=== PATIENT | male | born 1995 | race African-American/Black ===

== ENCOUNTER 2016-12-16 18:53 | Inpatient (IN) | payer MEDICAID ==
[~2016-12-16] VITALS: Ht 198.1 cm; Wt 71.0 kg
[~2016-12-16 18:53] MED LIST: ATEN25TA PO; HYDR-3533 PO; MACR100C2 PO; antibiotic
[2016-12-16 18:55] VITALS: BP 136/80; PULSE 100; RESP 20; TEMP 100.3; O2SAT 98
[2016-12-17] VITALS (7 sets, daily range): BP systolic 102–131; BP diastolic 62–86; PULSE 61–87; RESP 16–17; TEMP 98–99; O2SAT 98–100
[2016-12-17] MEDS ORDERED: SODIUM CHLOR 0.9% 1000 ML INJ 1,000 ML IV ONE (02:30)
[2016-12-17] MEDS ORDERED: IBUPROFEN 600 MG TAB PO ONE (02:30)
[2016-12-17] MEDS ORDERED: VANCOMYCIN INJ 1,000 MG in SODIUM CHLOR 0.9% 250 ML INJ 250 ML IV ONE (02:30)
[2016-12-17] MEDS ORDERED: PIPERACIL-TAZO 3.375 GM PREMIX 50 ML IV ONE (02:30)
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
[2016-12-17 03:10] LABS: BASOPHIL # 0.1 TH/MM3 (0-0.2); BASOPHIL % 0.4 % (0.0-2.0); EOSINOPHIL # 0.1 TH/MM3 (0-0.4); EOSINOPHIL % 0.6 % (0.0-4.0); HEMATOCRIT 38.4 % (39.0-51.0); HEMO FLAGS DIFF FINAL; LYMPH % 15.6 % (9.0-44.0); LYMPHOCYTE # 1.8 TH/MM3 (1.0-4.8); MEAN CELL VOLUME 76.6 FL (80.0-100.0); MEAN CORPUSCULAR HEMOGLOBIN 26.2 PG (27.0-34.0); MEAN CORPUSCULAR HGB CONC 34.2 % (32.0-36.0); MONO % 5.9 % (0.0-8.0); NEUT % 77.5 % (16.0-70.0); PLATELET COUNT 253 TH/MM3 (150-450); RED BLOOD COUNT 5.01 MIL/MM3 (4.50-5.90); RED CELL DISTRIBUTION WIDTH 15.2 % (11.6-17.2); WHITE BLOOD COUNT 11.6 TH/MM3 (4.0-11.0)
[2016-12-17 03:18] LABS: APTT (PATIENT) 32.8 SEC (24.3-30.1); PROTHROMBIN TIME - PATIENT 11.5 SEC (9.8-11.6)
[2016-12-17 03:24] LABS: ALT (GPT) 24 U/L (9-52); ANION GAP 6 MEQ/L (5-15); AST (GOT) 18 U/L (15-39); BICARBONATE 30.7 MEQ/L (21.0-32.0); BLOOD UREA NITROGEN 9 MG/DL (7-18); CHLORIDE 100 MEQ/L (98-107); GLOMERULAR FILTRATION RATE 230 ML/MIN (>89); MAGNESIUM 2.2 MG/DL (1.5-2.5); POTASSIUM 3.8 MEQ/L (3.5-5.1); SODIUM (NA) 137 MEQ/L (136-145)
[2016-12-17 03:27] LABS: ALKALINE PHOSPHATASE 87 U/L (45-117); TOTAL BILIRUBIN ADULT 1.1 MG/DL (0.2-1.0)
[2016-12-17 03:29] LABS: BACTERIA, URINE MANY /hpf; BLOOD, URINE TRACE (NEG); GLUCOSE,URINE NEG (NEG); KETONE, URINE NEG (NEG); MUCUS URINE FEW /lpf (OCC); NITRITE,URINE NEG (NEG); PH, URINE 6.5 (5.0-8.5); URINE COLOR YELLOW (YELLW/STRAW)
[2016-12-17 03:30] LABS: COMMENT (UR) CATH-CULTURE IND; CULTURE IF INDICATED CATH CULTURE IND
--- NOTE | 2016-12-17 03:52 | RADRPT ---
EXAM DATE/TIME: 12/17/2016 03:22 [facility] COMPARISON: No previous studies available for comparison. INDICATIONS : Left hip pain. MEDICAL HISTORY : Paraplegia. SURGICAL HISTORY : Fusion, thoracic. ENCOUNTER: Initial ACUITY: 1 day PAIN SCORE: 0/10 LOCATION: Left pelvis hip. FINDINGS: Antwan and screw fixation of the lower lumbar spine identified. A screw overlies the right sacroiliac roxanne int. Bilateral hip joint space widths are intact. Normal bone density. No acute fracture or dislocati on. CONCLUSION: No acute disease. Timoteo Goode MD on December 17, 2016 at 3:49 Board Certified Radiologist. This report was verified electronically.
--- NOTE | 2016-12-17 03:52 | RADRPT ---
EXAM DATE/TIME: 12/17/2016 03:18 [facility] COMPARISON: CHEST SINGLE AP, October 18, 2015, 8:04. INDICATIONS : Fever, cough. MEDICAL HISTORY : Hypertension. Paraplegia. SURGICAL HISTORY : Fusion, thoracic. ENCOUNTER: Initial ACUITY: 2 days PAIN SCORE: 0/10 LOCATION: Bilateral chest FINDINGS: A single view of the chest demonstrates the lungs to be symmetrically aerated without evidence of mas s, infiltrate or effusion. The cardiomediastinal contours are unremarkable. Osseous structures demo nstrate maricarmen and screw fixation over the mid to lower thoracic spine.. CONCLUSION: No acute disease. Timoteo Goode MD on December 17, 2016 at 3:50 Board Certified Radiologist. This report was verified electronically.
[2016-12-17] MEDS ORDERED: NALOXONE HCL 0.4 MG/ML AMP IV PRN (04:15)
[2016-12-17] MEDS ORDERED: SODIUM CHLORIDE 0.9% FLUSH 5 ML FLUSH FLUSH PRN (04:15)
[2016-12-17] MEDS ORDERED: Vancomycin Consult Pharmacy 1 EA OTHER SCH (04:30)
[2016-12-17] MEDS ORDERED: ONDANSETRON HCL 4 MG/2 ML VIAL IV ONE (04:30)
[2016-12-17] MEDS: SODIUM CHLOR 0.9% 1000 ML INJ 1,000 ML IV SCH ×2 (04:44→14:03)
[2016-12-17] MEDS: BACLOFEN 10 MG TAB PO ONE ×2 (06:45→08:16)
[2016-12-17] MEDS: SODIUM CHLORIDE 0.9% FLUSH 5 ML FLUSH FLUSH SCH ×2 (08:16→21:00)
[2016-12-17] MEDS: PIPERACIL-TAZO 4.5 GM PREMIX 100 ML IV SCH ×3 (08:17→22:08)
[2016-12-17] MEDS: ENOXAPARIN SODIUM 40 MG/0.4 ML SYRINGE SQ SCH ×2 (08:17→08:30)
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
[2016-12-17] MEDS ORDERED: ACETAMINOPHEN/HYDROcodone 325 MG/5 MG TAB PO PRN (08:45)
[2016-12-17] MEDS ORDERED: PILL SPLITTER OTHER PRN (08:45)
[2016-12-17] MEDS ORDERED: ACETAMINOPHEN/HYDROcodone 325 MG/7.5 MG TAB PO PRN (08:45)
[2016-12-17] MEDS: PANTOPRAZOLE SOD 40 MG DELAYED RELEASE TAB PO SCH (09:00)
[2016-12-17] MEDS: ATENOLOL 25 MG TAB PO SCH (09:00)
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
[2016-12-17] MEDS: VANCOMYCIN INJ 1,250 MG in SODIUM CHLOR 0.9% 250 ML INJ 250 ML IV SCH ×2 (13:56→21:57)
[2016-12-17] MEDS: SODIUM HYPOCHLORITE 0.25% 500 ML BTL TOPICAL SCH ×2 (15:24→22:07)
[2016-12-17] MEDS: KETOROLAC TROMETHAMINE 30 MG/ML (IVP) VIAL IV PUSH PRN (22:11)
[2016-12-18] VITALS: BP 127/73; PULSE 84; RESP 16; TEMP 99.5; O2SAT 99
[2016-12-18] MEDS: SODIUM CHLOR 0.9% 1000 ML INJ 1,000 ML IV SCH ×3 (01:19→20:28)
[2016-12-18] MEDS: PIPERACIL-TAZO 4.5 GM PREMIX 100 ML IV SCH ×4 (03:09→20:17)
[2016-12-18] MEDS: VANCOMYCIN INJ 1,250 MG in SODIUM CHLOR 0.9% 250 ML INJ 250 ML IV SCH ×2 (04:12→11:36)
[2016-12-18] MEDS: KETOROLAC TROMETHAMINE 30 MG/ML (IVP) VIAL IV PUSH PRN ×2 (04:44→23:55)
[2016-12-18] MEDS: MORPHINE SULFATE 4 MG/ML INJ IV PUSH PRN ×2 (06:34→20:14)
[2016-12-18 06:41] LABS: AUTOMATED NEUTROPHIL # 5.6 TH/MM3 (1.8-7.7); BASOPHIL % 0.4 % (0.0-2.0); EOSINOPHIL # 0.2 TH/MM3 (0-0.4); EOSINOPHIL % 2.3 % (0.0-4.0); HEMATOCRIT 33.6 % (39.0-51.0); HEMO FLAGS DIFF FINAL; LYMPH % 19.3 % (9.0-44.0); LYMPHOCYTE # 1.5 TH/MM3 (1.0-4.8); MEAN CELL VOLUME 76.7 FL (80.0-100.0); MEAN CORPUSCULAR HEMOGLOBIN 26.6 PG (27.0-34.0); MEAN CORPUSCULAR HGB CONC 34.7 % (32.0-36.0); MONO % 7.7 % (0.0-8.0); NEUT % 70.3 % (16.0-70.0); PLATELET COUNT 236 TH/MM3 (150-450); RED BLOOD COUNT 4.38 MIL/MM3 (4.50-5.90); RED CELL DISTRIBUTION WIDTH 15.6 % (11.6-17.2); WHITE BLOOD COUNT 7.9 TH/MM3 (4.0-11.0)
[2016-12-18 06:51] LABS: BICARBONATE 23.3 MEQ/L (21.0-32.0); POTASSIUM 3.8 MEQ/L (3.5-5.1)
[2016-12-18 08:00] VITALS: BP 117/48; PULSE 78; RESP 17; TEMP 97.4; O2SAT 99
[2016-12-18] MEDS: PANTOPRAZOLE SOD 40 MG DELAYED RELEASE TAB PO SCH (08:11)
[2016-12-18] MEDS: SODIUM HYPOCHLORITE 0.25% 500 ML BTL TOPICAL SCH ×2 (08:11→20:17)
[2016-12-18] MEDS: ENOXAPARIN SODIUM 40 MG/0.4 ML SYRINGE SQ SCH (08:11)
[2016-12-18] MEDS: ATENOLOL 25 MG TAB PO SCH (08:11)
[2016-12-18] MEDS: SODIUM CHLORIDE 0.9% FLUSH 5 ML FLUSH FLUSH SCH ×2 (08:13→20:28)
[2016-12-18] MEDS ORDERED: INFLUENZA VIRUS VACCINE (QUADRIVALENT) 0.5 ML SYR IM ONE (09:00)
--- NOTE | 2016-12-18 09:25 | PD.PLAS.PN ---
Subjective Remarks The patient is lying comfortably. Objective Vital Signs Date Time Temp Pulse Resp B/P Pulse Ox O2 Delivery O2 Flow Rate FiO2 12/18/16 08:00 97.4 78 17 117/48 99 12/18/16 06:39 18 12/18/16 06:23 18 12/18/16 00:00 99.5 84 16 127/73 99 12/17/16 20:00 99.0 85 16 123/86 100 12/17/16 20:00 99.0 85 16 123/86 100 12/17/16 18:30 77 17 112/63 98 Room Air 12/17/16 15:44 70 17 115/75 98 Room Air 12/17/16 12:00 69 17 107/63 99 Room Air I/O 12/17/16 12/17/16 12/17/16 12/18/16 12/18/16 12/18/16 07:00 15:00 23:00 07:00 15:00 23:00 Intake Total 2378 ml 1178 ml Output Total 600 ml Balance 1778 ml 1178 ml Intake Oral 480 ml IV Total 1898 ml 1178 ml Output Urine Total 600 ml # Bowel Movements 0 Laboratory Tests Test 12/18/16 05:55 White Blood Count 7.9 Red Blood Count 4.38 Hemoglobin 11.6 Hematocrit 33.6 Mean Corpuscular Volume 76.7 Mean Corpuscular Hemoglobin 26.6 Mean Corpuscular Hemoglobin 34.7 Concent Red Cell Distribution Width 15.6 Platelet Count 236 Mean Platelet Volume 8.1 Neutrophils (%) (Auto) 70.3 Lymphocytes (%) (Auto) 19.3 Monocytes (%) (Auto) 7.7 Eosinophils (%) (Auto) 2.3 Basophils (%) (Auto) 0.4 Neutrophils # (Auto) 5.6 Lymphocytes # (Auto) 1.5 Monocytes # (Auto) 0.6 Eosinophils # (Auto) 0.2 Basophils # (Auto) 0.0 CBC Comment DIFF FINAL Differential Comment Sodium Level 138 Potassium Level 3.8 Chloride Level 105 Carbon Dioxide Level 23.3 Anion Gap 10 Blood Urea Nitrogen 7 Creatinine 0.47 Estimat Glomerular Filtration 276 Rate Random Glucose 76 Calcium Level 8.4 Date/Time Procedure Status Source Growth 12/17/16 02:45 Influenza Types A,B Antigen (ASHWINI) - Final Complete Nasal Aspirate NEGATIVE FOR FLU A AND B ANTIGEN.... 12/17/16 02:40 Aerobic Blood Culture Received Blood Peripheral Pending 12/17/16 02:40 Anaerobic Blood Culture Received Blood Peripheral Pending 12/17/16 02:30 Urine Culture Received Urine Catheterized Urine Pending 12/17/16 02:30 Gram Stain - Final Resulted Wound Leg 12/17/16 02:30 Wound Culture Resulted Wound Leg Pending Result Diagram: 12/18/16 0555 12/18/16 0555 Exam Findings Wound of the left hip is dressed with dakin's solution wet to dry and mepilex. No significant change in appearance. No evidence of infection. Assessment and Plan Diagnosis: (1) Pressure ulcer of trochanteric region of left hip, unstageable Plan: We discussed the wound with the patient. The majority of the necrotic tissue is removed from the wound. We will continue with BID dakin's solution wet to dry dressings. Discussed with RN. The exam, history, and the medical decision-making described in the above note were completed with the assistance of the mid-level provider. I reviewed and agree with the findings presented. I attest that I had a [id number] encounter with the patient on the same day, and personally performed and documented my assessment and findings in the medical record. Lauren Mariscal M.D. Christine Hutchinson Dec 18, 2016 09:25
[2016-12-18] MEDS ORDERED: PHARMACY ORDERED LAB XX ONE (11:45)
[2016-12-18 12:00] VITALS: BP 135/83; PULSE 76; RESP 18; TEMP 96.5; O2SAT 100
[2016-12-18] MEDS: VANCOMYCIN 1,000 MG/NS 250 ML IV SCH ×4 (12:34→23:55)
--- NOTE | 2016-12-18 15:06 | HHI.PR ---
Subjective Remarks Follow up UTI, hip wound. The patient states that he is feeling a little better today. Denies chest pain, dyspnea, nausea, vomiting. No diarrhea or constipation. Objective Vitals Vital Signs Date Time Temp Pulse Resp B/P Pulse Ox O2 Delivery O2 Flow Rate FiO2 12/18/16 12:00 96.5 76 18 135/83 100 12/18/16 08:00 97.4 78 17 117/48 99 12/18/16 06:39 18 12/18/16 06:23 18 12/18/16 00:00 99.5 84 16 127/73 99 12/17/16 20:00 99.0 85 16 123/86 100 12/17/16 20:00 99.0 85 16 123/86 100 12/17/16 18:30 77 17 112/63 98 Room Air 12/17/16 15:44 70 17 115/75 98 Room Air I/O 12/17/16 12/17/16 12/17/16 12/18/16 12/18/16 12/18/16 07:00 15:00 23:00 07:00 15:00 23:00 Intake Total 2378 ml 1178 ml 1122 ml Output Total 600 ml Balance 1778 ml 1178 ml 1122 ml Intake Oral 480 ml 340 ml IV Total 1898 ml 1178 ml 782 ml Output Urine Total 600 ml # Voids 2 # Bowel Movements 0 1 Result Diagram: 12/18/16 0555 12/18/16 0555 Imaging Last Impressions Hip and Pelvis X-Ray 12/17/16222 Signed Impressions: Service Date/Time: Saturday, December 17, 2016 03:22 - CONCLUSION: No acute disease. Timoteo Goode MD Chest X-Ray 12/17/16222 Signed Impressions: Service Date/Time: Saturday, December 17, 2016 03:18 - CONCLUSION: No acute disease. Timoteo Goode MD Objective Remarks General: No acute distress. Heart: Regular rate and rhythm. No murmur. Lungs: Clear to auscultation bilaterally. No wheezes, rales, or rhonchi. Breathing is nonlabored. Abdomen: Soft, nontender, nondistended. Extremities: No lower extremity edema. Psych: Alert and oriented. Urinary Catheter: No Vascular Central Line Catheter: No A/P Problem List: (1) UTI (urinary tract infection) ICD Code: N39.0 Status: Acute (2) Infected decubitus ulcer ICD Code: L89.90 Status: Acute (3) Decubitus ulcer of left hip ICD Code: L89.229 Status: Chronic (4) Paraplegia following spinal cord injury ICD Code: G82.20 Status: Chronic Assessment and Plan 1. Infected decubitus ulcer, left hip: Appreciate wound care recommendations. Continue antibiotics. Wound culture growing Pseudomonas. Blood cultures are negative so far. Appreciate plastic surgery recommendations. 2. UTI: Urine culture is growing gram-negative rods. Continue antibiotics. 3. Paraplegia, neurogenic bladder: Continue self catheterizations. Physical therapy. 4. Hypertension: Continue atenolol. 5. GI prophylaxis: PPI. 6. DVT prophylaxis: Lovenox. Problem Qualifiers (1) Decubitus ulcer of left hip: Qualified Code: L89.229 - Decubitus ulcer of left hip, unspecified ulcer stage Vito Simpson MD Dec 18, 2016 15:06
[2016-12-18 16:00] VITALS: BP 131/73; PULSE 75; RESP 18; TEMP 97.4; O2SAT 100
[2016-12-18 20:09] VITALS: BP 120/72; PULSE 79; RESP 17; TEMP 98.3; O2SAT 97
[2016-12-19 00:10] VITALS: BP 119/71; PULSE 79; RESP 18; TEMP 98.2; O2SAT 96
[2016-12-19] MEDS: SODIUM CHLOR 0.9% 1000 ML INJ 1,000 ML IV SCH ×2 (02:57→15:34)
[2016-12-19] MEDS: PIPERACIL-TAZO 4.5 GM PREMIX 100 ML IV SCH ×4 (02:57→21:27)
[2016-12-19] MEDS: MORPHINE SULFATE 4 MG/ML INJ IV PUSH PRN (07:18)
[2016-12-19 08:00] VITALS: BP 125/72; PULSE 65; RESP 16; TEMP 97.1; O2SAT 100
[2016-12-19] MEDS: ENOXAPARIN SODIUM 40 MG/0.4 ML SYRINGE SQ SCH (09:00)
[2016-12-19] MEDS: SODIUM CHLORIDE 0.9% FLUSH 5 ML FLUSH FLUSH SCH ×2 (09:00→21:00)
[2016-12-19] MEDS: PANTOPRAZOLE SOD 40 MG DELAYED RELEASE TAB PO SCH (09:40)
[2016-12-19] MEDS: ATENOLOL 25 MG TAB PO SCH (09:40)
[2016-12-19] MEDS: SODIUM HYPOCHLORITE 0.25% 500 ML BTL TOPICAL SCH ×2 (09:40→21:28)
[2016-12-19] MEDS: VANCOMYCIN 1,000 MG/NS 250 ML IV SCH ×2 (11:46)
[2016-12-19 12:00] VITALS: BP 116/76; PULSE 64; RESP 17; TEMP 97.2; O2SAT 95
--- NOTE | 2016-12-19 14:26 | HHI.PR ---
Subjective Remarks Follow up UTI, hip wound. The patient feels that he is getting a little better. Denies chest pain or dyspnea. No nausea or vomiting. Objective Vitals Vital Signs Date Time Temp Pulse Resp B/P Pulse Ox O2 Delivery O2 Flow Rate FiO2 12/19/16 12:00 97.2 64 17 116/76 95 12/19/16 08:00 97.1 65 16 125/72 100 12/19/16 00:10 98.2 79 18 119/71 96 12/18/16 20:09 98.3 79 17 120/72 97 12/18/16 16:00 97.4 75 18 131/73 100 I/O 12/18/16 12/18/16 12/18/16 12/19/16 12/19/16 12/19/16 07:00 15:00 23:00 07:00 15:00 23:00 Intake Total 1178 ml 1122 ml 380 ml 480 ml 438 ml Balance 1178 ml 1122 ml 380 ml 480 ml 438 ml Intake Oral 340 ml 380 ml 480 ml IV Total 1178 ml 782 ml 438 ml # Voids 2 1 1 # Bowel Movements 1 Result Diagram: 12/18/16 0555 12/18/1655 Imaging Last Impressions Hip and Pelvis X-Ray 12/17/16222 Signed Impressions: Service Date/Time: Saturday, December 17, 2016 03:22 - CONCLUSION: No acute disease. Timoteo Goode MD Chest X-Ray 12/17/16222 Signed Impressions: Service Date/Time: Saturday, December 17, 2016 03:18 - CONCLUSION: No acute disease. Timoteo Goode MD Objective Remarks General: No acute distress. Heart: Regular rate and rhythm. No murmur. Lungs: Clear to auscultation bilaterally. No wheezes, rales, or rhonchi. Breathing is nonlabored. Abdomen: Soft, nontender, nondistended. Extremities: No lower extremity edema. Atrophy of both legs. Psych: Alert and oriented. Procedures None Urinary Catheter: No Vascular Central Line Catheter: No A/P Problem List: (1) UTI (urinary tract infection) ICD Code: N39.0 Status: Acute (2) Infected decubitus ulcer ICD Code: L89.90 Status: Acute (3) Decubitus ulcer of left hip ICD Code: L89.229 Status: Chronic (4) Paraplegia following spinal cord injury ICD Code: G82.20 Status: Chronic Assessment and Plan 1. Decubitus ulcer, left hip: Appreciate wound care recommendations. Continue antibiotics. Wound culture growing Pseudomonas, likely contaminant. Appreciate plastic surgery recommendations. Discussed with Dr. Mariscal. Cleared for discharge by plastic surgery. 2. UTI: Urine culture is growing Klebsiella and E. coli (ESBL positive). Consult ID. Continue antibiotics. Blood cultures are negative so far. 3. Paraplegia, neurogenic bladder: Continue self catheterizations. Physical therapy. 4. Hypertension: Continue atenolol. 5. GI prophylaxis: PPI. 6. DVT prophylaxis: Lovenox. Problem Qualifiers (1) Decubitus ulcer of left hip: Qualified Code: L89.229 - Decubitus ulcer of left hip, unspecified ulcer stage Vito Simpson MD Dec 19, 2016 14:26
[2016-12-19] MEDS: BACLOFEN 10 MG TAB PO SCH ×2 (15:34→21:31)
[2016-12-19 16:00] VITALS: BP 115/65; PULSE 79; RESP 17; TEMP 97.1; O2SAT 100
[2016-12-19 20:00] VITALS: BP 131/77; PULSE 67; RESP 20; TEMP 98.2; O2SAT 100
[2016-12-20] VITALS: BP 107/54; PULSE 78; RESP 20; TEMP 98.9; O2SAT 100
[2016-12-20] MEDS: VANCOMYCIN 1,000 MG/NS 250 ML IV SCH ×4 (01:18→12:24)
[2016-12-20] MEDS: MORPHINE SULFATE 4 MG/ML INJ IV PUSH PRN ×2 (01:19→21:25)
[2016-12-20] MEDS: SODIUM CHLOR 0.9% 1000 ML INJ 1,000 ML IV SCH ×3 (02:30→21:25)
[2016-12-20] MEDS: PIPERACIL-TAZO 4.5 GM PREMIX 100 ML IV SCH ×4 (04:16→21:25)
[2016-12-20] MEDS: BACLOFEN 10 MG TAB PO SCH ×3 (05:58→21:24)
[2016-12-20 08:00] VITALS: BP 124/61; PULSE 58; RESP 20; TEMP 97.4; O2SAT 99
[2016-12-20] MEDS: ATENOLOL 25 MG TAB PO SCH (08:06)
[2016-12-20] MEDS: PANTOPRAZOLE SOD 40 MG DELAYED RELEASE TAB PO SCH (08:06)
[2016-12-20] MEDS: ENOXAPARIN SODIUM 40 MG/0.4 ML SYRINGE SQ SCH (08:06)
[2016-12-20] MEDS: SODIUM CHLORIDE 0.9% FLUSH 5 ML FLUSH FLUSH SCH ×2 (08:06→21:25)
[2016-12-20] MEDS: SODIUM HYPOCHLORITE 0.25% 500 ML BTL TOPICAL SCH ×2 (08:08→21:26)
[2016-12-20] MEDS ORDERED: PHARMACY ORDERED LAB XX ONE (11:45)
[2016-12-20 12:00] VITALS: BP 138/98; PULSE 61; RESP 16; TEMP 96.7; O2SAT 100
[2016-12-20] MEDS: KETOROLAC TROMETHAMINE 30 MG/ML (IVP) VIAL IV PUSH PRN (12:18)
--- NOTE | 2016-12-20 14:24 | PD.ID.CON ---
History of Present Illness Service ID Consult Requested By UTI, ESBL + E.coli Primary Care Physician Jaelyn Young M.D. Diagnoses: History of Present Illness This is a 21 year old paraplegic male sp SCI 2 yrs ago his mom is taking care of him He aparently developped an ulcer on L hip with foul smelling drainage sp bedside debridement Also has a h/o neurogenic bladder and reports self caths 4-6 x/ days presented 4 days ago co drainining L hip ulcer and cloudy urine as well as fever, chills m,ailaise Fever on presentation 100.3 mild leukocytosis Started on abx, now afebrile feels better followed by plastics wound clx c growing Pseudomonas, urine with Kleb pneumo and E.coli E.coli is ESBL+ Review of Systems Gastrointestinal: COMPLAINS OF: Nausea Genitourinary: COMPLAINS OF: Urinary incontinence Neurologic: COMPLAINS OF: Abnormal gait, Localized weakness, Paresthesias, Poor Balance Except as stated in HPI: all other systems reviewed are Neg Past Family Social History Allergies: Coded Allergies: *MDRO Multi-Drug Resistant Organism (Verified Adverse Reaction, Unknown, ) ESBL E.Coli (urine-11/06/16) Past Medical History Paraplegia Neurogenic bladder GERD Anxiety/depression Hypertension Past Surgical History Back surgery 3 Active Ordered Medications Medications where reviewed in EMR Antibiotics Include: vancomycin zosyn Family History Denies Social History Denies alcohol, tobacco, or illicit drug use. Physical Exam Vital Signs Vital Signs Date Time Temp Pulse Resp B/P Pulse Ox O2 Delivery O2 Flow Rate FiO2 12/20/16 12:00 96.7 61 16 138/98 100 12/20/16 08:00 97.4 58 20 124/61 99 12/20/16 02:08 18 12/20/16 00:00 98.9 78 20 107/54 100 12/19/16 20:00 98.2 67 20 131/77 100 12/19/16 16:00 97.1 79 17 115/65 100 Physical Exam CONSTITUTIONAL/GENERAL: This is an adequately nourished patient, in no apparent distress. TUBES/LINES/DRAINS: SKIN: No jaundice, rashes, or lesions. Ecchymoses on upper extremities. No wounds seen anteriorly. Skin temperature appropriate. Not diaphoretic. HEAD: Atraumatic. Normocephalic. EYES: Pupils equal and round and reactive. Extraocular motions intact. No scleral icterus. No injection or drainage. Fundi not examined. ENT: Hearing grossly normal. Nose without bleeding or purulent drainage. Throat without visible erythema, exudates, masses, or lesions. Good dentition NECK: Trachea midline. Supple, nontender. CARDIOVASCULAR: Regular rate and rhythm without murmurs, gallops, or rubs. No JVD. Peripheral pulses symmetric. RESPIRATORY/CHEST: Symmetric, unlabored respirations. Clear to auscultation. Breath sounds equal bilaterally. No wheezes, rales, or rhonchi. GASTROINTESTINAL: Abdomen soft, non-tender, nondistended. No hepato-splenomegaly , or palpable masses. No guarding. Bowel sounds present. GENITOURINARY: Without palpable bladder distension. Incontinent of large maount of urine MUSCULOSKELETAL: Extremities without clubbing, cyanosis, or edema. Severe muscle wasting BLE Small stage III mostly clean ulcer over L trochantor major, 80 % granulated, 20 % fibrinous d/c no odor LYMPHATICS: No palpable cervical or supraclavicular adenopathy. NEUROLOGICAL: Awake and alert. Paraplegia . Loss of sesation below T 12 Follows commands with BLE. Cognitively sharp. Moves all extremities. PSYCHIATRIC: No obvious anxiety/depression. no apparent hallucinations or other psychotic thought process. Laboratory Laboratory Tests Test 12/20/16 12/20/16 04:03 12:23 Creatinine 0.51 Estimat Glomerular Filtration 251 Rate Vancomycin Level Trough 6.7 Date/Time Procedure Status Source Growth 12/17/16 02:45 Influenza Types A,B Antigen (ASHWINI) - Final Complete Nasal Aspirate NEGATIVE FOR FLU A AND B ANTIGEN.... 12/17/16 02:40 Aerobic Blood Culture - Preliminary Resulted Blood Peripheral NO GROWTH IN 3 DAYS 12/17/16 02:40 Anaerobic Blood Culture - Preliminary Resulted Blood Peripheral NO GROWTH IN 3 DAYS 12/17/16 02:30 Urine Culture - Final Complete Urine Catheterized Urine Klebsiella Pneumoniae Escherichia Coli Esbl Positive 12/17/16 02:30 Gram Stain - Final Complete Wound Leg 12/17/16 02:30 Wound Culture - Final Complete Pseudomonas Aeruginosa Result Diagram: 12/18/16 0555 12/20/163 Imaging Last Impressions Hip and Pelvis X-Ray 12/17/16222 Signed Impressions: Service Date/Time: Saturday, December 17, 2016 03:22 - CONCLUSION: No acute disease. Timoteo Goode MD Chest X-Ray 12/17/16 0223 Signed Impressions: Service Date/Time: Saturday, December 17, 2016 03:18 - CONCLUSION: No acute disease. Timoteo Goode MD Assessment and Plan Assessment and Plan sp spinal cord injury Paraplegia Infected L hip ulcer, imprving with debridement and abx Neurogenic bladder COmplicated UTI, Kleb pneumo and ESBL+ E.coli - dc vancomycin - cont zosyn - start Levaquin - anticipate transition to po levaquin to complete tx as o/p when ready for dc Waleska Sevilla MD Dec 20, 2016 14:23
--- NOTE | 2016-12-20 14:58 | HHI.PR ---
Subjective Remarks Follow-up UTI, hip wound. Patient reporting pain in his legs which is helped slightly by baclofen. Toradol not helping. No other complaints. Objective Vitals Vital Signs Date Time Temp Pulse Resp B/P Pulse Ox O2 Delivery O2 Flow Rate FiO2 12/20/16 12:00 96.7 61 16 138/98 100 12/20/16 08:00 97.4 58 20 124/61 99 12/20/16 02:08 18 12/20/16 00:00 98.9 78 20 107/54 100 12/19/16 20:00 98.2 67 20 131/77 100 12/19/16 16:00 97.1 79 17 115/65 100 I/O 12/19/16 12/19/16 12/19/16 12/20/16 12/20/16 12/20/16 07:00 15:00 23:00 07:00 15:00 23:00 Intake Total 480 ml 2118 ml 1600 ml 1181 ml 879 ml Output Total 1600 ml 300 ml Balance 480 ml 518 ml 1600 ml 1181 ml 579 ml Intake Oral 480 ml 1680 ml 720 ml 240 ml IV Total 438 ml 880 ml 941 ml 879 ml Output Urine Total 1600 ml 300 ml # Voids 1 4 2 1 # Bowel Movements 0 1 Result Diagram: 12/18/16 0555 12/20/16402 Imaging Last Impressions Hip and Pelvis X-Ray 12/17/16222 Signed Impressions: Service Date/Time: Saturday, December 17, 2016 03:22 - CONCLUSION: No acute disease. Timoteo Goode MD Chest X-Ray 12/17/16222 Signed Impressions: Service Date/Time: Saturday, December 17, 2016 03:18 - CONCLUSION: No acute disease. Timoteo Goode MD Objective Remarks General: No acute distress. Heart: Regular rate and rhythm. No murmur. Lungs: Clear to auscultation bilaterally. No wheezes, rales, or rhonchi. Breathing is nonlabored. Abdomen: Soft, nontender, nondistended. Extremities: No lower extremity edema. Atrophy of both legs. Psych: Alert and oriented. Procedures None Urinary Catheter: No Vascular Central Line Catheter: No A/P Problem List: (1) UTI (urinary tract infection) ICD Code: N39.0 Status: Acute (2) Infected decubitus ulcer ICD Code: L89.90 Status: Acute (3) Decubitus ulcer of left hip ICD Code: L89.229 Status: Chronic (4) Paraplegia following spinal cord injury ICD Code: G82.20 Status: Chronic Assessment and Plan 1. Decubitus ulcer, left hip: Appreciate wound care recommendations. Continue antibiotics. Wound culture growing Pseudomonas, likely contaminant. Appreciate plastic surgery recommendations. Cleared for discharge by plastic surgery. 2. UTI: Urine culture is growing Klebsiella and E. coli (ESBL positive). Infectious disease consult. Continue antibiotics. Blood cultures are negative so far. 3. Paraplegia, neurogenic bladder: Continue self catheterizations. Physical therapy. 4. Hypertension: Continue atenolol. 5. GI prophylaxis: PPI. 6. DVT prophylaxis: Lovenox. Problem Qualifiers (1) Decubitus ulcer of left hip: Qualified Code: L89.229 - Decubitus ulcer of left hip, unspecified ulcer stage Vito Simpson MD Dec 20, 2016 14:58
[2016-12-20] MEDS: LEVOFLOXACIN 750 MG PREMIX INJ 150 ML IV SCH (15:17)
[2016-12-20] MEDS ORDERED: ACETAMINOPHEN/HYDROcodone 325 MG/7.5 MG TAB PO PRN (15:30)
[2016-12-20] MEDS ORDERED: ACETAMINOPHEN/HYDROcodone 325 MG/5 MG TAB PO PRN (15:30)
[2016-12-20 17:00] VITALS: BP 119/57; PULSE 68; RESP 20; TEMP 96.4; O2SAT 100
[2016-12-20] MEDS ORDERED: ONDANSETRON HCL 4 MG/2 ML VIAL IV PUSH PRN (18:30)
[2016-12-20 20:00] VITALS: BP 127/83; PULSE 62; RESP 16; TEMP 97.7; O2SAT 100
[2016-12-21] VITALS: BP 129/83; PULSE 61; RESP 16; TEMP 98; O2SAT 100
[2016-12-21] MEDS ORDERED: VANCOMYCIN INJ 1,250 MG in SODIUM CHLOR 0.9% 250 ML INJ 250 ML IV SCH ×2
[2016-12-21] MEDS: PIPERACIL-TAZO 4.5 GM PREMIX 100 ML IV SCH ×4 (02:48→21:13)
[2016-12-21] MEDS: BACLOFEN 10 MG TAB PO SCH ×2 (06:00→12:13)
[2016-12-21 08:00] VITALS: BP 115/65; PULSE 81; RESP 17; TEMP 96; O2SAT 100
[2016-12-21] MEDS: ATENOLOL 25 MG TAB PO SCH (08:07)
[2016-12-21] MEDS: PANTOPRAZOLE SOD 40 MG DELAYED RELEASE TAB PO SCH (08:08)
[2016-12-21] MEDS: SODIUM CHLOR 0.9% 1000 ML INJ 1,000 ML IV SCH ×2 (08:09→21:13)
[2016-12-21] MEDS: SODIUM HYPOCHLORITE 0.25% 500 ML BTL TOPICAL SCH (08:14)
[2016-12-21] MEDS: SODIUM CHLORIDE 0.9% FLUSH 5 ML FLUSH FLUSH SCH ×2 (08:15→21:13)
[2016-12-21] MEDS: ENOXAPARIN SODIUM 40 MG/0.4 ML SYRINGE SQ SCH (08:15)
--- NOTE | 2016-12-21 11:46 | HHI.PR ---
Subjective Remarks Follow-up UTI. The patient reports headache. Otherwise no complaints at this time. Objective Vitals Vital Signs Date Time Temp Pulse Resp B/P Pulse Ox O2 Delivery O2 Flow Rate FiO2 12/21/16 08:00 96.0 81 17 115/65 100 12/21/16 00:00 98.0 61 16 129/83 100 12/20/16 20:00 97.7 62 16 127/83 100 12/20/16 17:00 96.4 68 20 119/57 100 12/20/16 12:00 96.7 61 16 138/98 100 I/O 12/20/16 12/20/16 12/20/16 12/21/16 12/21/16 12/21/16 07:00 15:00 23:00 07:00 15:00 23:00 Intake Total 1181 ml 1359 ml 1252 ml 1003 ml Output Total 300 ml 500 ml 300 ml Balance 1181 ml 1059 ml 752 ml 703 ml Intake Oral 240 ml 480 ml 480 ml 240 ml IV Total 941 ml 879 ml 772 ml 763 ml Output Urine Total 300 ml 500 ml 300 ml # Voids 2 1 5 # Bowel Movements 1 0 0 Result Diagram: 12/18/16 0555 12/20/16402 Imaging Last Impressions Hip and Pelvis X-Ray 12/17/16222 Signed Impressions: Service Date/Time: Saturday, December 17, 2016 03:22 - CONCLUSION: No acute disease. Timoteo Goode MD Chest X-Ray 12/17/16222 Signed Impressions: Service Date/Time: Saturday, December 17, 2016 03:18 - CONCLUSION: No acute disease. Timoteo Goode MD Objective Remarks General: No acute distress. Heart: Regular rate and rhythm. No murmur. Lungs: Clear to auscultation bilaterally. No wheezes, rales, or rhonchi. Breathing is nonlabored. Abdomen: Soft, nontender, nondistended. Extremities: No lower extremity edema. Atrophy of both legs. Psych: Alert and oriented. 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 Decubitus ulcer, left hip: Appreciate wound care recommendations. Continue antibiotics. Wound culture growing Pseudomonas, likely contaminant. Appreciate plastic surgery recommendations. Cleared for discharge by plastic surgery. 2. UTI: Urine culture is growing Klebsiella and E. coli (ESBL positive). Appreciate infectious disease recommendations. Continue Levaquin, Zosyn. Plan for discharge on oral Levaquin. 3. Paraplegia, neurogenic bladder: Continue self catheterizations. Physical therapy. 4. Hypertension: Continue atenolol. 5. GI prophylaxis: PPI. 6. DVT prophylaxis: Lovenox. Discharge Planning When cleared by infectious disease. Problem Qualifiers (1) Decubitus ulcer of left hip: Qualified Code: L89.229 - Decubitus ulcer of left hip, unspecified ulcer stage Vito Simpson MD Dec 21, 2016 11:46
[2016-12-21 12:00] VITALS: BP 137/86; PULSE 59; RESP 18; TEMP 95.6; O2SAT 100
[2016-12-21] MEDS: LEVOFLOXACIN 750 MG PREMIX INJ 150 ML IV SCH (14:05)
[2016-12-21 16:00] VITALS: BP 118/64; PULSE 83; RESP 17; TEMP 97.4; O2SAT 99
[2016-12-21 20:00] VITALS: BP 128/77; PULSE 66; RESP 20; TEMP 97.8; O2SAT 100
[2016-12-22 00:20] VITALS: BP 139/91; PULSE 64; RESP 20; TEMP 97; O2SAT 94
[2016-12-22] MEDS: BACLOFEN 10 MG TAB PO SCH ×5 (01:02→23:27)
[2016-12-22] MEDS: PIPERACIL-TAZO 4.5 GM PREMIX 100 ML IV SCH ×4 (03:39→23:27)
[2016-12-22] MEDS: SODIUM HYPOCHLORITE 0.25% 500 ML BTL TOPICAL SCH ×2 (06:04→09:31)
[2016-12-22 08:00] VITALS: BP 118/71; PULSE 77; RESP 17; TEMP 97.6; O2SAT 98
[2016-12-22] MEDS: ENOXAPARIN SODIUM 40 MG/0.4 ML SYRINGE SQ SCH (09:00)
[2016-12-22] MEDS: ATENOLOL 25 MG TAB PO SCH (09:00)
[2016-12-22] MEDS: SODIUM CHLORIDE 0.9% FLUSH 5 ML FLUSH FLUSH SCH ×2 (09:00→23:28)
[2016-12-22] MEDS: PANTOPRAZOLE SOD 40 MG DELAYED RELEASE TAB PO SCH (09:30)
[2016-12-22] MEDS: SODIUM CHLOR 0.9% 1000 ML INJ 1,000 ML IV SCH (09:31)
[2016-12-22] MEDS ORDERED: PHARMACY ORDERED LAB XX ONE (11:45)
[2016-12-22 12:00] VITALS: BP 119/72; PULSE 71; RESP 17; TEMP 96.7; O2SAT 99
[2016-12-22] MEDS: LEVOFLOXACIN 750 MG PREMIX INJ 150 ML IV SCH (15:08)
--- NOTE | 2016-12-22 15:18 | HHI.PR ---
Subjective Remarks Follow up UTI. No complaints at this time. Denies dyspnea, nausea, vomiting. Objective Vitals Vital Signs Date Time Temp Pulse Resp B/P Pulse Ox O2 Delivery O2 Flow Rate FiO2 12/22/16 12:00 96.7 71 17 119/72 99 12/22/16 08:00 97.6 77 17 118/71 98 12/22/16 00:20 97.0 64 20 139/91 94 12/21/16 20:00 97.8 66 20 128/77 100 12/21/16 16:00 97.4 83 17 118/64 99 I/O 12/21/16 12/21/16 12/21/16 12/22/16 12/22/16 12/22/16 07:00 15:00 23:00 07:00 15:00 23:00 Intake Total 1003 ml 1102 ml 240 ml 1422 ml 100 ml Output Total 300 ml 900 ml 1305 ml Balance 703 ml 202 ml -1065 ml 1422 ml 100 ml Intake Oral 240 ml 240 ml 240 ml IV Total 763 ml 862 ml 1422 ml 100 ml Output Urine Total 300 ml 900 ml 1305 ml # Voids 1 # Bowel Movements 0 1 0 Result Diagram: 12/18/16 0555 12/20/16402 Imaging Last Impressions Hip and Pelvis X-Ray 12/17/16222 Signed Impressions: Service Date/Time: Saturday, December 17, 2016 03:22 - CONCLUSION: No acute disease. Timoteo Goode MD Chest X-Ray 12/17/16222 Signed Impressions: Service Date/Time: Saturday, December 17, 2016 03:18 - CONCLUSION: No acute disease. Timoteo Goode MD Objective Remarks General: No acute distress. Heart: Regular rate and rhythm. No murmur. Lungs: Clear to auscultation bilaterally. No wheezes, rales, or rhonchi. Breathing is nonlabored. Abdomen: Soft, nontender, nondistended. Extremities: No lower extremity edema. Atrophy of both legs. Psych: Alert and oriented. 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 Decubitus ulcer, left hip: Appreciate wound care recommendations. Continue antibiotics. Wound culture growing Pseudomonas, likely contaminant. Appreciate plastic surgery recommendations. Cleared for discharge by plastic surgery. 2. UTI: Urine culture is growing Klebsiella and E. coli (ESBL positive). Appreciate infectious disease recommendations. Continue IV Levaquin, Zosyn. Plan for discharge on oral Levaquin. 3. Paraplegia, neurogenic bladder: Continue self catheterizations. Physical therapy. 4. Hypertension: Continue atenolol. 5. GI prophylaxis: PPI. 6. DVT prophylaxis: Lovenox. 7. Patient has good oral intake. Stop IV fluids. Discharge Planning When cleared by infectious disease. Problem Qualifiers (1) Decubitus ulcer of left hip: Qualified Code: L89.229 - Decubitus ulcer of left hip, unspecified ulcer stage Vito Simpson MD Dec 22, 2016 15:18
[2016-12-22 16:00] VITALS: BP 121/70; PULSE 67; RESP 17; TEMP 97.3; O2SAT 100
[2016-12-22 20:00] VITALS: BP 130/73; PULSE 65; RESP 19; TEMP 97.1; O2SAT 100
[2016-12-22] MEDS ORDERED: ACETAMINOPHEN 325 MG TAB PO PRN (23:45)
[2016-12-22] MEDS ORDERED: KETOROLAC TROMETHAMINE 30 MG/ML (IVP) VIAL IV PUSH PRN (23:45)
[2016-12-23] VITALS: BP 102/54; PULSE 84; RESP 20; TEMP 97.5; O2SAT 100
[2016-12-23] MEDS: PIPERACIL-TAZO 4.5 GM PREMIX 100 ML IV SCH ×2 (03:55→09:22)
[2016-12-23] MEDS: BACLOFEN 10 MG TAB PO SCH (06:00)
[2016-12-23 07:34] VITALS: BP 111/64; PULSE 60; RESP 21; TEMP 96.6; O2SAT 100
[2016-12-23] MEDS: SODIUM HYPOCHLORITE 0.25% 500 ML BTL TOPICAL SCH (09:00)
[2016-12-23] MEDS: ENOXAPARIN SODIUM 40 MG/0.4 ML SYRINGE SQ SCH (09:00)
[2016-12-23] MEDS: PANTOPRAZOLE SOD 40 MG DELAYED RELEASE TAB PO SCH (09:00)
[2016-12-23] MEDS: ATENOLOL 25 MG TAB PO SCH (09:00)
[2016-12-23] MEDS: SODIUM CHLORIDE 0.9% FLUSH 5 ML FLUSH FLUSH SCH (09:22)
[2016-12-23] MEDS ORDERED: LEVA750T PO (12:44)
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
[2016-12-23] MEDS ORDERED: HYDR-3516 PO (14:01)
== END 2016-12-23 14:41 | disposition home or self-care (01) | DRG 690 ==
LOC: NEPC 18:53 → NEDA 12-17 04:21 → NEDH 12-17 16:22 → N07A 12-17 20:34
PROVIDERS: ADMIT Hospitalist; ATTEND Hospitalist
DX: N39.0 Urinary tract infection, site not specified (principal); L89.229 Pressure ulcer of left hip, unspecified stage; G82.20 Paraplegia, unspecified; N31.9 Neuromuscular dysfunction of bladder, unspecified; B96.20 Unspecified Escherichia coli [E. coli] as the cause of diseases classified elsewhere; I10 Essential (primary) hypertension; K21.9 Gastro-esophageal reflux disease without esophagitis; V89.2XXA Person injured in unspecified motor-vehicle accident, traffic, initial encounter; Y92.410 Unspecified street and highway as the place of occurrence of the external cause
CPT/HCPCS: 71010; 73502; 80048; 80053; 80202; 81001; 82565; 83605; 83735; 85025; 85610; 85730; 86140; 86403; 87040; 87070; 87077; 87086; 87186; 87205; 87804; 90686; 96374; 96375; J1650; J1885; J1956; J2270; J2405; J2543; J3370; J7030; J7050; P9612; Q2038

== ENCOUNTER 2017-02-16 02:05 | Emergency (ER) | payer MEDICAID ==
[~2017-02-16] VITALS: Ht 198.1 cm; Wt 65.0 kg
[~2017-02-16 02:05] MED LIST changes: +HYDR-3516 PO; +LEVA750T PO; -MACR100C2 PO; -antibiotic
[2017-02-16 02:07] VITALS: BP 147/86; PULSE 75; RESP 16; TEMP 98.5; O2SAT 100
[2017-02-16] MEDS ORDERED: SODIUM CHLOR 0.9% 1000 ML INJ 1,000 ML IV ONE (02:45)
[2017-02-16] MEDS ORDERED: SODIUM HYPOCHLORITE 0.125% 500 ML BTL TOPICAL ONE (02:45)
[2017-02-16] MEDS ORDERED: MORPHINE SULFATE 4 MG/ML INJ IV PUSH ONE ×2 (02:45→04:00)
--- NOTE | 2017-02-16 03:32 | PD ---
HPI Chief Complaint: Skin Problem Time Seen by Provider: 02:26 Travel History International Travel<30 days: No Contact w/Intl Traveler<30days: No Traveled to known affect area: No History of Present Illness HPI This is a 21-year-old male who has a history of paraplegia who presents to the emergency department reporting that he's had increasing abdominal discomfort in the lower abdomen, constant, moderate severity, feeling like urinary tract infections he's had in the past. He denies any fevers or chills and denies any vomiting. He's had increasing muscle spasms. He also is concerned about a decubitus ulcer that he has on his left hip. He thinks it's gotten increasingly black along the edges and he thinks it's getting infected. His mother was packing up but ran out of materials and he is not currently following up with a wound care doctor. PFSH Past Medical History Arthritis: No Autoimmune Disease: No Blood Disorders: No Anxiety: Yes Depression: Yes Cancer: No Cardiovascular Problems: No Cerebrovascular Accident: No Developmental Delay: No Diminished Hearing: No Endocrine: No Gastrointestinal Disorders: Yes (CONSTIPATION AT TIMES) GERD: Yes Genitourinary: Yes (PT SELF CATHS) Headaches: Yes (spinal headache) Hiatal Hernia: No Hypertension: Yes Immune Disorder: No Implanted Vascular Access Dvce: Yes Kidney Stones: No Musculoskeletal: Yes (paraplegic) Neurologic: Yes (paraplegic ) Psychiatric: Yes Reproductive: No Respiratory: No Immunizations Current: Yes Migraines: No Renal Failure: No Sickle Cell Disease: No Ulcer: No Past Surgical History Abdominal Surgery: No AICD: No Arteriovenous Shunt: No Body Medical Devices: rods in back Cardiac Surgery: No Ear Surgery: No Endocrine Surgery: No Eye Surgery: No Genitourinary Surgery: No Gynecologic Surgery: No Insulin Pump: No Joint Replacement: No Neurologic Surgery: Yes (SPINAL SURGERY, PARAPLEGIC) Oral Surgery: No Pacemaker: No Thoracic Surgery: Yes (3 fusions, last 01/2015) Social History Alcohol Use: No Tobacco Use: No Substance Use: No Allergies-Medications (Allergen,Severity, Reaction): Coded Allergies: *MDRO Multi-Drug Resistant Organism (Verified Adverse Reaction, Unknown, ) ESBL E.Coli (urine-11/06/16) Reported Meds & Prescriptions Reported Meds & Active Scripts Active Ciprofloxacin (Ciprofloxacin HCl) 500 Mg Tab 500 Mg PO BID Flexeril (Cyclobenzaprine HCl) 5 Mg Tab 5 Mg PO TID Lortab (Hydrocodone-Acetaminophen) 5-325 Mg Tab 1-2 Tab PO Q6H PRN Reported Atenolol 25 Mg Tab 12.5 Mg PO DAILY Review of Systems Except as stated in HPI: all other systems reviewed are Neg Physical Exam Narrative GENERAL:Well appearing, no acute distress SKIN: 2 x 2 cm decubitus ulcer on the left hip 4 cm deep with a clean granulated base, no purulent drainage or surrounding erythema or fluctuance HEAD: Atraumatic. Normocephalic. EYES: Pupils equal and round. No injection or drainage. ENT: Moist mucous membranes NECK: Trachea midline. CARDIOVASCULAR: Regular rate and rhythm. No murmur appreciated. RESPIRATORY: Clear to auscultation. Breath sounds equal bilaterally. GASTROINTESTINAL: Abdomen soft, non-tender, nondistended. MUSCULOSKELETAL: No obvious deformities. NEUROLOGICAL: Awake and alert. No obvious cranial nerve deficits. Paraplegia. PSYCHIATRIC: Appropriate mood and affect; insight and judgment normal. Data Data Last Documented VS Vital Signs Date Time Temp Pulse Resp B/P Pulse Ox O2 Delivery O2 Flow Rate FiO2 02/16/17 02:49 16 02/16/17 02:07 98.5 75 147/86 100 Room Air Orders Complete Blood Count With Diff (02/16/17 02:38) Comprehensive Metabolic Panel (02/16/17 02:38) Cath For Specimen (02/16/17 02:38) Morphine Inj (Morphine Inj) (02/16/17 02:45) Sodium Chlor 0.9% 1000 Ml Inj (Ns 1000 M (02/16/17 02:45) Sodium Hypochlorite 0.125% Nadya (Dakin's (02/16/17 02:45) Urinalysis - C+S If Indicated (02/16/17 03:13) Urine Culture (02/16/17 03:15) Ceftriaxone Inj (Rocephin Inj) (02/16/17 04:00) Morphine Inj (Morphine Inj) (02/16/17 04:00) Orphenadrine Inj (Norflex Inj) (02/16/17 04:15) Labs Laboratory Tests Test 02/16/17 02/16/17 03:05 03:15 White Blood Count 8.8 TH/MM3 Red Blood Count 5.41 MIL/MM3 Hemoglobin 13.6 GM/DL Hematocrit 40.8 % Mean Corpuscular Volume 75.5 FL Mean Corpuscular Hemoglobin 25.2 PG Mean Corpuscular Hemoglobin 33.4 % Concent Red Cell Distribution Width 15.7 % Platelet Count 267 TH/MM3 Mean Platelet Volume 8.6 FL Neutrophils (%) (Auto) 67.2 % Lymphocytes (%) (Auto) 24.9 % Monocytes (%) (Auto) 5.3 % Eosinophils (%) (Auto) 2.2 % Basophils (%) (Auto) 0.4 % Neutrophils # (Auto) 5.9 TH/MM3 Lymphocytes # (Auto) 2.2 TH/MM3 Monocytes # (Auto) 0.5 TH/MM3 Eosinophils # (Auto) 0.2 TH/MM3 Basophils # (Auto) 0.0 TH/MM3 CBC Comment DIFF FINAL Differential Comment Sodium Level 138 MEQ/L Potassium Level 3.7 MEQ/L Chloride Level 100 MEQ/L Carbon Dioxide Level 27.9 MEQ/L Anion Gap 10 MEQ/L Blood Urea Nitrogen 12 MG/DL Creatinine 0.46 MG/DL Estimat Glomerular Filtration 283 ML/MIN Rate Random Glucose 75 MG/DL Calcium Level 8.9 MG/DL Total Bilirubin 0.6 MG/DL Aspartate Amino Transf 15 U/L (AST/SGOT) Alanine Aminotransferase 19 U/L (ALT/SGPT) Alkaline Phosphatase 89 U/L Total Protein 8.5 GM/DL Albumin 3.7 GM/DL Urine Color YELLOW Urine Turbidity CLOUDY Urine pH 7.5 Urine Specific Bowie 1.020 Urine Protein 30 mg/dL Urine Glucose (UA) NEG mg/dL Urine Ketones NEG mg/dL Urine Occult Blood SMALL Urine Nitrite NEG Urine Bilirubin NEG Urine Urobilinogen 4.0 MG/DL Urine Leukocyte Esterase LARGE Urine RBC 5 /hpf Urine WBC /hpf Urine WBC Clumps MOD Urine Bacteria OCC /hpf Microscopic Urinalysis Comment CATH-CULTURE IND MDM Medical Decision Making Medical Screen Exam Complete: Yes Emergency Medical Condition: Yes Medical Record Reviewed: Yes (patient has been seen multiple times in the past for urinary tract infections. He has a history of ESBL Escherichia coli) Interpretation(s) Afebrile, no tachycardia, hypertensive No leukocytosis Electrolytes are reassuring Urinalysis: Urinary tract infection Differential Diagnosis Urinary tract infection, pyelonephritis, decubitus ulcer, wound infection, cellulitis Narrative Course This is a 21-year-old male who has a history of paraplegia who presents to the emergency department with increasing muscle spasms and symptoms of urinary tract infection. He also has a decubitus ulcer on his left hip. The decubitus also does not appear super infected. It was packed and his family was provided with sodium hypochlorite solution which has been used in the past as well as dressing supplies. Labs are obtained which are reassuring with no leukocytosis. The patient is afebrile. Think is appropriate for outpatient treatment for his UTI. He will be discharged with ciprofloxacin. Diagnosis Primary Impression: Urinary tract infection Qualified Code: N30.00 - Acute cystitis without hematuria Additional Impression: Decubitus ulcer of left hip Qualified Code: L89.229 - Decubitus ulcer of left hip, unspecified ulcer stage Referrals: [facility] Patient Instructions: General Instructions Additional Instructions: If you develop fever, persistent vomiting, back pain, or inability to eat return to the emergency department as your urine infection may have progressed to a kidney infection. Complete your antibiotics as prescribed. Stay well hydrated with Gatorade or water. Followup with your primary care physician in 2-3 days if your symptoms have not resolved. Med/Other Pt SpecificInfo: Prescription(s) given Scripts Ciprofloxacin 500 Mg Tcm086 Mg PO BID #14 TAB Ref 0 Prov:Denisha Hugo MD 02/16/17 Cyclobenzaprine (Flexeril)5 Mg Tab5 Mg PO TID #14 TAB Ref 0 Prov:Denisha Hugo MD 02/16/17 Disposition: 01 DISCHARGE HOME Condition: Stable Denisha Hugo MD Feb 16, 2017 03:32
[2017-02-16 03:38] LABS: AUTOMATED NEUTROPHIL # 5.9 TH/MM3 (1.8-7.7); BASOPHIL % 0.4 % (0.0-2.0); EOSINOPHIL # 0.2 TH/MM3 (0-0.4); EOSINOPHIL % 2.2 % (0.0-4.0); HEMATOCRIT 40.8 % (39.0-51.0); HEMO FLAGS DIFF FINAL; LYMPH % 24.9 % (9.0-44.0); LYMPHOCYTE # 2.2 TH/MM3 (1.0-4.8); MEAN CELL VOLUME 75.5 FL (80.0-100.0); MEAN CORPUSCULAR HEMOGLOBIN 25.2 PG (27.0-34.0); MEAN CORPUSCULAR HGB CONC 33.4 % (32.0-36.0); MONO % 5.3 % (0.0-8.0); NEUT % 67.2 % (16.0-70.0); PLATELET COUNT 267 TH/MM3 (150-450); RED BLOOD COUNT 5.41 MIL/MM3 (4.50-5.90); RED CELL DISTRIBUTION WIDTH 15.7 % (11.6-17.2); WHITE BLOOD COUNT 8.8 TH/MM3 (4.0-11.0)
[2017-02-16 03:44] LABS: BACTERIA, URINE OCC /hpf; BLOOD, URINE SMALL (NEG); GLUCOSE,URINE NEG (NEG); KETONE, URINE NEG (NEG); NITRITE,URINE NEG (NEG); PH, URINE 7.5 (5.0-8.5); URINE COLOR YELLOW (YELLW/STRAW)
[2017-02-16 03:45] LABS: COMMENT (UR) CATH-CULTURE IND; CULTURE IF INDICATED CATH CULTURE IND
[2017-02-16 03:52] LABS: ALT (GPT) 19 U/L (9-52); ANION GAP 10 MEQ/L (5-15); AST (GOT) 15 U/L (15-39); BICARBONATE 27.9 MEQ/L (21.0-32.0); BLOOD UREA NITROGEN 12 MG/DL (7-18); CHLORIDE 100 MEQ/L (98-107); GLOMERULAR FILTRATION RATE 283 ML/MIN (>89); POTASSIUM 3.7 MEQ/L (3.5-5.1); SODIUM (NA) 138 MEQ/L (136-145)
[2017-02-16 03:54] LABS: ALKALINE PHOSPHATASE 89 U/L (45-117); TOTAL BILIRUBIN ADULT 0.6 MG/DL (0.2-1.0)
[2017-02-16] MEDS ORDERED: cefTRIAXone INJ 1,000 MG in SODIUM CHLORIDE 0.9% INJ 100 ML IV ONE (04:00)
[2017-02-16] MEDS ORDERED: CYCL5TAB PO (04:15)
[2017-02-16] MEDS ORDERED: ORPHENADRINE INJ 60 MG/2 ML AMP IM ONE (04:15)
[2017-02-16] MEDS ORDERED: CIPR500T2 PO (04:15)
[2017-02-16] MEDS ORDERED: CIPROFLOXACIN 400 MG PREMIX 200 ML IV ONE (04:45)
== END 2017-02-16 05:49 | disposition home or self-care (01) ==
LOC: NEPE 02:05
DX: N39.0 Urinary tract infection, site not specified (principal); L89.229 Pressure ulcer of left hip, unspecified stage; G82.20 Paraplegia, unspecified; K21.9 Gastro-esophageal reflux disease without esophagitis; I10 Essential (primary) hypertension
CPT/HCPCS: 80053; 81001; 85025; 86403; 87070; 87077; 87086; 87186; 96361; 96365; 96372; 96375; 96376; 99284; J0696; J0744; J2270; J2360; J7030; P9612

== ENCOUNTER 2017-02-26 02:14 | Inpatient (IN) | payer MEDICAID ==
[2017-02-26] VITALS (13 sets, daily range): BP systolic 101–139; BP diastolic 52–84; PULSE 71–109; RESP 16–20; TEMP 98.3–102.4; O2SAT 96–100
[~2017-02-26 02:14] MED LIST changes: +CIPR500T2 PO; +CYCL5TAB PO; -HYDR-3516 PO; -LEVA750T PO
[2017-02-26] MEDS ORDERED: ONDANSETRON HCL 4 MG/2 ML VIAL IV PUSH ONE (04:15)
[2017-02-26] MEDS ORDERED: VANCOMYCIN INJ 1,000 MG in SODIUM CHLOR 0.9% 250 ML INJ 250 ML IV ONE (04:15)
[2017-02-26] MEDS ORDERED: MORPHINE SULFATE 4 MG/ML INJ IV PUSH ONE ×2 (04:15→05:00)
[2017-02-26] MEDS ORDERED: SODIUM CHLOR 0.9% 1000 ML INJ 1,000 ML IV SCH (04:15)
--- NOTE | 2017-02-26 04:19 | PD ---
HPI Chief Complaint: Fever Time Seen by Provider: 04:04 Travel History International Travel<30 days: No Contact w/Intl Traveler<30days: No Traveled to known affect area: No History of Present Illness HPI 21-year-old male complains of fever, redness swelling and pain to left buttock area. Patient has history of left decubitus ulcer. Patient states that he started having fever with increasing redness swelling to the area since yesterday. Patient denies any earache sore throat coughing congestion. Patient denies any chest pain or shortness of breath. Patient denies abdominal pain. Patient has history of paraplegia following spinal cord injury. Patient has not seen any wound care center physician recently. Patient also has history of neurogenic bladder. Patient self catheter himself. PFSH Past Medical History Arthritis: No Autoimmune Disease: No Blood Disorders: No Anxiety: Yes Depression: Yes Cancer: No Cardiovascular Problems: No Cerebrovascular Accident: No Developmental Delay: No Diminished Hearing: No Endocrine: No Gastrointestinal Disorders: Yes (CONSTIPATION AT TIMES) GERD: Yes Genitourinary: Yes (PT SELF CATHS) Headaches: Yes (spinal headache) Hiatal Hernia: No Hypertension: Yes Immune Disorder: No Implanted Vascular Access Dvce: Yes Kidney Stones: No Musculoskeletal: Yes (paraplegic) Neurologic: Yes (paraplegic ) Psychiatric: Yes Reproductive: No Respiratory: No Immunizations Current: Yes Migraines: No Renal Failure: No Sickle Cell Disease: No Ulcer: No Past Surgical History Abdominal Surgery: No AICD: No Arteriovenous Shunt: No Body Medical Devices: rods in back Cardiac Surgery: No Ear Surgery: No Endocrine Surgery: No Eye Surgery: No Genitourinary Surgery: No Gynecologic Surgery: No Insulin Pump: No Joint Replacement: No Neurologic Surgery: Yes (SPINAL SURGERY, PARAPLEGIC) Oral Surgery: No Pacemaker: No Thoracic Surgery: Yes (3 fusions, last 01/2015) Social History Alcohol Use: No Tobacco Use: No Substance Use: No Allergies-Medications (Allergen,Severity, Reaction): Coded Allergies: *MDRO Multi-Drug Resistant Organism (Verified Adverse Reaction, Unknown, ) ESBL E.Coli (urine-11/06/16) MRSA (buttock)-02/16/17 Reported Meds & Prescriptions Reported Meds & Active Scripts Active Ciprofloxacin (Ciprofloxacin HCl) 500 Mg Tab 500 Mg PO BID Flexeril (Cyclobenzaprine HCl) 5 Mg Tab 5 Mg PO TID Lortab (Hydrocodone-Acetaminophen) 5-325 Mg Tab 1-2 Tab PO Q6H PRN Reported Atenolol 25 Mg Tab 12.5 Mg PO DAILY Review of Systems General / Constitutional: Positive: Fever Eyes: No: Visual changes HENT: No: Headaches Cardiovascular: No: Chest Pain or Discomfort Respiratory: No: Shortness of Breath Gastrointestinal: No: Abdominal Pain Genitourinary: No: Dysuria Musculoskeletal: No: Pain Skin: No Rash Neurologic: No: Weakness Psychiatric: No: Depression Endocrine: No: Polydipsia Hematologic/Lymphatic: No: Easy Bruising Physical Exam Narrative GENERAL: Well-nourished, well-developed patient. SKIN: Focused skin assessment warm/dry. HEAD: Normocephalic. EYES: No scleral icterus. No injection or drainage. NECK: Supple, trachea midline. No JVD or lymphadenopathy. CARDIOVASCULAR: Regular rate and rhythm without murmurs, gallops, or rubs. RESPIRATORY: Breath sounds equal bilaterally. No accessory muscle use. GASTROINTESTINAL: Abdomen soft, non-tender, nondistended. MUSCULOSKELETAL: No cyanosis, or edema. BACK: Nontender without obvious deformity. No CVA tenderness. Patient has a large decubitus ulcer left buttock area with associated redness swelling tenderness and increasing heat to the area. Dressing in place. No obvious discharge noted. Data Data Last Documented VS Vital Signs Date Time Temp Pulse Resp B/P Pulse Ox O2 Delivery O2 Flow Rate FiO2 02/26/17 05:14 18 02/26/17 03:38 102.4 109 100 Room Air 02/26/17 02:17 139/84 Orders Complete Blood Count With Diff (02/26/17 04:12) Comprehensive Metabolic Panel (02/26/17 04:12) Prothrombin Time / Inr (Pt) (02/26/17 04:12) Act Partial Throm Time (Ptt) (02/26/17 04:12) Blood Culture (02/26/17 04:12) Urinalysis - C+S If Indicated (02/26/17 04:12) Wound Culture And Gram Stain (02/26/17 04:12) Chest, Single Ap (02/26/17 04:12) Iv Access Insert/Monitor (02/26/17 04:12) Ecg Monitoring (02/26/17 04:12) Oximetry (02/26/17 04:12) Sodium Chlor 0.9% 1000 Ml Inj (Ns 1000 M (02/26/17 04:15) Morphine Inj (Morphine Inj) (02/26/17 04:15) Ondansetron Inj (Zofran Inj) (02/26/17 04:15) Vancomycin Inj (Vancomycin Inj) (02/26/17 04:15) Lactic Acid (02/26/17 04:15) Morphine Inj (Morphine Inj) (02/26/17 05:00) Labs Laboratory Tests Test 02/26/17 04:00 White Blood Count 17.0 TH/MM3 Red Blood Count 5.49 MIL/MM3 Hemoglobin 13.7 GM/DL Hematocrit 41.3 % Mean Corpuscular Volume 75.3 FL Mean Corpuscular Hemoglobin 24.9 PG Mean Corpuscular Hemoglobin 33.1 % Concent Red Cell Distribution Width 15.4 % Platelet Count 209 TH/MM3 Mean Platelet Volume 8.9 FL Neutrophils (%) (Auto) 90.3 % Lymphocytes (%) (Auto) 5.6 % Monocytes (%) (Auto) 3.8 % Eosinophils (%) (Auto) 0.2 % Basophils (%) (Auto) 0.1 % Neutrophils # (Auto) 15.4 TH/MM3 Lymphocytes # (Auto) 1.0 TH/MM3 Monocytes # (Auto) 0.7 TH/MM3 Eosinophils # (Auto) 0.0 TH/MM3 Basophils # (Auto) 0.0 TH/MM3 CBC Comment AUTO DIFF Sodium Level 136 MEQ/L Potassium Level 3.7 MEQ/L Chloride Level 99 MEQ/L Carbon Dioxide Level 27.1 MEQ/L Anion Gap 10 MEQ/L Blood Urea Nitrogen 12 MG/DL Creatinine 0.58 MG/DL Estimat Glomerular Filtration 216 ML/MIN Rate Random Glucose 84 MG/DL Lactic Acid Level 1.2 mmol/L Calcium Level 9.0 MG/DL Total Bilirubin 1.3 MG/DL Aspartate Amino Transf 16 U/L (AST/SGOT) Alanine Aminotransferase 19 U/L (ALT/SGPT) Alkaline Phosphatase 88 U/L Total Protein 8.8 GM/DL Albumin 3.6 GM/DL MDM Medical Decision Making Medical Screen Exam Complete: Yes Emergency Medical Condition: Yes Interpretation(s) Last Impressions Chest X-Ray 02/26/17 8827 Signed Impressions: Service Date/Time: Sunday, February 26, 2017 04:16 - CONCLUSION: Normal examination. Previous posterior fusion of the spine Bernardino Springer MD 5:40 AM. CBC with WBC 17.0. 90 neutrophil. CMP within normal limit. Differential Diagnosis Differential diagnosis including cellulitis, abscess. Narrative Course 21-year-old male with redness swelling tenderness around the left buttock decubitus ulcer. Vancomycin 1 g IV given. Zosyn 3.375 g IV given. Normal saline solution 100 cc an hour. Diagnosis Primary Impression: Cellulitis Qualified Code: L03.317 - Cellulitis of buttock Additional Impression: Decubitus ulcer of left hip Qualified Code: L89.223 - Decubitus ulcer of left hip, stage 3 Mickey Regan MD Feb 26, 2017 04:19
--- NOTE | 2017-02-26 04:45 | RADRPT ---
EXAM DATE/TIME: 02/26/2017 04:16 [facility] COMPARISON: CHEST SINGLE AP, December 17, 2016, 3:18. INDICATIONS : Fever. MEDICAL HISTORY : Hypertension. paraplegia SURGICAL HISTORY : thoracolumbar fusion ENCOUNTER: Initial ACUITY: 1 day PAIN SCORE: 0/10 LOCATION: Bilateral chest FINDINGS: A single view of the chest demonstrates the lungs to be symmetrically aerated without evidence of mas s, infiltrate or effusion. The cardiomediastinal contours are unremarkable. Osseous structures are intact. CONCLUSION: Normal examination. Previous posterior fusion of the spine Bernardino Springer MD on February 26, 2017 at 4:44 Board Certified Radiologist. This report was verified electronically.
[2017-02-26 04:55] LABS: AUTOMATED NEUTROPHIL # 15.4 TH/MM3 (1.8-7.7); BASOPHIL % 0.1 % (0.0-2.0); EOSINOPHIL % 0.2 % (0.0-4.0); HEMATOCRIT 41.3 % (39.0-51.0); LYMPH % 5.6 % (9.0-44.0); MEAN CELL VOLUME 75.3 FL (80.0-100.0); MEAN CORPUSCULAR HEMOGLOBIN 24.9 PG (27.0-34.0); MEAN CORPUSCULAR HGB CONC 33.1 % (32.0-36.0); MONO % 3.8 % (0.0-8.0); NEUT % 90.3 % (16.0-70.0); PLATELET COUNT 209 TH/MM3 (150-450); RED BLOOD COUNT 5.49 MIL/MM3 (4.50-5.90); RED CELL DISTRIBUTION WIDTH 15.4 % (11.6-17.2)
[2017-02-26 05:00] LABS: HEMO FLAGS AUTO DIFF
[2017-02-26 05:18] LABS: ANION GAP 10 MEQ/L (5-15); AST (GOT) 16 U/L (15-39); BICARBONATE 27.1 MEQ/L (21.0-32.0); BLOOD UREA NITROGEN 12 MG/DL (7-18); CHLORIDE 99 MEQ/L (98-107); GLOMERULAR FILTRATION RATE 216 ML/MIN (>89); POTASSIUM 3.7 MEQ/L (3.5-5.1); SODIUM (NA) 136 MEQ/L (136-145)
[2017-02-26 05:21] LABS: ALKALINE PHOSPHATASE 88 U/L (45-117); ALT (GPT) 19 U/L (9-52); TOTAL BILIRUBIN ADULT 1.3 MG/DL (0.2-1.0)
[2017-02-26] MEDS ORDERED: PIPERACIL-TAZO 3.375 GM PREMIX 50 ML IV ONE (06:00)
[2017-02-26 06:06] LABS: APTT (PATIENT) 34.5 SEC (24.3-30.1); INTERNATIONAL NORMALIZED RATIO 1.1 RATIO; PROTHROMBIN TIME - PATIENT 11.7 SEC (9.8-11.6)
[2017-02-26 06:38] LABS: SCAN/DIFF AUTO DIFF CONFIRMED
[2017-02-26] MEDS ORDERED: ACETAMINOPHEN 325 MG TAB PO ONE (06:45)
[2017-02-26] MEDS ORDERED: SODIUM CHLORIDE 0.9% FLUSH 10 ML FLUSH IV FLUSH PRN ×2 (08:00)
[2017-02-26] MEDS ORDERED: Vancomycin Consult Pharmacy 1 EA OTHER SCH (08:00)
[2017-02-26] MEDS ORDERED: NALOXONE HCL 0.4 MG/ML AMP IV PRN ×2 (08:00)
[2017-02-26] MEDS ORDERED: SODIUM CHLORIDE 0.9% FLUSH 10 ML FLUSH IV FLUSH SCH (09:00)
--- NOTE | 2017-02-26 09:18 | HHI.HP ---
HPI Service [facility] Primary Care Physician Jaelyn Young M.D. Admission Diagnosis cellulitis. Decubitus ulcer. Diagnoses: Chief Complaint: Fevers, cellulitis Travel History International Travel<30 Days: No Contact w/Intl Traveler <30 Da: No Traveled to Known Affected Are: No Sepsis Criteria SIRS Criteria (2 or more): Temp > 100.9 or < 96.8, Heart rate over 90, WBC > 95255, < 4000 or > 10% bands Sepsis Criteria (SIRS+source): Infect source susp/known Criteria Outcome: Meets SIRS criteria, Meets sepsis criteria History of Present Illness Patient is a 21-year-old male with primary medical history of paraplegia, neurogenic bladder, HTN, GERD, left hip buttock area decubitus ulcer who came into the hospital for complaints of not feeling very well, started to have fevers and sweats last night, redness, swelling, and increasing pain to the left hip area below the decubitus ulcer started yesterday. Patient' s at the bedside is the one doing his wound care and noted that below the decubitus ulcer is new area of redness, swelling, warmth. States that there is not any new drainage from his decubitus wound, no foul smell noted on the decubitus wound. Patient self catheterize, no foul odor in the urine. Patient has not seen any wound care physician as an outpatient. Complaints of bilateral leg pain, described as shooting pain, states it's not new and he gets relief from taking Flexeril at home. Denies SOB/ dyspnea. Denies chest pain, palpitations, headaches, dizziness. Denies n/v/d. Denies hematuria, dysuria, abdominal pain or cramping. Review of Systems Except as stated in HPI: all other systems reviewed are Neg Past Family Social History Past Medical History Paraplegia Neurogenic bladder GERD Anxiety/depression Hypertension Past Surgical History Back surgeries 3 Reported Medications Flexeril (Cyclobenzaprine HCl) 5 Mg Tab 5 Mg PO TID Lortab (Hydrocodone-Acetaminophen) 5-325 Mg Tab 1-2 Tab PO Q6H PRN Atenolol 25 Mg Tab 12.5 Mg PO DAILY Allergies: Coded Allergies: *MDRO Multi-Drug Resistant Organism (Verified Adverse Reaction, Unknown, ) ESBL E.Coli (urine-11/06/16) MRSA (buttock)-02/16/17 Active Ordered Medications Current Medications Medications (Trade) Dose Ordered Sig/Soham Route Start Time Stop Time Status Last Admin (NS 1000 ml Inj) 1,000 ml @ 100 mls/hr Q10H IV 02/26/17 04:15 02/26/17 04:15 (NS Flush) 2 ml UNSCH PRN IV FLUSH 02/26/17 08:00 UNV (NS Flush) 2 ml BID IV FLUSH 02/26/17 09:00 UNV (Narcan Inj) 0.4 mg UNSCH PRN IV 02/26/17 08:00 UNV (NS Flush) 2 ml UNSCH PRN IV FLUSH 02/26/17 08:00 UNV (NS Flush) 2 ml BID IV FLUSH 02/26/17 09:00 UNV (Lovenox Inj) 40 mg Q24H SQ 02/26/17 09:00 UNV Naloxone HCl 0.4 mg 0.4 mg UNSCH PRN IV 02/26/17 08:00 UNV Pharmacy Profile Note 0 ml @ 0 mls/hr UNSCH OTHER 02/26/17 08:00 UNV (Zosyn 4.5 Gm Premix) 100 ml @ 200 mls/hr Q6H IV 02/26/17 12:00 UNV Family History Grandmother has diabetes Social History Denies alcohol use Denies tobacco use Denies illicit drug use Physical Exam Vital Signs Vital Signs Date Time Temp Pulse Resp B/P Pulse Ox O2 Delivery O2 Flow Rate FiO2 02/26/17 06:38 99.9 02/26/17 05:14 18 02/26/17 03:38 102.4 109 18 100 Room Air 02/26/17 02:17 101.0 107 17 139/84 99 Room Air Physical Exam GENERAL: This is a thin-appearing, well-developed patient, mildly ill-appearing. SKIN: Left thigh area positive erythema, positive edema, positive warmth below stage IV decubitus. Stage IV decubitus left buttock area tunneling. HEAD: Atraumatic. Normocephalic. No temporal or scalp tenderness. EYES: Pupils equal round and reactive. No scleral icterus. No injection or drainage. ENT: Nose without bleeding. Throat without erythema. Uvula midline. Airway patent. NECK: Trachea midline. No JVD or lymphadenopathy. Supple. CARDIOVASCULAR: Tachycardia without murmurs, gallops, or rubs. RESPIRATORY: Clear to auscultation. Breath sounds equal bilaterally. No wheezes , rales, or rhonchi. GASTROINTESTINAL: Abdomen soft, non-tender, nondistended. Positive bowel sounds x4 MUSCULOSKELETAL: Extremities without clubbing, cyanosis, or edema. NEUROLOGICAL: Awake and alert. Moves bilateral upper extremity. Paraplegia. No movement or gross sensation of bilateral lower extremity. Normal speech. Laboratory Laboratory Tests Test 02/26/17 04:00 White Blood Count 17.0 Red Blood Count 5.49 Hemoglobin 13.7 Hematocrit 41.3 Mean Corpuscular Volume 75.3 Mean Corpuscular Hemoglobin 24.9 Mean Corpuscular Hemoglobin 33.1 Concent Red Cell Distribution Width 15.4 Platelet Count 209 Mean Platelet Volume 8.9 Neutrophils (%) (Auto) 90.3 Lymphocytes (%) (Auto) 5.6 Monocytes (%) (Auto) 3.8 Eosinophils (%) (Auto) 0.2 Basophils (%) (Auto) 0.1 Neutrophils # (Auto) 15.4 Lymphocytes # (Auto) 1.0 Monocytes # (Auto) 0.7 Eosinophils # (Auto) 0.0 Basophils # (Auto) 0.0 CBC Comment AUTO DIFF Differential Comment AUTO DIFF CONFIRMED Prothrombin Time 11.7 Prothromb Time International 1.1 Ratio Activated Partial 34.5 Thromboplast Time Sodium Level 136 Potassium Level 3.7 Chloride Level 99 Carbon Dioxide Level 27.1 Anion Gap 10 Blood Urea Nitrogen 12 Creatinine 0.58 Estimat Glomerular Filtration 216 Rate Random Glucose 84 Lactic Acid Level 1.2 Calcium Level 9.0 Total Bilirubin 1.3 Aspartate Amino Transf 16 (AST/SGOT) Alanine Aminotransferase 19 (ALT/SGPT) Alkaline Phosphatase 88 Total Protein 8.8 Albumin 3.6 Date/Time Procedure Status Source Growth 02/26/17 04:00 Gram Stain Received Wound Buttock Pending 02/26/17 04:00 Wound Culture Received Wound Buttock Pending 02/26/17 04:00 Aerobic Blood Culture Received Blood Peripheral Pending 02/26/17 04:00 Anaerobic Blood Culture Received Blood Peripheral Pending Result Diagram: 02/26/1739902/26/17399 Imaging Last Impressions Chest X-Ray 02/26/17411 Signed Impressions: Service Date/Time: Sunday, February 26, 2017 04:16 - CONCLUSION: Normal examination. 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 Status: Chronic (2) Paralysis of both lower limbs ICD Code: G82.20 Status: Acute (3) Pyelonephritis ICD Code: N12 Status: Acute (4) Status post lumbar spinal fusion ICD Code: Z98.1 Status: Acute (5) Cellulitis and abscess of lower extremity ICD Code: L02.419 Status: Acute (6) Sepsis ICD Code: A41.9 Status: Acute Assessment and Plan Patient is a 21-year-old male with primary medical history of paraplegia, neurogenic bladder, HTN, GERD, left hip buttock area decubitus ulcer who came into the hospital for complaints of not feeling very well, started to have fevers and sweats last night, redness, swelling, and increasing pain to the left hip area below the decubitus ulcer started yesterday. Patient' s at the bedside is the one doing his wound care and noted that below the decubitus ulcer is new area of redness, swelling, warmth. States that there is not any new drainage from his decubitus wound, no foul smell noted on the decubitus wound. Patient self catheterize, no foul odor in the urine. Patient has not seen any wound care physician as an outpatient. Sepsis, possible group A beta-hemolytic streptococcus Left thigh/hip cellulitis versus necrotizing fasciitis Left hip, buttock area with pressure decubitus ulcer stage IV tunneling - Chest x-ray showed normal examination. Previous posterior fusion at this - Left thigh area below decubitus ulcer positive for edema, edema, warmth, ? Severe pain and tenderness probably blunted secondary to patient has no sensation bilateral lower extremities. - Blood cultures, wound cultures follow-up results - Leukocytosis WBC 17.0, neutrophil percentage 90.3 - Lactic acid 1.2 - Continue vancomycin, Zosyn IV and Levofloxacin - Wound care consult - Infectious disease consult - Repeat labs tomorrow Paraplegia Neuropathic pain - Continue Flexeril 10 mg 3 times a day - Turn and position to relieve pressure Neurogenic bladder - Patient self catheterize - Increased risk for urinary tract infection. - Patient was recently hospitalized for sepsis secondary to urinary tract infection - Send UA, follow-up results and microbiology if appropriate HTN Tachycardia - Continue home medication atenolol 12.5 - Monitor BP trend and heart rate DVT prop SCDs Written by Nataliya Jean, on behalf of Dr. Cruz on 02/26/17 at 09:12. Code Status Full code Discussed Condition With Attestation by Doctor Yogesh Mullen Patient evaluated in Emergency room and discussed with Patient, His Mother Mrs. Flores and his Girlfriend Miss Rosy Mark all questions answered to the best of my abilities, discussed with JERARDO Miss Finley Clementinamalachi agree with management Physician Certification 2 Midnight Certification Type: Admission for Inpatient Services Order for Inpatient Services The services are ordered in accordance with Medicare regulations or non- Medicare payer requirements, as applicable. In the case of services not specified as inpatient-only, they are appropriately provided as inpatient services in accordance with the 2-midnight benchmark. Estimated LOS (days): 2 days is the estimated time the patient will need to remain in the hospital, assuming treatment plan goals are met and no additional complications. Post-Hospital Plan: Home Nataliya Presley Feb 26, 2017 09:18 Yogesh Delatorre MD Feb 26, 2017 11:23
[2017-02-26 09:28] LABS: BLOOD, URINE NEG (NEG); GLUCOSE,URINE NEG (NEG); HYALINE CAST, URINE 1 /lpf (RARE); KETONE, URINE TRACE mg/dL (NEG); MUCUS URINE FEW /lpf (OCC); NITRITE,URINE NEG (NEG); URINE COLOR YELLOW (YELLW/STRAW)
[2017-02-26 09:30] LABS: COMMENT (UR) CULTURE INDICATED; CULTURE IF INDICATED CULTURE INDICATED
[2017-02-26] MEDS ORDERED: PILL SPLITTER OTHER PRN (09:30)
[2017-02-26] MEDS: ENOXAPARIN SODIUM 40 MG/0.4 ML SYRINGE SQ SCH (09:38)
[2017-02-26] MEDS: CYCLOBENZAPRINE HCL 10 MG TAB PO SCH ×3 (09:38→19:22)
[2017-02-26] MEDS: ATENOLOL 25 MG TAB PO SCH (09:38)
[2017-02-26] MEDS: SODIUM CHLORIDE 0.9% FLUSH 10 ML FLUSH IV FLUSH SCH ×2 (09:38→20:19)
[2017-02-26] MEDS ORDERED: LEVOFLOXACIN 750 MG PREMIX INJ 150 ML IV SCH (11:00)
[2017-02-26] MEDS: PIPERACIL-TAZO 4.5 GM PREMIX 100 ML IV SCH ×2 (12:38→18:00)
[2017-02-26] MEDS: VANCOMYCIN 1,000 MG/NS 250 ML IV SCH ×4 (12:47→20:19)
[2017-02-26] MEDS ORDERED: ACETAMINOPHEN/HYDROcodone 325 MG/5 MG TAB PO PRN (17:45)
--- NOTE | 2017-02-26 18:01 | PD.ID.CON ---
History of Present Illness Service ID Consult Requested By Dr Cruz Reason for Consult Cellulitis L thigh Primary Care Physician Jaelyn Young M.D. Diagnoses: History of Present Illness Patient is a 21-year-old male with f paraplegia, neurogenic bladder, HTN, GERD , left hip buttock area decubitus ulcer who came into the hospital with fevers and sweats x 1 day and redness, swelling, and increasing pain to the left hip area below the decubitus ulcer started yesterday. Patient self catheterize 4x/day, no foul odor in the urine. H/o ESBL Klebin the urine 2 mos ago Patient has not seen any wound care physician as an outpatient. His girlfriend states pt has L hip ulcer for 9 mos. No professional medical help was sought prior to this hospitalisation but apparently he did go to ear 10 days go and was diagnosed with UTI and presicribe cipro He had E.coli in the urine clx and it was resiatant to cipro He grew MRSa and strep from hi decub clx UA with 11 WBC, trace LE Review of Systems Constitutional: COMPLAINS OF: Diaphoretic episodes, Fatigue, Fever, Chills Genitourinary: COMPLAINS OF: Urinary incontinence Neurologic: COMPLAINS OF: Localized weakness, Paresthesias Except as stated in HPI: all other systems reviewed are Neg Past Family Social History Allergies: Coded Allergies: *MDRO Multi-Drug Resistant Organism (Verified Adverse Reaction, Unknown, ) ESBL E.Coli (urine-11/06/16) MRSA (buttock)-02/16/17 Past Medical History Paraplegia Neurogenic bladder GERD Anxiety/depression Hypertension Past Surgical History Back surgeries 3 Active Ordered Medications Medications where reviewed in EMR Antibiotics Include: ulices patel Family History DM Social History No Tobacco. No ETOH. No Illicit Drugs. Physical Exam Vital Signs Vital Signs Date Time Temp Pulse Resp B/P Pulse Ox O2 Delivery O2 Flow Rate FiO2 02/26/17 16:00 98.3 84 16 102/63 96 02/26/17 13:00 71 18 101/56 98 Room Air 02/26/17 12:00 98.7 74 18 112/58 98 Room Air 02/26/17 11:00 78 18 102/52 98 Room Air 02/26/17 10:00 84 18 103/54 98 Room Air 02/26/17 09:00 94 18 107/52 98 Room Air 02/26/17 07:00 97 Room Air 02/26/17 06:38 99.9 02/26/17 05:14 18 02/26/17 03:38 102.4 109 18 100 Room Air 02/26/17 02:17 101.0 107 17 139/84 99 Room Air Physical Exam CONSTITUTIONAL/GENERAL: This is an adequately nourished patient, in no apparent distress. TUBES/LINES/DRAINS: SKIN: No jaundice, rashes, or lesions. Small uninfected sacral decub stage 2 L hip decubitus deep tunneling stage 3-4 posterior thigh iwth induraion, erythema and small opening draining small amount of odorless pus Skin temperature appropriate. Not diaphoretic. HEAD: Atraumatic. Normocephalic. EYES: Pupils equal and round and reactive. Extraocular motions intact. No scleral icterus. No injection or drainage. Fundi not examined. ENT: Hearing grossly normal. Nose without bleeding or purulent drainage. Throat without visible erythema, exudates, masses, or lesions. NECK: Trachea midline. Supple, nontender. No palpable thyroid enlargement or nodularity. CARDIOVASCULAR: Regular rate and rhythm without murmurs, gallops, or rubs. No JVD. Peripheral pulses symmetric. RESPIRATORY/CHEST: Symmetric, unlabored respirations. Clear to auscultation. Breath sounds equal bilaterally. No wheezes, rales, or rhonchi. GASTROINTESTINAL: Abdomen soft, non-tender, nondistended. No hepato-splenomegaly , or palpable masses. No guarding. Bowel sounds present. GENITOURINARY: Without palpable bladder distension. Aguilar catheter in place. MUSCULOSKELETAL: Extremities without clubbing, cyanosis, or edema. No joint tenderness or effusion noted. No calf tenderness. No mottling or clubbing. Loss of muscle bulk in BLE LYMPHATICS: No palpable cervical or supraclavicular adenopathy. NEUROLOGICAL: Awake and alert. Paraplegia Follows commands. Cognitively sharp. Normal speech Moves all extremities. PSYCHIATRIC: No obvious anxiety/depression. no apparent hallucinations or other psychotic thought process. Laboratory Laboratory Tests Test 02/26/17 02/26/17 04:00 09:00 White Blood Count 17.0 Red Blood Count 5.49 Hemoglobin 13.7 Hematocrit 41.3 Mean Corpuscular Volume 75.3 Mean Corpuscular Hemoglobin 24.9 Mean Corpuscular Hemoglobin 33.1 Concent Red Cell Distribution Width 15.4 Platelet Count 209 Mean Platelet Volume 8.9 Neutrophils (%) (Auto) 90.3 Lymphocytes (%) (Auto) 5.6 Monocytes (%) (Auto) 3.8 Eosinophils (%) (Auto) 0.2 Basophils (%) (Auto) 0.1 Neutrophils # (Auto) 15.4 Lymphocytes # (Auto) 1.0 Monocytes # (Auto) 0.7 Eosinophils # (Auto) 0.0 Basophils # (Auto) 0.0 CBC Comment AUTO DIFF Differential Comment AUTO DIFF CONFIRMED Prothrombin Time 11.7 Prothromb Time International 1.1 Ratio Activated Partial 34.5 Thromboplast Time Sodium Level 136 Potassium Level 3.7 Chloride Level 99 Carbon Dioxide Level 27.1 Anion Gap 10 Blood Urea Nitrogen 12 Creatinine 0.58 Estimat Glomerular Filtration 216 Rate Random Glucose 84 Lactic Acid Level 1.2 Calcium Level 9.0 Total Bilirubin 1.3 Aspartate Amino Transf 16 (AST/SGOT) Alanine Aminotransferase 19 (ALT/SGPT) Alkaline Phosphatase 88 Total Protein 8.8 Albumin 3.6 Urine Color YELLOW Urine Turbidity CLEAR Urine pH 6.0 Urine Specific [place] 1.015 Urine Protein NEG Urine Glucose (UA) NEG Urine Ketones TRACE Urine Occult Blood NEG Urine Nitrite NEG Urine Bilirubin NEG Urine Urobilinogen LESS THAN 2.0 Urine Leukocyte Esterase TRACE Urine RBC LESS THAN 1 Urine WBC 11 Urine Hyaline Casts 1 Urine Mucus FEW Microscopic Urinalysis Comment CULTURE INDICATED Date/Time Procedure Status Source Growth 02/26/17 09:00 Urine Culture Received Urine Clean Catch Pending 02/26/17 04:00 Gram Stain - Final Resulted Wound Buttock 02/26/17 04:00 Wound Culture Resulted Wound Buttock Pending 02/26/17 04:00 Aerobic Blood Culture Received Blood Peripheral Pending 02/26/17 04:00 Anaerobic Blood Culture Received Blood Peripheral Pending Result Diagram: 02/26/1739902/26/17399 Imaging Last Impressions Chest X-Ray 02/26/17411 Signed Impressions: Service Date/Time: Sunday, February 26, 2017 04:16 - CONCLUSION: Normal examination. Previous posterior fusion of the spine Bernardino Springer MD Assessment and Plan Assessment and Plan Paraplegia L hip decub, chronic, appears infected and abscess L thigh Previously MRSA UTI, h/o ESBL, most recentlu E.coli R to cipro, but not ESBL Fever Leukocytosis change abx to vanco, meropenem to cover possible ESBL and pseudomonas Waleska Sevilla MD Feb 26, 2017 18:01
[2017-02-26] MEDS: guaiFENesin E.R. 600 MG TAB PO SCH (20:19)
[2017-02-27] MEDS ORDERED: ACETAMINOPHEN 325 MG TAB PO PRN
[2017-02-27] MEDS: PIPERACIL-TAZO 4.5 GM PREMIX 100 ML IV SCH (00:29)
[2017-02-27] MEDS ORDERED: MISCELLANEOUS PHARMACY INFORMATION XX PRN (00:45)
[2017-02-27] MEDS ORDERED: ASP: Documented ESBL, MDR A baumannii or P. aeruginosa PRN (00:45)
[2017-02-27] MEDS: MEROPENEM INJ 1,000 MG in SODIUM CHLORIDE 0.9% INJ 100 ML IV SCH ×3 (01:36→19:25)
[2017-02-27] MEDS: VANCOMYCIN 1,000 MG/NS 250 ML IV SCH ×4 (03:32→18:09)
[2017-02-27] MEDS ORDERED: PHARMACY ORDERED LAB ONE (03:45)
[2017-02-27 03:56] VITALS: BP 123/56; PULSE 79; RESP 18; TEMP 97.4; O2SAT 95
[2017-02-27] MEDS: RESP: ALBUTEROL 2.5 MG/IPRATROPIUM 0.5 MG NEB (SCH) NEB ×4 (05:10→21:07)
[2017-02-27 05:14] LABS: BICARBONATE 26.5 MEQ/L (21.0-32.0); POTASSIUM 3.7 MEQ/L (3.5-5.1)
[2017-02-27 05:20] LABS: AUTOMATED NEUTROPHIL # 12.8 TH/MM3 (1.8-7.7); BASOPHIL % 0.1 % (0.0-2.0); EOSINOPHIL # 0.2 TH/MM3 (0-0.4); EOSINOPHIL % 1.3 % (0.0-4.0); HEMATOCRIT 34.9 % (39.0-51.0); HEMO FLAGS DIFF FINAL; LYMPH % 7.3 % (9.0-44.0); LYMPHOCYTE # 1.1 TH/MM3 (1.0-4.8); MEAN CELL VOLUME 75.6 FL (80.0-100.0); MEAN CORPUSCULAR HEMOGLOBIN 25.3 PG (27.0-34.0); MEAN CORPUSCULAR HGB CONC 33.4 % (32.0-36.0); MONO % 4.8 % (0.0-8.0); NEUT % 86.5 % (16.0-70.0); PLATELET COUNT 204 TH/MM3 (150-450); RED BLOOD COUNT 4.62 MIL/MM3 (4.50-5.90); RED CELL DISTRIBUTION WIDTH 15.2 % (11.6-17.2); WHITE BLOOD COUNT 14.8 TH/MM3 (4.0-11.0)
[2017-02-27 08:00] VITALS: BP 110/56; PULSE 95; RESP 18; TEMP 97.2; O2SAT 100
[2017-02-27] MEDS: SODIUM CHLORIDE 0.9% FLUSH 10 ML FLUSH IV FLUSH SCH ×2 (08:27→19:25)
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
[2017-02-27] MEDS: ENOXAPARIN SODIUM 40 MG/0.4 ML SYRINGE SQ SCH (08:28)
[2017-02-27] MEDS: CYCLOBENZAPRINE HCL 10 MG TAB PO SCH ×3 (08:28→19:25)
[2017-02-27] MEDS: ATENOLOL 25 MG TAB PO SCH (08:28)
[2017-02-27] MEDS: guaiFENesin E.R. 600 MG TAB PO SCH ×2 (08:28→19:24)
[2017-02-27] MEDS ORDERED: IOHEXOL 350 MG/ML 10 ML VIAL (for RAD DIAG) IV ONE (09:12)
--- NOTE | 2017-02-27 09:56 | RADRPT ---
EXAM DATE/TIME: 02/27/2017 09:12 [facility] COMPARISON: CT ABDOMEN & PELVIS W CONTRAST, November 07, 2015, 6:43. CT LUMBAR SPINE W/O CONTRAST, December 03 016, 14:33. INDICATIONS : Left hip/buttock wound. IV CONTRAST: 75 cc Omnipaque 350 (iohexol) IV RADIATION DOSE: 28.67 CTDIvol (mGy) MEDICAL HISTORY : Hypertension. Paraplegic SURGICAL HISTORY : Lumbar surgery ENCOUNTER: Initial ACUITY: 1 day PAIN SCALE: 0/10 LOCATION: Left pelvis TECHNIQUE: Volumetric scanning of the hip was performed. Using automated exposure control and adjustment of the mA and/or kV according to patient size, radiation dose was kept as low as reasonably achievable to o btain optimal diagnostic quality images. FINDINGS: Subcutaneous defect is present with opening of 2.1 cm in the patient's left posterior upper thig h not present previously with surrounding subcutaneous edema. No definite fracture is seen for techni que.No definite signs of osteomyelitis is seen. There are multiple enlarged lymph nodes in the left g roin which were not enlarged previously the largest one measures 2.4 cm in size. No definite abscess is identified. There is moderate amount of stool throughout the colon. There are postsurgical changes in the lower lumbosacral spine no changes since the prior lumbar spine CT from 12/03/2015. CONCLUSION: Subcutaneous defect with surrounding edema and no definite abscess or signs of osteomyelitis. Seda Mendez MD on February 27, 2017 at 9:49 Board Certified Radiologist. This report was verified electronically.
--- NOTE | 2017-02-27 10:13 | HHI.PR ---
Subjective Remarks This is a pleasant 21 y/o male with paraplegia, neurogenic Bladder, Hypertension , GERD, Left Hip and Buttock area with decubitus ulcer who came to the Hospital with complaints of not feeling very well, started to have fevers and sweats last night, redness, swelling, and increasing pain to the left hip area below the decubitus ulcer started one day before coming to ER, States that there is not any new drainage from his decubitus wound, no foul smell noted on the decubitus wound. Patient self catheterize, no foul odor in the urine. Patient has not seen any wound care physician as an outpatient. 02/27: Seen in his bedroom and discussed with Patient and with his Girlfriend Miss Rosy Mark, no nausea, vomit or diarrhea, discussed with nurse Miss Miranda, he is asking for Pain medicine started on [place], seen by General Surgery and by ID specialist Objective Vital Signs Date Time Temp Pulse Resp B/P Pulse Ox O2 Delivery O2 Flow Rate FiO2 02/27/17 08:00 97.2 95 18 110/56 100 02/27/17 03:56 97.4 79 18 123/56 95 02/26/17 23:54 101.5 91 20 106/52 98 02/26/17 20:29 100.6 78 16 118/60 97 02/26/17 19:56 103 02/26/17 16:00 98.3 84 16 102/63 96 02/26/17 13:00 71 18 101/56 98 Room Air 02/26/17 12:00 98.7 74 18 112/58 98 Room Air 02/26/17 11:00 78 18 102/52 98 Room Air I/O 02/26/17 02/26/17 02/26/17 02/27/17 02/27/17 02/27/17 07:00 15:00 23:00 07:00 15:00 23:00 Intake Total 730 ml 530 ml Output Total 500 ml 600 ml Balance 230 ml -70 ml Intake Oral 480 ml 280 ml IV Total 250 ml 250 ml Output Urine Total 500 ml 600 ml Result Diagram: 02/27/17 0330 02/27/17 0347 Imaging Last Impressions Lower Extremity CT 02/27/17 0600 Signed Impressions: Service Date/Time: February 09:12 - CONCLUSION: Subcutaneous defect with surrounding edema and no definite abscess or signs of osteomyelitis. Seda Mendez MD Chest X-Ray 02/26/17 0412 Signed Impressions: Service Date/Time: Sunday, February 26, 2017 04:16 - CONCLUSION: Normal examination. Previous posterior fusion of the spine Bernardino Springer MD Procedures No procedures performed. Other Results Laboratory Tests Test 02/26/17 02/26/17 02/27/17 02/27/17 04:00 09:00 03:30 03:47 Prothrombin Time 11.7 SEC Prothromb Time International 1.1 RATIO Ratio Activated Partial 34.5 SEC Thromboplast Time Lactic Acid Level 1.2 mmol/L Total Bilirubin 1.3 MG/DL Aspartate Amino Transf 16 U/L (AST/SGOT) Alanine Aminotransferase 19 U/L (ALT/SGPT) Alkaline Phosphatase 88 U/L Total Protein 8.8 GM/DL Albumin 3.6 GM/DL Urine Color YELLOW Urine Turbidity CLEAR Urine pH 6.0 Urine Specific [place] 1.015 Urine Protein NEG mg/dL Urine Glucose (UA) NEG mg/dL Urine Ketones TRACE mg/dL Urine Occult Blood NEG Urine Nitrite NEG Urine Bilirubin NEG Urine Urobilinogen LESS THAN 2.0 MG/DL Urine Leukocyte Esterase TRACE Urine RBC LESS THAN 1 /hpf Urine WBC 11 /hpf Urine Hyaline Casts 1 /lpf Urine Mucus FEW /lpf Microscopic Urinalysis Comment CULTURE INDICATED White Blood Count 14.8 TH/MM3 Red Blood Count 4.62 MIL/MM3 Hemoglobin 11.7 GM/DL Hematocrit 34.9 % Mean Corpuscular Volume 75.6 FL Mean Corpuscular Hemoglobin 25.3 PG Mean Corpuscular Hemoglobin 33.4 % Concent Red Cell Distribution Width 15.2 % Platelet Count 204 TH/MM3 Mean Platelet Volume 9.2 FL Neutrophils (%) (Auto) 86.5 % Lymphocytes (%) (Auto) 7.3 % Monocytes (%) (Auto) 4.8 % Eosinophils (%) (Auto) 1.3 % Basophils (%) (Auto) 0.1 % Neutrophils # (Auto) 12.8 TH/MM3 Lymphocytes # (Auto) 1.1 TH/MM3 Monocytes # (Auto) 0.7 TH/MM3 Eosinophils # (Auto) 0.2 TH/MM3 Basophils # (Auto) 0.0 TH/MM3 CBC Comment DIFF FINAL Differential Comment Sodium Level 138 MEQ/L Potassium Level 3.7 MEQ/L Chloride Level 104 MEQ/L Carbon Dioxide Level 26.5 MEQ/L Anion Gap 8 MEQ/L Blood Urea Nitrogen 9 MG/DL Creatinine 0.65 MG/DL Estimat Glomerular Filtration 190 ML/MIN Rate Random Glucose 84 MG/DL Calcium Level 8.6 MG/DL Vancomycin Level Trough 22.2 MCG/ML Objective Remarks GENERAL: This is a thin-appearing, well-developed patient, mildly ill-appearing. SKIN: Left thigh area positive erythema, positive edema, positive warmth below stage IV decubitus. Stage IV decubitus left buttock area tunneling. HEAD: Atraumatic. Normocephalic. No temporal or scalp tenderness. EYES: Pupils equal round and reactive. No scleral icterus. No injection or drainage. ENT: Nose without bleeding. Throat without erythema. Uvula midline. Airway patent. NECK: Trachea midline. No JVD or lymphadenopathy. Supple. CARDIOVASCULAR: Tachycardia without murmurs, gallops, or rubs. RESPIRATORY: Clear to auscultation. Breath sounds equal bilaterally. No wheezes , rales, or rhonchi. GASTROINTESTINAL: Abdomen soft, non-tender, nondistended. Positive bowel sounds x4 MUSCULOSKELETAL: Extremities without clubbing, cyanosis, or edema. NEUROLOGICAL: Awake and alert. Moves bilateral upper extremity. Paraplegia. No movement or gross sensation of bilateral lower extremity. Normal speech. Medications and IVs Current Medications Medications (Trade) Dose Ordered Sig/Soham Route Start Time Stop Time Status Last Admin (Narcan Inj) 0.4 mg UNSCH PRN IV 02/26/17 08:00 (NS Flush) 2 ml UNSCH PRN IV FLUSH 02/26/17 08:00 (NS Flush) 2 ml BID IV FLUSH 02/26/17 09:00 02/27/17 08:27 Enoxaparin Sodium 40 mg 40 mg Q24H SQ 02/26/17 10:00 02/27/17 08:28 (Vancomycin Consult Pharmacy) 0 ml @ 0 mls/hr UNSCH OTHER 02/26/17 08:00 (Tenormin) 12.5 mg DAILY PO 02/26/17 09:00 02/27/17 08:28 (Flexeril) 5 mg TID PO 02/26/17 09:00 02/27/17 08:28 (Pill Splitter) 1 ea UNSCH PRN OTHER 02/26/17 09:30 (Mucinex Er) 600 mg BID PO 02/26/17 21:00 02/27/17 08:28 ([place] 5-325 Mg) 1 tab Q6H PRN PO 02/26/17 17:45 Acetaminophen 650 mg 650 mg QID PRN PO 02/27/17 00:00 02/27/17 00:29 Meropenem 1000 mg/ Sodium Chloride 100 ml @ 200 mls/hr Q8H IV 02/27/17 01:00 02/27/17 08:27 (Vancomycin Inj/ NS 250 ml Inj) 250 ml @ 250 mls/hr Q12H IV 02/27/17 15:00 Miscellaneous Information SPECIFIC LAB TO BE DRAWN:VANCOMYCIN TROUGH DATE TO... 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 Previous posterior fusion at this - Left thigh area below decubitus ulcer positive for edema, edema, warmth, as per General Surgery asked for CT and will see him later for possible I and D at bedside due to that the patient is insensate. - Blood cultures, wound cultures follow-up results - Leukocytosis WBC 17.0 trending down to 14.8 - Continue discontinued Zosyn and Levofloxacin by ID specialist continued on Vancomycin and Added Meropenem. - Wound care consult - Appreciated specialized Assistance by General Surgery Dr. Markel Smith and Infectious Disease Specialist Doctor Waleska Sevilla. Paraplegia Neuropathic pain - Continue Flexeril 10 mg 3 times a day added [place] - Turn and position to relieve pressure Neurogenic bladder - Patient self catheterize - Increased risk for urinary tract infection. - Patient was recently hospitalized for sepsis secondary to urinary tract infection - Send UA, follow-up results and microbiology if appropriate HTN Tachycardia - Continue home medication atenolol 12.5 - Monitor BP trend and heart rate DVT prop SCDs Code Status Full code Discussed Condition With Patient, his Girlfriend Miss Rosy Mark and nurse Miss Martinez appreciated, all questions answered to the best of my abilities. Discharge Planning Expected in three days. Yogesh Delatorre MD Feb 27, 2017 10:13 Yogesh Delatorre MD Feb 27, 2017 10:13
[2017-02-27] MEDS ORDERED: POTASSIUM CHLORIDE 20 MEQ CONTROLLED RELEASE TAB PO ONE (11:30)
[2017-02-27 12:00] VITALS: BP 111/61; PULSE 93; RESP 17; TEMP 97.6; O2SAT 100
[2017-02-27] MEDS ORDERED: LORazepam 2 MG/ML VIAL IV PUSH ONE (12:45)
[2017-02-27 16:00] VITALS: BP 115/57; PULSE 97; RESP 18; TEMP 99.6; O2SAT 96
[2017-02-27] MEDS ORDERED: GADODIAMIDE PF 287 MG/ML 5 ML VIAL (for RAD MRI) IV ONE (17:04)
--- NOTE | 2017-02-27 17:26 | RADRPT ---
EXAM DATE/TIME: 02/27/2017 15:54 [facility] COMPARISON: CT HIP LEFT W CONTRAST, February 27, 2017, 9:12. INDICATIONS : Left hip wound from wheelchair on lateral side of hip. CONTRAST: 13 cc Omniscan (gadodiamide) IV MEDICAL HISTORY : Hypertension. neurogenic bladder SURGICAL HISTORY : T/L fusion ENCOUNTER: Subsequent ACUITY: 2 day PAIN SCORE: 3/10 LOCATION: Left thigh TECHNIQUE: Multiplanar multisequence MRI examination of the thigh was performed with and without contrast. FINDINGS: There is subcutaneous defect in the left posterior thigh with surrounding edema corresponding to the defects seen on the patient's prior CT examination. There are however 2 areas of pocket of absce ss one measures 2.4 cm in size and the second one measures 1.9 cm in size in the soft tissues without evidence for osteomyelitis. Smaller pockets of abscess are present adjacent to the larger one. CONCLUSION: There are pockets of abscess in the soft tissues of the left side posteriorly without signs of osteom yelitis. Seda Mendez MD on February 27, 2017 at 17:22 Board Certified Radiologist. This report was verified electronically.
[2017-02-27] MEDS: ACETAMINOPHEN/HYDROcodone 325 MG/5 MG TAB PO PRN (19:24)
[2017-02-27 20:00] VITALS: BP 116/63; PULSE 100; RESP 17; TEMP 98.4; O2SAT 100
[2017-02-27] MEDS ORDERED: KETOROLAC TROMETHAMINE 30 MG/ML (IVP) VIAL IV PUSH ONE (21:15)
--- NOTE | 2017-02-27 22:05 | HHI.PR ---
Subjective Subjective Notes Still painful Objective Vitals/I&O Vital Signs Date Time Temp Pulse Resp B/P Pulse Ox O2 Delivery O2 Flow Rate FiO2 02/27/17 20:24 18 02/27/17 20:00 98.4 100 116/63 100 02/26/17 13:00 Room Air Labs Laboratory Tests Test 02/27/17 02/27/17 03:30 03:47 White Blood Count 14.8 Red Blood Count 4.62 Hemoglobin 11.7 Hematocrit 34.9 Mean Corpuscular Volume 75.6 Mean Corpuscular Hemoglobin 25.3 Mean Corpuscular Hemoglobin 33.4 Concent Red Cell Distribution Width 15.2 Platelet Count 204 Mean Platelet Volume 9.2 Neutrophils (%) (Auto) 86.5 Lymphocytes (%) (Auto) 7.3 Monocytes (%) (Auto) 4.8 Eosinophils (%) (Auto) 1.3 Basophils (%) (Auto) 0.1 Neutrophils # (Auto) 12.8 Lymphocytes # (Auto) 1.1 Monocytes # (Auto) 0.7 Eosinophils # (Auto) 0.2 Basophils # (Auto) 0.0 CBC Comment DIFF FINAL Differential Comment Sodium Level 138 Potassium Level 3.7 Chloride Level 104 Carbon Dioxide Level 26.5 Anion Gap 8 Blood Urea Nitrogen 9 Creatinine 0.65 Estimat Glomerular Filtration 190 Rate Random Glucose 84 Calcium Level 8.6 Vancomycin Level Trough 22.2 Date/Time Procedure Status Source Growth 02/26/17 09:00 Urine Culture - Preliminary Resulted Urine Clean Catch NO GROWTH IN 24 HOURS. 02/26/17 04:00 Gram Stain - Final Resulted Wound Buttock 02/26/17 04:00 Wound Culture - Preliminary Resulted S. Aureus Mrsa 02/26/17 04:00 Aerobic Blood Culture - Preliminary Resulted Blood Peripheral S. Aureus Mrsa 02/26/17 04:00 Anaerobic Blood Culture - Preliminary Resulted Blood Peripheral NO GROWTH IN 1 DAY Narrative Exam Wound with minimal drainage A/P Assessment and Plan Left thigh wound with area induration CT shows no fluid collection or abscess Plan: No need for surgical intervention Will see as needed. Can be I&D'd at bedside if sxs worsen Markel Smith MD Feb 27, 2017 22:05
[2017-02-27] MEDS ORDERED: CYCLOBENZAPRINE HCL 10 MG TAB PO ONE (23:00)
[2017-02-28] VITALS: BP 110/54; PULSE 97; RESP 18; TEMP 98.9; O2SAT 98
[2017-02-28] MEDS: MEROPENEM INJ 1,000 MG in SODIUM CHLORIDE 0.9% INJ 100 ML IV SCH ×3 (02:44→20:23)
[2017-02-28] MEDS: RESP: ALBUTEROL 2.5 MG/IPRATROPIUM 0.5 MG NEB (SCH) NEB ×4 (02:51→21:36)
[2017-02-28] MEDS: VANCOMYCIN 1,000 MG/NS 250 ML IV SCH ×4 (05:10→18:37)
[2017-02-28 08:00] VITALS: BP 109/57; PULSE 79; RESP 14; TEMP 97.4; O2SAT 98
--- NOTE | 2017-02-28 08:37 | HHI.PR ---
Subjective Remarks This is a pleasant 21 y/o male with paraplegia, neurogenic Bladder, Hypertension , GERD, Left Hip and Buttock area with decubitus ulcer who came to the Hospital with complaints of not feeling very well, started to have fevers and sweats last night, redness, swelling, and increasing pain to the left hip area below the decubitus ulcer started one day before coming to ER, States that there is not any new drainage from his decubitus wound, no foul smell noted on the decubitus wound. Patient self catheterize, no foul odor in the urine. Patient has not seen any wound care physician as an outpatient. 02/27: Seen in his bedroom and discussed with Patient and with his Girlfriend Miss Rosy Mark. No need for surgical intervention at this time as per General Surgery Doctor Markel Smith appreciated assistance, ID specialist following appreciated assistance. 02/28: Seen in his bedroom in the presence of his Girlfriend and his Mother all questions answered, no new issues, no nausea, vomit or diarrhea continue antibiotics and following ID specialist recommendations. Objective Vital Signs Date Time Temp Pulse Resp B/P Pulse Ox O2 Delivery O2 Flow Rate FiO2 02/28/17 08:00 97.4 79 14 109/57 98 02/28/17 00:00 98.9 97 18 110/54 98 02/27/17 22:17 18 02/27/17 20:24 18 02/27/17 20:00 98.4 100 17 116/63 100 02/27/17 16:00 99.6 97 18 115/57 96 02/27/17 12:00 97.6 93 17 111/61 100 I/O 02/27/17 02/27/17 02/27/17 02/28/17 02/28/17 02/28/17 07:00 15:00 23:00 07:00 15:00 23:00 Intake Total 530 ml 900 ml 780 ml 350 ml Output Total 600 ml 600 ml 450 ml Balance -70 ml 900 ml 180 ml -100 ml Intake Oral 280 ml 900 ml 480 ml IV Total 250 ml 300 ml 350 ml Output Urine Total 600 ml 600 ml 450 ml # Voids 5 # Bowel Movements 0 Result Diagram: 02/27/17 0330 02/27/17 0347 Imaging Last Impressions Lower Extremity CT 02/27/17 0600 Signed Impressions: Service Date/Time: February 09:12 - CONCLUSION: Subcutaneous defect with surrounding edema and no definite abscess or signs of osteomyelitis. Seda Mendez MD Lower Extremity MRI 02/27/17 0000 Signed Impressions: Service Date/Time: February 15:54 - CONCLUSION: There are pockets of abscess in the soft tissues of the left side posteriorly without signs of osteomyelitis. Seda Mendez MD Chest X-Ray 02/26/17 0412 Signed Impressions: Service Date/Time: Sunday, February 26, 2017 04:16 - CONCLUSION: Normal examination. Previous posterior fusion of the spine Bernardino Springer MD Procedures No procedures performed. Other Results Laboratory Tests Test 02/26/17 02/26/17 02/27/17 02/27/17 04:00 09:00 03:30 03:47 Prothrombin Time 11.7 SEC Prothromb Time International 1.1 RATIO Ratio Activated Partial 34.5 SEC Thromboplast Time Lactic Acid Level 1.2 mmol/L Total Bilirubin 1.3 MG/DL Aspartate Amino Transf 16 U/L (AST/SGOT) Alanine Aminotransferase 19 U/L (ALT/SGPT) Alkaline Phosphatase 88 U/L Total Protein 8.8 GM/DL Albumin 3.6 GM/DL Urine Color YELLOW Urine Turbidity CLEAR Urine pH 6.0 Urine Specific [place] 1.015 Urine Protein NEG mg/dL Urine Glucose (UA) NEG mg/dL Urine Ketones TRACE mg/dL Urine Occult Blood NEG Urine Nitrite NEG Urine Bilirubin NEG Urine Urobilinogen LESS THAN 2.0 MG/DL Urine Leukocyte Esterase TRACE Urine RBC LESS THAN 1 /hpf Urine WBC 11 /hpf Urine Hyaline Casts 1 /lpf Urine Mucus FEW /lpf Microscopic Urinalysis Comment CULTURE INDICATED White Blood Count 14.8 TH/MM3 Red Blood Count 4.62 MIL/MM3 Hemoglobin 11.7 GM/DL Hematocrit 34.9 % Mean Corpuscular Volume 75.6 FL Mean Corpuscular Hemoglobin 25.3 PG Mean Corpuscular Hemoglobin 33.4 % Concent Red Cell Distribution Width 15.2 % Platelet Count 204 TH/MM3 Mean Platelet Volume 9.2 FL Neutrophils (%) (Auto) 86.5 % Lymphocytes (%) (Auto) 7.3 % Monocytes (%) (Auto) 4.8 % Eosinophils (%) (Auto) 1.3 % Basophils (%) (Auto) 0.1 % Neutrophils # (Auto) 12.8 TH/MM3 Lymphocytes # (Auto) 1.1 TH/MM3 Monocytes # (Auto) 0.7 TH/MM3 Eosinophils # (Auto) 0.2 TH/MM3 Basophils # (Auto) 0.0 TH/MM3 CBC Comment DIFF FINAL Differential Comment Sodium Level 138 MEQ/L Potassium Level 3.7 MEQ/L Chloride Level 104 MEQ/L Carbon Dioxide Level 26.5 MEQ/L Anion Gap 8 MEQ/L Blood Urea Nitrogen 9 MG/DL Creatinine 0.65 MG/DL Estimat Glomerular Filtration 190 ML/MIN Rate Random Glucose 84 MG/DL Calcium Level 8.6 MG/DL Vancomycin Level Trough 22.2 MCG/ML Objective Remarks GENERAL: This is a thin-appearing, well-developed patient, mildly ill-appearing. SKIN: Left thigh area positive erythema, positive edema, positive warmth below stage IV decubitus. Stage IV decubitus left buttock area tunneling. HEAD: Atraumatic. Normocephalic. No temporal or scalp tenderness. EYES: Pupils equal round and reactive. No scleral icterus. No injection or drainage. ENT: Nose without bleeding. Throat without erythema. Uvula midline. Airway patent. NECK: Trachea midline. No JVD or lymphadenopathy. Supple. CARDIOVASCULAR: Tachycardia without murmurs, gallops, or rubs. RESPIRATORY: Clear to auscultation. Breath sounds equal bilaterally. No wheezes , rales, or rhonchi. GASTROINTESTINAL: Abdomen soft, non-tender, nondistended. Positive bowel sounds x4 MUSCULOSKELETAL: Extremities without clubbing, cyanosis, or edema. NEUROLOGICAL: Awake and alert. Moves bilateral upper extremity. Paraplegia. No movement or gross sensation of bilateral lower extremity. Normal speech. Medications and IVs Current Medications Medications (Trade) Dose Ordered Sig/Soham Route Start Time Stop Time Status Last Admin (Narcan Inj) 0.4 mg UNSCH PRN IV 02/26/17 08:00 (NS Flush) 2 ml UNSCH PRN IV FLUSH 02/26/17 08:00 (NS Flush) 2 ml BID IV FLUSH 02/26/17 09:00 02/27/17 19:25 Enoxaparin Sodium 40 mg 40 mg Q24H SQ 02/26/17 10:00 02/27/17 08:28 (Vancomycin Consult Pharmacy) 0 ml @ 0 mls/hr UNSCH OTHER 02/26/17 08:00 (Tenormin) 12.5 mg DAILY PO 02/26/17 09:00 02/27/17 08:28 (Flexeril) 5 mg TID PO 02/26/17 09:00 02/27/17 19:25 (Pill Splitter) 1 ea UNSCH PRN OTHER 02/26/17 09:30 (Mucinex Er) 600 mg BID PO 02/26/17 21:00 02/27/17 19:24 (Tylenol) 650 mg QID PRN PO 02/27/17 00:00 02/27/17 00:29 Miscellaneous Information SPECIFIC LAB TO BE DRAWN:VANCOMYCIN TROUGH DATE TO... 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 - Left thigh area below decubitus ulcer positive for edema, edema, warmth, as per General Surgery no further management no need for I and D. continue Vancomycin and Meropenem, Positive for Bacteremia due to MRSA. Wound positive for MRSA. - Blood cultures, wound cultures follow-up results - Leukocytosis WBC 17.0 trending down to 14.8 - Wound care following. - Appreciated specialized Assistance by General Surgery Dr. Markel Smith and Infectious Disease Specialist Doctor Waleska Sevilla. Paraplegia Neuropathic pain - Continue Flexeril 10 mg 3 times a day added Dendron - Turn and position to relieve pressure Neurogenic bladder - Patient self catheterize - Increased risk for urinary tract infection. - Patient was recently hospitalized for sepsis secondary to urinary tract infection - Send UA, follow-up results and microbiology if appropriate HTN Tachycardia - Controlled. DVT prop SCDs Code Status Full code Discussed Condition With Patient, his Girlfriend Miss Rosy Mark his Mother and Nurse all questions answered to the best of my abilities. Discharge Planning not yet cleared for discharge. Yogesh Delatorre MD Feb 28, 2017 08:37 Yogesh Delatorre MD Feb 28, 2017 08:37
[2017-02-28] MEDS: PANTOPRAZOLE SOD 40 MG DELAYED RELEASE TAB PO SCH (09:00)
[2017-02-28] MEDS: ATENOLOL 25 MG TAB PO SCH (09:00)
[2017-02-28] MEDS: guaiFENesin E.R. 600 MG TAB PO SCH ×3 (09:00→20:30)
[2017-02-28] MEDS: ENOXAPARIN SODIUM 40 MG/0.4 ML SYRINGE SQ SCH (09:07)
[2017-02-28] MEDS: CYCLOBENZAPRINE HCL 10 MG TAB PO SCH ×3 (10:17→18:37)
[2017-02-28] MEDS: SODIUM CHLORIDE 0.9% FLUSH 10 ML FLUSH IV FLUSH SCH ×2 (10:18→20:24)
[2017-02-28 12:00] VITALS: BP 109/57; PULSE 105; RESP 16; TEMP 97.2; O2SAT 100
[2017-02-28] MEDS ORDERED: MAGNESIUM HYDROXIDE SUSP 30 ML CUP PO ONE (14:15)
[2017-02-28] MEDS: DOCUSATE SODIUM 100 MG CAP PO SCH ×2 (14:52→20:23)
[2017-02-28 16:00] VITALS: BP 124/76; PULSE 77; RESP 15; TEMP 96.9; O2SAT 95
[2017-02-28] MEDS ORDERED: LIDOCAINE HCL 1% 20 ML VIAL OTHER ONE (18:30)
[2017-02-28 20:00] VITALS: BP 120/62; PULSE 83; RESP 20; TEMP 96.4; O2SAT 100
[2017-03-01] VITALS: BP 121/64; PULSE 85; RESP 20; TEMP 97.3; O2SAT 100
[2017-03-01] MEDS: MEROPENEM INJ 1,000 MG in SODIUM CHLORIDE 0.9% INJ 100 ML IV SCH ×3 (01:55→21:51)
[2017-03-01] MEDS ORDERED: PHARMACY ORDERED LAB ONE (02:45)
[2017-03-01] MEDS: RESP: ALBUTEROL 2.5 MG/IPRATROPIUM 0.5 MG NEB (SCH) NEB ×4 (03:29→20:22)
[2017-03-01] MEDS: VANCOMYCIN 1,000 MG/NS 250 ML IV SCH ×2 (05:46)
[2017-03-01 08:00] VITALS: BP 128/59; PULSE 83; RESP 19; TEMP 97.3; O2SAT 100
[2017-03-01] MEDS: guaiFENesin E.R. 600 MG TAB PO SCH ×2 (08:42→21:52)
[2017-03-01] MEDS: CYCLOBENZAPRINE HCL 10 MG TAB PO SCH ×4 (08:42→17:39)
[2017-03-01] MEDS: PANTOPRAZOLE SOD 40 MG DELAYED RELEASE TAB PO SCH (08:42)
[2017-03-01] MEDS: ATENOLOL 25 MG TAB PO SCH (08:42)
[2017-03-01] MEDS: SODIUM CHLORIDE 0.9% FLUSH 10 ML FLUSH IV FLUSH SCH ×2 (08:43→21:00)
[2017-03-01] MEDS: DOCUSATE SODIUM 100 MG CAP PO SCH ×2 (08:43→21:51)
--- NOTE | 2017-03-01 10:20 | HHI.PR ---
Subjective Remarks This is a pleasant 21 y/o male with paraplegia, neurogenic Bladder, Hypertension , GERD, Left Hip and Buttock area with decubitus ulcer who came to the Hospital with complaints of not feeling very well, started to have fevers and sweats last night, redness, swelling, and increasing pain to the left hip area below the decubitus ulcer started one day before coming to ER, States that there is not any new drainage from his decubitus wound, no foul smell noted on the decubitus wound. Patient self catheterize, no foul odor in the urine. Patient has not seen any wound care physician as an outpatient. 02/27: Seen in his bedroom and discussed with Patient and with his Girlfriend Miss Rosy Mark. No need for surgical intervention at this time as per General Surgery Doctor Markel Smith appreciated assistance, ID specialist following appreciated assistance. 02/28: Seen in his bedroom in the presence of his Girlfriend and his Mother all questions answered, no new issues, no nausea, vomit or diarrhea continue antibiotics and following ID specialist recommendations. 03/01: Seen in his bedroom in the presence of his Girlfriend, also discussed with nurse Miss Canela no new issues, no nausea, vomit or diarrhea, receiving antibiotics at this time, on Contact precautions secondary to MRSA positive in wound and BSI. Objective Vital Signs Date Time Temp Pulse Resp B/P Pulse Ox O2 Delivery O2 Flow Rate FiO2 03/01/17 08:00 97.3 83 19 128/59 100 03/01/17 00:00 97.3 85 20 121/64 100 02/28/17 20:00 96.4 83 20 120/62 100 02/28/17 16:00 96.9 77 15 124/76 95 02/28/17 12:00 97.2 105 16 109/57 100 I/O 02/28/17 02/28/17 02/28/17 03/01/17 03/01/17 03/01/17 07:00 15:00 23:00 07:00 15:00 23:00 Intake Total 350 ml 480 ml 240 ml 240 ml 120 ml Output Total 450 ml 75 ml 500 ml Balance -100 ml 405 ml 240 ml -260 ml 120 ml Intake Oral 480 ml 240 ml 240 ml 120 ml IV Total 350 ml Output Urine Total 450 ml 75 ml 500 ml # Voids 1 2 # Bowel Movements 0 Result Diagram: 02/27/17 0330 02/27/17 0347 Imaging Last Impressions Lower Extremity CT 02/27/17 0600 Signed Impressions: Service Date/Time: February 09:12 - CONCLUSION: Subcutaneous defect with surrounding edema and no definite abscess or signs of osteomyelitis. Seda Mendez MD Lower Extremity MRI 02/27/17 0000 Signed Impressions: Service Date/Time: February 15:54 - CONCLUSION: There are pockets of abscess in the soft tissues of the left side posteriorly without signs of osteomyelitis. Seda Mendez MD Chest X-Ray 02/26/17 0412 Signed Impressions: Service Date/Time: Sunday, February 26, 2017 04:16 - CONCLUSION: Normal examination. Previous posterior fusion of the spine Bernardino Springer MD Procedures No procedures performed. Other Results Current Medications Medications (Trade) Dose Ordered Sig/Soham Route Start Time Stop Time Status Last Admin (Narcan Inj) 0.4 mg UNSCH PRN IV 02/26/17 08:00 (NS Flush) 2 ml UNSCH PRN IV FLUSH 02/26/17 08:00 (NS Flush) 2 ml BID IV FLUSH 02/26/17 09:00 03/01/17 08:43 Enoxaparin Sodium 40 mg 40 mg Q24H SQ 02/26/17 10:00 Hold 02/27/17 08:28 (Vancomycin Consult Pharmacy) 0 ml @ 0 mls/hr UNSCH OTHER 02/26/17 08:00 (Tenormin) 12.5 mg DAILY PO 02/26/17 09:00 03/01/17 08:42 (Flexeril) 5 mg TID PO 02/26/17 09:00 03/01/17 08:42 (Pill Splitter) 1 ea UNSCH PRN OTHER 02/26/17 09:30 (Mucinex Er) 600 mg BID PO 02/26/17 21:00 02/27/17 19:24 (Tylenol) 650 mg QID PRN PO 02/27/17 00:00 02/27/17 00:29 ([place] 5-325 Mg) 1 tab Q4H PRN PO 02/27/17 11:00 02/27/17 19:24 Pantoprazole Sodium 40 mg 40 mg DAILY PO 02/28/17 09:00 03/07/17 08:59 Meropenem 1000 mg/ Sodium Chloride 100 ml @ 200 mls/hr Q8H IV 02/28/17 10:00 03/01/17 09:27 (Vancomycin Inj/ NS 250 ml Inj) 250 ml @ 250 mls/hr Q12H IV 02/28/17 17:00 03/01/17 05:46 (Colace) 100 mg BID PO 02/28/17 14:15 02/28/17 14:52 Objective Remarks GENERAL: This is a thin-appearing, well-developed patient, mildly ill-appearing. SKIN: Left thigh area positive erythema, positive edema, positive warmth below stage IV decubitus. Stage IV decubitus left buttock area tunneling. HEAD: Atraumatic. Normocephalic. No temporal or scalp tenderness. EYES: Pupils equal round and reactive. No scleral icterus. No injection or drainage. ENT: Nose without bleeding. Throat without erythema. Uvula midline. Airway patent. NECK: Trachea midline. No JVD or lymphadenopathy. Supple. CARDIOVASCULAR: Tachycardia without murmurs, gallops, or rubs. RESPIRATORY: Clear to auscultation. Breath sounds equal bilaterally. No wheezes , rales, or rhonchi. GASTROINTESTINAL: Abdomen soft, non-tender, nondistended. Positive bowel sounds x4 MUSCULOSKELETAL: Extremities without clubbing, cyanosis, or edema. NEUROLOGICAL: Awake and alert. Moves bilateral upper extremity. Paraplegia. No movement or gross sensation of bilateral lower extremity. Normal speech. Medications and IVs Current Medications Medications (Trade) Dose Ordered Sig/Soham Route Start Time Stop Time Status Last Admin (Narcan Inj) 0.4 mg UNSCH PRN IV 02/26/17 08:00 (NS Flush) 2 ml UNSCH PRN IV FLUSH 02/26/17 08:00 (NS Flush) 2 ml BID IV FLUSH 02/26/17 09:00 03/01/17 08:43 Enoxaparin Sodium 40 mg 40 mg Q24H SQ 02/26/17 10:00 Hold 02/27/17 08:28 (Vancomycin Consult Pharmacy) 0 ml @ 0 mls/hr UNSCH OTHER 02/26/17 08:00 (Tenormin) 12.5 mg DAILY PO 02/26/17 09:00 03/01/17 08:42 (Flexeril) 5 mg TID PO 02/26/17 09:00 03/01/17 08:42 (Pill Splitter) 1 ea UNSCH PRN OTHER 02/26/17 09:30 (Mucinex Er) 600 mg BID PO 02/26/17 21:00 02/27/17 19:24 (Tylenol) 650 mg QID PRN PO 02/27/17 00:00 02/27/17 00:29 ([place] 5-325 Mg) 1 tab Q4H PRN PO 02/27/17 11:00 02/27/17 19:24 Pantoprazole Sodium 40 mg 40 mg DAILY PO 02/28/17 09:00 03/07/17 08:59 Meropenem 1000 mg/ Sodium Chloride 100 ml @ 200 mls/hr Q8H IV 02/28/17 10:00 03/01/17 09:27 (Vancomycin Inj/ NS 250 ml Inj) 250 ml @ 250 mls/hr Q12H IV 02/28/17 17:00 03/01/17 05:46 (Colace) 100 mg BID PO 02/28/17 14:15 02/28/17 14:52 A/P Assessment and Plan (1) 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 - Left thigh area below decubitus ulcer positive for edema, edema, warmth, as per General Surgery no further management no need for I and D. continue Vancomycin and Meropenem, Positive for Bacteremia due to MRSA. Wound positive for MRSA. - Blood cultures, wound cultures follow-up results - Leukocytosis WBC 17.0 trending down to 14.8 - Wound care following. - Appreciated specialized Assistance by General Surgery Dr. Markel Smith and Infectious Disease Specialist Doctor Waleska Sevilla. Paraplegia Neuropathic pain - Continue Flexeril 10 mg 3 times a day added [place] - Turn and position to relieve pressure Neurogenic bladder - Patient self catheterize - Increased risk for urinary tract infection. - Patient was recently hospitalized for sepsis secondary to urinary tract infection - Send UA, follow-up results and microbiology if appropriate HTN Tachycardia - Controlled. DVT prop SCDs Code Status Full code Discussed Condition With Patient, his Girlfriend Miss Rosy Mark and Nurse Miss Canela all questions answered to the best of my abilities. Discharge Planning not yet cleared for discharge. Yogesh Delatorre MD Mar 01, 2017 10:19
[2017-03-01 12:00] VITALS: BP 119/57; PULSE 67; RESP 19; TEMP 98.6; O2SAT 100
--- NOTE | 2017-03-01 14:14 | HHI.PR ---
Subjective Subjective Notes patient wants to go home Objective Vitals/I&O Vital Signs Date Time Temp Pulse Resp B/P Pulse Ox O2 Delivery O2 Flow Rate FiO2 03/01/17 12:00 98.6 67 19 119/57 100 02/26/17 13:00 Room Air Labs Laboratory Tests Test 03/01/17 05:00 Vancomycin Level Trough 6.8 Date/Time Procedure Status Source Growth 02/26/17 09:00 Urine Culture - Final Complete Urine Clean Catch NO GROWTH IN 48 HOURS. 02/26/17 04:00 Gram Stain - Final Complete Wound Buttock 02/26/17 04:00 Wound Culture - Final Complete S. Aureus Mrsa 02/26/17 04:00 Aerobic Blood Culture - Final Resulted Blood Peripheral S. Aureus Mrsa 02/26/17 04:00 Anaerobic Blood Culture - Preliminary Resulted Blood Peripheral NO GROWTH IN 3 DAYS Narrative Exam left thigh wounds well drained with no necrotic tissue of cellulitis, no fluctuance or abscess on exam A/P Assessment and Plan 21yo male with left thigh abscess well drained, recommend wound care, no surgical intervention needed. bandage changed by myself at bedside. f/u with wound care physician/RN/Center as he can. f/u with [facility] PRN. ok to DC from surgery standpoint, will sign off. patient requests medications for spasms, will defer to PCP Nahum Hu MD Mar 01, 2017 14:14
[2017-03-01 16:00] VITALS: BP 117/65; PULSE 70; RESP 19; TEMP 97.4; O2SAT 96
[2017-03-01] MEDS ORDERED: VANCOMYCIN INJ 1,500 MG in SODIUM CHLORID 0.9% 500 ML INJ 500 ML IV SCH (17:00)
[2017-03-01] MEDS: VANCOMYCIN INJ 1,250 MG in SODIUM CHLOR 0.9% 250 ML INJ 250 ML IV SCH (17:28)
[2017-03-01 20:00] VITALS: BP 111/68; PULSE 82; RESP 17; TEMP 97.4; O2SAT 100
[2017-03-01] MEDS: ACETAMINOPHEN/HYDROcodone 325 MG/5 MG TAB PO PRN (22:10)
[2017-03-02] VITALS: BP 102/57; PULSE 78; RESP 17; TEMP 96.6; O2SAT 100
[2017-03-02] MEDS: ACETAMINOPHEN/HYDROcodone 325 MG/5 MG TAB PO PRN (01:59)
[2017-03-02] MEDS: MEROPENEM INJ 1,000 MG in SODIUM CHLORIDE 0.9% INJ 100 ML IV SCH ×3 (01:59→16:35)
[2017-03-02] MEDS: RESP: ALBUTEROL 2.5 MG/IPRATROPIUM 0.5 MG NEB (SCH) NEB ×2 (03:51→10:00)
[2017-03-02] MEDS: VANCOMYCIN INJ 1,250 MG in SODIUM CHLOR 0.9% 250 ML INJ 250 ML IV SCH ×2 (05:08→16:35)
[2017-03-02] MEDS: PANTOPRAZOLE SOD 40 MG DELAYED RELEASE TAB PO SCH (07:59)
[2017-03-02] MEDS: CYCLOBENZAPRINE HCL 10 MG TAB PO SCH ×3 (07:59→17:50)
[2017-03-02] MEDS: ATENOLOL 25 MG TAB PO SCH (07:59)
[2017-03-02 08:00] VITALS: BP 100/54; PULSE 70; RESP 20; TEMP 97.7; O2SAT 96
[2017-03-02] MEDS: SODIUM CHLORIDE 0.9% FLUSH 10 ML FLUSH IV FLUSH SCH ×2 (08:00→21:00)
[2017-03-02] MEDS: DOCUSATE SODIUM 100 MG CAP PO SCH ×2 (08:02→21:00)
[2017-03-02] MEDS: guaiFENesin E.R. 600 MG TAB PO SCH ×2 (08:02→21:00)
--- NOTE | 2017-03-02 09:08 | HHI.PR ---
Subjective Remarks This is a pleasant 21 y/o male with paraplegia, neurogenic Bladder, Hypertension , GERD, Left Hip and Buttock area with decubitus ulcer who came to the Hospital with complaints of not feeling very well, started to have fevers and sweats last night, redness, swelling, and increasing pain to the left hip area below the decubitus ulcer started one day before coming to ER, States that there is not any new drainage from his decubitus wound, no foul smell noted on the decubitus wound. Patient self catheterize, no foul odor in the urine. Patient has not seen any wound care physician as an outpatient. 02/27: Seen in his bedroom and discussed with Patient and with his Girlfriend Miss Rosy Mark. No need for surgical intervention at this time as per General Surgery Doctor Markel Smith appreciated assistance, ID specialist following appreciated assistance. 02/28: Seen in his bedroom in the presence of his Girlfriend and his Mother all questions answered, continue antibiotics as per ID specialist 03/01: Seen in his bedroom in the presence of his Girlfriend, Contact precautions secondary to MRSA positive in wound and BSI. 03/02: Stable no nausea,vomit or diarrhea continue Vancomycin and Meropenem, follow renal function in am tomorrow, following specialist recommendations discussed with him and his Girlfriend in the room. Objective Vital Signs Date Time Temp Pulse Resp B/P Pulse Ox O2 Delivery O2 Flow Rate FiO2 03/02/17 08:00 97.7 70 20 100/54 96 03/02/17 00:00 96.6 78 17 102/57 100 03/01/17 20:00 97.4 82 17 111/68 100 03/01/17 16:00 97.4 70 19 117/65 96 03/01/17 12:00 98.6 67 19 119/57 100 I/O 03/01/17 03/01/17 03/01/17 03/02/17 03/02/17 03/02/17 07:00 15:00 23:00 07:00 15:00 23:00 Intake Total 240 ml 1300 ml 680 ml 240 ml 120 ml Output Total 500 ml 700 ml 600 ml 100 ml Balance -260 ml 600 ml 80 ml 140 ml 120 ml Intake Oral 240 ml 1200 ml 480 ml 240 ml 120 ml IV Total 100 ml 200 ml Output Urine Total 500 ml 700 ml 600 ml 100 ml # Voids 1 # Bowel Movements 0 1 Result Diagram: 02/27/17 0330 02/27/17 0347 Imaging Last Impressions Lower Extremity CT 02/27/17 0600 Signed Impressions: Service Date/Time: February 09:12 - CONCLUSION: Subcutaneous defect with surrounding edema and no definite abscess or signs of osteomyelitis. Seda Mendez MD Lower Extremity MRI 02/27/17 0000 Signed Impressions: Service Date/Time: February 15:54 - CONCLUSION: There are pockets of abscess in the soft tissues of the left side posteriorly without signs of osteomyelitis. Seda Mendez MD Chest X-Ray 02/26/17 0412 Signed Impressions: Service Date/Time: Sunday, February 26, 2017 04:16 - CONCLUSION: Normal examination. Previous posterior fusion of the spine Bernardino Springer MD Procedures No procedures performed. Other Results Laboratory Tests Test 02/26/17 02/26/17 02/27/17 02/27/17 04:00 09:00 03:30 03:47 Prothrombin Time 11.7 SEC Prothromb Time International 1.1 RATIO Ratio Activated Partial 34.5 SEC Thromboplast Time Lactic Acid Level 1.2 mmol/L Total Bilirubin 1.3 MG/DL Aspartate Amino Transf 16 U/L (AST/SGOT) Alanine Aminotransferase 19 U/L (ALT/SGPT) Alkaline Phosphatase 88 U/L Total Protein 8.8 GM/DL Albumin 3.6 GM/DL Urine Color YELLOW Urine Turbidity CLEAR Urine pH 6.0 Urine Specific [place] 1.015 Urine Protein NEG mg/dL Urine Glucose (UA) NEG mg/dL Urine Ketones TRACE mg/dL Urine Occult Blood NEG Urine Nitrite NEG Urine Bilirubin NEG Urine Urobilinogen LESS THAN 2.0 MG/DL Urine Leukocyte Esterase TRACE Urine RBC LESS THAN 1 /hpf Urine WBC 11 /hpf Urine Hyaline Casts 1 /lpf Urine Mucus FEW /lpf Microscopic Urinalysis Comment CULTURE INDICATED White Blood Count 14.8 TH/MM3 Red Blood Count 4.62 MIL/MM3 Hemoglobin 11.7 GM/DL Hematocrit 34.9 % Mean Corpuscular Volume 75.6 FL Mean Corpuscular Hemoglobin 25.3 PG Mean Corpuscular Hemoglobin 33.4 % Concent Red Cell Distribution Width 15.2 % Platelet Count 204 TH/MM3 Mean Platelet Volume 9.2 FL Neutrophils (%) (Auto) 86.5 % Lymphocytes (%) (Auto) 7.3 % Monocytes (%) (Auto) 4.8 % Eosinophils (%) (Auto) 1.3 % Basophils (%) (Auto) 0.1 % Neutrophils # (Auto) 12.8 TH/MM3 Lymphocytes # (Auto) 1.1 TH/MM3 Monocytes # (Auto) 0.7 TH/MM3 Eosinophils # (Auto) 0.2 TH/MM3 Basophils # (Auto) 0.0 TH/MM3 CBC Comment DIFF FINAL Differential Comment Sodium Level 138 MEQ/L Potassium Level 3.7 MEQ/L Chloride Level 104 MEQ/L Carbon Dioxide Level 26.5 MEQ/L Anion Gap 8 MEQ/L Blood Urea Nitrogen 9 MG/DL Creatinine 0.65 MG/DL Estimat Glomerular Filtration 190 ML/MIN Rate Random Glucose 84 MG/DL Calcium Level 8.6 MG/DL Test 03/01/17 05:00 Vancomycin Level Trough 6.8 MCG/ML Objective Remarks GENERAL: This is a thin-appearing, well-developed patient, mildly ill-appearing. SKIN: Left thigh area positive erythema, positive edema, positive warmth below stage IV decubitus. Stage IV decubitus left buttock area tunneling. HEAD: Atraumatic. Normocephalic. No temporal or scalp tenderness. EYES: Pupils equal round and reactive. No scleral icterus. No injection or drainage. ENT: Nose without bleeding. Throat without erythema. Uvula midline. Airway patent. NECK: Trachea midline. No JVD or lymphadenopathy. Supple. CARDIOVASCULAR: Tachycardia without murmurs, gallops, or rubs. RESPIRATORY: Clear to auscultation. Breath sounds equal bilaterally. No wheezes , rales, or rhonchi. GASTROINTESTINAL: Abdomen soft, non-tender, nondistended. Positive bowel sounds x4 MUSCULOSKELETAL: Extremities without clubbing, cyanosis, or edema. NEUROLOGICAL: Awake and alert. Moves bilateral upper extremity. Paraplegia. No movement or gross sensation of bilateral lower extremity. Normal speech. Medications and IVs Current Medications Medications (Trade) Dose Ordered Sig/Soham Route Start Time Stop Time Status Last Admin (Narcan Inj) 0.4 mg UNSCH PRN IV 02/26/17 08:00 (NS Flush) 2 ml UNSCH PRN IV FLUSH 02/26/17 08:00 (NS Flush) 2 ml BID IV FLUSH 02/26/17 09:00 03/02/17 08:00 Enoxaparin Sodium 40 mg 40 mg Q24H SQ 02/26/17 10:00 Hold 02/27/17 08:28 (Vancomycin Consult Pharmacy) 0 ml @ 0 mls/hr UNSCH OTHER 02/26/17 08:00 (Tenormin) 12.5 mg DAILY PO 02/26/17 09:00 03/02/17 07:59 (Flexeril) 5 mg TID PO 02/26/17 09:00 03/02/17 07:59 (Pill Splitter) 1 ea UNSCH PRN OTHER 02/26/17 09:30 (Mucinex Er) 600 mg BID PO 02/26/17 21:00 03/01/17 21:52 (Tylenol) 650 mg QID PRN PO 02/27/17 00:00 02/27/17 00:29 ([place] 5-325 Mg) 1 tab Q4H PRN PO 02/27/17 11:00 03/02/17 01:59 Pantoprazole Sodium 40 mg 40 mg DAILY PO 02/28/17 09:00 03/07/17 08:59 03/02/17 07:59 (Merrem Inj/NS Inj) 100 ml @ 200 mls/hr Q8H IV 02/28/17 10:00 03/02/17 01:59 (Colace) 100 mg BID PO 02/28/17 14:15 03/01/17 21:51 Miscellaneous Information SPECIFIC LAB TO BE JEREMY... 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 - Left thigh area below decubitus ulcer positive for edema, edema, warmth, as per General Surgery no further management continue Vancomycin and Meropenem, Positive for Bacteremia due to MRSA. Wound positive for MRSA. - Wound care following. - Appreciated specialized Assistance by General Surgery Dr. Markel Smith and Infectious Disease Specialist Doctor Waleska Sevilla. Paraplegia Neuropathic pain - Continue Flexeril 10 mg 3 times a day added [place] - Turn and position to relieve pressure Neurogenic bladder - Patient self catheterize HTN Tachycardia - Controlled. DVT prop SCDs Code Status Full code Discussed Condition With Patient, his Girlfriend Miss Rosy Mark and Nurse Miss Canela all questions answered to the best of my abilities. Discharge Planning not yet cleared for discharge. Yogesh Delatorre MD Mar 02, 2017 09:08 Patient, his Girlfriend Miss Rosy Mark and Nurse Miss Canela all questions answered to the best of my abilities. Discharge Planning not yet cleared for discharge. Yogesh Delatorre MD Mar 02, 2017 09:08
[2017-03-02 12:00] VITALS: BP 109/54; PULSE 89; RESP 19; TEMP 97.8; O2SAT 100
[2017-03-02 16:00] VITALS: BP 93/52; PULSE 67; RESP 20; TEMP 97.8; O2SAT 100
[2017-03-02 20:00] VITALS: BP 116/62; PULSE 70; RESP 20; TEMP 96.4; O2SAT 100
[2017-03-03] VITALS: BP 114/70; PULSE 68; RESP 20; TEMP 97; O2SAT 98
[2017-03-03] MEDS: MEROPENEM INJ 1,000 MG in SODIUM CHLORIDE 0.9% INJ 100 ML IV SCH ×3 (04:07→18:46)
[2017-03-03] MEDS: VANCOMYCIN INJ 1,250 MG in SODIUM CHLOR 0.9% 250 ML INJ 250 ML IV SCH ×2 (04:26→16:36)
[2017-03-03] MEDS ORDERED: PHARMACY ORDERED LAB ONE (04:45)
[2017-03-03 06:27] LABS: AUTOMATED NEUTROPHIL # 2.5 TH/MM3 (1.8-7.7); BASOPHIL % 0.6 % (0.0-2.0); EOSINOPHIL # 0.2 TH/MM3 (0-0.4); EOSINOPHIL % 4.1 % (0.0-4.0); HEMATOCRIT 37.1 % (39.0-51.0); HEMO FLAGS DIFF FINAL; LYMPH % 37.5 % (9.0-44.0); LYMPHOCYTE # 1.8 TH/MM3 (1.0-4.8); MEAN CELL VOLUME 75.3 FL (80.0-100.0); MEAN CORPUSCULAR HEMOGLOBIN 25.2 PG (27.0-34.0); MEAN CORPUSCULAR HGB CONC 33.4 % (32.0-36.0); MONO % 7.4 % (0.0-8.0); NEUT % 50.4 % (16.0-70.0); PLATELET COUNT 244 TH/MM3 (150-450); RED BLOOD COUNT 4.93 MIL/MM3 (4.50-5.90); WHITE BLOOD COUNT 4.9 TH/MM3 (4.0-11.0)
[2017-03-03 06:50] LABS: BICARBONATE 30.1 MEQ/L (21.0-32.0); POTASSIUM 4.3 MEQ/L (3.5-5.1)
[2017-03-03 08:00] VITALS: BP 101/61; PULSE 82; RESP 16; TEMP 97.3; O2SAT 100
[2017-03-03] MEDS: CYCLOBENZAPRINE HCL 10 MG TAB PO SCH ×3 (08:15→18:46)
[2017-03-03] MEDS: SODIUM CHLORIDE 0.9% FLUSH 10 ML FLUSH IV FLUSH SCH ×2 (08:15→20:34)
[2017-03-03] MEDS: DOCUSATE SODIUM 100 MG CAP PO SCH ×2 (08:15→20:34)
[2017-03-03] MEDS: guaiFENesin E.R. 600 MG TAB PO SCH ×2 (08:16→20:34)
[2017-03-03] MEDS: ATENOLOL 25 MG TAB PO SCH (08:16)
[2017-03-03] MEDS: PANTOPRAZOLE SOD 40 MG DELAYED RELEASE TAB PO SCH (08:16)
--- NOTE | 2017-03-03 09:47 | HHI.PR ---
Subjective Remarks resting comfortably with no distress. denies pain. no fever. no other complaints. Objective Vitals Vital Signs Date Time Temp Pulse Resp B/P Pulse Ox O2 Delivery O2 Flow Rate FiO2 03/03/17 08:00 97.3 82 16 101/61 100 03/03/17 00:00 97.0 68 20 114/70 98 03/02/17 20:00 96.4 70 20 116/62 100 03/02/17 16:00 97.8 67 20 93/52 100 03/02/17 12:00 97.8 89 19 109/54 100 I/O 03/02/17 03/02/17 03/02/17 03/03/17 03/03/17 03/03/17 07:00 15:00 23:00 07:00 15:00 23:00 Intake Total 240 ml 1280 ml 740 ml Output Total 100 ml 600 ml 600 ml Balance 140 ml 680 ml 140 ml Intake Oral 240 ml 1080 ml 640 ml IV Total 200 ml 100 ml Output Urine Total 100 ml 600 ml 600 ml # Voids 1 # Bowel Movements 0 0 Result Diagram: 03/03/17 0535 03/03/17 0535 Imaging Last Impressions Lower Extremity CT 02/27/17 0600 Signed Impressions: Service Date/Time: February 09:12 - CONCLUSION: Subcutaneous defect with surrounding edema and no definite abscess or signs of osteomyelitis. Seda Mendez MD Lower Extremity MRI 02/27/17 0000 Signed Impressions: Service Date/Time: February 15:54 - CONCLUSION: There are pockets of abscess in the soft tissues of the left side posteriorly without signs of osteomyelitis. Seda Mendez MD Chest X-Ray 02/26/17 0412 Signed Impressions: Service Date/Time: Sunday, February 26, 2017 04:16 - CONCLUSION: Normal examination. Previous posterior fusion of the spine Bernardino Springer MD Objective Remarks GENERAL: This is a well-nourished, well-developed patient, in no apparent distress. CARDIOVASCULAR: Regular rate and regular rhythm without murmurs, gallops, or rubs. RESPIRATORY: Clear to auscultation. Breath sounds equal bilaterally. No wheezes , rales, or rhonchi. GASTROINTESTINAL: Abdomen soft, non-tender, nondistended. Normal, active bowel sounds MUSCULOSKELETAL: Extremities without clubbing, cyanosis, or edema. NEURO: Alert & Oriented x4 to person, place, time, situation. skin; open wound noted on the left buttock Medications and IVs Current Medications Sodium Chloride (NS 1000 ml Inj) 1,000 ml @ 100 mls/hr Q10H IV Last administered on 02/26/17 04:15; Start 02/26/17 at 04:15; Stop 02/26/17 at 09:15 ; Status DC Morphine Sulfate (Morphine Inj) 2 mg ONCE ONCE IV PUSH Last administered on 04:15; Start 02/26/17 at 04:15; Stop 02/26/17 at 04:16; Status DC Ondansetron HCl 4 mg 4 mg ONCE ONCE IV PUSH Last administered on 02/26/17 04: 15; Start 02/26/17 at 04:15; Stop 02/26/17 at 04:16; Status DC Vancomycin HCl/ Sodium Chloride (Vancomycin Inj/ NS 250 ml Inj) 250 ml @ 250 mls/hr ONCE ONCE IV Last administered on 02/26/17 04:15; Start 02/26/17 at 04 :15; Stop 02/26/17 at 05:14; Status DC Morphine Sulfate 4 mg 4 mg ONCE ONCE IV PUSH Last administered on 02/26/17 05 :00; Start 02/26/17 at 05:00; Stop 02/26/17 at 05:01; Status DC Piperacillin Sod/ Tazobactam Sod (Zosyn 3.375 Gm Premix) 50 ml @ 100 mls/hr ONCE ONCE IV Last administered on 02/26/17 06:00; Start 02/26/17 at 06:00; Stop 02/26/17 at 06:29; Status DC Acetaminophen (Tylenol) 650 mg ONCE ONCE PO Last administered on 02/26/17 06: 45; Start 02/26/17 at 06:45; Stop 02/26/17 at 06:46; Status DC Sodium Chloride (NS Flush) 2 ml UNSCH PRN IV FLUSH FLUSH AFTER USING IV ACCESS ; Start 02/26/17 at 08:00; Stop 02/26/17 at 09:17; Status DC Sodium Chloride (NS Flush) 2 ml BID IV FLUSH ; Start 02/26/17 at 09:00; Stop at 09:17; Status DC Naloxone HCl (Narcan Inj) 0.4 mg UNSCH PRN IV SEE LABEL COMMENTS; Start at 08:00 Sodium Chloride (NS Flush) 2 ml UNSCH PRN IV FLUSH FLUSH AFTER USING IV ACCESS ; Start 02/26/17 at 08:00 Sodium Chloride (NS Flush) 2 ml BID IV FLUSH Last administered on 03/02/17 21: 00; Start 02/26/17 at 09:00 Enoxaparin Sodium (Lovenox Inj) 40 mg Q24H SQ Last administered on 02/27/17 08 :28; Start 02/26/17 at 10:00; Status Hold Naloxone HCl 0.4 mg 0.4 mg UNSCH PRN IV SEE LABEL COMMENTS; Start 02/26/17 at 08:00; Stop 02/26/17 at 09:17; Status DC Pharmacy Profile Note 0 ml @ 0 mls/hr UNSCH OTHER ; Start 02/26/17 at 08:00 Piperacillin Sod/ Tazobactam Sod (Zosyn 4.5 Gm Premix) 100 ml @ 200 mls/hr Q6H IV Last administered on 02/27/17 00:29; Start 02/26/17 at 12:00; Stop at 00:35; Status DC Atenolol (Tenormin) 12.5 mg DAILY PO Last administered on 03/03/17 08:16; Start 02/26/17 at 09:00 Cyclobenzaprine HCl (Flexeril) 5 mg TID PO Last administered on 03/03/17 08:15 ; Start 02/26/17 at 09:00 Miscellaneous 1 ea 1 ea UNSCH PRN OTHER SEE LABEL COMMENTS; Start 02/26/17 at 09:30 Levofloxacin/ Dextrose 150 ml @ 100 mls/hr Q24H IV Last administered on 11:10; Start 02/26/17 at 11:00; Stop 02/27/17 at 00:35; Status DC Vancomycin HCl/ Sodium Chloride (Vancomycin Inj/ NS 250 ml Inj) 250 ml @ 250 mls/hr Q8H IV Last administered on 02/27/17 03:32; Start 02/26/17 at 12:00; Stop 02/27/17 at 08:38; Status DC Miscellaneous Information SPECIFIC LAB TO BE DRAWN:VANCOMYCIN TROUGH DATE TO... ONCE ONCE .XX Last administered on 02/27/17 03:30; Start 02/27/17 at 03:45; Stop 02/27/17 at 03:46; Status DC Albuterol/ Ipratropium (Duoneb Neb) 1 ampule Q6HR NEB NEB Last administered on 02/28/17 08:37; Start 02/26/17 at 13:00; Stop 03/02/17 at 13:00; Status DC Guaifenesin (Mucinex Er) 600 mg BID PO Last administered on 03/01/17 21:52; Start 02/26/17 at 21:00 Acetaminophen/ Hydrocodone Bitart ([place] 5-325 Mg) 1 tab Q6H PRN PO PAIN SCALE 6 TO 10; Start 02/26/17 at 17:45; Stop 02/27/17 at 10:55; Status DC Acetaminophen (Tylenol) 650 mg QID PRN PO temp > 100.4 Last administered on 00:29; Start 02/27/17 at 00:00 Miscellaneous Medication (ASP Crit: Doc ESBL, MDR A baumannii or P aer) 1 UNSCH X1 PRN .XX PHARMACY DOCUMENTATION; Start 02/27/17 at 00:45; Stop 02/28/17 at 00 :44; Status DC Miscellaneous Medication 1 1 UNSCH X1 PRN XX PHARMACY DOCUMENTATION; Start at 00:45; Stop 02/28/17 at 00:44; Status DC Meropenem 1000 mg/ Sodium Chloride 100 ml @ 200 mls/hr Q8H IV Last administered on 02/28/17 02:44; Start 02/27/17 at 01:00; Stop 02/28/17 at 05:53 ; Status DC Vancomycin HCl/ Sodium Chloride (Vancomycin Inj/ NS 250 ml Inj) 250 ml @ 250 mls/hr Q12H IV Last administered on 02/28/17 05:10; Start 02/27/17 at 15:00; Stop 02/28/17 at 05:53; Status DC Miscellaneous Information SPECIFIC LAB TO BE DRAWN:VANCOMYCIN TROUGH DATE TO... ONCE ONCE .XX ; Start 03/01/17 at 02:45; Stop 03/01/17 at 02:46; Status Cancel Acetaminophen/ Hydrocodone Bitart ([place] 5-325 Mg) 1 tab Q4H PRN PO PAIN SCALE 4 TO 10 Last administered on 03/02/17 01:59; Start 02/27/17 at 11:00 Potassium Chloride (KCl) 20 meq ONCE ONCE PO Last administered on 02/27/17 12 :18; Start 02/27/17 at 11:30; Stop 02/27/17 at 11:31; Status DC Lorazepam (Ativan Inj) 1 mg ONCE ONCE IV PUSH Last administered on 02/27/17 15:28; Start 02/27/17 at 12:45; Stop 02/27/17 at 12:46; Status DC Gadodiamide (Omniscan Pf Inj) 13 ml STK-MED ONCE IV Last administered on 17:04; Start 02/27/17 at 17:04; Stop 02/27/17 at 17:05; Status DC Ketorolac Tromethamine (Toradol Inj) 30 mg ONCE ONCE IV PUSH Last administered on 02/27/17 21:17; Start 02/27/17 at 21:15; Stop 02/27/17 at 21:16 ; Status DC Pantoprazole Sodium (Protonix) 40 mg DAILY PO Last administered on 03/03/17 08 :16; Start 02/28/17 at 09:00; Stop 03/07/17 at 08:59 Cyclobenzaprine HCl 5 mg 5 mg ONCE ONCE PO Last administered on 02/27/17 23: 20; Start 02/27/17 at 23:00; Stop 02/27/17 at 23:01; Status DC Meropenem 1000 mg/ Sodium Chloride 100 ml @ 200 mls/hr Q8H IV Last administered on 03/03/17 04:07; Start 02/28/17 at 10:00 Vancomycin HCl/ Sodium Chloride (Vancomycin Inj/ NS 250 ml Inj) 250 ml @ 250 mls/hr Q12H IV Last administered on 03/01/17 05:46; Start 02/28/17 at 17:00; Stop 03/01/17 at 13:47; Status DC Magnesium Hydroxide (Milk Of Magnesia Liq) 30 ml ONCE ONCE PO Last administered on 02/28/17 14:41; Start 02/28/17 at 14:15; Stop 02/28/17 at 14:16 ; Status DC Docusate Sodium (Colace) 100 mg BID PO Last administered on 03/01/17 21:51; Start 02/28/17 at 14:15 Lidocaine HCl 20 ml 20 ml ONCE ONCE OTHER ; Start 02/28/17 at 18:30; Stop 02/28 at 18:31; Status DC Vancomycin HCl/ Sodium Chloride (Vancomycin Inj/ NS 500 ml Inj) 515 ml @ 250 mls/hr Q12H IV ; Start 03/01/17 at 17:00; Status Cancel Miscellaneous Information SPECIFIC LAB TO BE JEREMY... ONCE ONCE .XX ; Start 03/03 at 04:45; Stop 03/03/17 at 04:46; Status DC Vancomycin HCl/ Sodium Chloride (Vancomycin Inj/ NS 250 ml Inj) 262.5 ml @ 250 mls/hr Q12H IV Last administered on 03/03/17 04:26; Start 03/01/17 at 17:00 Iohexol (Omnipaque 350 Inj) 75 ml STK-MED ONCE IV Last administered on 09:12; Start 02/27/17 at 09:12; Stop 03/02/17 at 03:24; Status DC Miscellaneous Information SPECIFIC LAB TO BE JEREMY... ONCE ONCE .XX ; Start 03/04 at 04:45; Stop 03/04/17 at 04:46 A/P Assessment and Plan A/P Left thigh/hip cellulitis versus necrotizing fasciitis Left hip, buttock area with pressure decubitus ulcer stage IV tunneling - Chest x-ray showed normal examination. - Left thigh area below decubitus ulcer positive for edema, edema, warmth, as per General Surgery no further management continue Vancomycin and Meropenem, Positive for Bacteremia due to MRSA. Wound positive for MRSA. - Wound care following. - ID following. Paraplegia Neuropathic pain - Continue Flexeril 10 mg 3 times a day added [place] - Turn and position to relieve pressure Neurogenic bladder - Patient self catheterize HTN Tachycardia - Controlled. DVT prop SCDs Discharge Planning when cleared by ELIZA. Galindo Mckenzie MD Mar 03, 2017 09:47
[2017-03-03 12:00] VITALS: BP 103/58; PULSE 86; RESP 16; TEMP 98.4; O2SAT 97
[2017-03-03 16:00] VITALS: BP 112/64; PULSE 78; RESP 18; TEMP 97.4; O2SAT 100
--- NOTE | 2017-03-03 19:22 | HHI.IDPN ---
Subjective Subjective Remarks sp bedside I+D of R thigh abscess Admission BC noted + for MRSA feels better afebrile Antibiotics meropenem vancomycin Allergies: Coded Allergies: *MDRO Multi-Drug Resistant Organism (Verified Adverse Reaction, Unknown, ) ESBL E.Coli (urine-11/06/16) MRSA (buttock)-02/16/17, 02/26/17; (blood)-02/26/17 Objective . Vital Signs Date Time Temp Pulse Resp B/P Pulse Ox O2 Delivery O2 Flow Rate FiO2 03/03/17 16:00 97.4 78 18 112/64 100 03/03/17 12:00 98.4 86 16 103/58 97 03/03/17 08:00 97.3 82 16 101/61 100 03/03/17 00:00 97.0 68 20 114/70 98 03/02/17 20:00 96.4 70 20 116/62 100 03/02/17 03/02/17 03/03/17 15:00 23:00 07:00 Intake Total 1280 ml 740 ml Output Total 600 ml 600 ml Balance 680 ml 140 ml Intake Oral 1080 ml 640 ml IV Total 200 ml 100 ml Output Urine Total 600 ml 600 ml # Voids 1 # Bowel Movements 0 0 . Laboratory Tests Test 03/03/17 05:35 White Blood Count 4.9 TH/MM3 Red Blood Count 4.93 MIL/MM3 Hemoglobin 12.4 GM/DL Hematocrit 37.1 % Mean Corpuscular Volume 75.3 FL Mean Corpuscular Hemoglobin 25.2 PG Mean Corpuscular Hemoglobin 33.4 % Concent Red Cell Distribution Width 15.0 % Platelet Count 244 TH/MM3 Mean Platelet Volume 8.4 FL Neutrophils (%) (Auto) 50.4 % Lymphocytes (%) (Auto) 37.5 % Monocytes (%) (Auto) 7.4 % Eosinophils (%) (Auto) 4.1 % Basophils (%) (Auto) 0.6 % Neutrophils # (Auto) 2.5 TH/MM3 Lymphocytes # (Auto) 1.8 TH/MM3 Monocytes # (Auto) 0.4 TH/MM3 Eosinophils # (Auto) 0.2 TH/MM3 Basophils # (Auto) 0.0 TH/MM3 CBC Comment DIFF FINAL Differential Comment Laboratory Tests Test 03/03/17 05:35 Sodium Level 138 MEQ/L Potassium Level 4.3 MEQ/L Chloride Level 102 MEQ/L Carbon Dioxide Level 30.1 MEQ/L Anion Gap 6 MEQ/L Blood Urea Nitrogen 15 MG/DL Creatinine 0.35 MG/DL Estimat Glomerular Filtration 388 ML/MIN Rate Random Glucose 74 MG/DL Calcium Level 8.9 MG/DL Imaging Last Impressions Lower Extremity CT 02/27/17 0600 Signed Impressions: Service Date/Time: February 09:12 - CONCLUSION: Subcutaneous defect with surrounding edema and no definite abscess or signs of osteomyelitis. Seda Mendez MD Lower Extremity MRI 02/27/17 0000 Signed Impressions: Service Date/Time: February 15:54 - CONCLUSION: There are pockets of abscess in the soft tissues of the left side posteriorly without signs of osteomyelitis. Seda Mendez MD Chest X-Ray 02/26/17 0412 Signed Impressions: Service Date/Time: Sunday, February 26, 2017 04:16 - CONCLUSION: Normal examination. Previous posterior fusion of the spine Bernardino Springer MD Physical Exam CONSTITUTIONAL/GENERAL: This is an adequately nourished patient, in no apparent distress. TUBES/LINES/DRAINS: SKIN: No jaundice, rashes, or lesions. L hip decubitus clean, granulating posterior thigh induraion, erythema - resolved; minimal serosang d/c from te abscess opening Skin temperature appropriate. Not diaphoretic. EYES: Pupils equal and round and reactive. Extraocular motions intact. No scleral icterus. No injection or drainage. Fundi not examined. CARDIOVASCULAR: Regular rate and rhythm without murmurs, gallops, or rubs. No JVD. Peripheral pulses symmetric. RESPIRATORY/CHEST: Symmetric, unlabored respirations. Clear to auscultation. Breath sounds equal bilaterally. No wheezes, rales, or rhonchi. GASTROINTESTINAL: Abdomen soft, non-tender, nondistended. No hepato-splenomegaly , or palpable masses. No guarding. Bowel sounds present. GENITOURINARY: Without palpable bladder distension.. MUSCULOSKELETAL: Extremities without clubbing, cyanosis, or edema. Loss of muscle bulk in BLE NEUROLOGICAL: Awake and alert. Paraplegia Follows commands. Cognitively sharp. PSYCHIATRIC: calm and cooperative Assessment & Plan Remarks Paraplegia MRSA sepsis on admission - source is likely the infected decu/L thigh abscess L hip decub, chronic, appears infected and abscess L thigh - MRSA UTI, h/o ESBL, most recentlu E.coli R to cipro, but not ESBL - no e/o UTI on urinme clx Fever - resolved Leukocytosis - resolved - cont vancomycin - dc meropenem - repeat BC - 2 D echo - anticipate IV abx 2/2 MRSA bacteremia Waleska Sevilla MD Mar 03, 2017 19:22
[2017-03-03 20:00] VITALS: BP 116/55; PULSE 78; RESP 20; TEMP 96.4; O2SAT 100
[2017-03-04] VITALS: BP 122/64; PULSE 80; RESP 20; TEMP 97.2; O2SAT 99
[2017-03-04] MEDS ORDERED: PHARMACY ORDERED LAB ONE (04:45)
[2017-03-04] MEDS: VANCOMYCIN INJ 1,250 MG in SODIUM CHLOR 0.9% 250 ML INJ 250 ML IV SCH (05:00)
[2017-03-04] MEDS: DOCUSATE SODIUM 100 MG CAP PO SCH ×2 (07:48→20:47)
[2017-03-04] MEDS: SODIUM CHLORIDE 0.9% FLUSH 10 ML FLUSH IV FLUSH SCH ×2 (07:48→20:47)
[2017-03-04] MEDS: guaiFENesin E.R. 600 MG TAB PO SCH ×2 (07:48→20:47)
[2017-03-04] MEDS: PANTOPRAZOLE SOD 40 MG DELAYED RELEASE TAB PO SCH (07:49)
[2017-03-04] MEDS: CYCLOBENZAPRINE HCL 10 MG TAB PO SCH ×3 (07:49→17:21)
[2017-03-04] MEDS: ATENOLOL 25 MG TAB PO SCH (07:50)
[2017-03-04 08:00] VITALS: BP 110/58; PULSE 73; RESP 16; TEMP 96.3; O2SAT 100
[2017-03-04 12:00] VITALS: BP 116/68; PULSE 93; RESP 16; TEMP 97.5; O2SAT 100
--- NOTE | 2017-03-04 12:53 | HHI.PR ---
Subjective Remarks resting comfortably with no distress. afebrile. no new complaints. Objective Vitals Vital Signs Date Time Temp Pulse Resp B/P Pulse Ox O2 Delivery O2 Flow Rate FiO2 03/04/17 12:00 97.5 93 16 116/68 100 03/04/17 08:00 96.3 73 16 110/58 100 03/04/17 00:00 97.2 80 20 122/64 99 03/03/17 20:00 96.4 78 20 116/55 100 03/03/17 16:00 97.4 78 18 112/64 100 I/O 03/03/17 03/03/17 03/03/17 03/04/17 03/04/17 03/04/17 07:00 15:00 23:00 07:00 15:00 23:00 Intake Total 581 ml 740 ml 730 ml Output Total 900 ml 250 ml 400 ml Balance -319 ml 490 ml 330 ml Intake Oral 240 ml 640 ml 480 ml IV Total 341 ml 100 ml 250 ml Output Urine Total 900 ml 250 ml 400 ml # Voids 1 2 # Bowel Movements 2 0 0 Result Diagram: 03/03/17 0535 03/04/17 0455 Imaging Last Impressions Lower Extremity CT 02/27/17 0600 Signed Impressions: Service Date/Time: February 09:12 - CONCLUSION: Subcutaneous defect with surrounding edema and no definite abscess or signs of osteomyelitis. Seda Mendez MD Lower Extremity MRI 02/27/17 0000 Signed Impressions: Service Date/Time: February 15:54 - CONCLUSION: There are pockets of abscess in the soft tissues of the left side posteriorly without signs of osteomyelitis. Seda Mendez MD Chest X-Ray 02/26/17 0412 Signed Impressions: Service Date/Time: Sunday, February 26, 2017 04:16 - CONCLUSION: Normal examination. Previous posterior fusion of the spine Bernardino Springer MD Objective Remarks GENERAL: This is a well-nourished, well-developed patient, in no apparent distress. CARDIOVASCULAR: Regular rate and regular rhythm without murmurs, gallops, or rubs. RESPIRATORY: Clear to auscultation. Breath sounds equal bilaterally. No wheezes , rales, or rhonchi. GASTROINTESTINAL: Abdomen soft, non-tender, nondistended. Normal, active bowel sounds MUSCULOSKELETAL: Extremities without clubbing, cyanosis, or edema. NEURO: Alert & Oriented x4 to person, place, time, situation. skin; open wound noted on the left buttock Medications and IVs Current Medications Sodium Chloride (NS 1000 ml Inj) 1,000 ml @ 100 mls/hr Q10H IV Last administered on 02/26/17 04:15; Start 02/26/17 at 04:15; Stop 02/26/17 at 09:15 ; Status DC Morphine Sulfate (Morphine Inj) 2 mg ONCE ONCE IV PUSH Last administered on 04:15; Start 02/26/17 at 04:15; Stop 02/26/17 at 04:16; Status DC Ondansetron HCl 4 mg 4 mg ONCE ONCE IV PUSH Last administered on 02/26/17 04: 15; Start 02/26/17 at 04:15; Stop 02/26/17 at 04:16; Status DC Vancomycin HCl/ Sodium Chloride (Vancomycin Inj/ NS 250 ml Inj) 250 ml @ 250 mls/hr ONCE ONCE IV Last administered on 02/26/17 04:15; Start 02/26/17 at 04 :15; Stop 02/26/17 at 05:14; Status DC Morphine Sulfate 4 mg 4 mg ONCE ONCE IV PUSH Last administered on 02/26/17 05 :00; Start 02/26/17 at 05:00; Stop 02/26/17 at 05:01; Status DC Piperacillin Sod/ Tazobactam Sod (Zosyn 3.375 Gm Premix) 50 ml @ 100 mls/hr ONCE ONCE IV Last administered on 02/26/17 06:00; Start 02/26/17 at 06:00; Stop 02/26/17 at 06:29; Status DC Acetaminophen (Tylenol) 650 mg ONCE ONCE PO Last administered on 02/26/17 06: 45; Start 02/26/17 at 06:45; Stop 02/26/17 at 06:46; Status DC Sodium Chloride (NS Flush) 2 ml UNSCH PRN IV FLUSH FLUSH AFTER USING IV ACCESS ; Start 02/26/17 at 08:00; Stop 02/26/17 at 09:17; Status DC Sodium Chloride (NS Flush) 2 ml BID IV FLUSH ; Start 02/26/17 at 09:00; Stop at 09:17; Status DC Naloxone HCl (Narcan Inj) 0.4 mg UNSCH PRN IV SEE LABEL COMMENTS; Start at 08:00 Sodium Chloride (NS Flush) 2 ml UNSCH PRN IV FLUSH FLUSH AFTER USING IV ACCESS ; Start 02/26/17 at 08:00 Sodium Chloride (NS Flush) 2 ml BID IV FLUSH Last administered on 03/04/17 07: 48; Start 02/26/17 at 09:00 Enoxaparin Sodium (Lovenox Inj) 40 mg Q24H SQ Last administered on 02/27/17 08 :28; Start 02/26/17 at 10:00; Status Hold Naloxone HCl 0.4 mg 0.4 mg UNSCH PRN IV SEE LABEL COMMENTS; Start 02/26/17 at 08:00; Stop 02/26/17 at 09:17; Status DC Pharmacy Profile Note 0 ml @ 0 mls/hr UNSCH OTHER ; Start 02/26/17 at 08:00 Piperacillin Sod/ Tazobactam Sod (Zosyn 4.5 Gm Premix) 100 ml @ 200 mls/hr Q6H IV Last administered on 02/27/17 00:29; Start 02/26/17 at 12:00; Stop at 00:35; Status DC Atenolol (Tenormin) 12.5 mg DAILY PO Last administered on 03/04/17 07:50; Start 02/26/17 at 09:00 Cyclobenzaprine HCl (Flexeril) 5 mg TID PO Last administered on 03/04/17 07:49 ; Start 02/26/17 at 09:00 Miscellaneous 1 ea 1 ea UNSCH PRN OTHER SEE LABEL COMMENTS; Start 02/26/17 at 09:30 Levofloxacin/ Dextrose 150 ml @ 100 mls/hr Q24H IV Last administered on 11:10; Start 02/26/17 at 11:00; Stop 02/27/17 at 00:35; Status DC Vancomycin HCl/ Sodium Chloride (Vancomycin Inj/ NS 250 ml Inj) 250 ml @ 250 mls/hr Q8H IV Last administered on 02/27/17 03:32; Start 02/26/17 at 12:00; Stop 02/27/17 at 08:38; Status DC Miscellaneous Information SPECIFIC LAB TO BE DRAWN:VANCOMYCIN TROUGH DATE TO... ONCE ONCE .XX Last administered on 02/27/17 03:30; Start 02/27/17 at 03:45; Stop 02/27/17 at 03:46; Status DC Albuterol/ Ipratropium (Duoneb Neb) 1 ampule Q6HR NEB NEB Last administered on 02/28/17 08:37; Start 02/26/17 at 13:00; Stop 03/02/17 at 13:00; Status DC Guaifenesin (Mucinex Er) 600 mg BID PO Last administered on 03/03/17 20:34; Start 02/26/17 at 21:00 Acetaminophen/ Hydrocodone Bitart ([place] 5-325 Mg) 1 tab Q6H PRN PO PAIN SCALE 6 TO 10; Start 02/26/17 at 17:45; Stop 02/27/17 at 10:55; Status DC Acetaminophen (Tylenol) 650 mg QID PRN PO temp > 100.4 Last administered on 00:29; Start 02/27/17 at 00:00 Miscellaneous Medication (ASP Crit: Doc ESBL, MDR A baumannii or P aer) 1 UNSCH X1 PRN .XX PHARMACY DOCUMENTATION; Start 02/27/17 at 00:45; Stop 02/28/17 at 00 :44; Status DC Miscellaneous Medication 1 1 UNSCH X1 PRN XX PHARMACY DOCUMENTATION; Start at 00:45; Stop 02/28/17 at 00:44; Status DC Meropenem 1000 mg/ Sodium Chloride 100 ml @ 200 mls/hr Q8H IV Last administered on 02/28/17 02:44; Start 02/27/17 at 01:00; Stop 02/28/17 at 05:53 ; Status DC Vancomycin HCl/ Sodium Chloride (Vancomycin Inj/ NS 250 ml Inj) 250 ml @ 250 mls/hr Q12H IV Last administered on 02/28/17 05:10; Start 02/27/17 at 15:00; Stop 02/28/17 at 05:53; Status DC Miscellaneous Information SPECIFIC LAB TO BE DRAWN:VANCOMYCIN TROUGH DATE TO... ONCE ONCE .XX ; Start 03/01/17 at 02:45; Stop 03/01/17 at 02:46; Status Cancel Acetaminophen/ Hydrocodone Bitart ([place] 5-325 Mg) 1 tab Q4H PRN PO PAIN SCALE 4 TO 10 Last administered on 03/02/17 01:59; Start 02/27/17 at 11:00 Potassium Chloride (KCl) 20 meq ONCE ONCE PO Last administered on 02/27/17 12 :18; Start 02/27/17 at 11:30; Stop 02/27/17 at 11:31; Status DC Lorazepam (Ativan Inj) 1 mg ONCE ONCE IV PUSH Last administered on 02/27/17 15:28; Start 02/27/17 at 12:45; Stop 02/27/17 at 12:46; Status DC Gadodiamide (Omniscan Pf Inj) 13 ml STK-MED ONCE IV Last administered on 17:04; Start 02/27/17 at 17:04; Stop 02/27/17 at 17:05; Status DC Ketorolac Tromethamine (Toradol Inj) 30 mg ONCE ONCE IV PUSH Last administered on 02/27/17 21:17; Start 02/27/17 at 21:15; Stop 02/27/17 at 21:16 ; Status DC Pantoprazole Sodium (Protonix) 40 mg DAILY PO Last administered on 03/04/17 07 :49; Start 02/28/17 at 09:00; Stop 03/07/17 at 08:59 Cyclobenzaprine HCl 5 mg 5 mg ONCE ONCE PO Last administered on 02/27/17 23: 20; Start 02/27/17 at 23:00; Stop 02/27/17 at 23:01; Status DC Meropenem 1000 mg/ Sodium Chloride 100 ml @ 200 mls/hr Q8H IV Last administered on 03/03/17 18:46; Start 02/28/17 at 10:00; Stop 03/03/17 at 19:26 ; Status DC Vancomycin HCl/ Sodium Chloride (Vancomycin Inj/ NS 250 ml Inj) 250 ml @ 250 mls/hr Q12H IV Last administered on 03/01/17 05:46; Start 02/28/17 at 17:00; Stop 03/01/17 at 13:47; Status DC Magnesium Hydroxide (Milk Of Magnjanee Liq) 30 ml ONCE ONCE PO Last administered on 02/28/17 14:41; Start 02/28/17 at 14:15; Stop 02/28/17 at 14:16 ; Status DC Docusate Sodium (Colace) 100 mg BID PO Last administered on 03/03/17 20:34; Start 02/28/17 at 14:15 Lidocaine HCl 20 ml 20 ml ONCE ONCE OTHER ; Start 02/28/17 at 18:30; Stop 02/28 at 18:31; Status DC Vancomycin HCl/ Sodium Chloride (Vancomycin Inj/ NS 500 ml Inj) 515 ml @ 250 mls/hr Q12H IV ; Start 03/01/17 at 17:00; Status Cancel Miscellaneous Information SPECIFIC LAB TO BE JEREMY... ONCE ONCE .XX ; Start 03/03 at 04:45; Stop 03/03/17 at 04:46; Status DC Vancomycin HCl/ Sodium Chloride (Vancomycin Inj/ NS 250 ml Inj) 262.5 ml @ 250 mls/hr Q12H IV Last administered on 03/04/17 05:00; Start 03/01/17 at 17:00; Stop 03/04/17 at 09:23; Status DC Iohexol (Omnipaque 350 Inj) 75 ml STK-MED ONCE IV Last administered on 09:12; Start 02/27/17 at 09:12; Stop 03/02/17 at 03:24; Status DC Miscellaneous Information SPECIFIC LAB TO BE JEREMY... ONCE ONCE .XX Last administered on 03/04/17 04:45; Start 03/04/17 at 04:45; Stop 03/04/17 at 04:46 ; Status DC Vancomycin HCl/ Sodium Chloride (Vancomycin Inj/ NS 250 ml Inj) 250 ml @ 250 mls/hr Q8H IV ; Start 03/04/17 at 14:00 Miscellaneous Information SPECIFIC LAB TO BE DRAWN:VANCOMYCIN TROUGH DATE TO... UNSCH X1 ONCE .XX ; Start 03/05/17 at 13:45; Stop 03/05/17 at 13:46 A/P Assessment and Plan A/P Left thigh/hip cellulitis versus necrotizing fasciitis Left hip, buttock area with pressure decubitus ulcer stage IV tunneling - Chest x-ray showed normal examination. - Left thigh area below decubitus ulcer positive for edema, edema, warmth, as per General Surgery no further management continue Vancomycin- Meropenem was dc'ed. - Wound care following. - ID following. MRSA bacteremia - continue with Vancomycin - will follow the repeated blood cultures -echo pending Paraplegia Neuropathic pain - Continue Flexeril 10 mg 3 times a day added [place] - Turn and position to relieve pressure Neurogenic bladder - Patient self catheterize HTN Tachycardia - Controlled. DVT prop SCDs Discharge Planning when cleared by ID. d/w the case management today. Galindo Mckenzie MD Mar 04, 2017 12:53
[2017-03-04] MEDS: VANCOMYCIN 1,000 MG/NS 250 ML IV SCH ×4 (13:14→21:09)
[2017-03-04 16:00] VITALS: BP 104/56; PULSE 90; RESP 17; TEMP 97.2; O2SAT 98
--- NOTE | 2017-03-04 16:25 | ECHLIM ---
Study Study Date:03/04/2017 STUDY CONCLUSIONS SUMMARY LEFT VENTRICLE: The cavity size was normal. Wall thickness was normal. Systolic function was normal. The estimated ejection fraction was in the range of 55% to 60%. Wall motion was normal; there were no regional wall motion abnormalities. Impressions: No evidence of endocarditis. If LV function is below 40, please consider prescribing an ACEI or ARB or document rationale for non-use. PROCEDURE DATA STUDY STATUS: Elective. Procedure: Transthoracic echocardiography. Image quality was good. Scanning was performed from the parasternal, apical, and subcostal acoustic windows. Study completion: The patient tolerated the procedure well. Transthoracic echocardiography. M-mode, complete 2D, complete spectral Doppler, and color Doppler. Height: Height: 78in. Weight: Weight: 148.7lb. Body mass index: BMI: 17.2kg/m^2. Body surface area: BSA: 1.99m^2. Patient status: Inpatient. CARDIAC ANATOMY LEFT VENTRICLE: The cavity size was normal. Wall thickness was normal. Systolic function was normal. The estimated ejection fraction was in the range of 55% to 60%. Wall motion was normal; there were no regional wall motion abnormalities. AORTIC VALVE: Trileaflet; normal thickness leaflets. Doppler: Transvalvular velocity was within the normal range. There was no stenosis. No regurgitation. AORTA: Aortic root: The aortic root was normal in size. MITRAL VALVE: Structurally normal valve. Doppler: Transvalvular velocity was within the normal range. There was no evidence for stenosis. No regurgitation. LEFT ATRIUM: The atrium was normal in size. RIGHT VENTRICLE: The cavity size was normal. Wall thickness was normal. PULMONIC VALVE: Doppler: Transvalvular velocity was within the normal range. There was no evidence for stenosis. No regurgitation. TRICUSPID VALVE: Structurally normal valve. Doppler: Transvalvular velocity was within the normal range. No regurgitation. Peak gradient: 12mm Hg (D). PULMONARY ARTERY: The main pulmonary artery was normal-sized. Systolic pressure was within the normal range. RIGHT ATRIUM: The atrium was normal in size. PERICARDIUM: There was no pericardial effusion. SYSTEMIC VEINS: Inferior vena cava: The vessel was normal in size. Patient weight: 148.7lb _Ejection fraction:_ 65-75% _Fractional shortening:_ 32% up to 5Kg 5-11.5Kg 11.6-22.9Kg 23-45Kg 45-57Kg Aortic Root 7-13 <17 13-22 17-27 17-27 LA diam 6-13 <23 24-38 33-47 37-40 RVID 10-17 7-15 7-15 7-18 8-17 LVIDd 12-22 <32 24-38 33-47 37-40 LVPW 2-4 3-6 5-7 6-8 7-8 IVS 2-4 3-6 5-7 6-8 7-8 BASIC MEASUREMENTS ADULT NORMAL Left ventricle Volume, ED, MOD, 1-plane 57 ml Volume, ES, MOD, 1-plane 25 ml Ejection fraction, MOD, 1-plane 56 % Stroke volume, MOD, 1-plane 32 ml Volume index, ED, MOD, 1-plane 29 ml/m^2 Volume index, ES, MOD, 1-plane 13 ml/m^2 Stroke index, MOD, 1-plane 16.1 ml/m^2 DOPPLER MEASUREMENTS ADULT NORMAL Tricuspid valve Peak gradient, D 12 mm Hg Maximal inflow velocity 174 cm/s Systemic veins Estimated CVP 10 mm Hg LEGEND: Mean values are shown as u=mean value. Asterisk (*) sparrow values outside specified normal range. Prepared and signed by Brenda Sierra [id number]
[2017-03-04 20:00] VITALS: BP 106/59; PULSE 73; RESP 20; TEMP 97; O2SAT 100
[2017-03-05] VITALS: BP 106/52; PULSE 78; RESP 20; TEMP 96; O2SAT 99
[2017-03-05] MEDS: VANCOMYCIN 1,000 MG/NS 250 ML IV SCH ×6 (06:00→20:17)
[2017-03-05 08:00] VITALS: BP 115/55; PULSE 74; RESP 16; TEMP 97.9; O2SAT 96
[2017-03-05] MEDS: guaiFENesin E.R. 600 MG TAB PO SCH ×2 (09:00→20:16)
[2017-03-05] MEDS: CYCLOBENZAPRINE HCL 10 MG TAB PO SCH ×3 (09:00→17:13)
[2017-03-05] MEDS: PANTOPRAZOLE SOD 40 MG DELAYED RELEASE TAB PO SCH (09:51)
[2017-03-05] MEDS: SODIUM CHLORIDE 0.9% FLUSH 10 ML FLUSH IV FLUSH SCH ×2 (09:52→20:16)
[2017-03-05] MEDS: DOCUSATE SODIUM 100 MG CAP PO SCH ×2 (09:52→20:16)
[2017-03-05] MEDS: ATENOLOL 25 MG TAB PO SCH (09:52)
--- NOTE | 2017-03-05 10:34 | HHI.PR ---
Subjective Remarks resting comfortably with no distress. no fever. no new complaints. d/w the RN. Objective Vitals Vital Signs Date Time Temp Pulse Resp B/P Pulse Ox O2 Delivery O2 Flow Rate FiO2 03/05/17 08:00 97.9 74 16 115/55 96 03/05/17 00:00 96.0 78 20 106/52 99 03/04/17 20:00 97.0 73 20 106/59 100 03/04/17 16:00 97.2 90 17 104/56 98 03/04/17 12:00 97.5 93 16 116/68 100 I/O 03/04/17 03/04/17 03/04/17 03/05/17 03/05/17 03/05/17 07:00 15:00 23:00 07:00 15:00 23:00 Intake Total 730 ml 987 ml 720 ml 500 ml 245 ml Output Total 400 ml 500 ml 300 ml 200 ml Balance 330 ml 487 ml 420 ml 300 ml 245 ml Intake Oral 480 ml 960 ml 720 ml 0 ml IV Total 250 ml 27 ml 500 ml 245 ml Output Urine Total 400 ml 500 ml 300 ml 200 ml # Voids 2 # Bowel Movements 0 1 Result Diagram: 03/03/17 0535 03/04/17 0455 Imaging Last Impressions Lower Extremity CT 02/27/17 0600 Signed Impressions: Service Date/Time: February 09:12 - CONCLUSION: Subcutaneous defect with surrounding edema and no definite abscess or signs of osteomyelitis. Seda Mendez MD Lower Extremity MRI 02/27/17 0000 Signed Impressions: Service Date/Time: February 15:54 - CONCLUSION: There are pockets of abscess in the soft tissues of the left side posteriorly without signs of osteomyelitis. Seda Mendez MD Chest X-Ray 02/26/17 0412 Signed Impressions: Service Date/Time: Sunday, February 26, 2017 04:16 - CONCLUSION: Normal examination. Previous posterior fusion of the spine Bernardino Springer MD Objective Remarks GENERAL: This is a well-nourished, well-developed patient, in no apparent distress. CARDIOVASCULAR: Regular rate and regular rhythm without murmurs, gallops, or rubs. RESPIRATORY: Clear to auscultation. Breath sounds equal bilaterally. No wheezes , rales, or rhonchi. GASTROINTESTINAL: Abdomen soft, non-tender, nondistended. Normal, active bowel sounds MUSCULOSKELETAL: Extremities without clubbing, cyanosis, or edema. NEURO: Alert & Oriented x4 to person, place, time, situation. skin; open wound noted on the left buttock Medications and IVs Current Medications Sodium Chloride (NS 1000 ml Inj) 1,000 ml @ 100 mls/hr Q10H IV Last administered on 02/26/17 04:15; Start 02/26/17 at 04:15; Stop 02/26/17 at 09:15 ; Status DC Morphine Sulfate (Morphine Inj) 2 mg ONCE ONCE IV PUSH Last administered on 04:15; Start 02/26/17 at 04:15; Stop 02/26/17 at 04:16; Status DC Ondansetron HCl 4 mg 4 mg ONCE ONCE IV PUSH Last administered on 02/26/17 04: 15; Start 02/26/17 at 04:15; Stop 02/26/17 at 04:16; Status DC Vancomycin HCl/ Sodium Chloride (Vancomycin Inj/ NS 250 ml Inj) 250 ml @ 250 mls/hr ONCE ONCE IV Last administered on 02/26/17 04:15; Start 02/26/17 at 04 :15; Stop 02/26/17 at 05:14; Status DC Morphine Sulfate 4 mg 4 mg ONCE ONCE IV PUSH Last administered on 02/26/17 05 :00; Start 02/26/17 at 05:00; Stop 02/26/17 at 05:01; Status DC Piperacillin Sod/ Tazobactam Sod (Zosyn 3.375 Gm Premix) 50 ml @ 100 mls/hr ONCE ONCE IV Last administered on 02/26/17 06:00; Start 02/26/17 at 06:00; Stop 02/26/17 at 06:29; Status DC Acetaminophen (Tylenol) 650 mg ONCE ONCE PO Last administered on 02/26/17 06: 45; Start 02/26/17 at 06:45; Stop 02/26/17 at 06:46; Status DC Sodium Chloride (NS Flush) 2 ml UNSCH PRN IV FLUSH FLUSH AFTER USING IV ACCESS ; Start 02/26/17 at 08:00; Stop 02/26/17 at 09:17; Status DC Sodium Chloride (NS Flush) 2 ml BID IV FLUSH ; Start 02/26/17 at 09:00; Stop at 09:17; Status DC Naloxone HCl (Narcan Inj) 0.4 mg UNSCH PRN IV SEE LABEL COMMENTS; Start at 08:00 Sodium Chloride (NS Flush) 2 ml UNSCH PRN IV FLUSH FLUSH AFTER USING IV ACCESS ; Start 02/26/17 at 08:00 Sodium Chloride (NS Flush) 2 ml BID IV FLUSH Last administered on 03/05/17 09: 52; Start 02/26/17 at 09:00 Enoxaparin Sodium (Lovenox Inj) 40 mg Q24H SQ Last administered on 02/27/17 08 :28; Start 02/26/17 at 10:00; Status Hold Naloxone HCl 0.4 mg 0.4 mg UNSCH PRN IV SEE LABEL COMMENTS; Start 02/26/17 at 08:00; Stop 02/26/17 at 09:17; Status DC Pharmacy Profile Note 0 ml @ 0 mls/hr UNSCH OTHER ; Start 02/26/17 at 08:00 Piperacillin Sod/ Tazobactam Sod (Zosyn 4.5 Gm Premix) 100 ml @ 200 mls/hr Q6H IV Last administered on 02/27/17 00:29; Start 02/26/17 at 12:00; Stop at 00:35; Status DC Atenolol (Tenormin) 12.5 mg DAILY PO Last administered on 03/05/17 09:52; Start 02/26/17 at 09:00 Cyclobenzaprine HCl (Flexeril) 5 mg TID PO Last administered on 03/04/17 07:49 ; Start 02/26/17 at 09:00 Miscellaneous 1 ea 1 ea UNSCH PRN OTHER SEE LABEL COMMENTS; Start 02/26/17 at 09:30 Levofloxacin/ Dextrose 150 ml @ 100 mls/hr Q24H IV Last administered on 11:10; Start 02/26/17 at 11:00; Stop 02/27/17 at 00:35; Status DC Vancomycin HCl/ Sodium Chloride (Vancomycin Inj/ NS 250 ml Inj) 250 ml @ 250 mls/hr Q8H IV Last administered on 02/27/17 03:32; Start 02/26/17 at 12:00; Stop 02/27/17 at 08:38; Status DC Miscellaneous Information SPECIFIC LAB TO BE DRAWN:VANCOMYCIN TROUGH DATE TO... ONCE ONCE .XX Last administered on 02/27/17 03:30; Start 02/27/17 at 03:45; Stop 02/27/17 at 03:46; Status DC Albuterol/ Ipratropium (Duoneb Neb) 1 ampule Q6HR NEB NEB Last administered on 02/28/17 08:37; Start 02/26/17 at 13:00; Stop 03/02/17 at 13:00; Status DC Guaifenesin (Mucinex Er) 600 mg BID PO Last administered on 03/04/17 20:47; Start 02/26/17 at 21:00 Acetaminophen/ Hydrocodone Bitart (Center 5-325 Mg) 1 tab Q6H PRN PO PAIN SCALE 6 TO 10; Start 02/26/17 at 17:45; Stop 02/27/17 at 10:55; Status DC Acetaminophen (Tylenol) 650 mg QID PRN PO temp > 100.4 Last administered on 00:29; Start 02/27/17 at 00:00 Miscellaneous Medication (ASP Crit: Doc ESBL, MDR A baumannii or P aer) 1 UNSCH X1 PRN .XX PHARMACY DOCUMENTATION; Start 02/27/17 at 00:45; Stop 02/28/17 at 00 :44; Status DC Miscellaneous Medication 1 1 UNSCH X1 PRN XX PHARMACY DOCUMENTATION; Start at 00:45; Stop 02/28/17 at 00:44; Status DC Meropenem 1000 mg/ Sodium Chloride 100 ml @ 200 mls/hr Q8H IV Last administered on 02/28/17 02:44; Start 02/27/17 at 01:00; Stop 02/28/17 at 05:53 ; Status DC Vancomycin HCl/ Sodium Chloride (Vancomycin Inj/ NS 250 ml Inj) 250 ml @ 250 mls/hr Q12H IV Last administered on 02/28/17 05:10; Start 02/27/17 at 15:00; Stop 02/28/17 at 05:53; Status DC Miscellaneous Information SPECIFIC LAB TO BE DRAWN:VANCOMYCIN TROUGH DATE TO... ONCE ONCE .XX ; Start 03/01/17 at 02:45; Stop 03/01/17 at 02:46; Status Cancel Acetaminophen/ Hydrocodone Bitart (Center 5-325 Mg) 1 tab Q4H PRN PO PAIN SCALE 4 TO 10 Last administered on 03/02/17 01:59; Start 02/27/17 at 11:00 Potassium Chloride (KCl) 20 meq ONCE ONCE PO Last administered on 02/27/17 12 :18; Start 02/27/17 at 11:30; Stop 02/27/17 at 11:31; Status DC Lorazepam (Ativan Inj) 1 mg ONCE ONCE IV PUSH Last administered on 02/27/17 15:28; Start 02/27/17 at 12:45; Stop 02/27/17 at 12:46; Status DC Gadodiamide (Omniscan Pf Inj) 13 ml STK-MED ONCE IV Last administered on 17:04; Start 02/27/17 at 17:04; Stop 02/27/17 at 17:05; Status DC Ketorolac Tromethamine (Toradol Inj) 30 mg ONCE ONCE IV PUSH Last administered on 02/27/17 21:17; Start 02/27/17 at 21:15; Stop 02/27/17 at 21:16 ; Status DC Pantoprazole Sodium (Protonix) 40 mg DAILY PO Last administered on 03/05/17 09 :51; Start 02/28/17 at 09:00; Stop 03/07/17 at 08:59 Cyclobenzaprine HCl 5 mg 5 mg ONCE ONCE PO Last administered on 02/27/17 23: 20; Start 02/27/17 at 23:00; Stop 02/27/17 at 23:01; Status DC Meropenem 1000 mg/ Sodium Chloride 100 ml @ 200 mls/hr Q8H IV Last administered on 03/03/17 18:46; Start 02/28/17 at 10:00; Stop 03/03/17 at 19:26 ; Status DC Vancomycin HCl/ Sodium Chloride (Vancomycin Inj/ NS 250 ml Inj) 250 ml @ 250 mls/hr Q12H IV Last administered on 03/01/17 05:46; Start 02/28/17 at 17:00; Stop 03/01/17 at 13:47; Status DC Magnesium Hydroxide (Milk Of Magnesia Liq) 30 ml ONCE ONCE PO Last administered on 02/28/17 14:41; Start 02/28/17 at 14:15; Stop 02/28/17 at 14:16 ; Status DC Docusate Sodium (Colace) 100 mg BID PO Last administered on 03/05/17 09:52; Start 02/28/17 at 14:15 Lidocaine HCl 20 ml 20 ml ONCE ONCE OTHER ; Start 02/28/17 at 18:30; Stop 02/28 at 18:31; Status DC Vancomycin HCl/ Sodium Chloride (Vancomycin Inj/ NS 500 ml Inj) 515 ml @ 250 mls/hr Q12H IV ; Start 03/01/17 at 17:00; Status Cancel Miscellaneous Information SPECIFIC LAB TO BE JEREMY... ONCE ONCE .XX ; Start 03/03 at 04:45; Stop 03/03/17 at 04:46; Status DC Vancomycin HCl/ Sodium Chloride (Vancomycin Inj/ NS 250 ml Inj) 262.5 ml @ 250 mls/hr Q12H IV Last administered on 03/04/17 05:00; Start 03/01/17 at 17:00; Stop 03/04/17 at 09:23; Status DC Iohexol (Omnipaque 350 Inj) 75 ml STK-MED ONCE IV Last administered on 09:12; Start 02/27/17 at 09:12; Stop 03/02/17 at 03:24; Status DC Miscellaneous Information SPECIFIC LAB TO BE JEREMY... ONCE ONCE .XX Last administered on 03/04/17 04:45; Start 03/04/17 at 04:45; Stop 03/04/17 at 04:46 ; Status DC Vancomycin HCl/ Sodium Chloride (Vancomycin Inj/ NS 250 ml Inj) 250 ml @ 250 mls/hr Q8H IV Last administered on 03/05/17 06:00; Start 03/04/17 at 14:00 Miscellaneous Information SPECIFIC LAB TO BE DRAWN:VANCOMYCIN TROUGH DATE TO... UNSCH X1 ONCE .XX ; Start 03/05/17 at 13:45; Stop 03/05/17 at 13:46 A/P Assessment and Plan A/P Left thigh/hip cellulitis versus necrotizing fasciitis Left hip, buttock area with pressure decubitus ulcer stage IV tunneling - Chest x-ray showed normal examination. - Left thigh area below decubitus ulcer positive for edema, edema, warmth, as per General Surgery no further management continue Vancomycin- Meropenem was dc'ed. - Wound care following. - ID following. MRSA bacteremia - continue with Vancomycin - will follow the repeated blood cultures -echo with no vegetation Paraplegia Neuropathic pain - Continue Flexeril 10 mg 3 times a day added Center - Turn and position to relieve pressure Neurogenic bladder - Patient self catheterize HTN Tachycardia - Controlled. DVT prop SCDs Discharge Planning when cleared by ID. Galindo Mckenzie MD Mar 05, 2017 10:34
[2017-03-05 12:00] VITALS: BP 116/71; PULSE 74; RESP 17; TEMP 97.1; O2SAT 100
[2017-03-05] MEDS ORDERED: PHARMACY ORDERED LAB ONE (13:45)
[2017-03-05 16:00] VITALS: BP 108/61; PULSE 67; RESP 16; TEMP 98; O2SAT 99
--- NOTE | 2017-03-05 16:05 | HHI.IDPN ---
Subjective Subjective Remarks doing well afebrile tolerating abx OK repeat BC neg @ 1 day 2 D echo negative Antibiotics meropenem vancomycin Allergies: Coded Allergies: *MDRO Multi-Drug Resistant Organism (Verified Adverse Reaction, Unknown, ) ESBL E.Coli (urine-11/06/16) MRSA (buttock)-02/16/17, 02/26/17; (blood)-02/26/17 Objective . Vital Signs Date Time Temp Pulse Resp B/P Pulse Ox O2 Delivery O2 Flow Rate FiO2 03/05/17 12:00 97.1 74 17 116/71 100 03/05/17 08:00 97.9 74 16 115/55 96 03/05/17 00:00 96.0 78 20 106/52 99 03/04/17 20:00 97.0 73 20 106/59 100 03/04/17 03/04/17 03/05/17 15:00 23:00 07:00 Intake Total 987 ml 720 ml 500 ml Output Total 500 ml 300 ml 200 ml Balance 487 ml 420 ml 300 ml Intake Oral 960 ml 720 ml 0 ml IV Total 27 ml 500 ml Output Urine Total 500 ml 300 ml 200 ml # Bowel Movements 1 . Laboratory Tests Test 03/04/17 04:55 Creatinine 0.46 MG/DL Estimat Glomerular Filtration 283 ML/MIN Rate Microbiology Date/Time Procedure Status Source Growth 03/04/17 04:50 Aerobic Blood Culture - Preliminary Resulted Blood Peripheral NO GROWTH IN 1 DAY 03/04/17 04:50 Anaerobic Blood Culture - Preliminary Resulted Blood Peripheral NO GROWTH IN 1 DAY 03/04/17 04:55 Aerobic Blood Culture - Preliminary Resulted Blood Peripheral NO GROWTH IN 1 DAY 03/04/17 04:55 Anaerobic Blood Culture - Preliminary Resulted Blood Peripheral NO GROWTH IN 1 DAY Imaging Last Impressions Lower Extremity CT 02/27/17 0600 Signed Impressions: Service Date/Time: February 09:12 - CONCLUSION: Subcutaneous defect with surrounding edema and no definite abscess or signs of osteomyelitis. Seda Mendez MD Lower Extremity MRI 02/27/17 0000 Signed Impressions: Service Date/Time: February 15:54 - CONCLUSION: There are pockets of abscess in the soft tissues of the left side posteriorly without signs of osteomyelitis. Seda Mendez MD Chest X-Ray 02/26/17 0412 Signed Impressions: Service Date/Time: Sunday, February 26, 2017 04:16 - CONCLUSION: Normal examination. Previous posterior fusion of the spine Bernardino Springer MD Physical Exam CONSTITUTIONAL/GENERAL: This is an adequately nourished patient, in no apparent distress. TUBES/LINES/DRAINS: SKIN: No jaundice, rashes, or lesions. L hip decubitus packed with min serous dc posterior thigh induraion, erythema - resolved; minimal serosang d/c from te abscess opening Skin temperature appropriate. Not diaphoretic. EYES: Pupils equal and round and reactive. Extraocular motions intact. No scleral icterus. No injection or drainage. Fundi not examined. CARDIOVASCULAR: Regular rate and rhythm without murmurs, gallops, or rubs. No JVD. Peripheral pulses symmetric. RESPIRATORY/CHEST: Symmetric, unlabored respirations. Clear to auscultation. Breath sounds equal bilaterally. No wheezes, rales, or rhonchi. GASTROINTESTINAL: Abdomen soft, non-tender, nondistended. No hepato-splenomegaly , or palpable masses. No guarding. Bowel sounds present. GENITOURINARY: Without palpable bladder distension.. MUSCULOSKELETAL: Extremities without clubbing, cyanosis, or edema. Loss of muscle bulk in BLE NEUROLOGICAL: Awake and alert. Paraplegia Follows commands. Cognitively sharp. PSYCHIATRIC: calm and cooperative Assessment & Plan Remarks Paraplegia MRSA sepsis on admission - source is likely the infected decu/L thigh abscess - repeat BC so far negative - 2 D echo neg L hip decub, chronic, appears infected and abscess L thigh - MRSA UTI, h/o ESBL, most recentlu E.coli R to cipro, but not ESBL - no e/o UTI on urinme clx Fever - resolved Leukocytosis - resolved - cont vancomycin - OK to dc pt tomorrow providing repeat BC remians negative - if repeat BC + will need JORDYN - anticipate IV abx 2/2 MRSA bacteremia - OPAT form filled out - PICC Waleska Sevilla MD Mar 05, 2017 16:05
--- NOTE | 2017-03-05 16:06 | HHI.FF ---
Infusion Therapy Location of Infusion Therapy: Home [facility] Care IV Infusion Order Patient Information Patient Weight 68 kg Diagnosis: Diagnosis MRSA sepsis Coded Allergies: *MDRO Multi-Drug Resistant Organism (Verified Adverse Reaction, Unknown, ) ESBL E.Coli (urine-11/06/16) MRSA (buttock)-02/16/17, 02/26/17; (blood)-02/26/17 Administer Medication Vancomycin 1.5 grams IV q 12 hours Start Treatment: Mar 05, 2017 Stop Treatment: March 19, 2017 Additional Information Venous access: PICC Line Additional Instructions [x] Peripheral flush and dressing changes per protocol [x] Implanted port and central business line controller: * Implanted port: 10 ml Normal Saline followed by 5 ml Heparin 100 units/ml Heparin flush after each use and monthly to maintain. [] May leave port accessed during therapy. [] May leave peripheral site accessed for duration of therapy. [x] If patient has SOB or respiratory distress, check oxygen saturation. If less than 90% or clinical signs of respiratory distress, administer oxygen at 2 L/min. via nasal cannula and notify physician. [x] Anaphylaxis/Reaction orders: * Stop infusion. * Keep IV line open with saline flush. * Notify physician. * Monitor vital signs every 15 minutes until symptoms resolve. * Check Oxygen saturation; Oxygen at 2 L/min. via nasal cannula if less than 90% or clinical signs of respiratory distress. * Administer diphenhydramine (Benadryl) 25 mg IV STAT, (unless patient has received as pre-med). May repeat once, if necessary. * Solu-Cortef 250 mg IVP over 30-60 seconds, use 100 mg vials for each dissolution. * Epinephrine (1mg/1 ml) 0.3 mg subcutaneously or IVP now with any signs of respiratory distress. * Check with physician for new additional pre-med orders if patient is re- challenged or re-treated. [x] May remove PICC line when treatment complete, after confirming with Physician. [x] If the patient is admitted to the hospital, the ED, or transferred via [facility] , complete transfer form including medication reconciliation order sheet. Laboratory Tests Weekly Labs: CBC w/diff, Creatinine, Vancomycin Trough Waleska Sevilla MD Mar 05, 2017 16:06
[2017-03-05 20:00] VITALS: BP 111/60; PULSE 79; RESP 17; TEMP 96.7; O2SAT 100
[2017-03-05] MEDS: ACETAMINOPHEN/HYDROcodone 325 MG/5 MG TAB PO PRN (21:06)
[2017-03-06] VITALS: BP 115/63; PULSE 81; RESP 17; TEMP 97.5; O2SAT 100
[2017-03-06] MEDS: VANCOMYCIN 1,000 MG/NS 250 ML IV SCH ×6 (05:52→21:04)
[2017-03-06 08:00] VITALS: BP 98/55; PULSE 85; RESP 16; TEMP 97.2; O2SAT 98
[2017-03-06] MEDS: ATENOLOL 25 MG TAB PO SCH (09:00)
[2017-03-06] MEDS: guaiFENesin E.R. 600 MG TAB PO SCH ×2 (09:00→21:00)
[2017-03-06] MEDS: CYCLOBENZAPRINE HCL 10 MG TAB PO SCH ×3 (09:00→17:23)
[2017-03-06] MEDS: DOCUSATE SODIUM 100 MG CAP PO SCH ×2 (09:40→21:03)
[2017-03-06] MEDS: PANTOPRAZOLE SOD 40 MG DELAYED RELEASE TAB PO SCH (09:40)
[2017-03-06] MEDS: SODIUM CHLORIDE 0.9% FLUSH 10 ML FLUSH IV FLUSH SCH ×2 (09:40→21:04)
[2017-03-06] MEDS: ACETAMINOPHEN/HYDROcodone 325 MG/5 MG TAB PO PRN ×2 (09:44→16:11)
--- NOTE | 2017-03-06 10:54 | HHI.PR ---
Subjective Remarks resting comfortably with no acute distress. pain is controlled. no fever. no new complaints. Objective Vitals Vital Signs Date Time Temp Pulse Resp B/P Pulse Ox O2 Delivery O2 Flow Rate FiO2 03/06/17 08:00 97.2 85 16 98/55 98 03/06/17 00:00 97.5 81 17 115/63 100 03/05/17 20:00 96.7 79 17 111/60 100 03/05/17 16:00 98.0 67 16 108/61 99 03/05/17 12:00 97.1 74 17 116/71 100 I/O 03/05/17 03/05/17 03/05/17 03/06/17 03/06/17 03/06/17 07:00 15:00 23:00 07:00 15:00 23:00 Intake Total 500 ml 725 ml 740 ml 220 ml 250 ml Output Total 200 ml 300 ml Balance 300 ml 725 ml 440 ml 220 ml 250 ml Intake Oral 0 ml 480 ml 240 ml 220 ml IV Total 500 ml 245 ml 500 ml 250 ml Output Urine Total 200 ml 300 ml # Voids 1 2 2 # Bowel Movements 0 3 0 Result Diagram: 03/03/17 0535 03/06/17 0431 Imaging Last Impressions Lower Extremity CT 02/27/17 0600 Signed Impressions: Service Date/Time: February 09:12 - CONCLUSION: Subcutaneous defect with surrounding edema and no definite abscess or signs of osteomyelitis. Seda Mendez MD Lower Extremity MRI 02/27/17 0000 Signed Impressions: Service Date/Time: February 15:54 - CONCLUSION: There are pockets of abscess in the soft tissues of the left side posteriorly without signs of osteomyelitis. Seda Mendez MD Chest X-Ray 02/26/17 0412 Signed Impressions: Service Date/Time: Sunday, February 26, 2017 04:16 - CONCLUSION: Normal examination. Previous posterior fusion of the spine Bernardino Springer MD Objective Remarks GENERAL: This is a well-nourished, well-developed patient, in no apparent distress. CARDIOVASCULAR: Regular rate and regular rhythm without murmurs, gallops, or rubs. RESPIRATORY: Clear to auscultation. Breath sounds equal bilaterally. No wheezes , rales, or rhonchi. GASTROINTESTINAL: Abdomen soft, non-tender, nondistended. Normal, active bowel sounds MUSCULOSKELETAL: Extremities without clubbing, cyanosis, or edema. NEURO: Alert & Oriented x4 to person, place, time, situation. skin; open wound noted on the left buttock Procedures picc line insertion. Medications and IVs Current Medications Sodium Chloride (NS 1000 ml Inj) 1,000 ml @ 100 mls/hr Q10H IV Last administered on 02/26/17 04:15; Start 02/26/17 at 04:15; Stop 02/26/17 at 09:15 ; Status DC Morphine Sulfate (Morphine Inj) 2 mg ONCE ONCE IV PUSH Last administered on 04:15; Start 02/26/17 at 04:15; Stop 02/26/17 at 04:16; Status DC Ondansetron HCl 4 mg 4 mg ONCE ONCE IV PUSH Last administered on 02/26/17 04: 15; Start 02/26/17 at 04:15; Stop 02/26/17 at 04:16; Status DC Vancomycin HCl/ Sodium Chloride (Vancomycin Inj/ NS 250 ml Inj) 250 ml @ 250 mls/hr ONCE ONCE IV Last administered on 02/26/17 04:15; Start 02/26/17 at 04 :15; Stop 02/26/17 at 05:14; Status DC Morphine Sulfate 4 mg 4 mg ONCE ONCE IV PUSH Last administered on 02/26/17 05 :00; Start 02/26/17 at 05:00; Stop 02/26/17 at 05:01; Status DC Piperacillin Sod/ Tazobactam Sod (Zosyn 3.375 Gm Premix) 50 ml @ 100 mls/hr ONCE ONCE IV Last administered on 02/26/17 06:00; Start 02/26/17 at 06:00; Stop 02/26/17 at 06:29; Status DC Acetaminophen (Tylenol) 650 mg ONCE ONCE PO Last administered on 02/26/17 06: 45; Start 02/26/17 at 06:45; Stop 02/26/17 at 06:46; Status DC Sodium Chloride (NS Flush) 2 ml UNSCH PRN IV FLUSH FLUSH AFTER USING IV ACCESS ; Start 02/26/17 at 08:00; Stop 02/26/17 at 09:17; Status DC Sodium Chloride (NS Flush) 2 ml BID IV FLUSH ; Start 02/26/17 at 09:00; Stop at 09:17; Status DC Naloxone HCl (Narcan Inj) 0.4 mg UNSCH PRN IV SEE LABEL COMMENTS; Start at 08:00 Sodium Chloride (NS Flush) 2 ml UNSCH PRN IV FLUSH FLUSH AFTER USING IV ACCESS ; Start 02/26/17 at 08:00 Sodium Chloride (NS Flush) 2 ml BID IV FLUSH Last administered on 03/06/17 09: 40; Start 02/26/17 at 09:00 Enoxaparin Sodium (Lovenox Inj) 40 mg Q24H SQ Last administered on 02/27/17 08 :28; Start 02/26/17 at 10:00; Status Hold Naloxone HCl 0.4 mg 0.4 mg UNSCH PRN IV SEE LABEL COMMENTS; Start 02/26/17 at 08:00; Stop 02/26/17 at 09:17; Status DC Pharmacy Profile Note 0 ml @ 0 mls/hr UNSCH OTHER ; Start 02/26/17 at 08:00 Piperacillin Sod/ Tazobactam Sod (Zosyn 4.5 Gm Premix) 100 ml @ 200 mls/hr Q6H IV Last administered on 02/27/17 00:29; Start 02/26/17 at 12:00; Stop at 00:35; Status DC Atenolol (Tenormin) 12.5 mg DAILY PO Last administered on 03/05/17 09:52; Start 02/26/17 at 09:00 Cyclobenzaprine HCl (Flexeril) 5 mg TID PO Last administered on 03/05/17 17:13 ; Start 02/26/17 at 09:00 Miscellaneous 1 ea 1 ea UNSCH PRN OTHER SEE LABEL COMMENTS; Start 02/26/17 at 09:30 Levofloxacin/ Dextrose 150 ml @ 100 mls/hr Q24H IV Last administered on 11:10; Start 02/26/17 at 11:00; Stop 02/27/17 at 00:35; Status DC Vancomycin HCl/ Sodium Chloride (Vancomycin Inj/ NS 250 ml Inj) 250 ml @ 250 mls/hr Q8H IV Last administered on 02/27/17 03:32; Start 02/26/17 at 12:00; Stop 02/27/17 at 08:38; Status DC Miscellaneous Information SPECIFIC LAB TO BE DRAWN:VANCOMYCIN TROUGH DATE TO... ONCE ONCE .XX Last administered on 02/27/17 03:30; Start 02/27/17 at 03:45; Stop 02/27/17 at 03:46; Status DC Albuterol/ Ipratropium (Duoneb Neb) 1 ampule Q6HR NEB NEB Last administered on 02/28/17 08:37; Start 02/26/17 at 13:00; Stop 03/02/17 at 13:00; Status DC Guaifenesin (Mucinex Er) 600 mg BID PO Last administered on 03/04/17 20:47; Start 02/26/17 at 21:00 Acetaminophen/ Hydrocodone Bitart (Kennett 5-325 Mg) 1 tab Q6H PRN PO PAIN SCALE 6 TO 10; Start 02/26/17 at 17:45; Stop 02/27/17 at 10:55; Status DC Acetaminophen (Tylenol) 650 mg QID PRN PO temp > 100.4 Last administered on 00:29; Start 02/27/17 at 00:00 Miscellaneous Medication (ASP Crit: Doc ESBL, MDR A baumannii or P aer) 1 UNSCH X1 PRN .XX PHARMACY DOCUMENTATION; Start 02/27/17 at 00:45; Stop 02/28/17 at 00 :44; Status DC Miscellaneous Medication 1 1 UNSCH X1 PRN XX PHARMACY DOCUMENTATION; Start at 00:45; Stop 02/28/17 at 00:44; Status DC Meropenem 1000 mg/ Sodium Chloride 100 ml @ 200 mls/hr Q8H IV Last administered on 02/28/17 02:44; Start 02/27/17 at 01:00; Stop 02/28/17 at 05:53 ; Status DC Vancomycin HCl/ Sodium Chloride (Vancomycin Inj/ NS 250 ml Inj) 250 ml @ 250 mls/hr Q12H IV Last administered on 02/28/17 05:10; Start 02/27/17 at 15:00; Stop 02/28/17 at 05:53; Status DC Miscellaneous Information SPECIFIC LAB TO BE DRAWN:VANCOMYCIN TROUGH DATE TO... ONCE ONCE .XX ; Start 03/01/17 at 02:45; Stop 03/01/17 at 02:46; Status Cancel Acetaminophen/ Hydrocodone Bitart (Kennett 5-325 Mg) 1 tab Q4H PRN PO PAIN SCALE 4 TO 10 Last administered on 03/06/17 09:44; Start 02/27/17 at 11:00 Potassium Chloride (KCl) 20 meq ONCE ONCE PO Last administered on 02/27/17 12 :18; Start 02/27/17 at 11:30; Stop 02/27/17 at 11:31; Status DC Lorazepam (Ativan Inj) 1 mg ONCE ONCE IV PUSH Last administered on 02/27/17 15:28; Start 02/27/17 at 12:45; Stop 02/27/17 at 12:46; Status DC Gadodiamide (Omniscan Pf Inj) 13 ml STK-MED ONCE IV Last administered on 17:04; Start 02/27/17 at 17:04; Stop 02/27/17 at 17:05; Status DC Ketorolac Tromethamine (Toradol Inj) 30 mg ONCE ONCE IV PUSH Last administered on 02/27/17 21:17; Start 02/27/17 at 21:15; Stop 02/27/17 at 21:16 ; Status DC Pantoprazole Sodium (Protonix) 40 mg DAILY PO Last administered on 03/06/17 09 :40; Start 02/28/17 at 09:00; Stop 03/07/17 at 08:59 Cyclobenzaprine HCl 5 mg 5 mg ONCE ONCE PO Last administered on 02/27/17 23: 20; Start 02/27/17 at 23:00; Stop 02/27/17 at 23:01; Status DC Meropenem 1000 mg/ Sodium Chloride 100 ml @ 200 mls/hr Q8H IV Last administered on 03/03/17 18:46; Start 02/28/17 at 10:00; Stop 03/03/17 at 19:26 ; Status DC Vancomycin HCl/ Sodium Chloride (Vancomycin Inj/ NS 250 ml Inj) 250 ml @ 250 mls/hr Q12H IV Last administered on 03/01/17 05:46; Start 02/28/17 at 17:00; Stop 03/01/17 at 13:47; Status DC Magnesium Hydroxide (Milk Of Magnesia Liq) 30 ml ONCE ONCE PO Last administered on 02/28/17 14:41; Start 02/28/17 at 14:15; Stop 02/28/17 at 14:16 ; Status DC Docusate Sodium (Colace) 100 mg BID PO Last administered on 03/06/17 09:40; Start 02/28/17 at 14:15 Lidocaine HCl 20 ml 20 ml ONCE ONCE OTHER ; Start 02/28/17 at 18:30; Stop 02/28 at 18:31; Status DC Vancomycin HCl/ Sodium Chloride (Vancomycin Inj/ NS 500 ml Inj) 515 ml @ 250 mls/hr Q12H IV ; Start 03/01/17 at 17:00; Status Cancel Miscellaneous Information SPECIFIC LAB TO BE JEREMY... ONCE ONCE .XX ; Start 03/03 at 04:45; Stop 03/03/17 at 04:46; Status DC Vancomycin HCl/ Sodium Chloride (Vancomycin Inj/ NS 250 ml Inj) 262.5 ml @ 250 mls/hr Q12H IV Last administered on 03/04/17 05:00; Start 03/01/17 at 17:00; Stop 03/04/17 at 09:23; Status DC Iohexol (Omnipaque 350 Inj) 75 ml STK-MED ONCE IV Last administered on 09:12; Start 02/27/17 at 09:12; Stop 03/02/17 at 03:24; Status DC Miscellaneous Information SPECIFIC LAB TO BE JEREMY... ONCE ONCE .XX Last administered on 03/04/17 04:45; Start 03/04/17 at 04:45; Stop 03/04/17 at 04:46 ; Status DC Vancomycin HCl/ Sodium Chloride (Vancomycin Inj/ NS 250 ml Inj) 250 ml @ 250 mls/hr Q8H IV Last administered on 03/06/17 05:52; Start 03/04/17 at 14:00 Miscellaneous Information SPECIFIC LAB TO BE DRAWN:VANCOMYCIN TROUGH DATE TO... UNSCH X1 ONCE .XX Last administered on 03/05/17 13:45; Start 03/05/17 at 13: 45; Stop 4/26/17 at 13:49; Status DC Miscellaneous Information SPECIFIC LAB TO BE DRAWN:VANCOMYCIN TROUGH DATE TO... ONCE ONCE .XX ; Start 03/07/17 at 13:45; Stop 03/07/17 at 13:46 A/P Assessment and Plan A/P Left thigh/hip cellulitis versus necrotizing fasciitis Left hip, buttock area with pressure decubitus ulcer stage IV tunneling - Chest x-ray showed normal examination. - Left thigh area below decubitus ulcer positive for edema, edema, warmth, as per General Surgery no further management continue Vancomycin as outpatient per ID recommendations. - Wound care following. - ID following. MRSA bacteremia - continue with Vancomycin - repeated blood cultures negative so far. -echo with no vegetation Paraplegia Neuropathic pain - Continue Flexeril 10 mg 3 times a day added Kennett - Turn and position to relieve pressure Neurogenic bladder - Patient self catheterize HTN Tachycardia - Controlled. DVT prop SCDs Discharge Planning dc home after PICC line and when HHC and outpatient IV Abx has been arranged. see med list. f/u with pcp and wound care. d/w the patient and case management. time spent 36 min. Galindo Mckenzie MD Mar 06, 2017 10:54
[2017-03-06] MEDS ORDERED: CYCL5TAB PO (10:57)
[2017-03-06] MEDS ORDERED: HYDR-3533 PO (10:57)
--- NOTE | 2017-03-06 11:00 | HHI.FF ---
Face to Face Verification Diagnosis: (1) Cellulitis and abscess of lower extremity Physical Therapy Order: Evaluate and Treat Home Health Nursing Order: Medical education Signs/symptoms of disease process Medication education-adverse effect Wound care and dressing changes IV medication administration Instructions: wound care: cleanse gluteal cleft wound with NS or wound cleanser and apply foam adhesive every 3 days and PRN for saturation or dislodgement. I have seen patient Randy Cheema on 03/06/17. My clinical findings support the need for the requested home health care services because: Ltd mobility - disease progression I certify that my clinical findings support that this patient is homebound because: Unsteady gait/balance Galindo Mckenzie MD Mar 06, 2017 11:00
--- NOTE | 2017-03-06 11:05 | HHI.DCPOC ---
Discharge Care Plan Diagnosis: (1) Cellulitis and abscess of lower extremity Your Health Problems Are: Inflammation Goals to Promote Your Health * To prevent worsening of your condition and complications * To maintain your health at the optimal level Directions to Meet Your Goals Take your medications as prescribed Follow your dietary instruction Follow activity as directed Keep your appointments as scheduled Take your immunizations and boosters as scheduled If your symptoms worsen call your PCP, if no PCP go to Urgent Care Center or Emergency Room Smoking is Dangerous to Your Health. Avoid second hand smoke Call the 24-hour hour crisis hotline for domestic abuse at Galindo Mckenzie MD Mar 06, 2017 11:05
--- NOTE | 2017-03-06 11:06 | HHI.DS ---
Discharge Summary Admission Date Feb 26, 2017 at 06:56 Discharge Date: Mar 06, 2017 Admitting Diagnosis cellulitis. Decubitus ulcer. 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 Brief History - From Admission Patient is a 21-year-old male with primary medical history of paraplegia, neurogenic bladder, HTN, GERD, left hip buttock area decubitus ulcer who came into the hospital for complaints of not feeling very well, started to have fevers and sweats last night, redness, swelling, and increasing pain to the left hip area below the decubitus ulcer started yesterday. Patient' s at the bedside is the one doing his wound care and noted that below the decubitus ulcer is new area of redness, swelling, warmth. States that there is not any new drainage from his decubitus wound, no foul smell noted on the decubitus wound. Patient self catheterize, no foul odor in the urine. Patient has not seen any wound care physician as an outpatient. Complaints of bilateral leg pain, described as shooting pain, states it's not new and he gets relief from taking Flexeril at home. Denies SOB/ dyspnea. Denies chest pain, palpitations, headaches, dizziness. Denies n/v/d. Denies hematuria, dysuria, abdominal pain or cramping. CBC/BMP: 03/03/17 0535 03/06/17 0431 Significant Findings Laboratory Tests Test 03/04/17 03/04/17 03/05/17 03/06/17 04:45 04:55 13:45 04:31 Vancomycin Level Trough 12.0 MCG/ML 13.4 MCG/ML (5.0-10.0) (5.0-10.0) Creatinine 0.46 MG/DL 0.46 MG/DL (0.60-1.30) (0.60-1.30) Imaging Last Impressions Lower Extremity CT 02/27/17 0600 Signed Impressions: Service Date/Time: February 09:12 - CONCLUSION: Subcutaneous defect with surrounding edema and no definite abscess or signs of osteomyelitis. Seda Mendez MD Lower Extremity MRI 02/27/17 0000 Signed Impressions: Service Date/Time: February 15:54 - CONCLUSION: There are pockets of abscess in the soft tissues of the left side posteriorly without signs of osteomyelitis. Seda Mendez MD Chest X-Ray 02/26/17 0412 Signed Impressions: Service Date/Time: Sunday, February 26, 2017 04:16 - CONCLUSION: Normal examination. Previous posterior fusion of the spine Bernardino Springer MD PE at Discharge GENERAL: This is a well-nourished, well-developed patient, in no apparent distress. CARDIOVASCULAR: Regular rate and regular rhythm without murmurs, gallops, or rubs. RESPIRATORY: Clear to auscultation. Breath sounds equal bilaterally. No wheezes , rales, or rhonchi. GASTROINTESTINAL: Abdomen soft, non-tender, nondistended. Normal, active bowel sounds MUSCULOSKELETAL: Extremities without clubbing, cyanosis, or edema. NEURO: Alert & Oriented x4 to person, place, time, situation. skin; open wound noted on the left buttock Hospital Course Left thigh/hip cellulitis versus necrotizing fasciitis Left hip, buttock area with pressure decubitus ulcer stage IV tunneling - Chest x-ray showed normal examination. - Left thigh area below decubitus ulcer positive for edema, edema, warmth, as per General Surgery no further management continue Vancomycin as outpatient per ID recommendations. - Wound care following. - ID following. MRSA bacteremia - continue with Vancomycin - repeated blood cultures negative so far. -echo with no vegetation Paraplegia Neuropathic pain - Continue Flexeril 10 mg 3 times a day added Wallace - Turn and position to relieve pressure Neurogenic bladder - Patient self catheterize HTN Tachycardia - Controlled. Pt Condition on Discharge: Good Discharge Disposition: Disch w/ Home Health Serv Discharge Time: > 30 minutes Discharge Instructions DIET: Follow Instructions for: Heart Healthy Diet Activities you can perform: Regular-No Restrictions Follow up Referrals: PCP Follow-up Wound Care Clinic Changed Medications: Hydrocodone-Acetaminophen (Lortab) 5-325 Mg Tab 1 TAB PO Q6H PRN pain #20 Ref 0 TAB (Changed from: 1-2 TAB) Continued Medications: Atenolol (Atenolol) 25 Mg Tab 12.5 MG PO DAILY Blood Pressure Management #30 Ref 0 TAB Cyclobenzaprine (Flexeril) 5 Mg Tab 5 MG PO TID Muscle Spasm #20 Ref 0 TAB (This prescription has been renewed) Galindo Mckenzie MD Mar 06, 2017 11:06
--- NOTE | 2017-03-06 11:40 | HHI.FF ---
Face to Face Verification Diagnosis: (1) Cellulitis and abscess of lower extremity Home Health Nursing Order: Medical education Signs/symptoms of disease process Medication education-adverse effect Wound care and dressing changes IV medication administration I have seen patient Randy Cheema on 03/06/17. My clinical findings support the need for the requested home health care services because: Ltd mobility - disease progression I certify that my clinical findings support that this patient is homebound because: [id number] bed/chair Galindo Mckenzie MD Mar 06, 2017 11:40
[2017-03-06 12:00] VITALS: BP 118/55; PULSE 81; RESP 16; TEMP 97.1; O2SAT 98
[2017-03-06] MEDS ORDERED: SODIUM CHLORIDE 0.9% FLUSH 10 ML FLUSH IV FLUSH PRN (14:30)
[2017-03-06] MEDS ORDERED: LORazepam 0.5 MG TAB PO ONE (14:45)
[2017-03-06 16:00] VITALS: BP 115/55; PULSE 69; RESP 16; TEMP 97.2; O2SAT 100
--- NOTE | 2017-03-06 16:01 | RADRPT ---
EXAM DATE/TIME: 03/06/2017 15:06 [facility] COMPARISON: CHEST SINGLE AP, February 26, 2017, 4:16. INDICATIONS : PICC line placement. MEDICAL HISTORY : Hypertension. neurogenic bladder SURGICAL HISTORY : Thoracic and lumbar fusion. ENCOUNTER: Initial ACUITY: 1 day PAIN SCORE: 0/10 LOCATION: Bilateral chest FINDINGS: A single view of the chest demonstrates the lungs to be symmetrically aerated without evidence of mas s, infiltrate or effusion. The cardiomediastinal contours are unremarkable. Osseous structures are intact. A right-sided PICC line is now noted with the tip projected over the superior vena cava. Ther e is no pneumothorax. There are postsurgical changes in the lower thoracic and upper lumbar spine. CONCLUSION: 1. Interval placement of right-sided PICC line. 2. No acute cardiopulmonary disease. Markel Blank MD on March 06, 2017 at 15:59 Board Certified Radiologist. This report was verified electronically.
[2017-03-07] VITALS: BP 114/60; PULSE 72; RESP 17; TEMP 97; O2SAT 100
[2017-03-07] MEDS: VANCOMYCIN 1,000 MG/NS 250 ML IV SCH ×2 (05:26)
[2017-03-07 08:00] VITALS: BP 111/58; PULSE 64; RESP 18; TEMP 97.2; O2SAT 98
[2017-03-07] MEDS: guaiFENesin E.R. 600 MG TAB PO SCH ×2 (09:00→21:00)
[2017-03-07] MEDS: SODIUM CHLORIDE 0.9% FLUSH 10 ML FLUSH IV FLUSH SCH ×3 (09:00→21:45)
[2017-03-07] MEDS: DOCUSATE SODIUM 100 MG CAP PO SCH ×2 (09:00→21:00)
--- NOTE | 2017-03-07 09:37 | HHI.PR ---
Subjective Remarks resting comfortably with no distress. pain is controlled. no new complaints. d/w the RN. Objective Vitals Vital Signs Date Time Temp Pulse Resp B/P Pulse Ox O2 Delivery O2 Flow Rate FiO2 03/07/17 08:00 97.2 64 18 111/58 98 03/07/17 00:00 97.0 72 17 114/60 100 03/06/17 16:00 97.2 69 16 115/55 100 03/06/17 12:00 97.1 81 16 118/55 98 I/O 03/06/17 03/06/17 03/06/17 03/07/17 03/07/17 03/07/17 07:00 15:00 23:00 07:00 15:00 23:00 Intake Total 220 ml 590 ml 740 ml 240 ml Balance 220 ml 590 ml 740 ml 240 ml Intake Oral 220 ml 340 ml 240 ml 240 ml IV Total 250 ml 500 ml # Voids 2 3 2 1 # Bowel Movements 0 0 Result Diagram: 03/03/17 0535 03/06/17 0431 Imaging Last Impressions Chest X-Ray 03/06/17 0000 Signed Impressions: Service Date/Time: February 15:06 - CONCLUSION: 1. Interval placement of right-sided PICC line. 2. No acute cardiopulmonary disease. Markel Blank MD Lower Extremity CT 02/27/17 0600 Signed Impressions: Service Date/Time: February 09:12 - CONCLUSION: Subcutaneous defect with surrounding edema and no definite abscess or signs of osteomyelitis. Seda Mendez MD Lower Extremity MRI 02/27/17 0000 Signed Impressions: Service Date/Time: February 15:54 - CONCLUSION: There are pockets of abscess in the soft tissues of the left side posteriorly without signs of osteomyelitis. Seda Mendez MD Objective Remarks GENERAL: This is a well-nourished, well-developed patient, in no apparent distress. CARDIOVASCULAR: Regular rate and regular rhythm without murmurs, gallops, or rubs. RESPIRATORY: Clear to auscultation. Breath sounds equal bilaterally. No wheezes , rales, or rhonchi. GASTROINTESTINAL: Abdomen soft, non-tender, nondistended. Normal, active bowel sounds MUSCULOSKELETAL: Extremities without clubbing, cyanosis, or edema. NEURO: Alert & Oriented x4 to person, place, time, situation. skin; open wound noted on the left buttock Procedures picc line insertion. Medications and IVs Current Medications Sodium Chloride (NS 1000 ml Inj) 1,000 ml @ 100 mls/hr Q10H IV Last administered on 02/26/17 04:15; Start 02/26/17 at 04:15; Stop 02/26/17 at 09:15 ; Status DC Morphine Sulfate (Morphine Inj) 2 mg ONCE ONCE IV PUSH Last administered on 04:15; Start 02/26/17 at 04:15; Stop 02/26/17 at 04:16; Status DC Ondansetron HCl 4 mg 4 mg ONCE ONCE IV PUSH Last administered on 02/26/17 04: 15; Start 02/26/17 at 04:15; Stop 02/26/17 at 04:16; Status DC Vancomycin HCl/ Sodium Chloride (Vancomycin Inj/ NS 250 ml Inj) 250 ml @ 250 mls/hr ONCE ONCE IV Last administered on 02/26/17 04:15; Start 02/26/17 at 04 :15; Stop 02/26/17 at 05:14; Status DC Morphine Sulfate 4 mg 4 mg ONCE ONCE IV PUSH Last administered on 02/26/17 05 :00; Start 02/26/17 at 05:00; Stop 02/26/17 at 05:01; Status DC Piperacillin Sod/ Tazobactam Sod (Zosyn 3.375 Gm Premix) 50 ml @ 100 mls/hr ONCE ONCE IV Last administered on 02/26/17 06:00; Start 02/26/17 at 06:00; Stop 02/26/17 at 06:29; Status DC Acetaminophen (Tylenol) 650 mg ONCE ONCE PO Last administered on 02/26/17 06: 45; Start 02/26/17 at 06:45; Stop 02/26/17 at 06:46; Status DC Sodium Chloride (NS Flush) 2 ml UNSCH PRN IV FLUSH FLUSH AFTER USING IV ACCESS ; Start 02/26/17 at 08:00; Stop 02/26/17 at 09:17; Status DC Sodium Chloride (NS Flush) 2 ml BID IV FLUSH ; Start 02/26/17 at 09:00; Stop at 09:17; Status DC Naloxone HCl (Narcan Inj) 0.4 mg UNSCH PRN IV SEE LABEL COMMENTS; Start at 08:00 Sodium Chloride (NS Flush) 2 ml UNSCH PRN IV FLUSH FLUSH AFTER USING IV ACCESS ; Start 02/26/17 at 08:00 Sodium Chloride (NS Flush) 2 ml BID IV FLUSH Last administered on 03/06/17 21: 04; Start 02/26/17 at 09:00 Enoxaparin Sodium (Lovenox Inj) 40 mg Q24H SQ Last administered on 02/27/17 08 :28; Start 02/26/17 at 10:00; Status Hold Naloxone HCl 0.4 mg 0.4 mg UNSCH PRN IV SEE LABEL COMMENTS; Start 02/26/17 at 08:00; Stop 02/26/17 at 09:17; Status DC Pharmacy Profile Note 0 ml @ 0 mls/hr UNSCH OTHER ; Start 02/26/17 at 08:00 Piperacillin Sod/ Tazobactam Sod (Zosyn 4.5 Gm Premix) 100 ml @ 200 mls/hr Q6H IV Last administered on 02/27/17 00:29; Start 02/26/17 at 12:00; Stop at 00:35; Status DC Atenolol (Tenormin) 12.5 mg DAILY PO Last administered on 03/05/17 09:52; Start 02/26/17 at 09:00 Cyclobenzaprine HCl (Flexeril) 5 mg TID PO Last administered on 03/06/17 17:23 ; Start 02/26/17 at 09:00 Miscellaneous 1 ea 1 ea UNSCH PRN OTHER SEE LABEL COMMENTS; Start 02/26/17 at 09:30 Levofloxacin/ Dextrose 150 ml @ 100 mls/hr Q24H IV Last administered on 11:10; Start 02/26/17 at 11:00; Stop 02/27/17 at 00:35; Status DC Vancomycin HCl/ Sodium Chloride (Vancomycin Inj/ NS 250 ml Inj) 250 ml @ 250 mls/hr Q8H IV Last administered on 02/27/17 03:32; Start 02/26/17 at 12:00; Stop 02/27/17 at 08:38; Status DC Miscellaneous Information SPECIFIC LAB TO BE DRAWN:VANCOMYCIN TROUGH DATE TO... ONCE ONCE .XX Last administered on 02/27/17 03:30; Start 02/27/17 at 03:45; Stop 02/27/17 at 03:46; Status DC Albuterol/ Ipratropium (Duoneb Neb) 1 ampule Q6HR NEB NEB Last administered on 02/28/17 08:37; Start 02/26/17 at 13:00; Stop 03/02/17 at 13:00; Status DC Guaifenesin (Mucinex Er) 600 mg BID PO Last administered on 03/04/17 20:47; Start 02/26/17 at 21:00 Acetaminophen/ Hydrocodone Bitart ([place] 5-325 Mg) 1 tab Q6H PRN PO PAIN SCALE 6 TO 10; Start 02/26/17 at 17:45; Stop 02/27/17 at 10:55; Status DC Acetaminophen (Tylenol) 650 mg QID PRN PO temp > 100.4 Last administered on 00:29; Start 02/27/17 at 00:00 Miscellaneous Medication (ASP Crit: Doc ESBL, MDR A baumannii or P aer) 1 UNSCH X1 PRN .XX PHARMACY DOCUMENTATION; Start 02/27/17 at 00:45; Stop 02/28/17 at 00 :44; Status DC Miscellaneous Medication 1 1 UNSCH X1 PRN XX PHARMACY DOCUMENTATION; Start at 00:45; Stop 02/28/17 at 00:44; Status DC Meropenem 1000 mg/ Sodium Chloride 100 ml @ 200 mls/hr Q8H IV Last administered on 02/28/17 02:44; Start 02/27/17 at 01:00; Stop 02/28/17 at 05:53 ; Status DC Vancomycin HCl/ Sodium Chloride (Vancomycin Inj/ NS 250 ml Inj) 250 ml @ 250 mls/hr Q12H IV Last administered on 02/28/17 05:10; Start 02/27/17 at 15:00; Stop 02/28/17 at 05:53; Status DC Miscellaneous Information SPECIFIC LAB TO BE DRAWN:VANCOMYCIN TROUGH DATE TO... ONCE ONCE .XX ; Start 03/01/17 at 02:45; Stop 03/01/17 at 02:46; Status Cancel Acetaminophen/ Hydrocodone Bitart ([place] 5-325 Mg) 1 tab Q4H PRN PO PAIN SCALE 4 TO 10 Last administered on 03/06/17 16:11; Start 02/27/17 at 11:00 Potassium Chloride (KCl) 20 meq ONCE ONCE PO Last administered on 02/27/17 12 :18; Start 02/27/17 at 11:30; Stop 02/27/17 at 11:31; Status DC Lorazepam (Ativan Inj) 1 mg ONCE ONCE IV PUSH Last administered on 02/27/17 15:28; Start 02/27/17 at 12:45; Stop 02/27/17 at 12:46; Status DC Gadodiamide (Omniscan Pf Inj) 13 ml STK-MED ONCE IV Last administered on 17:04; Start 02/27/17 at 17:04; Stop 02/27/17 at 17:05; Status DC Ketorolac Tromethamine (Toradol Inj) 30 mg ONCE ONCE IV PUSH Last administered on 02/27/17 21:17; Start 02/27/17 at 21:15; Stop 02/27/17 at 21:16 ; Status DC Pantoprazole Sodium (Protonix) 40 mg DAILY PO Last administered on 03/06/17 09 :40; Start 02/28/17 at 09:00; Stop 03/07/17 at 08:59; Status DC Cyclobenzaprine HCl 5 mg 5 mg ONCE ONCE PO Last administered on 02/27/17 23: 20; Start 02/27/17 at 23:00; Stop 02/27/17 at 23:01; Status DC Meropenem 1000 mg/ Sodium Chloride 100 ml @ 200 mls/hr Q8H IV Last administered on 03/03/17 18:46; Start 02/28/17 at 10:00; Stop 03/03/17 at 19:26 ; Status DC Vancomycin HCl/ Sodium Chloride (Vancomycin Inj/ NS 250 ml Inj) 250 ml @ 250 mls/hr Q12H IV Last administered on 03/01/17 05:46; Start 02/28/17 at 17:00; Stop 03/01/17 at 13:47; Status DC Magnesium Hydroxide (Milk Of Magnesia Liq) 30 ml ONCE ONCE PO Last administered on 02/28/17 14:41; Start 02/28/17 at 14:15; Stop 02/28/17 at 14:16 ; Status DC Docusate Sodium (Colace) 100 mg BID PO Last administered on 03/06/17 21:03; Start 02/28/17 at 14:15 Lidocaine HCl 20 ml 20 ml ONCE ONCE OTHER ; Start 02/28/17 at 18:30; Stop 02/28 at 18:31; Status DC Vancomycin HCl/ Sodium Chloride (Vancomycin Inj/ NS 500 ml Inj) 515 ml @ 250 mls/hr Q12H IV ; Start 03/01/17 at 17:00; Status Cancel Miscellaneous Information SPECIFIC LAB TO BE JEREMY... ONCE ONCE .XX ; Start 03/03 at 04:45; Stop 03/03/17 at 04:46; Status DC Vancomycin HCl/ Sodium Chloride (Vancomycin Inj/ NS 250 ml Inj) 262.5 ml @ 250 mls/hr Q12H IV Last administered on 03/04/17 05:00; Start 03/01/17 at 17:00; Stop 03/04/17 at 09:23; Status DC Iohexol (Omnipaque 350 Inj) 75 ml STK-MED ONCE IV Last administered on 09:12; Start 02/27/17 at 09:12; Stop 03/02/17 at 03:24; Status DC Miscellaneous Information SPECIFIC LAB TO BE JEREMY... ONCE ONCE .XX Last administered on 03/04/17 04:45; Start 03/04/17 at 04:45; Stop 03/04/17 at 04:46 ; Status DC Vancomycin HCl/ Sodium Chloride (Vancomycin Inj/ NS 250 ml Inj) 250 ml @ 250 mls/hr Q8H IV Last administered on 03/07/17 05:26; Start 03/04/17 at 14:00 Miscellaneous Information SPECIFIC LAB TO BE DRAWN:VANCOMYCIN TROUGH DATE TO... UNSCH X1 ONCE .XX Last administered on 03/05/17 13:45; Start 03/05/17 at 13: 45; Stop 03/05/17 at 13:49; Status DC Miscellaneous Information SPECIFIC LAB TO BE DRAWN:VANCOMYCIN TROUGH DATE TO... ONCE ONCE .XX ; Start 03/07/17 at 13:45; Stop 03/07/17 at 13:46 Sodium Chloride (NS Flush) See Protocol DAILY IV FLUSH ; Start 03/07/17 at 09:00 Sodium Chloride (NS Flush) See Protocol UNSCH PRN IV FLUSH SEE PROTOCOL TABLE; Start 03/06/17 at 14:30 Heparin Sodium (Porcine) (Heparin Central Flush) See Protocol DAILY IV FLUSH ; Start 03/07/17 at 09:00 Heparin Sodium (Porcine) (Heparin Central Flush) See Protocol UNSCH PRN IV FLUSH SEE PROTOCOL TABLE; Start 03/06/17 at 14:30 Sodium Chloride (NS Flush) UNSCH PRN IV FLUSH SEE PROTOCOL TABLE; Start at 14:30 Lorazepam (Ativan) 0.5 mg ONCE ONCE PO Last administered on 03/06/17t 14:50; Start 03/06/17 at 14:45; Stop 03/06/17 at 14:46; Status DC A/P Assessment and Plan A/P Left thigh/hip cellulitis versus necrotizing fasciitis Left hip, buttock area with pressure decubitus ulcer stage IV tunneling - Chest x-ray showed normal examination. - Left thigh area below decubitus ulcer positive for edema, edema, warmth, as per General Surgery no further management continue Vancomycin as outpatient per ID recommendations. - Wound care following. - ID following. MRSA bacteremia - continue with Vancomycin - repeated blood cultures negative so far. -echo with no vegetation Paraplegia Neuropathic pain - Continue Flexeril 10 mg 3 times a day added [place] - Turn and position to relieve pressure Neurogenic bladder - Patient self catheterize HTN Tachycardia - Controlled. DVT prop SCDs Discharge Planning dc home when HHC and outpatient IV Abx has been arranged. see med list. f/u with pcp and wound care. d/w the patient and RN. previously d/w the case management. time spent 36 min. Glaindo Mckenzie MD Mar 07, 2017 09:37
[2017-03-07] MEDS: CYCLOBENZAPRINE HCL 10 MG TAB PO SCH ×3 (10:47→18:21)
[2017-03-07] MEDS: ATENOLOL 25 MG TAB PO SCH (10:48)
[2017-03-07 12:00] VITALS: BP 106/51; PULSE 74; RESP 20; TEMP 97.3; O2SAT 99
[2017-03-07] MEDS: ACETAMINOPHEN/HYDROcodone 325 MG/5 MG TAB PO PRN ×2 (13:09→18:21)
[2017-03-07] MEDS: VANCOMYCIN INJ 1,500 MG in SODIUM CHLORID 0.9% 500 ML INJ 500 ML IV SCH (14:43)
[2017-03-07 16:00] VITALS: BP 108/57; PULSE 71; RESP 18; TEMP 96.9; O2SAT 100
[2017-03-07 20:00] VITALS: BP 102/56; PULSE 73; RESP 18; TEMP 97; O2SAT 97
[2017-03-08] VITALS: BP 124/62; PULSE 72; RESP 18; TEMP 98.7; O2SAT 98
[2017-03-08] MEDS: VANCOMYCIN INJ 1,500 MG in SODIUM CHLORID 0.9% 500 ML INJ 500 ML IV SCH ×2 (01:45→18:30)
[2017-03-08] MEDS: ACETAMINOPHEN/HYDROcodone 325 MG/5 MG TAB PO PRN ×2 (01:47→10:39)
[2017-03-08 08:00] VITALS: BP 104/45; PULSE 70; RESP 20; TEMP 96.7; O2SAT 100
[2017-03-08] MEDS: ATENOLOL 25 MG TAB PO SCH (09:00)
[2017-03-08] MEDS: guaiFENesin E.R. 600 MG TAB PO SCH ×2 (09:00→20:25)
[2017-03-08] MEDS: DOCUSATE SODIUM 100 MG CAP PO SCH ×2 (09:00→20:25)
[2017-03-08] MEDS: SODIUM CHLORIDE 0.9% FLUSH 10 ML FLUSH IV FLUSH SCH ×3 (09:00→20:25)
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
[2017-03-08] MEDS: CYCLOBENZAPRINE HCL 10 MG TAB PO SCH ×3 (10:39→18:30)
[2017-03-08 12:00] VITALS: BP 111/56; PULSE 81; RESP 20; TEMP 97.7; O2SAT 100
[2017-03-08] MEDS ORDERED: PHARMACY ORDERED LAB ONE (13:45)
[2017-03-08] MEDS ORDERED: MAGNESIUM HYDROXIDE SUSP 30 ML CUP PO PRN (14:00)
[2017-03-08 16:00] VITALS: BP 103/62; PULSE 77; RESP 20; TEMP 96.7; O2SAT 100
[2017-03-08] MEDS ORDERED: LACTULOSE SYRUP 20 GM/30 ML CUP PO PRN (16:15)
[2017-03-08] MEDS ORDERED: SOD PHOSPHATE/SOD BIPHOSPHATE (ADULT) ENEMA 133ML PR PRN (16:15)
[2017-03-08 20:00] VITALS: BP 95/52; PULSE 71; RESP 19; TEMP 98.2; O2SAT 92
[2017-03-09] VITALS: BP 100/62; PULSE 86; RESP 20; TEMP 98.6; O2SAT 99
[2017-03-09] MEDS: VANCOMYCIN INJ 1,500 MG in SODIUM CHLORID 0.9% 500 ML INJ 500 ML IV SCH ×2 (05:41→17:52)
[2017-03-09] MEDS ORDERED: PHARMACY ORDERED LAB ONE (05:45)
[2017-03-09 08:00] VITALS: BP 102/55; PULSE 82; RESP 20; TEMP 97.6; O2SAT 98
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
[2017-03-09] MEDS: guaiFENesin E.R. 600 MG TAB PO SCH ×2 (09:00→21:00)
[2017-03-09] MEDS: SODIUM CHLORIDE 0.9% FLUSH 10 ML FLUSH IV FLUSH SCH ×3 (09:00→21:00)
[2017-03-09 12:00] VITALS: BP 105/55; PULSE 103; RESP 20; TEMP 98.8; O2SAT 100
[2017-03-09] MEDS: DOCUSATE SODIUM 100 MG CAP PO SCH ×2 (12:09→21:00)
[2017-03-09] MEDS: ATENOLOL 25 MG TAB PO SCH (12:10)
[2017-03-09] MEDS: CYCLOBENZAPRINE HCL 10 MG TAB PO SCH ×3 (12:10→17:52)
[2017-03-09 16:00] VITALS: BP 112/61; PULSE 71; RESP 20; TEMP 97.5; O2SAT 100
[2017-03-09 20:45] VITALS: BP 104/81; PULSE 82; RESP 18; TEMP 97.2; O2SAT 97
[2017-03-10] VITALS: BP 107/59; PULSE 75; RESP 19; TEMP 97.6; O2SAT 99
[2017-03-10] MEDS: VANCOMYCIN INJ 1,500 MG in SODIUM CHLORID 0.9% 500 ML INJ 500 ML IV SCH ×2 (05:49→18:00)
[2017-03-10 08:00] VITALS: BP 117/70; PULSE 75; RESP 16; TEMP 96.8; O2SAT 100
--- NOTE | 2017-03-10 08:43 | HHI.PR ---
Subjective Remarks resting comfortably with no distress. no fever. awaiting [facility] and outpatient IV Abx arrangement. Objective Vitals Vital Signs Date Time Temp Pulse Resp B/P Pulse Ox O2 Delivery O2 Flow Rate FiO2 03/10/17 00:00 97.6 75 19 107/59 99 03/09/17 21:32 18 03/09/17 20:45 97.2 82 18 104/81 97 03/09/17 16:00 97.5 71 20 112/61 100 03/09/17 12:00 98.8 103 20 105/55 100 I/O 03/09/17 03/09/17 03/09/17 03/10/17 03/10/17 03/10/17 07:00 15:00 23:00 07:00 15:00 23:00 Intake Total 360 ml 480 ml 740 ml 360 ml 0 ml Balance 360 ml 480 ml 740 ml 360 ml 0 ml Intake Oral 360 ml 480 ml 240 ml 360 ml IV Total 500 ml 0 ml # Voids 2 2 2 # Bowel Movements 3 0 0 Result Diagram: 03/10/17 0427 Imaging Last Impressions Chest X-Ray 03/06/17 0000 Signed Impressions: Service Date/Time: February 15:06 - CONCLUSION: 1. Interval placement of right-sided PICC line. 2. No acute cardiopulmonary disease. Markel Blank MD Lower Extremity CT 02/27/17 0600 Signed Impressions: Service Date/Time: February 09:12 - CONCLUSION: Subcutaneous defect with surrounding edema and no definite abscess or signs of osteomyelitis. Seda Mendez MD Lower Extremity MRI 02/27/17 0000 Signed Impressions: Service Date/Time: February 15:54 - CONCLUSION: There are pockets of abscess in the soft tissues of the left side posteriorly without signs of osteomyelitis. Seda Mendez MD Objective Remarks GENERAL: This is a well-nourished, well-developed patient, in no apparent distress. CARDIOVASCULAR: Regular rate and regular rhythm without murmurs, gallops, or rubs. RESPIRATORY: Clear to auscultation. Breath sounds equal bilaterally. No wheezes , rales, or rhonchi. GASTROINTESTINAL: Abdomen soft, non-tender, nondistended. Normal, active bowel sounds MUSCULOSKELETAL: Extremities without clubbing, cyanosis, or edema. NEURO: Alert & Oriented x4 to person, place, time, situation. Procedures picc line insertion. Medications and IVs Current Medications Sodium Chloride (NS 1000 ml Inj) 1,000 ml @ 100 mls/hr Q10H IV Last administered on 02/26/17 04:15; Start 02/26/17 at 04:15; Stop 02/26/17 at 09:15 ; Status DC Morphine Sulfate (Morphine Inj) 2 mg ONCE ONCE IV PUSH Last administered on 04:15; Start 02/26/17 at 04:15; Stop 02/26/17 at 04:16; Status DC Ondansetron HCl 4 mg 4 mg ONCE ONCE IV PUSH Last administered on 02/26/17 04: 15; Start 02/26/17 at 04:15; Stop 02/26/17 at 04:16; Status DC Vancomycin HCl/ Sodium Chloride (Vancomycin Inj/ NS 250 ml Inj) 250 ml @ 250 mls/hr ONCE ONCE IV Last administered on 02/26/17 04:15; Start 02/26/17 at 04 :15; Stop 02/26/17 at 05:14; Status DC Morphine Sulfate 4 mg 4 mg ONCE ONCE IV PUSH Last administered on 02/26/17 05 :00; Start 02/26/17 at 05:00; Stop 02/26/17 at 05:01; Status DC Piperacillin Sod/ Tazobactam Sod (Zosyn 3.375 Gm Premix) 50 ml @ 100 mls/hr ONCE ONCE IV Last administered on 02/26/17 06:00; Start 02/26/17 at 06:00; Stop 02/26/17 at 06:29; Status DC Acetaminophen (Tylenol) 650 mg ONCE ONCE PO Last administered on 02/26/17 06: 45; Start 02/26/17 at 06:45; Stop 02/26/17 at 06:46; Status DC Sodium Chloride (NS Flush) 2 ml UNSCH PRN IV FLUSH FLUSH AFTER USING IV ACCESS ; Start 02/26/17 at 08:00; Stop 02/26/17 at 09:17; Status DC Sodium Chloride (NS Flush) 2 ml BID IV FLUSH ; Start 02/26/17 at 09:00; Stop at 09:17; Status DC Naloxone HCl (Narcan Inj) 0.4 mg UNSCH PRN IV SEE LABEL COMMENTS; Start at 08:00 Sodium Chloride (NS Flush) 2 ml UNSCH PRN IV FLUSH FLUSH AFTER USING IV ACCESS Last administered on 03/08/17 01:48; Start 02/26/17 at 08:00 Sodium Chloride (NS Flush) 2 ml BID IV FLUSH Last administered on 03/09/17 09: 00; Start 02/26/17 at 09:00 Enoxaparin Sodium (Lovenox Inj) 40 mg Q24H SQ Last administered on 02/27/17 08 :28; Start 02/26/17 at 10:00; Status Hold Naloxone HCl 0.4 mg 0.4 mg UNSCH PRN IV SEE LABEL COMMENTS; Start 02/26/17 at 08:00; Stop 02/26/17 at 09:17; Status DC Pharmacy Profile Note 0 ml @ 0 mls/hr UNSCH OTHER ; Start 02/26/17 at 08:00 Piperacillin Sod/ Tazobactam Sod (Zosyn 4.5 Gm Premix) 100 ml @ 200 mls/hr Q6H IV Last administered on 02/27/17 00:29; Start 02/26/17 at 12:00; Stop at 00:35; Status DC Atenolol (Tenormin) 12.5 mg DAILY PO Last administered on 03/09/17 12:10; Start 02/26/17 at 09:00 Cyclobenzaprine HCl (Flexeril) 5 mg TID PO Last administered on 03/09/17 17:52 ; Start 02/26/17 at 09:00 Miscellaneous 1 ea 1 ea UNSCH PRN OTHER SEE LABEL COMMENTS; Start 02/26/17 at 09:30 Levofloxacin/ Dextrose 150 ml @ 100 mls/hr Q24H IV Last administered on 11:10; Start 02/26/17 at 11:00; Stop 02/27/17 at 00:35; Status DC Vancomycin HCl/ Sodium Chloride (Vancomycin Inj/ NS 250 ml Inj) 250 ml @ 250 mls/hr Q8H IV Last administered on 02/27/17 03:32; Start 02/26/17 at 12:00; Stop 02/27/17 at 08:38; Status DC Miscellaneous Information SPECIFIC LAB TO BE DRAWN:VANCOMYCIN TROUGH DATE TO... ONCE ONCE .XX Last administered on 02/27/17 03:30; Start 02/27/17 at 03:45; Stop 02/27/17 at 03:46; Status DC Albuterol/ Ipratropium (Duoneb Neb) 1 ampule Q6HR NEB NEB Last administered on 02/28/17 08:37; Start 02/26/17 at 13:00; Stop 03/02/17 at 13:00; Status DC Guaifenesin (Mucinex Er) 600 mg BID PO Last administered on 03/04/17 20:47; Start 02/26/17 at 21:00 Acetaminophen/ Hydrocodone Bitart ([place] 5-325 Mg) 1 tab Q6H PRN PO PAIN SCALE 6 TO 10; Start 02/26/17 at 17:45; Stop 02/27/17 at 10:55; Status DC Acetaminophen (Tylenol) 650 mg QID PRN PO temp > 100.4 Last administered on 00:29; Start 02/27/17 at 00:00 Miscellaneous Medication (ASP Crit: Doc ESBL, MDR A baumannii or P aer) 1 UNSCH X1 PRN .XX PHARMACY DOCUMENTATION; Start 02/27/17 at 00:45; Stop 02/28/17 at 00 :44; Status DC Miscellaneous Medication 1 1 UNSCH X1 PRN XX PHARMACY DOCUMENTATION; Start at 00:45; Stop 02/28/17 at 00:44; Status DC Meropenem 1000 mg/ Sodium Chloride 100 ml @ 200 mls/hr Q8H IV Last administered on 02/28/17 02:44; Start 02/27/17 at 01:00; Stop 02/28/17 at 05:53 ; Status DC Vancomycin HCl/ Sodium Chloride (Vancomycin Inj/ NS 250 ml Inj) 250 ml @ 250 mls/hr Q12H IV Last administered on 02/28/17 05:10; Start 02/27/17 at 15:00; Stop 02/28/17 at 05:53; Status DC Miscellaneous Information SPECIFIC LAB TO BE DRAWN:VANCOMYCIN TROUGH DATE TO... ONCE ONCE .XX ; Start 03/01/17 at 02:45; Stop 03/01/17 at 02:46; Status Cancel Acetaminophen/ Hydrocodone Bitart ([place] 5-325 Mg) 1 tab Q4H PRN PO PAIN SCALE 4 TO 10 Last administered on 03/08/17 10:39; Start 02/27/17 at 11:00 Potassium Chloride (KCl) 20 meq ONCE ONCE PO Last administered on 02/27/17 12 :18; Start 02/27/17 at 11:30; Stop 02/27/17 at 11:31; Status DC Lorazepam (Ativan Inj) 1 mg ONCE ONCE IV PUSH Last administered on 02/27/17 15:28; Start 02/27/17 at 12:45; Stop 02/27/17 at 12:46; Status DC Gadodiamide (Omniscan Pf Inj) 13 ml STK-MED ONCE IV Last administered on 17:04; Start 02/27/17 at 17:04; Stop 02/27/17 at 17:05; Status DC Ketorolac Tromethamine (Toradol Inj) 30 mg ONCE ONCE IV PUSH Last administered on 02/27/17 21:17; Start 02/27/17 at 21:15; Stop 02/27/17 at 21:16 ; Status DC Pantoprazole Sodium (Protonix) 40 mg DAILY PO Last administered on 03/06/17 09 :40; Start 02/28/17 at 09:00; Stop 03/07/17 at 08:59; Status DC Cyclobenzaprine HCl 5 mg 5 mg ONCE ONCE PO Last administered on 02/27/17 23: 20; Start 02/27/17 at 23:00; Stop 02/27/17 at 23:01; Status DC Meropenem 1000 mg/ Sodium Chloride 100 ml @ 200 mls/hr Q8H IV Last administered on 03/03/17 18:46; Start 02/28/17 at 10:00; Stop 03/03/17 at 19:26 ; Status DC Vancomycin HCl/ Sodium Chloride (Vancomycin Inj/ NS 250 ml Inj) 250 ml @ 250 mls/hr Q12H IV Last administered on 03/01/17 05:46; Start 02/28/17 at 17:00; Stop 03/01/17 at 13:47; Status DC Magnesium Hydroxide (Milk Of Magnesia Liq) 30 ml ONCE ONCE PO Last administered on 02/28/17 14:41; Start 02/28/17 at 14:15; Stop 02/28/17 at 14:16 ; Status DC Docusate Sodium (Colace) 100 mg BID PO Last administered on 03/09/17 12:09; Start 02/28/17 at 14:15 Lidocaine HCl 20 ml 20 ml ONCE ONCE OTHER ; Start 02/28/17 at 18:30; Stop 02/28 at 18:31; Status DC Vancomycin HCl/ Sodium Chloride (Vancomycin Inj/ NS 500 ml Inj) 515 ml @ 250 mls/hr Q12H IV ; Start 03/01/17 at 17:00; Status Cancel Miscellaneous Information SPECIFIC LAB TO BE JEREMY... ONCE ONCE .XX ; Start 03/03 at 04:45; Stop 03/03/17 at 04:46; Status DC Vancomycin HCl/ Sodium Chloride (Vancomycin Inj/ NS 250 ml Inj) 262.5 ml @ 250 mls/hr Q12H IV Last administered on 03/04/17 05:00; Start 03/01/17 at 17:00; Stop 03/04/17 at 09:23; Status DC Iohexol (Omnipaque 350 Inj) 75 ml STK-MED ONCE IV Last administered on 09:12; Start 02/27/17 at 09:12; Stop 03/02/17 at 03:24; Status DC Miscellaneous Information SPECIFIC LAB TO BE JEREMY... ONCE ONCE .XX Last administered on 03/04/17 04:45; Start 03/04/17 at 04:45; Stop 03/04/17 at 04:46 ; Status DC Vancomycin HCl/ Sodium Chloride (Vancomycin Inj/ NS 250 ml Inj) 250 ml @ 250 mls/hr Q8H IV Last administered on 03/07/17 05:26; Start 03/04/17 at 14:00; Stop 03/07/17 at 11:16; Status DC Miscellaneous Information SPECIFIC LAB TO BE DRAWN:VANCOMYCIN TROUGH DATE TO... UNSCH X1 ONCE .XX Last administered on 03/05/17 13:45; Start 03/05/17 at 13: 45; Stop 03/05/17 at 13:49; Status DC Miscellaneous Information SPECIFIC LAB TO BE DRAWN:VANCOMYCIN TROUGH DATE TO... ONCE ONCE .XX ; Start 03/08/17 at 13:45; Stop 03/08/17 at 13:46; Status DC Sodium Chloride (NS Flush) See Protocol DAILY IV FLUSH ; Start 03/07/17 at 09:00 Sodium Chloride (NS Flush) See Protocol UNSCH PRN IV FLUSH SEE PROTOCOL TABLE; Start 03/06/17 at 14:30 Heparin Sodium (Porcine) (Heparin Central Flush) See Protocol DAILY IV FLUSH Last administered on 03/09/17 12:13; Start 03/07/17 at 09:00 Heparin Sodium (Porcine) (Heparin Central Flush) See Protocol UNSCH PRN IV FLUSH SEE PROTOCOL TABLE; Start 03/06/17 at 14:30 Sodium Chloride (NS Flush) UNSCH PRN IV FLUSH SEE PROTOCOL TABLE; Start at 14:30 Lorazepam 0.5 mg 0.5 mg ONCE ONCE PO Last administered on 03/06/17 14:50; Start 03/06/17 at 14:45; Stop 03/06/17 at 14:46; Status DC Vancomycin HCl/ Sodium Chloride (Vancomycin Inj/ NS 500 ml Inj) 515 ml @ 250 mls/hr Q12H IV Last administered on 03/08/17 01:45; Start 03/07/17 at 14:00; Stop 03/08/17 at 16:58; Status DC Magnesium Hydroxide (Milk Of Magnesia Liq) 30 ml DAILY PRN PO CONSTIPATION Last administered on 03/08/17 14:15; Start 03/08/17 at 14:00 Lactulose (Lactulose Liq) 30 ml TID PRN PO CONSTIPATION Last administered on 16:23; Start 03/08/17 at 16:15 Sodium Biphosphate/ Sodium Phosphate 133 ml 133 ml ONCE PRN [place] CONSTIPATION Last administered on 03/08/17 20:27; Start 03/08/17 at 16:15; Stop 03/08/17 at 23:59; Status DC Vancomycin HCl/ Sodium Chloride (Vancomycin Inj/ NS 500 ml Inj) 515 ml @ 250 mls/hr Q12H IV Last administered on 03/10/17 05:49; Start 03/08/17 at 18:00 Miscellaneous Information SPECIFIC LAB TO BE DRAWN:VANCOMY... ONCE ONCE .XX Last administered on 03/09/17t 05:35; Start 03/09/17 at 05:45; Stop 03/09/17 at 05:46; Status DC A/P Assessment and Plan A/P Left thigh/hip cellulitis versus necrotizing fasciitis Left hip, buttock area with pressure decubitus ulcer stage IV tunneling - Chest x-ray showed normal examination. - Left thigh area below decubitus ulcer positive for edema, edema, warmth, as per General Surgery no further management continue Vancomycin as outpatient per ID recommendations. - Wound care following. MRSA bacteremia - continue with Vancomycin - repeated blood cultures negative . -echo with no vegetation Paraplegia Neuropathic pain - Continue Flexeril 10 mg 3 times a day added [place] - Turn and position to relieve pressure Neurogenic bladder - Patient self catheterize HTN Tachycardia - Controlled. DVT prop SCDs Discharge Planning dc home when HHC and outpatient IV Abx has been arranged. see med list. f/u with pcp and wound care. d/w the patient . previously d/w the case management. time spent 36 min. Galindo Mckenzie MD March 10, 2017 08:42
[2017-03-10] MEDS: SODIUM CHLORIDE 0.9% FLUSH 10 ML FLUSH IV FLUSH SCH ×3 (09:00→21:58)
[2017-03-10] MEDS: guaiFENesin E.R. 600 MG TAB PO SCH ×2 (09:00→21:00)
[2017-03-10] MEDS: DOCUSATE SODIUM 100 MG CAP PO SCH ×2 (09:42→21:58)
[2017-03-10] MEDS: ATENOLOL 25 MG TAB PO SCH (09:42)
[2017-03-10] MEDS: CYCLOBENZAPRINE HCL 10 MG TAB PO SCH ×3 (09:42→18:00)
[2017-03-10 12:00] VITALS: BP 114/67; PULSE 85; RESP 16; TEMP 98.2; O2SAT 100
[2017-03-10 16:00] VITALS: BP 119/60; PULSE 74; RESP 16; TEMP 97.7; O2SAT 100
[2017-03-10 20:00] VITALS: BP 112/57; PULSE 72; RESP 20; TEMP 97.4; O2SAT 99
[2017-03-10] MEDS: ACETAMINOPHEN/HYDROcodone 325 MG/5 MG TAB PO PRN (22:01)
[2017-03-11] VITALS: BP 118/66; PULSE 72; RESP 20; TEMP 96.2; O2SAT 100
[2017-03-11] MEDS: VANCOMYCIN INJ 1,500 MG in SODIUM CHLORID 0.9% 500 ML INJ 500 ML IV SCH ×2 (03:51→16:00)
[2017-03-11 08:00] VITALS: BP 113/55; PULSE 78; RESP 17; TEMP 96.8; O2SAT 100
--- NOTE | 2017-03-11 08:31 | HHI.PR ---
Subjective Remarks resting comfortably with no distress. no fever. no new complaints. awaiting [facility] to be set up. Objective Vitals Vital Signs Date Time Temp Pulse Resp B/P Pulse Ox O2 Delivery O2 Flow Rate FiO2 03/11/17 00:00 96.2 72 20 118/66 100 03/10/17 23:01 18 03/10/17 20:00 97.4 72 20 112/57 99 03/10/17 16:00 97.7 74 16 119/60 100 03/10/17 12:00 98.2 85 16 114/67 100 I/O 03/10/17 03/10/17 03/10/17 03/11/17 03/11/17 03/11/17 07:00 15:00 23:00 07:00 15:00 23:00 Intake Total 360 ml 0 ml 220 ml 360 ml Balance 360 ml 0 ml 220 ml 360 ml Intake Oral 360 ml 120 ml 360 ml IV Total 0 ml 100 ml # Voids 2 1 2 # Bowel Movements 0 0 0 Result Diagram: 03/10/17 0427 Imaging Last Impressions Chest X-Ray 03/06/17 0000 Signed Impressions: Service Date/Time: February 15:06 - CONCLUSION: 1. Interval placement of right-sided PICC line. 2. No acute cardiopulmonary disease. Markel Blank MD Lower Extremity CT 02/27/17 0600 Signed Impressions: Service Date/Time: February 09:12 - CONCLUSION: Subcutaneous defect with surrounding edema and no definite abscess or signs of osteomyelitis. Seda Mendez MD Lower Extremity MRI 02/27/17 0000 Signed Impressions: Service Date/Time: February 15:54 - CONCLUSION: There are pockets of abscess in the soft tissues of the left side posteriorly without signs of osteomyelitis. Seda Mendez MD Objective Remarks GENERAL: This is a well-nourished, well-developed patient, in no apparent distress. CARDIOVASCULAR: Regular rate and regular rhythm without murmurs, gallops, or rubs. RESPIRATORY: Clear to auscultation. Breath sounds equal bilaterally. No wheezes , rales, or rhonchi. GASTROINTESTINAL: Abdomen soft, non-tender, nondistended. Normal, active bowel sounds MUSCULOSKELETAL: Extremities without clubbing, cyanosis, or edema. NEURO: Alert & Oriented x4 to person, place, time, situation. Procedures picc line insertion. Medications and IVs Current Medications Sodium Chloride (NS 1000 ml Inj) 1,000 ml @ 100 mls/hr Q10H IV Last administered on 02/26/17 04:15; Start 02/26/17 at 04:15; Stop 02/26/17 at 09:15 ; Status DC Morphine Sulfate (Morphine Inj) 2 mg ONCE ONCE IV PUSH Last administered on 04:15; Start 02/26/17 at 04:15; Stop 02/26/17 at 04:16; Status DC Ondansetron HCl 4 mg 4 mg ONCE ONCE IV PUSH Last administered on 02/26/17 04: 15; Start 02/26/17 at 04:15; Stop 02/26/17 at 04:16; Status DC Vancomycin HCl/ Sodium Chloride (Vancomycin Inj/ NS 250 ml Inj) 250 ml @ 250 mls/hr ONCE ONCE IV Last administered on 02/26/17 04:15; Start 02/26/17 at 04 :15; Stop 02/26/17 at 05:14; Status DC Morphine Sulfate 4 mg 4 mg ONCE ONCE IV PUSH Last administered on 02/26/17 05 :00; Start 02/26/17 at 05:00; Stop 02/26/17 at 05:01; Status DC Piperacillin Sod/ Tazobactam Sod (Zosyn 3.375 Gm Premix) 50 ml @ 100 mls/hr ONCE ONCE IV Last administered on 02/26/17 06:00; Start 02/26/17 at 06:00; Stop 02/26/17 at 06:29; Status DC Acetaminophen (Tylenol) 650 mg ONCE ONCE PO Last administered on 02/26/17 06: 45; Start 02/26/17 at 06:45; Stop 02/26/17 at 06:46; Status DC Sodium Chloride (NS Flush) 2 ml UNSCH PRN IV FLUSH FLUSH AFTER USING IV ACCESS ; Start 02/26/17 at 08:00; Stop 02/26/17 at 09:17; Status DC Sodium Chloride (NS Flush) 2 ml BID IV FLUSH ; Start 02/26/17 at 09:00; Stop at 09:17; Status DC Naloxone HCl (Narcan Inj) 0.4 mg UNSCH PRN IV SEE LABEL COMMENTS; Start at 08:00 Sodium Chloride (NS Flush) 2 ml UNSCH PRN IV FLUSH FLUSH AFTER USING IV ACCESS Last administered on 03/08/17 01:48; Start 02/26/17 at 08:00 Sodium Chloride (NS Flush) 2 ml BID IV FLUSH Last administered on 03/10/17 21: 58; Start 02/26/17 at 09:00 Enoxaparin Sodium (Lovenox Inj) 40 mg Q24H SQ Last administered on 02/27/17 08 :28; Start 02/26/17 at 10:00; Status Hold Naloxone HCl 0.4 mg 0.4 mg UNSCH PRN IV SEE LABEL COMMENTS; Start 02/26/17 at 08:00; Stop 02/26/17 at 09:17; Status DC Pharmacy Profile Note 0 ml @ 0 mls/hr UNSCH OTHER ; Start 02/26/17 at 08:00 Piperacillin Sod/ Tazobactam Sod (Zosyn 4.5 Gm Premix) 100 ml @ 200 mls/hr Q6H IV Last administered on 02/27/17 00:29; Start 02/26/17 at 12:00; Stop at 00:35; Status DC Atenolol (Tenormin) 12.5 mg DAILY PO Last administered on 03/10/17 09:42; Start 02/26/17 at 09:00 Cyclobenzaprine HCl (Flexeril) 5 mg TID PO Last administered on 03/10/17 13:00 ; Start 02/26/17 at 09:00 Miscellaneous 1 ea 1 ea UNSCH PRN OTHER SEE LABEL COMMENTS; Start 02/26/17 at 09:30 Levofloxacin/ Dextrose 150 ml @ 100 mls/hr Q24H IV Last administered on 11:10; Start 02/26/17 at 11:00; Stop 02/27/17 at 00:35; Status DC Vancomycin HCl/ Sodium Chloride (Vancomycin Inj/ NS 250 ml Inj) 250 ml @ 250 mls/hr Q8H IV Last administered on 02/27/17 03:32; Start 02/26/17 at 12:00; Stop 02/27/17 at 08:38; Status DC Miscellaneous Information SPECIFIC LAB TO BE DRAWN:VANCOMYCIN TROUGH DATE TO... ONCE ONCE .XX Last administered on 02/27/17 03:30; Start 02/27/17 at 03:45; Stop 02/27/17 at 03:46; Status DC Albuterol/ Ipratropium (Duoneb Neb) 1 ampule Q6HR NEB NEB Last administered on 02/28/17 08:37; Start 02/26/17 at 13:00; Stop 03/02/17 at 13:00; Status DC Guaifenesin (Mucinex Er) 600 mg BID PO Last administered on 03/04/17 20:47; Start 02/26/17 at 21:00 Acetaminophen/ Hydrocodone Bitart ([place] 5-325 Mg) 1 tab Q6H PRN PO PAIN SCALE 6 TO 10; Start 02/26/17 at 17:45; Stop 02/27/17 at 10:55; Status DC Acetaminophen (Tylenol) 650 mg QID PRN PO temp > 100.4 Last administered on 00:29; Start 02/27/17 at 00:00 Miscellaneous Medication (ASP Crit: Doc ESBL, MDR A baumannii or P aer) 1 UNSCH X1 PRN .XX PHARMACY DOCUMENTATION; Start 02/27/17 at 00:45; Stop 02/28/17 at 00 :44; Status DC Miscellaneous Medication 1 1 UNSCH X1 PRN XX PHARMACY DOCUMENTATION; Start at 00:45; Stop 02/28/17 at 00:44; Status DC Meropenem 1000 mg/ Sodium Chloride 100 ml @ 200 mls/hr Q8H IV Last administered on 02/28/17 02:44; Start 02/27/17 at 01:00; Stop 02/28/17 at 05:53 ; Status DC Vancomycin HCl/ Sodium Chloride (Vancomycin Inj/ NS 250 ml Inj) 250 ml @ 250 mls/hr Q12H IV Last administered on 02/28/17 05:10; Start 02/27/17 at 15:00; Stop 02/28/17 at 05:53; Status DC Miscellaneous Information SPECIFIC LAB TO BE DRAWN:VANCOMYCIN TROUGH DATE TO... ONCE ONCE .XX ; Start 03/01/17 at 02:45; Stop 03/01/17 at 02:46; Status Cancel Acetaminophen/ Hydrocodone Bitart ([place] 5-325 Mg) 1 tab Q4H PRN PO PAIN SCALE 4 TO 10 Last administered on 03/10/17 22:01; Start 02/27/17 at 11:00 Potassium Chloride (KCl) 20 meq ONCE ONCE PO Last administered on 02/27/17 12 :18; Start 02/27/17 at 11:30; Stop 02/27/17 at 11:31; Status DC Lorazepam (Ativan Inj) 1 mg ONCE ONCE IV PUSH Last administered on 02/27/17 15:28; Start 02/27/17 at 12:45; Stop 02/27/17 at 12:46; Status DC Gadodiamide (Omniscan Pf Inj) 13 ml STK-MED ONCE IV Last administered on 17:04; Start 02/27/17 at 17:04; Stop 02/27/17 at 17:05; Status DC Ketorolac Tromethamine (Toradol Inj) 30 mg ONCE ONCE IV PUSH Last administered on 02/27/17 21:17; Start 02/27/17 at 21:15; Stop 02/27/17 at 21:16 ; Status DC Pantoprazole Sodium (Protonix) 40 mg DAILY PO Last administered on 03/06/17 09 :40; Start 02/28/17 at 09:00; Stop 03/07/17 at 08:59; Status DC Cyclobenzaprine HCl 5 mg 5 mg ONCE ONCE PO Last administered on 02/27/17 23: 20; Start 02/27/17 at 23:00; Stop 02/27/17 at 23:01; Status DC Meropenem 1000 mg/ Sodium Chloride 100 ml @ 200 mls/hr Q8H IV Last administered on 03/03/17 18:46; Start 02/28/17 at 10:00; Stop 03/03/17 at 19:26 ; Status DC Vancomycin HCl/ Sodium Chloride (Vancomycin Inj/ NS 250 ml Inj) 250 ml @ 250 mls/hr Q12H IV Last administered on 03/01/17 05:46; Start 02/28/17 at 17:00; Stop 03/01/17 at 13:47; Status DC Magnesium Hydroxide (Milk Of Magnesia Liq) 30 ml ONCE ONCE PO Last administered on 02/28/17 14:41; Start 02/28/17 at 14:15; Stop 02/28/17 at 14:16 ; Status DC Docusate Sodium (Colace) 100 mg BID PO Last administered on 03/10/17 21:58; Start 02/28/17 at 14:15 Lidocaine HCl 20 ml 20 ml ONCE ONCE OTHER ; Start 02/28/17 at 18:30; Stop 02/28 at 18:31; Status DC Vancomycin HCl/ Sodium Chloride (Vancomycin Inj/ NS 500 ml Inj) 515 ml @ 250 mls/hr Q12H IV ; Start 03/01/17 at 17:00; Status Cancel Miscellaneous Information SPECIFIC LAB TO BE JEREMY... ONCE ONCE .XX ; Start 03/03 at 04:45; Stop 03/03/17 at 04:46; Status DC Vancomycin HCl/ Sodium Chloride (Vancomycin Inj/ NS 250 ml Inj) 262.5 ml @ 250 mls/hr Q12H IV Last administered on 03/04/17 05:00; Start 03/01/17 at 17:00; Stop 03/04/17 at 09:23; Status DC Iohexol (Omnipaque 350 Inj) 75 ml STK-MED ONCE IV Last administered on 09:12; Start 02/27/17 at 09:12; Stop 03/02/17 at 03:24; Status DC Miscellaneous Information SPECIFIC LAB TO BE JEREMY... ONCE ONCE .XX Last administered on 03/04/17 04:45; Start 03/04/17 at 04:45; Stop 03/04/17 at 04:46 ; Status DC Vancomycin HCl/ Sodium Chloride (Vancomycin Inj/ NS 250 ml Inj) 250 ml @ 250 mls/hr Q8H IV Last administered on 03/07/17 05:26; Start 03/04/17 at 14:00; Stop 03/07/17 at 11:16; Status DC Miscellaneous Information SPECIFIC LAB TO BE DRAWN:VANCOMYCIN TROUGH DATE TO... UNSCH X1 ONCE .XX Last administered on 03/05/17 13:45; Start 03/05/17 at 13: 45; Stop 03/05/17 at 13:49; Status DC Miscellaneous Information SPECIFIC LAB TO BE DRAWN:VANCOMYCIN TROUGH DATE TO... ONCE ONCE .XX ; Start 03/08/17 at 13:45; Stop 03/08/17 at 13:46; Status DC Sodium Chloride (NS Flush) See Protocol DAILY IV FLUSH Last administered on 03/10 09:00; Start 03/07/17 at 09:00 Sodium Chloride (NS Flush) See Protocol UNSCH PRN IV FLUSH SEE PROTOCOL TABLE; Start 03/06/17 at 14:30 Heparin Sodium (Porcine) (Heparin Central Flush) See Protocol DAILY IV FLUSH Last administered on 03/10/17 09:41; Start 03/07/17 at 09:00 Heparin Sodium (Porcine) (Heparin Central Flush) See Protocol UNSCH PRN IV FLUSH SEE PROTOCOL TABLE; Start 03/06/17 at 14:30 Sodium Chloride (NS Flush) UNSCH PRN IV FLUSH SEE PROTOCOL TABLE; Start at 14:30 Lorazepam 0.5 mg 0.5 mg ONCE ONCE PO Last administered on 03/06/17 14:50; Start 03/06/17 at 14:45; Stop 03/06/17 at 14:46; Status DC Vancomycin HCl/ Sodium Chloride (Vancomycin Inj/ NS 500 ml Inj) 515 ml @ 250 mls/hr Q12H IV Last administered on 03/08/17 01:45; Start 03/07/17 at 14:00; Stop 03/08/17 at 16:58; Status DC Magnesium Hydroxide (Milk Of Magnesia Liq) 30 ml DAILY PRN PO CONSTIPATION Last administered on 03/08/17 14:15; Start 03/08/17 at 14:00 Lactulose (Lactulose Liq) 30 ml TID PRN PO CONSTIPATION Last administered on 16:23; Start 03/08/17 at 16:15 Sodium Biphosphate/ Sodium Phosphate 133 ml 133 ml ONCE PRN [place] CONSTIPATION Last administered on 03/08/17 20:27; Start 03/08/17 at 16:15; Stop 03/08/17 at 23:59; Status DC Vancomycin HCl/ Sodium Chloride (Vancomycin Inj/ NS 500 ml Inj) 515 ml @ 250 mls/hr Q12H IV Last administered on 03/11/17 03:51; Start 4/29/17 at 18:00 Miscellaneous Information SPECIFIC LAB TO BE DRAWN:VANCOMY... ONCE ONCE .XX Last administered on 03/09/17t 05:35; Start 03/09/17 at 05:45; Stop 03/09/17 at 05:46; Status DC A/P Assessment and Plan A/P Left thigh/hip cellulitis versus necrotizing fasciitis Left hip, buttock area with pressure decubitus ulcer stage IV tunneling - Chest x-ray showed normal examination. - Left thigh area below decubitus ulcer positive for edema, edema, warmth, as per General Surgery no further management continue Vancomycin as outpatient per ID recommendations. - Wound care following. MRSA bacteremia - continue with Vancomycin - repeated blood cultures negative . -echo with no vegetation Paraplegia Neuropathic pain - Continue Flexeril 10 mg 3 times a day added [place] - Turn and position to relieve pressure Neurogenic bladder - Patient self catheterize HTN Tachycardia - Controlled. DVT prop SCDs Discharge Planning dc home when HHC and outpatient IV Abx has been arranged. see med list. f/u with pcp and wound care. d/w the patient . d/w the case management today. time spent 36 min. Galindo Mckenzie MD March 11, 2017 08:31
[2017-03-11] MEDS: guaiFENesin E.R. 600 MG TAB PO SCH (09:00)
[2017-03-11] MEDS: SODIUM CHLORIDE 0.9% FLUSH 10 ML FLUSH IV FLUSH SCH ×2 (09:00→09:25)
[2017-03-11] MEDS: DOCUSATE SODIUM 100 MG CAP PO SCH (09:25)
[2017-03-11] MEDS: ATENOLOL 25 MG TAB PO SCH (09:25)
[2017-03-11] MEDS: CYCLOBENZAPRINE HCL 10 MG TAB PO SCH ×3 (09:25→17:00)
[2017-03-11 12:00] VITALS: BP 103/53; PULSE 80; RESP 16; TEMP 97.5; O2SAT 99
[2017-03-11 12:08] LABS: AUTOMATED NEUTROPHIL # 4.3 TH/MM3 (1.8-7.7); BASOPHIL % 0.6 % (0.0-2.0); EOSINOPHIL # 0.3 TH/MM3 (0-0.4); EOSINOPHIL % 4.3 % (0.0-4.0); HEMATOCRIT 36.1 % (39.0-51.0); HEMO FLAGS DIFF FINAL; LYMPH % 24.7 % (9.0-44.0); LYMPHOCYTE # 1.6 TH/MM3 (1.0-4.8); MEAN CELL VOLUME 75.6 FL (80.0-100.0); MEAN CORPUSCULAR HGB CONC 33.1 % (32.0-36.0); MONO % 6.2 % (0.0-8.0); NEUT % 64.2 % (16.0-70.0); PLATELET COUNT 202 TH/MM3 (150-450); RED BLOOD COUNT 4.78 MIL/MM3 (4.50-5.90); RED CELL DISTRIBUTION WIDTH 16.1 % (11.6-17.2); WHITE BLOOD COUNT 6.7 TH/MM3 (4.0-11.0)
[2017-03-11 12:51] LABS: ALT (GPT) 44 U/L (9-52); ANION GAP 6 MEQ/L (5-15); AST (GOT) 31 U/L (15-39); BICARBONATE 27.8 MEQ/L (21.0-32.0); BLOOD UREA NITROGEN 12 MG/DL (7-18); CHLORIDE 105 MEQ/L (98-107); GLOMERULAR FILTRATION RATE 306 ML/MIN (>89); SODIUM (NA) 139 MEQ/L (136-145)
[2017-03-11 12:53] LABS: ALKALINE PHOSPHATASE 82 U/L (45-117); TOTAL BILIRUBIN ADULT 0.5 MG/DL (0.2-1.0)
[2017-03-11 16:00] VITALS: BP 99/59; PULSE 70; RESP 16; TEMP 96.8; O2SAT 98
== END 2017-03-11 20:10 | disposition home health service (06) | DRG 871 ==
LOC: NEPC 02:14 → NEDA 06:56 → N07B 14:00
PROVIDERS: ADMIT Internal Medicine; ATTEND Internal Medicine
PROC: 02HV33Z Insertion of Infusion Device into Superior Vena Cava, Percutaneous Approach (ICD-10-PCS; principal; 2017-03-06)
DX: A41.02 Sepsis due to Methicillin resistant Staphylococcus aureus (principal); L89.324 Pressure ulcer of left buttock, stage 4; G82.20 Paraplegia, unspecified; N31.9 Neuromuscular dysfunction of bladder, unspecified; L02.416 Cutaneous abscess of left lower limb; L03.317 Cellulitis of buttock; L03.116 Cellulitis of left lower limb; I10 Essential (primary) hypertension; K21.9 Gastro-esophageal reflux disease without esophagitis; R00.0 Tachycardia, unspecified; K59.00 Constipation, unspecified; B95.62 Methicillin resistant Staphylococcus aureus infection as the cause of diseases classified elsewhere
CPT/HCPCS: 36569; 71010; 73701; 73720; 76937; 80048; 80053; 80202; 81001; 82565; 83605; 85025; 85610; 85730; 86403; 87040; 87070; 87086; 87147; 87186; 87205; 93308; 94150; 94640; 94664; 96374; 96375; 96376; A9579; J1642; J1650; J1885; J1956; J2060; J2185; J2270; J2405; J2543; J3370; J7030; J7040; J7050; Q9967

== ENCOUNTER 2017-03-19 18:55 | Emergency (ER) | payer MEDICAID ==
[~2017-03-19] VITALS: Ht 198.1 cm; Wt 74.0 kg
[~2017-03-19 18:55] MED LIST changes: -CIPR500T2 PO
[2017-03-19 18:57] VITALS: BP 136/79; PULSE 86; RESP 16; TEMP 98.8; O2SAT 99
--- NOTE | 2017-03-19 19:51 | PD ---
HPI Chief Complaint: Editorial Specialist Problem Time Seen by Provider: 19:40 Travel History International Travel<30 days: No Contact w/Intl Traveler<30days: No Traveled to known affect area: No History of Present Illness HPI 21-year-old male with history of paraplegia presents requesting PICC line removal. The patient was admitted on February 26 for cellulitis, infected ulcer. Wound cultures grow MRSA, blood cultures grow MRSA. He was seeing infectious disease consultation Dr. Sevilla recommended IV vancomycin 1.5 mg every 12 hours. Date March 19. He received his final dose today around noon. He was uncertain where to go to have his PICC line removed. He presents now requesting PICC line removal. He reports that the wound appears significantly improved. His mother has been helping with wound care. She has been doing wet- to-dry dressings on daily basis. Denies any purulent drainage or foul smells. Denies any fevers or chills. His only complaint is of muscle spasticity in the lower extremities is chronic, somewhat worse today. He typically takes Flexeril for the discomfort, Ativan for breakthrough pain. He has no other complaints. PFSH Past Medical History Arthritis: No Autoimmune Disease: No Blood Disorders: No Anxiety: Yes Depression: Yes Cancer: No Cardiovascular Problems: Yes (HTN) Cerebrovascular Accident: No Developmental Delay: No Diminished Hearing: No Endocrine: No Gastrointestinal Disorders: Yes (CONSTIPATION AT TIMES) GERD: Yes Genitourinary: Yes (PT SELF CATHS) Headaches: Yes (spinal headache) Hiatal Hernia: No Hypertension: Yes Immune Disorder: No Implanted Vascular Access Dvce: Yes Kidney Stones: No Musculoskeletal: Yes (paraplegic) Neurologic: Yes (paraplegic ) Psychiatric: Yes Reproductive: No Respiratory: No Immunizations Current: Yes Migraines: No Renal Failure: No Sickle Cell Disease: No Ulcer: No Past Surgical History Abdominal Surgery: No AICD: No Arteriovenous Shunt: No Body Medical Devices: rods in back Cardiac Surgery: No Ear Surgery: No Endocrine Surgery: No Eye Surgery: No Genitourinary Surgery: No Gynecologic Surgery: No Insulin Pump: No Joint Replacement: No Neurologic Surgery: Yes (SPINAL SURGERY, PARAPLEGIC) Oral Surgery: No Pacemaker: No Thoracic Surgery: Yes (3 fusions, last 01/2015) Social History Alcohol Use: No Tobacco Use: No Substance Use: No Allergies-Medications (Allergen,Severity, Reaction): Coded Allergies: *MDRO Multi-Drug Resistant Organism (Verified Adverse Reaction, Unknown, ) ESBL E.Coli (urine-11/06/16) MRSA (buttock)-02/16/17, 02/26/17; (blood)-02/26/17 Reported Meds & Prescriptions Reported Meds & Active Scripts Active Flexeril (Cyclobenzaprine HCl) 5 Mg Tab 5 Mg PO TID Lortab (Hydrocodone-Acetaminophen) 5-325 Mg Tab 1 Tab PO Q6H PRN Reported Atenolol 25 Mg Tab 12.5 Mg PO DAILY Review of Systems Except as stated in HPI: all other systems reviewed are Neg Physical Exam Narrative GENERAL: Well-developed well-nourished male in no acute distress SKIN: Warm and dry. Examination of the left lateral hip reveals a quarter- sized well granulated pressure ulcer. There is no surrounding erythema or induration. Wet-to-dry dressing in place with Tegaderm on top. There is no foul smell or drainage. HEAD: Atraumatic. Normocephalic. EYES: Pupils equal and round. No scleral icterus. No injection or drainage. ENT: No nasal bleeding or discharge. Mucous membranes pink and moist. NECK: Trachea midline. No JVD. CARDIOVASCULAR: Regular rate and rhythm. No murmur appreciated. RESPIRATORY: No accessory muscle use. Clear to auscultation. Breath sounds equal bilaterally. GASTROINTESTINAL: Abdomen soft, non-tender, nondistended. Hepatic and splenic margins not palpable. MUSCULOSKELETAL: No obvious deformities. NEUROLOGICAL: Awake and alert. No obvious cranial nerve deficits. Motor grossly within normal limits. Normal speech. Data Data Last Documented VS Vital Signs Date Time Temp Pulse Resp B/P Pulse Ox O2 Delivery O2 Flow Rate FiO2 03/19/17 18:57 98.8 86 16 136/79 99 Orders Lorazepam Inj (Ativan Inj) (03/19/17 20:00) MDM Medical Decision Making Medical Screen Exam Complete: Yes Emergency Medical Condition: Yes Medical Record Reviewed: Yes Differential Diagnosis Well healing pressure ulcer versus infected pressure ulcer versus bacteremia versus PICC line removal Narrative Course The patient's pressure ulcer appears to be healing well, it is approximately quarter sized and has granulating tissue along the margins. There is no erythema or drainage. The patient is completed with his IV vancomycin administration therefore the PICC line will be removed. He will be given some dressing supplies. He'll be given a small dose of Ativan here for us muscle spasticity. He is stable for discharge. Diagnosis Primary Impression: Decubitus ulcer of left hip Qualified Code: L89.229 - Decubitus ulcer of left hip, unspecified ulcer stage Additional Impression: PIC line (peripherally inserted central catheter) removal Additional Instructions: Follow-up with primary care physician. Return for any emergent medical conditions. Med/Other Pt SpecificInfo: No Change to Meds Disposition: 01 DISCHARGE HOME Condition: Stable Stanislav Mariscal March 19, 2017 19:51
[2017-03-19] MEDS ORDERED: LORazepam 2 MG/ML VIAL IM ONE (20:00)
== END 2017-03-19 20:40 | disposition home or self-care (01) ==
LOC: NEPD 18:55
DX: Z46.89 Encounter for fitting and adjustment of other specified devices (principal); L89.229 Pressure ulcer of left hip, unspecified stage; I10 Essential (primary) hypertension; K21.9 Gastro-esophageal reflux disease without esophagitis; G82.20 Paraplegia, unspecified; Z86.14 Personal history of Methicillin resistant Staphylococcus aureus infection
CPT/HCPCS: 96372; 99283; J2060

== ENCOUNTER 2017-07-02 20:37 | Emergency (ER) | payer MEDICAID ==
[~2017-07-02] VITALS: Ht 198.1 cm; Wt 67.0 kg
[2017-07-02 20:40] VITALS: BP 138/68; PULSE 93; RESP 18; TEMP 98.6; O2SAT 100
[2017-07-02] MEDS ORDERED: MACR100C2 PO (23:24)
[2017-07-03] MEDS ORDERED: LORazepam 2 MG/ML VIAL IV PUSH ONE (00:15)
[2017-07-03 00:27] LABS: AUTOMATED NEUTROPHIL # 4.6 TH/MM3 (1.8-7.7); BASOPHIL % 0.6 % (0.0-2.0); EOSINOPHIL # 0.1 TH/MM3 (0-0.4); HEMATOCRIT 41.6 % (39.0-51.0); HEMO FLAGS DIFF FINAL; LYMPHOCYTE # 2.9 TH/MM3 (1.0-4.8); MEAN CELL VOLUME 78.2 FL (80.0-100.0); MEAN CORPUSCULAR HEMOGLOBIN 25.5 PG (27.0-34.0); MEAN CORPUSCULAR HGB CONC 32.6 % (32.0-36.0); NEUT % 56.4 % (16.0-70.0); PLATELET COUNT 213 TH/MM3 (150-450); RED BLOOD COUNT 5.32 MIL/MM3 (4.50-5.90); RED CELL DISTRIBUTION WIDTH 16.3 % (11.6-17.2); WHITE BLOOD COUNT 8.2 TH/MM3 (4.0-11.0)
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
[2017-07-03 00:37] LABS: BACTERIA, URINE RARE /hpf; BLOOD, URINE NEG (NEG); GLUCOSE,URINE NEG (NEG); KETONE, URINE NEG (NEG); MUCUS URINE FEW /lpf (OCC); NITRITE,URINE NEG (NEG); PH, URINE 7.5 (5.0-8.5); RENAL EPITHELIAL CELLS 3 /hpf; SQUAMOUS EPITHELIAL CELL URINE <1 /hpf (0-5); URINE COLOR YELLOW (YELLW/STRAW)
[2017-07-03 00:39] LABS: COMMENT (UR) CULTURE INDICATED; CULTURE IF INDICATED CULTURE INDICATED
[2017-07-03 01:03] LABS: BICARBONATE 26.2 MEQ/L (21.0-32.0); POTASSIUM 4.8 MEQ/L (3.5-5.1)
[2017-07-03 01:07] VITALS: BP 142/51; PULSE 65; RESP 14; O2SAT 99
[2017-07-03] MEDS ORDERED: cefTRIAXone INJ 1,000 MG in SODIUM CHLORIDE 0.9% INJ 100 ML IV ONE (01:15)
[2017-07-03] MEDS ORDERED: AUGM500T7 PO (01:15)
[2017-07-03] MEDS ORDERED: CYCL1TAB29 PO (01:15)
[2017-07-03] MEDS ORDERED: HYDROmorphone HCL PF 1 MG/ML VIAL IM ONE (03:00)
== END 2017-07-03 03:09 | disposition home or self-care (01) ==
LOC: NEPD 20:37
DX: N39.0 Urinary tract infection, site not specified (principal); B96.89 Other specified bacterial agents as the cause of diseases classified elsewhere
CPT/HCPCS: 80048; 81001; 85025; 87077; 87086; 87186; 96365; 96372; 96375; 99284; J0696; J1170; J2060; P9612

== ENCOUNTER 2017-07-08 23:24 | Emergency (ER) | payer MEDICAID ==
[~2017-07-08] VITALS: Ht 198.1 cm; Wt 72.5 kg
[~2017-07-08 23:24] MED LIST changes: +AUGM500T7 PO; +CYCL1TAB29 PO; -HYDR-3533 PO; +MACR100C2 PO
[2017-07-08 23:35] VITALS: BP 137/75; PULSE 86; RESP 16; TEMP 99.3; O2SAT 99
[2017-07-09 01:08] LABS: BLOOD, URINE NEG (NEG); COMMENT (UR) CULTURE INDICATED; CULTURE IF INDICATED CULTURE INDICATED; GLUCOSE,URINE NEG (NEG); KETONE, URINE NEG (NEG); NITRITE,URINE NEG (NEG); SQUAMOUS EPITHELIAL CELL URINE <1 /hpf (0-5); URINE COLOR LIGHT-YELLOW (YELLW/STRAW)
[2017-07-09] MEDS ORDERED: CIPROFLOXACIN 500 MG TAB PO ONE (01:45)
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
[2017-07-09] MEDS ORDERED: ACETAMINOPHEN/HYDROcodone 325 MG/5 MG TAB PO ONE (02:00)
[2017-07-09] MEDS ORDERED: PHENAZOPYRIDINE HCL 200 MG TAB PO ONE (02:00)
[2017-07-09] MEDS ORDERED: CIPR-9 PO (02:39)
[2017-07-09 02:40] VITALS: BP 126/77; TEMP 98.9
== END 2017-07-09 02:54 | disposition home or self-care (01) ==
LOC: NEPE 23:24
DX: N39.0 Urinary tract infection, site not specified (principal); N32.89 Other specified disorders of bladder; G82.20 Paraplegia, unspecified; I10 Essential (primary) hypertension; K21.9 Gastro-esophageal reflux disease without esophagitis; F41.9 Anxiety disorder, unspecified; F32.9 Major depressive disorder, single episode, unspecified; Z79.899 Other long term (current) drug therapy
CPT/HCPCS: 81001; 87086; 99283

== ENCOUNTER 2017-07-31 22:46 | Emergency (ER) | payer MEDICAID ==
[~2017-07-31] VITALS: Ht 198.1 cm; Wt 75.0 kg
[~2017-07-31 22:46] MED LIST changes: +CIPR-9 PO; -CYCL5TAB PO; -MACR100C2 PO
[2017-07-31 22:51] VITALS: BP 139/91; PULSE 100; RESP 18; TEMP 99.7; O2SAT 100
[2017-07-31] MEDS ORDERED: ACETAMINOPHEN 650 MG/20.3 ML UDC PO ONE (23:15)
[2017-07-31] MEDS ORDERED: LORazepam 2 MG/ML VIAL IV PUSH ONE (23:15)
[2017-07-31] MEDS ORDERED: BENZOCAINE-MENTHOL (SUGAR FREE) 15 MG-3.6 MG LOZENGE BUCCAL ONE (23:15)
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
[2017-07-31] MEDS ORDERED: LORazepam 2 MG/ML VIAL IM ONE (23:45)
[2017-08-01] MEDS ORDERED: DIAZEPAM 5 MG TAB PO ONE (00:15)
[2017-08-01] MEDS ORDERED: ACET500L PO (00:27)
== END 2017-08-01 00:41 | disposition home or self-care (01) ==
LOC: NEPC 22:46
DX: J06.9 Acute upper respiratory infection, unspecified (principal); I10 Essential (primary) hypertension; K21.9 Gastro-esophageal reflux disease without esophagitis; G82.20 Paraplegia, unspecified
CPT/HCPCS: 96372; 99284; J2060

== ENCOUNTER 2017-08-25 21:28 | Emergency (ER) | payer MEDICAID ==
[~2017-08-25 21:28] MED LIST changes: +ACET500L PO
[2017-08-25 21:30] VITALS: BP 131/79; PULSE 89; RESP 16; TEMP 98.4; O2SAT 100
[2017-08-26] LABS: BLOOD, URINE MOD (NEG); COMMENT (UR) CULTURE INDICATED; CULTURE IF INDICATED CULTURE INDICATED; GLUCOSE,URINE NEG (NEG); KETONE, URINE NEG (NEG); MUCUS URINE FEW /lpf (OCC); NITRITE,URINE POS (NEG); PH, URINE 6.5 (5.0-8.5); URINE COLOR YELLOW (YELLW/STRAW)
[2017-08-26 00:01] LABS: BACTERIA, URINE MANY /hpf
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
[2017-08-26 00:30] VITALS: O2SAT 98
[2017-08-26] MEDS ORDERED: KETOROLAC TROMETHAMINE 30 MG/ML (IVP) VIAL IV PUSH ONE (00:30)
[2017-08-26 00:53] LABS: AUTOMATED NEUTROPHIL # 10.2 TH/MM3 (1.8-7.7); BASOPHIL % 0.4 % (0.0-2.0); EOSINOPHIL # 0.1 TH/MM3 (0-0.4); HEMATOCRIT 41.9 % (39.0-51.0); HEMO FLAGS DIFF FINAL; LYMPH % 14.9 % (9.0-44.0); LYMPHOCYTE # 1.9 TH/MM3 (1.0-4.8); MEAN CELL VOLUME 78.5 FL (80.0-100.0); MEAN CORPUSCULAR HEMOGLOBIN 25.9 PG (27.0-34.0); MONO % 4.7 % (0.0-8.0); PLATELET COUNT 246 TH/MM3 (150-450); RED BLOOD COUNT 5.34 MIL/MM3 (4.50-5.90); RED CELL DISTRIBUTION WIDTH 16.3 % (11.6-17.2); WHITE BLOOD COUNT 12.9 TH/MM3 (4.0-11.0)
[2017-08-26 01:14] LABS: ALKALINE PHOSPHATASE 76 U/L (45-117); TOTAL BILIRUBIN ADULT 0.8 MG/DL (0.2-1.0)
[2017-08-26] MEDS ORDERED: cefTRIAXone INJ 1,000 MG in SODIUM CHLORIDE 0.9% INJ 100 ML IV ONE (01:30)
[2017-08-26 01:31] LABS: ALT (GPT) 15 U/L (9-52); ANION GAP 6 MEQ/L (5-15); AST (GOT) 15 U/L (15-39); BICARBONATE 28.7 MEQ/L (21.0-32.0); BLOOD UREA NITROGEN 10 MG/DL (7-18); CHLORIDE 102 MEQ/L (98-107); GLOMERULAR FILTRATION RATE 263 ML/MIN (>89); POTASSIUM 4.2 MEQ/L (3.5-5.1); SODIUM (NA) 137 MEQ/L (136-145)
[2017-08-26] MEDS ORDERED: CIPR-9 PO (02:09)
[2017-08-26] MEDS ORDERED: NYST100084 TOPICAL ×2 (02:12→02:19)
[2017-08-26 02:51] LABS: CHLAMYDIA PCR NOT DETECTED (NOT DETECT); NEISSERIA PCR NOT DETECTED (NOT DETECT)
== END 2017-08-26 02:46 | disposition home or self-care (01) ==
LOC: NEPC 21:28
DX: B37.49 Other urogenital candidiasis (principal); N39.0 Urinary tract infection, site not specified; T83.511A Infection and inflammatory reaction due to indwelling urethral catheter, initial encounter; B96.20 Unspecified Escherichia coli [E. coli] as the cause of diseases classified elsewhere; I10 Essential (primary) hypertension; G82.20 Paraplegia, unspecified; Z87.448 Personal history of other diseases of urinary system; Z87.39 Personal history of other diseases of the musculoskeletal system and connective tissue; Z86.59 Personal history of other mental and behavioral disorders; Z87.19 Personal history of other diseases of the digestive system; Z86.69 Personal history of other diseases of the nervous system and sense organs
CPT/HCPCS: 80053; 81001; 83690; 85025; 87077; 87086; 87186; 87255; 87491; 87591; 96365; 96375; 99284; J0696; J1885

== ENCOUNTER 2017-09-28 16:37 | Emergency (ER) | payer MEDICAID ==
[~2017-09-28 16:37] MED LIST changes: -ACET500L PO; -AUGM500T7 PO; +CYCL10TA PO; -CYCL1TAB29 PO; +NYST100084 TOPICAL
[2017-09-28 16:45] VITALS: BP 130/77; PULSE 137; RESP 18; TEMP 98.9; O2SAT 98
[2017-09-28] MEDS ORDERED: KETOROLAC TROMETHAMINE 60 MG/2 ML (IM) VIAL IM ONE (17:00)
[2017-09-28] MEDS ORDERED: SILVER SULFADIAZINE 1% CR 50 GM JAR TOPICAL ONE (17:00)
[2017-09-28] MEDS ORDERED: MOBI15TA PO (17:11)
[2017-09-28] MEDS ORDERED: SILV1CRE20 TOPICAL (17:11)
[2017-09-28] MEDS ORDERED: TYLETAB34 PO (17:11)
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
[2017-09-28] MEDS ORDERED: TETANUS/DIPHTHERIA TOXOID ADULT 0.5 ML VIAL IM ONE (17:15)
== END 2017-09-28 19:30 | disposition home or self-care (01) ==
LOC: NEPC 16:37
DX: T24.212A Burn of second degree of left thigh, initial encounter (principal); T24.211A Burn of second degree of right thigh, initial encounter; G82.20 Paraplegia, unspecified; I10 Essential (primary) hypertension; K21.9 Gastro-esophageal reflux disease without esophagitis; F41.9 Anxiety disorder, unspecified; F32.9 Major depressive disorder, single episode, unspecified; X11.8XXA Contact with other hot tap-water, initial encounter; Z23 Encounter for immunization
CPT/HCPCS: 16020; 90471; 90714; 96372; 99284; J1885

== ENCOUNTER 2018-02-27 14:03 | Emergency (ER) | payer MEDICAID ==
[~2018-02-27] VITALS: Ht 182.9 cm; Wt 65.0 kg
[~2018-02-27 14:03] MED LIST changes: +MOBI15TA PO; +SILV1CRE20 TOPICAL; +TYLETAB34 PO
[2018-02-27 14:12] VITALS: BP 136/96; PULSE 95; RESP 18; TEMP 98.2; O2SAT 98
[2018-02-27 15:14] LABS: BACTERIA, URINE MOD /hpf; BILIRUBIN, URINE NEG (NEG); BLOOD, URINE SMALL (NEG); GLUCOSE,URINE NEG (NEG); KETONE, URINE NEG (NEG); MUCUS URINE MOD /lpf (OCC); NITRITE,URINE NEG (NEG); URINE COLOR YELLOW (YELLW/STRAW); URINE LEUKOCYTE ESTERASE LARGE (NEG); WHITE BLOOD CELL CLUMPS MANY
--- NOTE | 2018-02-27 15:24 | PD ---
HPI . Urinary tract infection Chief Complaint: Complaint Time Seen by Provider: 14:40 Travel History International Travel<30 days: No Contact w/Intl Traveler<30days: No Traveled to known affect area: No History of Present Illness HPI This is a patient with a previous spinal cord transection with resultant paraplegia who has to do self catheterizations who presents to us today complaining with cloudy urine. He does not have any other symptoms other than cloudy urine. PFSH Past Medical History Arthritis: No Autoimmune Disease: No Blood Disorders: No Anxiety: Yes Depression: Yes Cancer: No Cardiovascular Problems: Yes (HTN) Cerebrovascular Accident: No Developmental Delay: No Diminished Hearing: No Endocrine: No Gastrointestinal Disorders: Yes (CONSTIPATION AT TIMES) GERD: Yes Genitourinary: Yes (PT SELF CATHS) Headaches: Yes (spinal headache) Hiatal Hernia: No Hypertension: Yes Immune Disorder: No Implanted Vascular Access Dvce: Yes Kidney Stones: No Musculoskeletal: Yes (paraplegic) Neurologic: Yes (paraplegic ) Psychiatric: Yes Reproductive: No Respiratory: No Immunizations Current: No Migraines: No Renal Failure: No Sickle Cell Disease: No Ulcer: No Past Surgical History Abdominal Surgery: No AICD: No Arteriovenous Shunt: No Body Medical Devices: rods in back Cardiac Surgery: No Ear Surgery: No Endocrine Surgery: No Eye Surgery: No Genitourinary Surgery: No Gynecologic Surgery: No Insulin Pump: No Joint Replacement: No Neurologic Surgery: Yes (SPINAL SURGERY, PARAPLEGIC) Oral Surgery: No Pacemaker: No Thoracic Surgery: Yes (3 fusions, last 01/2015) Other Surgery: Yes (SPINAL Sx x3) Social History Alcohol Use: No Tobacco Use: No Substance Use: No Allergies-Medications (Allergen,Severity, Reaction): Coded Allergies: *MDRO Multi-Drug Resistant Organism (Verified Adverse Reaction, Unknown, 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-11/06/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 (buttock)-02/16/17, 02/26/17; (blood)-02/26/17 Reported Meds & Prescriptions Reported Meds & Active Scripts Active Silvadene Topical (Silver Sulfadiazine) 1 % Cream 1 Applic TOPICAL DAILY Mobic (Meloxicam) 15 Mg Tab 15 Mg PO DAILY Tylenol-Codeine #3 (Acetaminophen-Codeine) 300-30 mg Tab 1-2 Tab PO Q6H PRN Nystatin Topical 100,000 unit/gm Oint 1 Applic TOPICAL TID 10 Days Cipro (Ciprofloxacin HCl) 500 Mg Tab 500 Mg PO BID Flexeril (Cyclobenzaprine HCl) 10 Mg Tab 10 Mg PO TID Reported Atenolol 25 Mg Tab 12.5 Mg PO DAILY Review of Systems Except as stated in HPI: all other systems reviewed are Neg Physical Exam Narrative GENERAL: Awake and alert and in no acute distress. SKIN: Warm and dry. HEAD: Normocephalic/atraumatic. EYES: Pupils are equal. Extraocular movements are intact. NECK: Normal range of motion. RESPIRATORY: Nonlabored respirations. MUSCULOSKELETAL: Atraumatic. NEUROLOGICAL: Nonfocal. PSYCHIATRIC: Appropriate mood and affect. Data Data Last Documented VS Vital Signs Date Time Temp Pulse Resp B/P (MAP) Pulse Ox O2 Delivery O2 Flow Rate FiO2 02/27/18 14:12 98.2 95 18 136/96 (109) 98 Orders Orders Urinalysis - C+S If Indicated (02/27/18 14:40) Cath For Specimen (02/27/18 14:40) Urine Culture (02/27/18 14:50) Labs Laboratory Tests Test 02/27/18 14:50 Urine Color YELLOW Urine Turbidity CLOUDY Urine pH 6.0 Urine Specific [place] 1.020 Urine Protein 30 mg/dL Urine Glucose (UA) NEG mg/dL Urine Ketones NEG mg/dL Urine Occult Blood SMALL Urine Nitrite NEG Urine Bilirubin NEG Urine Urobilinogen 4.0 MG/DL Urine Leukocyte Esterase LARGE Urine RBC 30 /hpf Urine WBC /hpf Urine WBC Clumps MANY Urine Bacteria MOD /hpf Urine Mucus MOD /lpf Microscopic Urinalysis Comment CULTURE INDICATED [facility] Medical Decision Making Medical Screen Exam Complete: Yes Emergency Medical Condition: Yes Medical Record Reviewed: Yes (previous urine cx have grown various different organisms.) Differential Diagnosis Final differential diagnosis of urinary symptoms includes but is not limited to UTI, kidney stone, pyelonephritis, bacterial vaginosis, yeast infection, urinary retention Narrative Course This patient presents with probable urinary tract infection. He has a history of same. He self catheterizes due to a neurogenic bladder secondary to previous transected cord with resultant paraplegia. His urine is cloudy and foul-smelling. He does not have any symptoms concerning for sepsis such as fever. Vital Signs Date Time Temp Pulse Resp B/P (MAP) Pulse Ox O2 Delivery O2 Flow Rate FiO2 02/27/18 14:12 98.2 95 18 136/96 (109) 98 UA shows large leukocyte esterase, 30 red blood cells, innumerable white blood cells, white blood cell clumps, moderate bacteria. Culture is pending. I will treat him with Keflex pending the culture. Diagnosis Primary Impression: Recurrent UTI (urinary tract infection) Med/Other Pt SpecificInfo: Prescription(s) given Scripts Cephalexin (Keflex) 500 Mg Cap 500 MG PO Q8H for Infection, #30 CAP 0 Refills Prov: Gabi Mora MD 02/27/18 Disposition: 01 DISCHARGE HOME Condition: Stable Gabi Mora MD Feb 27, 2018 15:24
[2018-02-27] MEDS ORDERED: CEPH-460 PO (15:30)
[2018-02-27] MEDS ORDERED: CEPHALEXIN MONOHYDRATE 500 MG CAP PO ONE (15:45)
[2018-02-27] MEDS ORDERED: SILVGEL TOPICAL (15:53)
[2018-02-27] MEDS ORDERED: [UNRECOGNIZED DRUG - CODE] TOPICAL (15:59)
== END 2018-02-27 16:15 | disposition home or self-care (01) ==
LOC: NEPD 14:03
DX: N39.0 Urinary tract infection, site not specified (principal); B96.89 Other specified bacterial agents as the cause of diseases classified elsewhere; G82.20 Paraplegia, unspecified; I10 Essential (primary) hypertension; Z87.440 Personal history of urinary (tract) infections
CPT/HCPCS: 81001; 87077; 87086; 87186; 99283; P9612

== ENCOUNTER 2018-06-23 22:11 | Observation (INO) ==
[2018-06-23] MEDS ORDERED: Acetaminophen 325 MG Tablet PO ONE (22:42)
[2018-06-23] MEDS ORDERED: Sod Chloride 0.9% Inj 1,000 ML IV.SIG ONE (22:53)
--- NOTE | 2018-06-23 22:53 | ED ---
HPI General Chief complaint: Fever Stated complaint: Evac/Fever Time Seen by Provider: 06/23/18 22:41 History of Present Illness HPI narrative: 22-year-old male is brought to the emergency department by EMS for evaluation of fever and UTI. The patient is paraplegic and self catheterizes. He has a history of frequent urinary tract infections. States that he started developing a UTI 2 days ago and was seen at a urgent care yesterday and prescribed Cipro. States that he has been taking the Cipro and his symptoms have worsened, he has taken 3 doses of it so far. He states he had a fever of 103F today. He complains of subjective fever, muscle spasms, fatigue. States that he has chronic muscle spasms and that when he gets an infection this exacerbates his spasms. He also states that over the past 2 days he has developed a wound on his bottom that he would like evaluated. No other complaints or concerns. Related Data Previous Rx's Medication Instructions Recorded Methanamine Mandelate 500 mg PO HS 30 Days 06/26/18 Allergies Allergy/AdvReac Type Severity Reaction Status Date / Time *MDRO Multi-Drug Resistant AdvReac Unknown Uncoded 05/05/18 00:02 Organism Review of Systems ROS: all other systems reviewed are negative PMFSH Family History Family History Grandparent Diabetes Social History Social History Substance History: Past History Second Hand Smoke Exposure: No Smoking Status: Never smoker Tobacco Type: Cigarettes How Often Do You Have a Drink Containing Alcohol: Never Recent Travel in [facility] within the Last 8 Weeks: No Recent Out of Country Travel within the Last 8 Weeks: No Exam Narrative Exam Narrative: GENERAL: Well-nourished and well-developed male patient in no acute distress who is nontoxic appearing. SKIN: Warm and dry. 2 cm in diameter stage 2 pressure ulcer to left buttock close to proximal thigh. 2 cm stage 1 pressure ulcer to left upper buttock. HEAD: Normocephalic and atraumatic. EYES: No injection, drainage, or hyphema noted. PERRLA. EOMI. ENT: No nasal drainage noted. Oropharynx is clear. NECK: Supple and the trachea is midline. CARDIOVASCULAR: Regular rate and rhythm. RESPIRATORY: Breath sounds are equal bilaterally with no accessory muscle use, wheezing, rhonchi, or crackles. GASTROINTESTINAL: Abdomen is soft, non-tender, and nondistended. MUSCULOSKELETAL: No obvious deformities, swelling, cyanosis, or ecchymosis is present throughout the upper and lower extremities. Patient is paraplegic and has no strength in lower extremities. NEUROLOGICAL: Awake, alert, and oriented. Normal speech and gait. Cranial nerves are grossly intact. Course Consultations Consultation #1: The patient's case including history, pertinent physical examination findings, and laboratory studies were discussed with Dr. Painter. It was agreed that the patient would be admitted to the hospitalist service. Time: 00:41 Initial Documented Vital Signs Temperature 103.1 F H 06/23/18 22:32 Pulse Rate 90 06/23/18 22:32 Respiratory Rate 18 06/23/18 22:32 Blood Pressure 120/89 06/23/18 22:32 Pulse Oximetry 99 06/23/18 22:32 Last Documented Vital Signs Temperature 97.9 F 06/26/18 08:00 Pulse Rate 83 06/26/18 12:00 Respiratory Rate 20 06/26/18 08:00 Blood Pressure 142/86 H 06/26/18 08:00 Pulse Oximetry 100 06/26/18 08:00 Medical Decision Making MALI Attestation MALI supervised visit: Yes Attestation: I, Dr. Menendez, have reviewed the advance practice practitioner's documentation and am in agreement, met with the patient face to face, made the diagnosis, and the medical decision making was done by me. The patient was initially evaluated by Daysi, the MALI. Please see their complete history and physical. *My assessment and Findings: The patient presents with a history of symptoms suspicious for urinary tract infection in a patient with a history of recurrent urinary tract infections related to self cathing. The patient reports that he went to an outpatient clinic yesterday and was diagnosed with urinary tract infection. He was started on ciprofloxacin and has taken 3 doses without any improvement. He arrives with a temperature of 103.1. A sepsis workup was started. During the course of the patient's emergency department visit, the patient's history, examination, and differential diagnosis were reviewed with the patient. The patient was placed on a wheel presser with oximetry and frequent blood pressure monitoring. The patient had IV access obtained and blood work sent for analysis. The patient was initially provided normal saline IV fluids, Tylenol for fever. The patient's laboratory studies were reviewed and remarkable for The patient's diagnostic studies were remarkable for an initial white count of 11.7 with a neutrophil percent of 79.7, initial creatinine of 0.76, urinalysis shows signs of infection. The patient was started on broad-spectrum antibiotic coverage. The patient's results were discussed with the patient, including the plan of care. I explained that further testing and/ or monitoring is indicated based on the patient's history, examination, and/ or laboratory findings. Therefore, I recommended admission for additional evaluation. The patient expressed understanding and was agreeable with this plan. The patient was admitted to the hospital in guarded condition and sent to a bed under the care of the [facility] service. [facility] Narrative Medical decision making narrative: 22-year-old male is brought to the emergency department for evaluation of UTI and fever. Temperature is 103.1F. Otherwise vital signs are within normal limits. Patient is a paraplegic and self catheterizes. He has a history of recurrent urinary tract infections. IV access is obtained, labs have been drawn and sent. Patient is placed on cardiac telemetry and pulse oximetry monitoring. Patient is administered Tylenol for fever and 1 L of IV fluids. Patient signed out to my attending physician Dr. Menendez who will assume care of the patient and disposition. Medical Screen Exam Complete: Yes Emergency Medical Condition: Yes Differential Diagnosis Differential Diagnosis: UTI versus sepsis versus urosepsis versus bacteremia versus dehydration Lab Data Result diagrams: 06/26/18 07:50 06/26/18 07:50 Lab Results 06/23/18 06/23/18 06/23/18 Range/Units 23:15 23:20 23:20 WBC 11.7 H (4.0-11.0) th/mm3 RBC 5.40 (4.50-5.90) mil/mm3 Hgb 14.3 (13.0-17.0) gm/dL Hct 43.6 (39.0-51.0) % MCV 80.8 (80.0-100.0) fL MCH 26.6 L (27.0-34.0) pg MCHC 32.9 (32.0-36.0) % RDW 15.3 (11.6-17.2) % Plt Count 192 (150-450) th/mm3 MPV 8.8 (7.0-11.0) fL Neut % (Auto) 79.9 H (16.0-70.0) % Lymph % (Auto) 11.0 (9.0-44.0) % [place] % (Auto) 8.8 H (0.0-8.0) % Eos % (Auto) 0.0 (0.0-4.0) % Baso % (Auto) 0.3 (0.0-2.0) % Neut # (Auto) 9.4 H (1.8-7.7) th/mm3 Lymph # (Auto) 1.3 (1.0-4.8) th/mm3 [place] # (Auto) 1.0 H (0.0-0.9) th/mm3 Eos # (Auto) 0.0 (0.0-0.4) th/mm3 Baso # (Auto) 0.0 (0.0-0.2) th/mm3 WBC Differential . Differential Comment Auto diff final Sodium 136 (136-145) meq/L Potassium 3.9 (3.5-5.1) meq/L Chloride 101 (98-107) meq/L Carbon Dioxide 28.8 (21.0-32.0) meq/L Anion Gap 6 (5-15) meq/L BUN 8 (7-18) mg/dL Creatinine 0.76 (0.60-1.30) mg/dL Estimated GFR Greater than 89 (>89) mL/min Random Glucose 86 (74-106) mg/dL Lactic Acid (0.4-2.0) mmol/L Calcium 8.8 (8.5-10.1) mg/dL Phosphorus (2.5-4.9) mg/dL Magnesium (1.5-2.5) mg/dL Total Bilirubin 1.3 H (0.2-1.0) mg/dL AST 16 (15-37) U/L ALT 19 (12-78) U/L Alkaline Phosphatase 71 (45-117) U/L Total Protein 9.2 H (6.4-8.2) g/dL Albumin 3.8 (3.4-5.0) g/dL Urine Color Yellow (Yellw/Straw) Urine Clarity Hazy H (Clear) Urine pH 6.0 (5.0-8.5) Ur Specific [place] 1.013 (1.002-1.035) Urine Protein Negative (Neg-Trace) mg/dL Urine Glucose (UA) Negative (Negative) mg/dL Urine Ketones Negative (Negative) mg/dL Urine Occult Blood Moderate H (Negative) Urine Nitrate Negative (Negative) Urine Bilirubin Negative (Negative) Urine Urobilinogen 2.0 H (Less than 2) mg/dL Ur Leukocyte Esterase Moderate H (Negative) Urine RBC 2 (0-3) /hpf Urine WBC 54 H (0-5) /hpf Ur Squamous Epith Cells <1 (0-5) /hpf Urine Mucus Few H (Occasional) /lpf Micro UA Comment Cath-culture ind Urine Culture Comments Cath-cult indicated 06/23/18 06/24/18 06/25/18 Range/Units 23:20 07:05 09:01 WBC 8.7 (4.0-11.0) th/mm3 RBC 4.83 (4.50-5.90) mil/mm3 Hgb 13.0 (13.0-17.0) gm/dL Hct 38.8 L (39.0-51.0) % MCV 80.4 (80.0-100.0) fL MCH 27.0 (27.0-34.0) pg MCHC 33.6 (32.0-36.0) % RDW 15.4 (11.6-17.2) % Plt Count 183 (150-450) th/mm3 MPV 8.6 (7.0-11.0) fL Neut % (Auto) 69.5 (16.0-70.0) % Lymph % (Auto) 20.7 (9.0-44.0) % [place] % (Auto) 8.9 H (0.0-8.0) % Eos % (Auto) 0.7 (0.0-4.0) % Baso % (Auto) 0.2 (0.0-2.0) % Neut # (Auto) 6.1 (1.8-7.7) th/mm3 Lymph # (Auto) 1.8 (1.0-4.8) th/mm3 [place] # (Auto) 0.8 (0.0-0.9) th/mm3 Eos # (Auto) 0.1 (0.0-0.4) th/mm3 Baso # (Auto) 0.0 (0.0-0.2) th/mm3 WBC Differential . Differential Comment Auto diff final Sodium 138 (136-145) meq/L Potassium 3.8 (3.5-5.1) meq/L Chloride 104 (98-107) meq/L Carbon Dioxide 26.2 (21.0-32.0) meq/L Anion Gap 8 (5-15) meq/L BUN 9 (7-18) mg/dL Creatinine 0.59 L (0.60-1.30) mg/dL Estimated GFR Greater than 89 (>89) mL/min Random Glucose 80 (74-106) mg/dL Lactic Acid 0.8 (0.4-2.0) mmol/L Calcium 8.6 (8.5-10.1) mg/dL Phosphorus (2.5-4.9) mg/dL Magnesium (1.5-2.5) mg/dL Total Bilirubin 1.1 H (0.2-1.0) mg/dL AST 18 (15-37) U/L ALT 16 (12-78) U/L Alkaline Phosphatase 84 (45-117) U/L Total Protein 8.2 D (6.4-8.2) g/dL Albumin 3.2 L D (3.4-5.0) g/dL Urine Color (Yellw/Straw) Urine Clarity (Clear) Urine pH (5.0-8.5) Ur Specific [place] (1.002-1.035) Urine Protein (Neg-Trace) mg/dL Urine Glucose (UA) (Negative) mg/dL Urine Ketones (Negative) mg/dL Urine Occult Blood (Negative) Urine Nitrate (Negative) Urine Bilirubin (Negative) Urine Urobilinogen (Less than 2) mg/dL Ur Leukocyte Esterase (Negative) Urine RBC (0-3) /hpf Urine WBC (0-5) /hpf Ur Squamous Epith Cells (0-5) /hpf Urine Mucus (Occasional) /lpf Micro UA Comment Urine Culture Comments 06/25/18 06/26/18 06/26/18 Range/Units 09:01 07:50 07:50 WBC 6.4 (4.0-11.0) th/mm3 RBC 4.55 (4.50-5.90) mil/mm3 Hgb 12.2 L (13.0-17.0) gm/dL Hct 36.7 L (39.0-51.0) % MCV 80.6 (80.0-100.0) fL MCH 26.8 L (27.0-34.0) pg MCHC 33.3 (32.0-36.0) % RDW 15.3 (11.6-17.2) % Plt Count 182 (150-450) th/mm3 MPV 8.6 (7.0-11.0) fL Neut % (Auto) 59.9 (16.0-70.0) % Lymph % (Auto) 30.9 (9.0-44.0) % [place] % (Auto) 7.0 (0.0-8.0) % Eos % (Auto) 1.9 (0.0-4.0) % Baso % (Auto) 0.3 (0.0-2.0) % Neut # (Auto) 3.8 (1.8-7.7) th/mm3 Lymph # (Auto) 2.0 (1.0-4.8) th/mm3 [place] # (Auto) 0.4 (0.0-0.9) th/mm3 Eos # (Auto) 0.1 (0.0-0.4) th/mm3 Baso # (Auto) 0.0 (0.0-0.2) th/mm3 WBC Differential . Differential Comment Auto diff final Sodium 138 138 (136-145) meq/L Potassium 3.9 3.7 (3.5-5.1) meq/L Chloride 104 102 (98-107) meq/L Carbon Dioxide 26.8 25.8 (21.0-32.0) meq/L Anion Gap 7 10 (5-15) meq/L BUN 9 8 (7-18) mg/dL Creatinine 0.49 L 0.35 L (0.60-1.30) mg/dL Estimated GFR Greater than 89 Greater than 89 (>89) mL/min Random Glucose 74 74 (74-106) mg/dL Lactic Acid (0.4-2.0) mmol/L Calcium 8.7 8.6 (8.5-10.1) mg/dL Phosphorus 3.9 (2.5-4.9) mg/dL Magnesium 2.1 (1.5-2.5) mg/dL Total Bilirubin 0.7 0.6 (0.2-1.0) mg/dL AST 19 13 L (15-37) U/L ALT 19 16 (12-78) U/L Alkaline Phosphatase 62 57 (45-117) U/L Total Protein 8.1 7.7 (6.4-8.2) g/dL Albumin 3.2 L 2.9 L (3.4-5.0) g/dL Urine Color (Yellw/Straw) Urine Clarity (Clear) Urine pH (5.0-8.5) Ur Specific [place] (1.002-1.035) Urine Protein (Neg-Trace) mg/dL Urine Glucose (UA) (Negative) mg/dL Urine Ketones (Negative) mg/dL Urine Occult Blood (Negative) Urine Nitrate (Negative) Urine Bilirubin (Negative) Urine Urobilinogen (Less than 2) mg/dL Ur Leukocyte Esterase (Negative) Urine RBC (0-3) /hpf Urine WBC (0-5) /hpf Ur Squamous Epith Cells (0-5) /hpf Urine Mucus (Occasional) /lpf Micro UA Comment Urine Culture Comments Discharge Plan Discharge Disposition Patient Disposition: 01 Discharge Home Discharge Condition Condition: Fair Discharge Order Discharge Orders: Discharge Order (Routine); Ordered 06/26/18 Ordered By: Vinicius Bernardo Physicians Team ED Provider: Felisha Menendez ED Midlevel Provider: Daysi Painter Primary Care Provider: NON STAFF,PROVIDER Attending Provider: Vinicius Bernardo Status ED Status: Left Department Discharge Information Discharge Date/Time: 06/24/18 02:03
[2018-06-23 23:58] LABS: Baso % (Auto) 0.3 % (0.0-2.0); Hematocrit 43.6 % (39.0-51.0); Hemoglobin 14.3 gm/dL (13.0-17.0); Lymph # (Auto) 1.3 th/mm3 (1.0-4.8); Mean Corpuscular HGB Conc 32.9 % (32.0-36.0); Mean Corpuscular Hemoglobin 26.6 pg (27.0-34.0); Mean Corpuscular Volume 80.8 fL (80.0-100.0); Mean Platelet Volume 8.8 fL (7.0-11.0); Mono % (Auto) 8.8 % (0.0-8.0); Neut # (Auto) 9.4 th/mm3 (1.8-7.7); Neut % (Auto) 79.9 % (16.0-70.0); Platelet Count 192 th/mm3 (150-450); Red Cell Distribution Width 15.3 % (11.6-17.2); White Blood Count 11.7 th/mm3 (4.0-11.0)
[2018-06-24 00:09] LABS: Bilirubin,Urine Negative (Negative); Clarity,Urine Hazy (Clear); Color,Urine Yellow (Yellw/Straw); Glucose,Urine (UA) Negative (Negative); Leukocyte Esterase,Urine Moderate (Negative); Mucus,Urine Few /lpf (Occasional); Nitrite,Urine Negative (Negative); Specific Gravity,Urine 1.013 (1.002-1.035); Squamous Epithelial Cell,Urine <1 /hpf (0-5)
[2018-06-24 00:16] LABS: Alanine Aminotransferase 19 U/L (12-78); Albumin 3.8 g/dL (3.4-5.0); Anion Gap 6 meq/L (5-15); Aspartate Aminotransferase 16 U/L (15-37); Blood Urea Nitrogen 8 mg/dL (7-18); Calcium 8.8 mg/dL (8.5-10.1); Carbon Dioxide 28.8 meq/L (21.0-32.0); Chloride 101 meq/L (98-107); Glomerular Filtration Rate Greater Than 89 mL/min (>89); Glucose,Random 86 mg/dL (74-106); Potassium 3.9 meq/L (3.5-5.1); Sodium 136 meq/L (136-145)
[2018-06-24 00:18] LABS: Alkaline Phosphatase 71 U/L (45-117); Total Protein 9.2 g/dL (6.4-8.2)
[2018-06-24] MEDS ORDERED: Acetaminophen 325 MG Tablet PO PRN (00:50)
--- NOTE | 2018-06-24 01:28 | P.HPIM ---
History of Present Illness Primary Care Physician: PROVIDER NON STAFF Chief Complaint: fever History of Present Illness: 22 y/o male with a history of paraplegia who self caths, HTN (not on medication ) and frequent uti's presented to the ED with complaints of a fever and chills at home. He states 2 days ago he went to the urgent care and was given Cipro for a UTI. He states he was taking the antibiotics but just began to feel worse and develop higher fevers. He is unable to feel any burning sensation. Denies any chest pain or sob. Review of Systems All other systems reviewed negative except as stated in HPI PMFSH - History History Provided By: Patient - Medical History Medical History: Medical History (Last Updated 06/24/18 @ 00:56 by JERARDO Krishnamurthy) Constipation Depression HTN (hypertension) Headache Neurogenic bladder Paraplegia UTI (urinary tract infection) - Surgical History Surgical History: Surgical History (Last Updated 06/24/18 @ 00:55 by JERARDO Krishnamurthy) H/O Spinal surgery - Family History Family History: Family History (Last Updated 06/24/18 @ 00:55 by JERARDO Krishnamurthy) Grandparent Diabetes - Tobacco History Second Hand Smoke Exposure: No Smoking Status: Never smoker - Alcohol History How Often Do You Have a Drink Containing Alcohol: Never - Substance Use History Substance History: No History of Abuse - Travel History Recent Travel in the [place] Within the Last 8 Weeks: No Recent Travel Out of the Country Within the Last 8 Weeks: No - Immunization History Tetanus Immunization: <5 Years Hx Influenza Vaccine This Season: No Medications and Allergies Active Medications: Active Medications Acetaminophen (Tylenol) 650 mg PO Q4H PRN PRN Reason: Temp > 100.4 Heparin Sodium (Porcine) (Heparin Inj) 5,000 units SQ Q12H LONG Sodium Chloride (Ns Inj) 1,000 mls @ 100 mls/hr IV.CONT .Q10H LONG Ceftriaxone Sodium 1,000 mg/ (Sodium Chloride) 100 mls @ 200 mls/hr IV.SIG Q24H LONG Lactobacillus Acidophilus (Lactinex Pkt) 1 gm PO TID LONG Ondansetron HCl (Zofran Inj) 4 mg IV.PUSH Q6H PRN PRN Reason: NAUSEA OR VOMITING Allergies Allergy/AdvReac Type Severity Reaction Status Date / Time *MDRO Multi-Drug Resistant AdvReac Unknown Uncoded 05/05/18 00:02 Organism Home Medications Medication Instructions Recorded Confirmed Type No Known Home Medications 06/24/18 06/24/18 History Exam Vital signs: Vital Signs 06/23/18 22:32 06/24/18 00:11 06/24/18 00:26 Temperature 103.1 F H 101.0 F H Pulse Rate 90 82 Respiratory Rate 18 Blood Pressure 120/89 Pulse Oximetry 99 99 Narrative: GENERAL: This is a well-nourished, well-developed patient, in no apparent distress. CARDIOVASCULAR: Regular rate and rhythm without murmurs, gallops, or rubs. RESPIRATORY: Clear to auscultation. Breath sounds equal bilaterally. No wheezes , rales, or rhonchi. GASTROINTESTINAL: Abdomen soft, non-tender, nondistended. Normal active bowel sounds MUSCULOSKELETAL: Extremities without clubbing, cyanosis, or edema. NEURO: Alert & Oriented x4 to person, place, time, situation. Moves upper extremities, paraplegia Results - Labs CBC & Chem 7: 06/23/18 23:20 06/23/18 23:20 Labs: Short CBC 06/23/18 Range/Units 23:20 WBC 11.7 H (4.0-11.0) th/mm3 Hgb 14.3 (13.0-17.0) gm/dL Hct 43.6 (39.0-51.0) % Plt Count 192 (150-450) th/mm3 BMP 06/23/18 23:20 Sodium 136 Potassium 3.9 Chloride 101 Carbon Dioxide 28.8 BUN 8 Creatinine 0.76 Calcium 8.8 Liver Function 06/23/18 Range/Units 23:20 Total Bilirubin 1.3 H (0.2-1.0) mg/dL AST 16 (15-37) U/L ALT 19 (12-78) U/L Alkaline Phosphatase 71 (45-117) U/L Albumin 3.8 (3.4-5.0) g/dL Urine 06/23/18 Range/Units 23:15 Urine Color Yellow (Yellw/Straw) Urine Clarity Hazy H (Clear) Urine pH 6.0 (5.0-8.5) Ur Specific [place] 1.013 (1.002-1.035) Urine Protein Negative (Neg-Trace) mg/dL Urine Glucose (UA) Negative (Negative) mg/dL Caprini VTE Risk Assessment Caprini VTE Risk Assessment: Moderate/High Risk (score >= 2) Caprini Risk Assessment Model: Point Value = 1 Point Value = 2 Point Value = 3 Point Value = 5 Age 41-60 Minor surgery BMI > 25 kg/m2 Swollen legs Varicose veins or History of unexplained or recurrent spontaneous Oral contraceptives or hormone replacement Sepsis (< 1 month) Serious lung disease, including pneumonia (< 1 month) Abnormal pulmonary function Acute myocardial infarction Congestive heart failure (< 1 month) History of inflammatory bowel disease Medical patient at bed rest Age 61-74 Arthroscopic surgery Major open surgery (> 45 min) Laparoscopic surgery (> 45 min) Malignancy Confined to bed (> 72 hours) Immobilizing plaster cast Central venous access Age >= 75 History of VTE Family history of VTE Factor V Leiden Prothrombin [id number] Lupus anticoagulant Anticardiolipin antibodies Elevated serum homocysteine Heparin-induced thrombocytopenia Other congenital or acquired thrombophilia Stroke (< 1 month) Elective arthroplasty Hip, pelvis, or leg fracture Acute spinal cord injury (< 1 month) Prophylaxis Regimen: Total Risk Factor Score Risk Level Prophylaxis Regimen 0-1 Low Early ambulation 2 Moderate Order ONE of the following: *Sequential Compression Device (SCD) *Heparin 5000 units SQ BID 3-4 Higher Order ONE of the following medications: *Heparin 5000 units SQ TID *Enoxaparin/Lovenox 40 mg SQ daily (WT < 150 kg, CrCl > 30 mL/min) *Enoxaparin/Lovenox 30 mg SQ daily (WT < 150 kg, CrCl > 10-29 mL/min) *Enoxaparin/Lovenox 30 mg SQ BID (WT < 150 kg, CrCl > 30 mL/min) AND/OR *Sequential Compression Device (SCD) 5 or more Highest Order ONE of the following medications: *Heparin 5000 units SQ TID (Preferred with Epidurals) *Enoxaparin/Lovenox 40 mg SQ daily (WT < 150 kg, CrCl > 30 mL/min) *Enoxaparin/Lovenox 30 mg SQ daily (WT < 150 kg, CrCl > 10-29 mL/min) *Enoxaparin/Lovenox 30 mg SQ BID (WT < 150 kg, CrCl > 30 mL/min) AND *Sequential Compression Device (SCD) Assessment and Plan - Plan 22 y/o male with a history of paraplegia, and frequent uti's presented to the ed with complaints of fever. UTI, suspected due to self cath, failed out patient therapy UA shows moderate leukocyte esterase -Follow culture results -Blood cultures pending -Rocephin IV Stage 1 pressure ulcer -Tegaderm to ulcer -Turn Q2hr DVT prophylaxis: Heparin Discussed Condition With: Patient, RN and Patients Mom
[2018-06-24] MEDS: Sod Chloride 0.9% Inj 1,000 ML IV.CONT SCH ×3 (01:58→20:46)
[2018-06-24 08:27] LABS: Albumin 3.2 g/dL (3.4-5.0); Anion Gap 8 meq/L (5-15); Aspartate Aminotransferase 18 U/L (15-37); Blood Urea Nitrogen 9 mg/dL (7-18); Calcium 8.6 mg/dL (8.5-10.1); Carbon Dioxide 26.2 meq/L (21.0-32.0); Chloride 104 meq/L (98-107); Glomerular Filtration Rate Greater Than 89 mL/min (>89); Glucose,Random 80 mg/dL (74-106); Potassium 3.8 meq/L (3.5-5.1); Sodium 138 meq/L (136-145)
[2018-06-24 08:28] LABS: Alanine Aminotransferase 16 U/L (12-78)
[2018-06-24 08:30] LABS: Alkaline Phosphatase 84 U/L (45-117); Total Protein 8.2 g/dL (6.4-8.2)
[2018-06-24] MEDS ORDERED: Bisacodyl 10 MG Supp RECTAL PRN (09:16)
[2018-06-24] MEDS: Heparin - SQ 10,000 UNITS/ML Vial SQ SCH ×2 (09:44→20:40)
--- NOTE | 2018-06-24 10:48 | P.PNIM ---
Subjective Interval history: 22 y/o male with a history of paraplegia who self caths, HTN (not on medication ) and frequent uti's presented to the ED with complaints of a fever and chills at home. He states 2 days ago he went to the urgent care and was given Cipro for a UTI. He states he was taking the antibiotics but just began to feel worse and develop higher fevers. He is unable to feel any burning sensation. Denies any chest pain or sob. 06-24 await cultures continue [facility] PT AND OT MOVES HANDS WELL Physical Exam Vital signs: Vital Signs 06/23/18 22:32 06/24/18 00:11 06/24/18 00:26 Temperature 103.1 F H 101.0 F H Pulse Rate 90 82 Respiratory Rate 18 Blood Pressure 120/89 Pulse Oximetry 99 99 06/24/18 01:58 06/24/18 04:00 06/24/18 08:00 Temperature 98.8 F 97.4 F L 98.7 F Pulse Rate 75 84 73 Respiratory Rate 16 16 18 Blood Pressure 113/60 118/73 131/86 Pulse Oximetry 99 100 99 Intake & Output 06/23/18 06/24/18 06/24/18 18:59 06:59 18:59 Intake Total 1100 / 1100 Balance 1100 / 1100 Weight 61.6 kg Intake: IV 1100 / 1100 NS Inj 1,000 ML @ Wide Open IV. 1000 / 1000 SIG BOLUS ONE Rx#:[id number] Rocephin Inj 1,000 MG In NS Inj 100 / 100 100 ML @ 200 mls/hr IV.SIG ONCE ONE Rx#:[id number] Other: Weight On Admission 60.328 kg Narrative: GENERAL: AWAKE AND ALERT AND ORIENTED X3 TALKATIVE AND COOPERATIVE SKIN: Warm and dry. HEAD: Atraumatic. Normocephalic. EYES: Pupils equal and round. No scleral icterus. No injection or drainage. ENT: No nasal bleeding or discharge. Mucous membranes pink and moist. NECK: Trachea midline. No JVD. CARDIOVASCULAR: Regular rate and rhythm. RESPIRATORY: No accessory muscle use. Clear to auscultation. Breath sounds equal bilaterally. GASTROINTESTINAL: Abdomen soft, non-tender, nondistended. Hepatic and splenic margins not palpable. MUSCULOSKELETAL: Extremities without clubbing, cyanosis, or edema. No obvious deformities. NEUROLOGICAL: Awake and alert. No obvious cranial nerve deficits. Motor grossly within normal limits. Five out of 5 muscle strength in the arms. PARAPLEGIA WITH LE SEVERE WEAKNESS Normal speech. PSYCHIATRIC: Appropriate mood and affect; insight and judgment normal. Results - Labs CBC & Chem 7: 06/23/18 23:20 06/24/18 07:05 Laboratory Results - last 24 hr 06/23/18 06/23/18 06/23/18 23:15 23:20 23:20 WBC 11.7 H RBC 5.40 Hgb 14.3 Hct 43.6 MCV 80.8 MCH 26.6 L MCHC 32.9 RDW 15.3 Plt Count 192 MPV 8.8 Neut % (Auto) 79.9 H Lymph % (Auto) 11.0 [place] % (Auto) 8.8 H Eos % (Auto) 0.0 Baso % (Auto) 0.3 Neut # (Auto) 9.4 H Lymph # (Auto) 1.3 [place] # (Auto) 1.0 H Eos # (Auto) 0.0 Baso # (Auto) 0.0 WBC Differential . Differential Comment Auto diff final Sodium 136 Potassium 3.9 Chloride 101 Carbon Dioxide 28.8 Anion Gap 6 BUN 8 Creatinine 0.76 Estimated GFR Greater than 89 Random Glucose 86 Lactic Acid Calcium 8.8 Total Bilirubin 1.3 H AST 16 ALT 19 Alkaline Phosphatase 71 Total Protein 9.2 H Albumin 3.8 Urine Color Yellow Urine Clarity Hazy H Urine pH 6.0 Ur Specific [place] 1.013 Urine Protein Negative Urine Glucose (UA) Negative Urine Ketones Negative Urine Occult Blood Moderate H Urine Nitrate Negative Urine Bilirubin Negative Urine Urobilinogen 2.0 H Ur Leukocyte Esterase Moderate H Urine RBC 2 Urine WBC 54 H Ur Squamous Epith Cells <1 Urine Mucus Few H Micro UA Comment Cath-culture ind Urine Culture Comments Cath-cult indicated 06/23/18 06/24/18 23:20 07:05 WBC RBC Hgb Hct MCV MCH MCHC RDW Plt Count MPV Neut % (Auto) Lymph % (Auto) [place] % (Auto) Eos % (Auto) Baso % (Auto) Neut # (Auto) Lymph # (Auto) [place] # (Auto) Eos # (Auto) Baso # (Auto) WBC Differential Differential Comment Sodium 138 Potassium 3.8 Chloride 104 Carbon Dioxide 26.2 Anion Gap 8 BUN 9 Creatinine 0.59 L Estimated GFR Greater than 89 Random Glucose 80 Lactic Acid 0.8 Calcium 8.6 Total Bilirubin 1.1 H AST 18 ALT 16 Alkaline Phosphatase 84 Total Protein 8.2 D Albumin 3.2 L D Urine Color Urine Clarity Urine pH Ur Specific [place] Urine Protein Urine Glucose (UA) Urine Ketones Urine Occult Blood Urine Nitrate Urine Bilirubin Urine Urobilinogen Ur Leukocyte Esterase Urine RBC Urine WBC Ur Squamous Epith Cells Urine Mucus Micro UA Comment Urine Culture Comments Assessment and Plan - Plan 22 y/o male with a history of paraplegia, and frequent uti's presented to the ed with complaints of fever. UTI, suspected due to self cath, failed out patient therapy UA shows moderate leukocyte esterase -Follow culture results -Blood cultures pending -Rocephin IV Stage 1 pressure ulcer -Tegaderm to ulcer -Turn Q2hr DVT prophylaxis: Heparin PT AND OT Code Status: FULL CODE Discussed Condition With: TRAVIS RN AND PT AND CM Discharge Planning: HOME ONCE BETTER
[2018-06-24] MEDS: Senna/Docusate Sodium 8.6/50 MG Tablet PO SCH (20:41)
[2018-06-24] MEDS ORDERED: Temazepam 15 MG Capsule PO PRN (21:00)
[2018-06-25] MEDS: Sod Chloride 0.9% Inj 1,000 ML IV.CONT SCH ×2 (06:00→18:04)
[2018-06-25 09:41] LABS: Baso % (Auto) 0.2 % (0.0-2.0); Eos # (Auto) 0.1 th/mm3 (0.0-0.4); Eos % (Auto) 0.7 % (0.0-4.0); Hematocrit 38.8 % (39.0-51.0); Lymph # (Auto) 1.8 th/mm3 (1.0-4.8); Lymph % (Auto) 20.7 % (9.0-44.0); Mean Corpuscular HGB Conc 33.6 % (32.0-36.0); Mean Corpuscular Volume 80.4 fL (80.0-100.0); Mean Platelet Volume 8.6 fL (7.0-11.0); Mono # (Auto) 0.8 th/mm3 (0.0-0.9); Mono % (Auto) 8.9 % (0.0-8.0); Neut # (Auto) 6.1 th/mm3 (1.8-7.7); Neut % (Auto) 69.5 % (16.0-70.0); Platelet Count 183 th/mm3 (150-450); Red Blood Count 4.83 mil/mm3 (4.50-5.90); Red Cell Distribution Width 15.4 % (11.6-17.2); White Blood Count 8.7 th/mm3 (4.0-11.0)
[2018-06-25 09:51] LABS: Albumin 3.2 g/dL (3.4-5.0); Anion Gap 7 meq/L (5-15); Aspartate Aminotransferase 19 U/L (15-37); Blood Urea Nitrogen 9 mg/dL (7-18); Calcium 8.7 mg/dL (8.5-10.1); Carbon Dioxide 26.8 meq/L (21.0-32.0); Chloride 104 meq/L (98-107); Glomerular Filtration Rate Greater Than 89 mL/min (>89); Glucose,Random 74 mg/dL (74-106); Potassium 3.9 meq/L (3.5-5.1); Sodium 138 meq/L (136-145)
[2018-06-25 09:52] LABS: Alanine Aminotransferase 19 U/L (12-78)
[2018-06-25 09:54] LABS: Alkaline Phosphatase 62 U/L (45-117); Total Protein 8.1 g/dL (6.4-8.2)
[2018-06-25] MEDS: Heparin - SQ 10,000 UNITS/ML Vial SQ SCH ×2 (10:29→21:08)
[2018-06-25] MEDS: Senna/Docusate Sodium 8.6/50 MG Tablet PO SCH ×2 (10:29→21:08)
--- NOTE | 2018-06-25 12:47 | P.PNIM ---
Subjective Interval history: 22 y/o male with a history of paraplegia who self caths, HTN (not on medication ) and frequent uti's presented to the ED with complaints of a fever and chills at home. He states 2 days ago he went to the urgent care and was given Cipro for a UTI. He states he was taking the antibiotics but just began to feel worse and develop higher fevers. He is unable to feel any burning sensation. Denies any chest pain or sob. 8-15 await cultures continue [facility] PT AND OT MOVES HANDS WELL 8-16 SELF CATHS AT HOME DW RN AND PT CONTINUE SELF CATH FOR NEUROGENIC BLADDER AWAIT CULTURES BEFORE DISCHARGE OR WILL NEED EMPIRIC TREATMENT DUE TO CHRONIC SELF CATH DUE TO NEUROGENIC BLADDER Physical Exam Vital signs: Vital Signs 06/24/18 19:15 06/25/18 00:00 06/25/18 06:31 Temperature 98.7 F 98.6 F 98.6 F Pulse Rate 84 80 82 Respiratory Rate 18 20 18 Blood Pressure 122/76 110/71 112/53 L Pulse Oximetry 99 100 98 06/25/18 08:00 06/25/18 12:00 Temperature 98.4 F 98.3 F Pulse Rate 70 75 Respiratory Rate 16 16 Blood Pressure 127/60 107/61 Pulse Oximetry 100 96 Intake & Output 06/24/18 06/25/18 06/25/18 18:59 06:59 18:59 Intake Total 1600 / 1600 1100 / 1100 Output Total 550 / 550 Balance 1600 / 1600 550 / 550 Intake: IV 1000 / 1000 1100 / 1100 NS Inj 1,000 ML @ 100 mls/hr IV 1000 / 1000 1000 / 1000 .CONT .Q10H LONG Rx#:[id number] Rocephin Inj 1,000 MG In NS Inj 100 / 100 100 ML @ 200 mls/hr IV.SIG Q24H LONG Rx#:[id number] Oral 600 / 600 Output: Urine 550 / 550 Narrative: GENERAL: AWAKE AND ALERT AND ORIENTED X3 TALKATIVE AND COOPERATIVE SKIN: Warm and dry. HEAD: Atraumatic. Normocephalic. EYES: Pupils equal and round. No scleral icterus. No injection or drainage. ENT: No nasal bleeding or discharge. Mucous membranes pink and moist. NECK: Trachea midline. No JVD. CARDIOVASCULAR: Regular rate and rhythm. RESPIRATORY: No accessory muscle use. Clear to auscultation. Breath sounds equal bilaterally. GASTROINTESTINAL: Abdomen soft, non-tender, nondistended. Hepatic and splenic margins not palpable. MUSCULOSKELETAL: Extremities without clubbing, cyanosis, or edema. No obvious deformities. NEUROLOGICAL: Awake and alert. No obvious cranial nerve deficits. Motor grossly within normal limits. Five out of 5 muscle strength in the arms. PARAPLEGIA WITH LE SEVERE WEAKNESS Normal speech. PSYCHIATRIC: Appropriate mood and affect; insight and judgment normal. Results - Labs CBC & Chem 7: 06/25/18 09:01 06/25/18 09:01 Laboratory Results - last 24 hr 06/25/18 06/25/18 09:01 09:01 WBC 8.7 RBC 4.83 Hgb 13.0 Hct 38.8 L MCV 80.4 MCH 27.0 MCHC 33.6 RDW 15.4 Plt Count 183 MPV 8.6 Neut % (Auto) 69.5 Lymph % (Auto) 20.7 [place] % (Auto) 8.9 H Eos % (Auto) 0.7 Baso % (Auto) 0.2 Neut # (Auto) 6.1 Lymph # (Auto) 1.8 [place] # (Auto) 0.8 Eos # (Auto) 0.1 Baso # (Auto) 0.0 WBC Differential . Differential Comment Auto diff final Sodium 138 Potassium 3.9 Chloride 104 Carbon Dioxide 26.8 Anion Gap 7 BUN 9 Creatinine 0.49 L Estimated GFR Greater than 89 Random Glucose 74 Calcium 8.7 Total Bilirubin 0.7 AST 19 ALT 19 Alkaline Phosphatase 62 Total Protein 8.1 Albumin 3.2 L Microbiology 06/23/18 23:20 Blood - Peripheral Aerobic Blood Culture - Preliminary No growth in 2 days 06/23/18 23:20 Blood - Peripheral Anaerobic Blood Culture - Preliminary No growth in 2 days 06/23/18 23:15 Blood - Peripheral Aerobic Blood Culture - Preliminary No growth in 2 days 06/23/18 23:15 Blood - Peripheral Anaerobic Blood Culture - Preliminary No growth in 2 days 06/23/18 23:15 Catheterized Urine Urine Culture - Final No growth in 48 hours Assessment and Plan - Plan 22 y/o male with a history of paraplegia, and frequent uti's presented to the ed with complaints of fever. UTI, suspected due to self cath, failed out patient therapy UA shows moderate leukocyte esterase -Follow culture results -Blood cultures pending -Rocephin IV Stage 1 pressure ulcer -Tegaderm to ulcer -Turn Q2hr CHRONIC PARAPLEGIA HAS CHRONIC NEUROGENIC BLADDER DVT prophylaxis: Heparin PT AND OT Code Status: FULL CODE Discussed Condition With: RN AND PT AND MOTHER AND CM Discharge Planning: HOME ONCE BETTER
[2018-06-26] MEDS: Sod Chloride 0.9% Inj 1,000 ML IV.CONT SCH ×2 (03:06→14:50)
[2018-06-26 06:01] VITALS: O2SAT 100
[2018-06-26 09:03] LABS: Baso % (Auto) 0.3 % (0.0-2.0); Eos # (Auto) 0.1 th/mm3 (0.0-0.4); Eos % (Auto) 1.9 % (0.0-4.0); Hematocrit 36.7 % (39.0-51.0); Hemoglobin 12.2 gm/dL (13.0-17.0); Lymph % (Auto) 30.9 % (9.0-44.0); Mean Corpuscular HGB Conc 33.3 % (32.0-36.0); Mean Corpuscular Hemoglobin 26.8 pg (27.0-34.0); Mean Corpuscular Volume 80.6 fL (80.0-100.0); Mean Platelet Volume 8.6 fL (7.0-11.0); Mono # (Auto) 0.4 th/mm3 (0.0-0.9); Neut # (Auto) 3.8 th/mm3 (1.8-7.7); Neut % (Auto) 59.9 % (16.0-70.0); Platelet Count 182 th/mm3 (150-450); Red Blood Count 4.55 mil/mm3 (4.50-5.90); Red Cell Distribution Width 15.3 % (11.6-17.2); White Blood Count 6.4 th/mm3 (4.0-11.0)
[2018-06-26] MEDS: Heparin - SQ 10,000 UNITS/ML Vial SQ SCH (09:26)
[2018-06-26] MEDS: Senna/Docusate Sodium 8.6/50 MG Tablet PO SCH (09:27)
[2018-06-26 09:30] LABS: Alanine Aminotransferase 16 U/L (12-78); Albumin 2.9 g/dL (3.4-5.0); Anion Gap 10 meq/L (5-15); Aspartate Aminotransferase 13 U/L (15-37); Blood Urea Nitrogen 8 mg/dL (7-18); Calcium 8.6 mg/dL (8.5-10.1); Carbon Dioxide 25.8 meq/L (21.0-32.0); Chloride 102 meq/L (98-107); Glomerular Filtration Rate Greater Than 89 mL/min (>89); Glucose,Random 74 mg/dL (74-106); Magnesium 2.1 mg/dL (1.5-2.5); Potassium 3.7 meq/L (3.5-5.1); Sodium 138 meq/L (136-145)
[2018-06-26 09:32] LABS: Alkaline Phosphatase 57 U/L (45-117); Phosphorus 3.9 mg/dL (2.5-4.9); Total Protein 7.7 g/dL (6.4-8.2)
[2018-06-26 10:12] VITALS: BP 142/86; RESP 20; TEMP 97.9
--- NOTE | 2018-06-26 10:42 | P.PN ---
Subjective Interval history: Follow-up UTI-neurogenic bladder-paraplegia June 26, 2018-patient seen and examined, remains afebrile, urine culture negative. No acute event overnight Physical Exam Vital signs: Vital Signs 06/25/18 12:00 06/25/18 14:35 06/25/18 20:00 Temperature 98.3 F 97.4 F L 98 F Pulse Rate 75 69 80 Respiratory Rate 16 20 16 Blood Pressure 107/61 133/81 119/65 Pulse Oximetry 96 100 100 06/26/18 00:00 06/26/18 04:00 06/26/18 08:00 Temperature 97.7 F 97.8 F 97.9 F Pulse Rate 90 81 86 Respiratory Rate 16 16 20 Blood Pressure 114/62 120/63 142/86 H Pulse Oximetry 99 100 100 Intake & Output 06/25/18 06/26/18 06/26/18 18:59 06:59 18:59 Intake Total 900 / 900 1040 / 1040 Output Total 350 / 350 Balance 900 / 900 690 / 690 Weight 61.235 kg 62.4 kg Intake: IV 300 / 300 800 / 800 NS Inj 1,000 ML @ 100 mls/hr IV 300 / 300 700 / 700 .CONT .Q10H LONG Rx#:[id number] Rocephin Inj 1,000 MG In NS Inj 100 / 100 100 ML @ 200 mls/hr IV.SIG Q24H LONG Rx#:[id number] Oral 600 / 600 240 / 240 Output: Urine 350 / 350 Other: Date of Last Bowel Movement 06/25/18 # Bowel Movements 1 Narrative: GENERAL: NAD SKIN: Warm and dry. HEAD: Atraumatic. Normocephalic. EYES: Pupils equal and round. No scleral icterus. No injection or drainage. ENT: No nasal bleeding or discharge. Mucous membranes pink and moist. NECK: Trachea midline. No JVD. CARDIOVASCULAR: Regular rate and rhythm. RESPIRATORY: No accessory muscle use. Clear to auscultation. Breath sounds equal bilaterally. GASTROINTESTINAL: Abdomen soft, non-tender, nondistended. Hepatic and splenic margins not palpable. MUSCULOSKELETAL: Extremities without clubbing, cyanosis, or edema. No obvious deformities. NEUROLOGICAL: Awake and alert. No obvious cranial nerve deficits. Motor grossly within normal limits. Five out of 5 muscle strength in the arms. PARAPLEGIA WITH LE SEVERE WEAKNESS Normal speech. PSYCHIATRIC: Appropriate mood and affect; insight and judgment normal. Results - Labs CBC & Chem 7: 06/26/18 07:50 06/26/18 07:50 Laboratory Results - last 24 hr 06/26/18 06/26/18 07:50 07:50 WBC 6.4 RBC 4.55 Hgb 12.2 L Hct 36.7 L MCV 80.6 MCH 26.8 L MCHC 33.3 RDW 15.3 Plt Count 182 MPV 8.6 Neut % (Auto) 59.9 Lymph % (Auto) 30.9 [place] % (Auto) 7.0 Eos % (Auto) 1.9 Baso % (Auto) 0.3 Neut # (Auto) 3.8 Lymph # (Auto) 2.0 [place] # (Auto) 0.4 Eos # (Auto) 0.1 Baso # (Auto) 0.0 WBC Differential . Differential Comment Auto diff final Sodium 138 Potassium 3.7 Chloride 102 Carbon Dioxide 25.8 Anion Gap 10 BUN 8 Creatinine 0.35 L Estimated GFR Greater than 89 Random Glucose 74 Calcium 8.6 Phosphorus 3.9 Magnesium 2.1 Total Bilirubin 0.6 AST 13 L ALT 16 Alkaline Phosphatase 57 Total Protein 7.7 Albumin 2.9 L Microbiology 06/23/18 23:20 Blood - Peripheral Aerobic Blood Culture - Preliminary No growth in 2 days 06/23/18 23:20 Blood - Peripheral Anaerobic Blood Culture - Preliminary No growth in 2 days 06/23/18 23:15 Blood - Peripheral Aerobic Blood Culture - Preliminary No growth in 2 days 06/23/18 23:15 Blood - Peripheral Anaerobic Blood Culture - Preliminary No growth in 2 days 06/23/18 23:15 Catheterized Urine Urine Culture - Final No growth in 48 hours - Procedures None Assessment and Plan - Plan 22 y/o male with a history of paraplegia, and frequent uti's presented to the ed with complaints of fever. UTI, suspected due to self cath, failed out patient therapy UA shows moderate leukocyte esterase -Patient currently on Rocephin IV, however urine culture remained negative to therefore we will discontinue Rocephin and treat patient with a 7 day course of p.o. antibiotic. We will also discharge patient on a prophylactic treatment for UTI Methenamine mandelate 500mg HS Stage 1 pressure ulcer -Tegaderm to ulcer -Turn Q2hr CHRONIC PARAPLEGIA PT/OT to treat and eval CHRONIC NEUROGENIC BLADDER Continue with current care DVT prophylaxis: Heparin Patient was initially admitted to 23 hours observation however changed to inpatient admit, however does not meet the requirement for inpatient therefore will revert back to observation from June 24, 2018
--- NOTE | 2018-06-26 10:52 | P.DS ---
Date of admission: 06/24/18 01:24 Primary care physician: PROVIDER NON STAFF Brief History from admission: 22 y/o male with a history of paraplegia who self caths, HTN (not on medication ) and frequent uti's presented to the ED with complaints of a fever and chills at home. He states 2 days ago he went to the urgent care and was given Cipro for a UTI. He states he was taking the antibiotics but just began to feel worse and develop higher fevers. He is unable to feel any burning sensation. Denies any chest pain or sob. DS: Summary Hospital Course: Patient admitted initially for UTI for which she was started on IV Rocephin with monitor culture. Vitals remained stable prior to discharge urine culture was negative. PT OT were consulted. Patient will be discharged home on Methenamine Mandelate 500mg HS - Time Spent with Patient Total time spent providing and/or coordinating discharge services: Less than 30 minutes - Quality: VTE Deep Vein Thrombosis/Pulmonary Embolism Present on Admission: No Exam Vital signs: Vital Signs 06/25/18 12:00 06/25/18 14:35 06/25/18 20:00 Temperature 98.3 F 97.4 F L 98 F Pulse Rate 75 69 80 Respiratory Rate 16 20 16 Blood Pressure 107/61 133/81 119/65 Pulse Oximetry 96 100 100 06/26/18 00:00 06/26/18 04:00 06/26/18 08:00 Temperature 97.7 F 97.8 F 97.9 F Pulse Rate 90 81 86 Respiratory Rate 16 16 20 Blood Pressure 114/62 120/63 142/86 H Pulse Oximetry 99 100 100 Intake & Output 06/25/18 06/26/18 06/26/18 18:59 06:59 18:59 Intake Total 900 / 900 1040 / 1040 Output Total 350 / 350 Balance 900 / 900 690 / 690 Weight 61.235 kg 62.4 kg Intake: IV 300 / 300 800 / 800 NS Inj 1,000 ML @ 100 mls/hr IV 300 / 300 700 / 700 .CONT .Q10H LONG Rx#:[id number] Rocephin Inj 1,000 MG In NS Inj 100 / 100 100 ML @ 200 mls/hr IV.SIG Q24H LONG Rx#:[id number] Oral 600 / 600 240 / 240 Output: Urine 350 / 350 Other: Date of Last Bowel Movement 06/25/18 # Bowel Movements 1 Narrative: GENERAL: NAD SKIN: Warm and dry. HEAD: Normocephalic. EYES: No scleral icterus. No injection or drainage. NECK: Supple, trachea midline. No JVD or lymphadenopathy. CARDIOVASCULAR: Regular rate and rhythm without murmurs, gallops, or rubs. RESPIRATORY: Breath sounds equal bilaterally. No accessory muscle use. GASTROINTESTINAL: Abdomen soft, non-tender, nondistended. MUSCULOSKELETAL: No cyanosis, or edema. Paraplegia BACK: Nontender without obvious deformity. No CVA tenderness. Results Procedures completed during hospitalization: None Labs on day of discharge: Labs from last 24 hours 06/26/18 06/26/18 07:50 07:50 WBC 6.4 RBC 4.55 Hgb 12.2 L Hct 36.7 L MCV 80.6 MCH 26.8 L MCHC 33.3 RDW 15.3 Plt Count 182 MPV 8.6 Neut % (Auto) 59.9 Lymph % (Auto) 30.9 [place] % (Auto) 7.0 Eos % (Auto) 1.9 Baso % (Auto) 0.3 Neut # (Auto) 3.8 Lymph # (Auto) 2.0 [place] # (Auto) 0.4 Eos # (Auto) 0.1 Baso # (Auto) 0.0 WBC Differential . Differential Comment Auto diff final Sodium 138 Potassium 3.7 Chloride 102 Carbon Dioxide 25.8 Anion Gap 10 BUN 8 Creatinine 0.35 L Estimated GFR Greater than 89 Random Glucose 74 Calcium 8.6 Phosphorus 3.9 Magnesium 2.1 Total Bilirubin 0.6 AST 13 L ALT 16 Alkaline Phosphatase 57 Total Protein 7.7 Albumin 2.9 L Preliminary micro results at discharge 06/23/18 23:20 Aerobic Blood Culture - Preliminary Blood - Peripheral No growth in 2 days Anaerobic Blood Culture - Preliminary No growth in 2 days 06/23/18 23:15 Aerobic Blood Culture - Preliminary Blood - Peripheral No growth in 2 days Anaerobic Blood Culture - Preliminary No growth in 2 days Discharge Plan - Discharge Disposition Patient Disposition: 01 Discharge Home - Discharge Condition Condition: Fair - Discharge Order Discharge Orders: Discharge Order (Routine); Ordered 06/26/18 Ordered By: Vinicius Bernardo - Physicians Team Primary Care Provider: NON STAFF,PROVIDER Attending Provider: Vinicius Bernardo
[2018-06-26 14:38] VITALS: PULSE 83
== END 2018-06-26 14:05 | disposition home or self-care (01) ==
LOC: NEDA 22:11 → NEPC 22:11 → N04 22:11 → NEPHCDU 06-24 01:35 → N04 06-25 14:42
PROVIDERS: ADMIT Hospitalist; ATTEND Hospitalist
DX: Z16.24 Resistance to multiple antibiotics; G82.20 Paraplegia, unspecified; L89.301 Pressure ulcer of unspecified buttock, stage 1; I10 Essential (primary) hypertension; Z83.3 Family history of diabetes mellitus; F17.210 Nicotine dependence, cigarettes, uncomplicated; N31.9 Neuromuscular dysfunction of bladder, unspecified; N39.0 Urinary tract infection, site not specified

== ENCOUNTER 2018-10-04 00:13 | Inpatient (IN) ==
[2018-10-04] MEDS ORDERED: Ketamine Inj 50 MG/5 ML Syringe IV.PUSH ONE (00:26)
[2018-10-04] MEDS ORDERED: Sod Chloride 0.9% Inj 1,000 ML IV.SIG ONE (00:26)
[2018-10-04] MEDS ORDERED: HYDROmorphone PF Inj 2 MG/ML Vial IV.PUSH ONE ×2 (01:00→03:11)
[2018-10-04] MEDS ORDERED: Sod Chloride 0.9% Inj 1,000 ML IV.SIG SCH (01:00)
[2018-10-04 01:19] LABS: Baso # (Auto) 0.1 th/mm3 (0.0-0.2); Baso % (Auto) 0.4 % (0.0-2.0); Eos % (Auto) 0.2 % (0.0-4.0); Hematocrit 38.8 % (39.0-51.0); Lymph # (Auto) 1.9 th/mm3 (1.0-4.8); Lymph % (Auto) 15.6 % (9.0-44.0); Mean Corpuscular HGB Conc 33.5 % (32.0-36.0); Mean Corpuscular Hemoglobin 26.5 pg (27.0-34.0); Mean Corpuscular Volume 79.1 fL (80.0-100.0); Mean Platelet Volume 9.2 fL (7.0-11.0); Mono # (Auto) 0.7 th/mm3 (0.0-0.9); Mono % (Auto) 6.1 % (0.0-8.0); Neut # (Auto) 9.4 th/mm3 (1.8-7.7); Neut % (Auto) 77.7 % (16.0-70.0); Platelet Count 183 th/mm3 (150-450); Red Blood Count 4.91 mil/mm3 (4.50-5.90); Red Cell Distribution Width 16.3 % (11.6-17.2); White Blood Count 12.1 th/mm3 (4.0-11.0)
[2018-10-04 01:36] LABS: Alanine Aminotransferase 16 U/L (12-78); Albumin 3.5 g/dL (3.4-5.0); Anion Gap 8 meq/L (5-15); Aspartate Aminotransferase 15 U/L (15-37); Blood Urea Nitrogen 12 mg/dL (7-18); Calcium 8.4 mg/dL (8.5-10.1); Carbon Dioxide 23.9 meq/L (21.0-32.0); Chloride 105 meq/L (98-107); Glomerular Filtration Rate Greater Than 89 mL/min (>89); Glucose,Random 94 mg/dL (74-106); Magnesium 1.9 mg/dL (1.5-2.5); Potassium 3.7 meq/L (3.5-5.1); Sodium 137 meq/L (136-145)
[2018-10-04 01:38] LABS: Alkaline Phosphatase 64 U/L (45-117); Total Protein 8.4 g/dL (6.4-8.2)
[2018-10-04 02:13] LABS: Bacteria,Urine Moderate /hpf; Bilirubin,Urine Negative (Negative); Clarity,Urine Turbid (Clear); Color,Urine Yellow (Yellw/Straw); Glucose,Urine (UA) Negative (Negative); Leukocyte Esterase,Urine Large (Negative); Nitrite,Urine Negative (Negative); Specific Gravity,Urine 1.012 (1.002-1.035); Urobilinogen,Urine 4 or Greater mg/dL (Less than 2)
--- NOTE | 2018-10-04 02:40 | CT ---
EXAM DATE: 10/04/2018 2:05 AM EST AGE/SEX: 22 years / Male INDICATIONS: Severe back pain; possible hardware failure. CLINICAL DATA: This is the patient's initial encounter. Patient reports that signs and symptoms have been present for 1 day and indicates a pain score of 10/10. MEDICAL/SURGICAL HISTORY: Hypertension. Paraplegia, neurogenic bladder . extensive back surgery RADIATION DOSE: 14.34 CTDI (mGy) ; Combined studies [place] [facility] [place] 10/04/2018. . TECHNIQUE: Contiguous axial images were acquired using a multirow detector CT scanner without contra st. Multiplanar reconstruction in the sagittal and coronal planes was performed. Using automated exp osure control and adjustment of the mA and/or kV according to patient size, radiation dose was kept a s low as reasonably achievable to obtain optimal diagnostic quality images. DICOM format image data is available electronically for review and comparison. FINDINGS: There is no acute fracture within the thoracic spine. There is a previous fracture subluxation at the thoracolumbar junction with fusion. Transpedicular screws are seen at [id number]. No hardware fail ure identified on CT. CONCLUSION: 1. No acute findings within the thoracic spine. Previous fusion across the thoracolumbar junction. W ithin the thoracic spine with pedicle screws and fixation rods appear intact. Electronically signed by: David Blevins MD 10/04/2018 2:39 AM EST
--- NOTE | 2018-10-04 02:42 | CT ---
EXAM DATE: 10/04/2018 1:58 AM EST AGE/SEX: 22 years / Male INDICATIONS: Severe back pain; rule out hardware failure. CLINICAL DATA: This is the patient's initial encounter. Patient reports that signs and symptoms have been present for 1 day and indicates a pain score of 10/10. MEDICAL/SURGICAL HISTORY: Hypertension. Paraplegia, neurogenic bladder . Extensive back surgery RADIATION DOSE: 14.34 CTDI (mGy) ; Combined studies COMPARISON: [facility] – [place] LUMBAR SPINE W/O CONTRAST, 12/03/2015. . TECHNIQUE: Contiguous axial images were acquired with a multirow detector CT scanner without contras t. Multiplanar reconstructions in the sagittal and coronal plane were also performed. Using automate d exposure control and adjustment of the mA and/or kV according to patient size, radiation dose was k ept as low as reasonably achievable to obtain optimal diagnostic quality images. DICOM format image data is available electronically for review and comparison. FINDINGS: Again seen is a long segment thoracolumbar fusion with posterior instrumentation extending from T9 th rough S1. There is solid bony bridging across the posterior elements within the lumbar spine. There i s a remote fracture dislocation at T12-L1 which is fused residual anterolisthesis of T12 on L1. CONCLUSION: 1. Stable remote trauma across the thoracolumbar junction as above with postsurgical changes. No acu te findings. No CT findings for hardware failure. Electronically signed by: David Blevins MD 10/04/2018 2:41 AM EST
--- NOTE | 2018-10-04 02:48 | ED ---
HPI General Chief Complaint: Back Pain/Injury Stated Complaint: Pain,Evac Time Seen by Provider: 10/04/18 00:19 Source: patient and EMS Mode of arrival: EMS Limitations: no limitations History of Present Illness HPI Narrative: 22 yo M c/o severe R leg pain along with back pain. 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 EMS gave 8mg IV morphine en route which helped minimally. Pt stated it feels as if spinal hardware migrated in the paraspinal distribution. Pain is severe and constant. It is worse with movement of the trunk. Pt reports hx frequent UTIs. MD Complaint: Reports back pain and back injury Onset (ago): hour(s) Duration: Reports constant Similar Symptoms Previously: Yes Location: Reports lumbar spine and thoracic spine Severity: severe Quality: Reports stabbing and spasming Radiation: Reports right leg Severity scale (1-10): 10 Relieving factors: medication Related Data Home Medications Medication Instructions Recorded Confirmed atenolol 5 mg PO DAILY 08/28/18 10/04/18 docusate sodium [Colace] 100 mg PO DAILY 08/28/18 10/04/18 omeprazole magnesium [Prilosec OTC] 20 mg PO DAILY 08/28/18 10/04/18 Previous Rx's Medication Instructions Recorded ciprofloxacin HCl [Cipro] 500 mg PO Q12H #14 tab 08/29/18 Allergies Allergy/AdvReac Type Severity Reaction Status Date / Time No Known Allergies Allergy Verified 08/28/18 22:08 Review of Systems ROS: all other systems reviewed are negative [facility] Social History Social History Substance History: No History of Abuse Second Hand Smoke Exposure: Yes Smoking Status: Former smoker Tobacco Type: Cigarettes How Often Do You Have a Drink Containing Alcohol: Monthly or less Recent Travel in [facility] within the Last 8 Weeks: No Recent Out of Country Travel within the Last 8 Weeks: No Immunization History Tetanus Immunization: <5 Years Exam Narrative Exam Narrative: GENERAL: 22 yo M, chronically severe distress 2/2 pain SKIN: R buttocks with approx 3cm wound. HEAD: Atraumatic. Normocephalic. EYES: Pupils equal and round. No scleral icterus. No injection or drainage. ENT: No nasal bleeding or discharge. Mucous membranes pink and moist. NECK: Trachea midline. No JVD. CARDIOVASCULAR: Tachycardia. Regular rhythm. RESPIRATORY: Tachypnea. Lungs clear. GASTROINTESTINAL: Voluntary guarding. No focal tenderness. MUSCULOSKELETAL:Atrophy bilateral lower extremities with paralysis. NEUROLOGICAL: Severe distress. Speaking single words at times. Bilateral LE paralysis. PSYCHIATRIC: Anxiety. Severe pain. Course Initial Documented Vital Signs Temperature 99.3 F 10/04/18 00:16 Pulse Rate 114 H 10/04/18 00:16 Respiratory Rate 26 H 10/04/18 00:16 Blood Pressure 162/79 H 10/04/18 00:16 Pulse Oximetry 100 10/04/18 00:16 Last Documented Vital Signs Temperature 99 F 10/04/18 00:26 Pulse Rate 95 H 10/04/18 02:48 Respiratory Rate 20 10/04/18 00:26 Blood Pressure 131/58 L 10/04/18 02:48 Pulse Oximetry 100 10/04/18 02:48 Critical Care Time Critical Care Time: Yes Total Critical Care Time: 35 Attestation: Aggregate critical care time was 45 minutes. Time to perform other separately billable procedures was not included in the critical care time. My time did not include minutes spent treating any other patients simultaneously or on activities that did not directly contribute to the patient's treatment. The services I provided to this patient were to treat and/or prevent clinically significant deterioration that could result in: intractable pain, disability I provided critical care services requiring my management, as noted below: Chart data review, documentation time, medication orders and management, vital sign assessments/reviewing monitor data, ordering and reviewing lab tests, ordering and interpreting/reviewing x-rays and diagnostic studies, care of the patient and discussion of the patient with the admitting physicians. Medical Decision Making MDM Narrative Medical decision making narrative: Presentation c/w complicated UTI. Rocephin started. Tachycardia to 110s, leukocytosis 12.1, hx recurrent UTI. [facility] paged at 300AM. Ketamine, diluadid, morphine and ativan given here; pain controlled at 305AM. CT thoracic and lumbar spine reveal no acute change. d/w Dr Hong at 315AM. Medical Screen Exam Complete: Yes Emergency Medical Condition: Yes Differential Diagnosis Differential Diagnosis: uti, spasm, hardware migration. Lab Data Result diagrams: 10/04/18 01:00 10/04/18 01:00 Lab Results 10/04/18 10/04/18 10/04/18 Range/Units 01:00 01:00 01:00 WBC 12.1 H (4.0-11.0) th/mm3 RBC 4.91 (4.50-5.90) mil/mm3 Hgb 13.0 (13.0-17.0) gm/dL Hct 38.8 L (39.0-51.0) % MCV 79.1 L (80.0-100.0) fL MCH 26.5 L (27.0-34.0) pg MCHC 33.5 (32.0-36.0) % RDW 16.3 (11.6-17.2) % Plt Count 183 (150-450) th/mm3 MPV 9.2 (7.0-11.0) fL Neut % (Auto) 77.7 H (16.0-70.0) % Lymph % (Auto) 15.6 (9.0-44.0) % Bee % (Auto) 6.1 (0.0-8.0) % Eos % (Auto) 0.2 (0.0-4.0) % Baso % (Auto) 0.4 (0.0-2.0) % Neut # (Auto) 9.4 H (1.8-7.7) th/mm3 Lymph # (Auto) 1.9 (1.0-4.8) th/mm3 Bee # (Auto) 0.7 (0.0-0.9) th/mm3 Eos # (Auto) 0.0 (0.0-0.4) th/mm3 Baso # (Auto) 0.1 (0.0-0.2) th/mm3 WBC Differential . Differential Comment Auto diff final Sodium 137 (136-145) meq/L Potassium 3.7 (3.5-5.1) meq/L Chloride 105 (98-107) meq/L Carbon Dioxide 23.9 (21.0-32.0) meq/L Anion Gap 8 (5-15) meq/L BUN 12 (7-18) mg/dL Creatinine 0.59 L (0.60-1.30) mg/dL Estimated GFR Greater than 89 (>89) mL/min Random Glucose 94 (74-106) mg/dL Lactic Acid (0.4-2.0) mmol/L Calcium 8.4 L (8.5-10.1) mg/dL Magnesium 1.9 (1.5-2.5) mg/dL Total Bilirubin 1.0 (0.2-1.0) mg/dL AST 15 (15-37) U/L ALT 16 (12-78) U/L Alkaline Phosphatase 64 (45-117) U/L Total Protein 8.4 H (6.4-8.2) g/dL Albumin 3.5 (3.4-5.0) g/dL Urine Color Yellow (Yellw/Straw) Urine Clarity Turbid H (Clear) Urine pH 8.0 (5.0-8.5) Ur Specific [place] 1.012 (1.002-1.035) Urine Protein 30 H (Neg-Trace) mg/dL Urine Glucose (UA) Negative (Negative) mg/dL Urine Ketones Negative (Negative) mg/dL Urine Occult Blood Negative (Negative) Urine Nitrate Negative (Negative) Urine Bilirubin Negative (Negative) Urine Urobilinogen 4 or greater (Less than 2) mg/dL Ur Leukocyte Esterase Large H (Negative) Urine RBC 7 H (0-3) /hpf Urine WBC (0-5) /hpf Urine WBC Clumps Many H (None) Urine Bacteria Moderate H (None) /hpf Micro UA Comment Cath-culture ind Ur Microscopic Review Not Reportable Urine Culture Comments Cath-cult indicated 10/04/18 Range/Units 01:07 WBC (4.0-11.0) th/mm3 RBC (4.50-5.90) mil/mm3 Hgb (13.0-17.0) gm/dL Hct (39.0-51.0) % MCV (80.0-100.0) fL MCH (27.0-34.0) pg MCHC (32.0-36.0) % RDW (11.6-17.2) % Plt Count (150-450) th/mm3 MPV (7.0-11.0) fL Neut % (Auto) (16.0-70.0) % Lymph % (Auto) (9.0-44.0) % Bee % (Auto) (0.0-8.0) % Eos % (Auto) (0.0-4.0) % Baso % (Auto) (0.0-2.0) % Neut # (Auto) (1.8-7.7) th/mm3 Lymph # (Auto) (1.0-4.8) th/mm3 Bee # (Auto) (0.0-0.9) th/mm3 Eos # (Auto) (0.0-0.4) th/mm3 Baso # (Auto) (0.0-0.2) th/mm3 WBC Differential Differential Comment Sodium (136-145) meq/L Potassium (3.5-5.1) meq/L Chloride (98-107) meq/L Carbon Dioxide (21.0-32.0) meq/L Anion Gap (5-15) meq/L BUN (7-18) mg/dL Creatinine (0.60-1.30) mg/dL Estimated GFR (>89) mL/min Random Glucose (74-106) mg/dL Lactic Acid 0.8 (0.4-2.0) mmol/L Calcium (8.5-10.1) mg/dL Magnesium (1.5-2.5) mg/dL Total Bilirubin (0.2-1.0) mg/dL AST (15-37) U/L ALT (12-78) U/L Alkaline Phosphatase (45-117) U/L Total Protein (6.4-8.2) g/dL Albumin (3.4-5.0) g/dL Urine Color (Yellw/Straw) Urine Clarity (Clear) Urine pH (5.0-8.5) Ur Specific [place] (1.002-1.035) Urine Protein (Neg-Trace) mg/dL Urine Glucose (UA) (Negative) mg/dL Urine Ketones (Negative) mg/dL Urine Occult Blood (Negative) Urine Nitrate (Negative) Urine Bilirubin (Negative) Urine Urobilinogen (Less than 2) mg/dL Ur Leukocyte Esterase (Negative) Urine RBC (0-3) /hpf Urine WBC (0-5) /hpf Urine WBC Clumps (None) Urine Bacteria (None) /hpf Micro UA Comment Ur Microscopic Review Urine Culture Comments Imaging Data Radiologist's impression: Lumbar Spine CT 10/04/18 01:06 CONCLUSION: 1. Stable remote trauma across the thoracolumbar junction as above with postsurgical changes. No acute findings. No CT findings for hardware failure. Thoracic Spine CT 10/04/18 01:06 CONCLUSION: 1. No acute findings within the thoracic spine. Previous fusion across the thoracolumbar junction. Within the thoracic spine with pedicle screws and fixation rods appear intact. Discharge Plan Discharge Disposition Patient Disposition: 30 Still Patient Physicians Team ED Provider: Yeyo Hernandez Primary Care Provider: UNKNOWN, Attending Provider: Amanda Hong Status ED Status: Admitted Patient
[2018-10-04] MEDS ORDERED: Bisacodyl 10 MG Supp RECTAL PRN (03:12)
[2018-10-04] MEDS ORDERED: Acetaminophen 325 MG Tablet PO PRN (03:12)
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
[2018-10-04] MEDS: HYDROmorphone PF Inj 2 MG/ML Vial IV.PUSH PRN ×3 (05:10→21:10)
[2018-10-04] MEDS: Pantoprazole Sodium 20 MG DR Tablet PO SCH (08:11)
[2018-10-04] MEDS: Atenolol 25 MG Tablet PO SCH (08:11)
[2018-10-04] MEDS: Senna/Docusate Sodium 8.6/50 MG Tablet PO SCH ×2 (08:11→21:05)
[2018-10-04] MEDS: Sod Chloride 0.9% Inj 1,000 ML IV.CONT SCH ×4 (08:13→15:15)
[2018-10-05] MEDS: Sod Chloride 0.9% Inj 1,000 ML IV.CONT SCH ×3 (06:15→22:40)
[2018-10-05 06:51] LABS: Baso % (Auto) 0.2 % (0.0-2.0); Eos % (Auto) 0.5 % (0.0-4.0); Hematocrit 36.4 % (39.0-51.0); Hemoglobin 12.4 gm/dL (13.0-17.0); Lymph # (Auto) 1.5 th/mm3 (1.0-4.8); Lymph % (Auto) 20.9 % (9.0-44.0); Mean Corpuscular HGB Conc 34.1 % (32.0-36.0); Mean Corpuscular Hemoglobin 26.9 pg (27.0-34.0); Mean Platelet Volume 8.7 fL (7.0-11.0); Mono # (Auto) 0.4 th/mm3 (0.0-0.9); Mono % (Auto) 5.2 % (0.0-8.0); Neut # (Auto) 5.2 th/mm3 (1.8-7.7); Neut % (Auto) 73.2 % (16.0-70.0); Platelet Count 171 th/mm3 (150-450); Red Cell Distribution Width 16.2 % (11.6-17.2); White Blood Count 7.1 th/mm3 (4.0-11.0)
[2018-10-05 07:16] LABS: Alanine Aminotransferase 13 U/L (12-78); Anion Gap 5 meq/L (5-15); Aspartate Aminotransferase 13 U/L (15-37); Blood Urea Nitrogen 6 mg/dL (7-18); Calcium 8.3 mg/dL (8.5-10.1); Carbon Dioxide 26.8 meq/L (21.0-32.0); Chloride 106 meq/L (98-107); Glomerular Filtration Rate Greater Than 89 mL/min (>89); Glucose,Random 77 mg/dL (74-106); Potassium 3.8 meq/L (3.5-5.1); Sodium 138 meq/L (136-145)
[2018-10-05 07:19] LABS: Alkaline Phosphatase 65 U/L (45-117); Total Protein 7.8 g/dL (6.4-8.2)
[2018-10-05] MEDS: Pantoprazole Sodium 20 MG DR Tablet PO SCH (09:43)
[2018-10-05] MEDS: Senna/Docusate Sodium 8.6/50 MG Tablet PO SCH ×2 (09:43→21:19)
[2018-10-05] MEDS: Atenolol 25 MG Tablet PO SCH (09:43)
--- NOTE | 2018-10-05 11:41 | P.PNWCN ---
Wound Care Nurse Consult Description: Received wound management consult for pressure ulcer to buttock area Communicated with: SIOBHAN Costa and call placed to Doctor Recommendation: 1.Please cleanse wound to L ischial area with normal saline or wound cleanser and pat dry. 2. Apply Puracol plus to wound bed and cover with optifoam 4x4 gentle border available through misogram only. 3. Change dressing every 5 days or as needed if saturated or dislodged. 4. Please vocera wound care nurse for wound deterioration. 5. Limit layers under patient. Do not use Cotton under pads on low airloss bed.Use ultra sorb pad for moisture management. 6. Encourage and assist patient with turning repositioning in bed every 2 hours or as needed for comfort and offloading of pressure from conrado prominences. 7. Place patient on low airloss bed/ mattress when it arrives. Wound/Pressure Injury - Wound Left Ischium Wound Staging: Stage III Wound Assessment: Ongoing Wound Type: Pressure Injury Is This a Chronic Wound: No Requested from Provider a Wound Care Consult: Yes Length (cm): 2.2 Width (cm): 2.6 Depth (cm): 0.1 Wound Bed Appearance: Red Wound Bed Appearance: 90% red granulation tissue, ~10% thin white tissue.Periwound is unremarkable. Surrounding Tissue Temperature: Cool Drainage Description: Serosanguinous Drainage Amount: Scant Drainage Odor: No Odor Dressing Status: Changed Cleansing Solution: Saline Wound Packing Type: Collagen (puracol plus) Cover Dressing: optifoam gentle 4x4 Wound Dressing Change Date: 10/05/18 Wound Margin Description: Wound margins are even, well defined. Wound has a round shape. - Additional Information Patient seen on for evaluation of possible pressure injury to Sacral/ buttock area. Patient is observed laying in bowling [place] rom regular hospital bed surface. Patient was turned with minimal assistance of SIOBHAN [place] toward the L side for wound assessment. Patient is noted with open wound to L ischial area. Full wound description, measurements and wound care recommendations are noted above. Wound is a shallow stage III pressure injury with even well defined wound margins. Wound is clean with ~90% red granulation tissue, and drainage is scant, thin, sero-sanguinous, without odor. Periwound is unremarkable. Wound was cleaned with normal saline.Applied sureprep, skin barrier film to periwound. Applied puracol plus collagen dressing wound bed and covered wound with Optifoam gentle 4x4 dressing. Dressing was initialed and dated. Patient tolerated dressing change well.
--- NOTE | 2018-10-05 12:34 | P.PN ---
Physical Exam Vital signs: Vital Signs 10/04/18 16:00 10/04/18 20:00 10/04/18 20:10 Temperature 98.0 F Pulse Rate 93 H 80 Respiratory Rate 17 19 Blood Pressure 135/77 Pulse Oximetry 100 10/05/18 00:00 10/05/18 00:10 10/05/18 05:15 Temperature 98.7 F 98.2 F Pulse Rate 81 76 63 Respiratory Rate 19 18 Blood Pressure 140/81 113/66 Pulse Oximetry 98 98 10/05/18 08:00 10/05/18 09:00 Temperature 98.3 F Pulse Rate 63 68 Respiratory Rate 16 Blood Pressure 122/59 L Pulse Oximetry 99 Intake & Output 10/04/18 10/05/18 10/05/18 18:59 06:59 18:59 Intake Total 2493 / 2493 2597 / 2597 800 / 800 Output Total 950 / 950 2400 / 2400 Balance 1543 / 1543 197 / 197 800 / 800 Weight 77.1 kg Intake: IV 1293 / 1293 797 / 797 800 / 800 NS Inj 1,000 ML @ 100 mls/hr IV 1293 / 1293 697 / 697 800 / 800 .CONT .Q10H LONG Rx#:[id number] Rocephin Inj 1,000 MG In NS Inj 100 / 100 100 ML @ 200 mls/hr IV.SIG Q24H LONG Rx#:[id number] Oral 1200 / 1200 1800 / 1800 Output: Urine 950 / 950 Urine Amount (Catheter) 2400 / 2400 Indwelling Urethral Catheter 2400 / 2400 Other: Date of Last Bowel Movement 10/03/18 10/03/18 # Bowel Movements 0 - Urinary Catheter Management Indwelling Urethral Catheter Cath placed during this visit: yes Reason for continuing: Chronic Urinary Retention Insertion date: 10/04/18 Insertion time: 17:26 Results - Labs CBC & Chem 7: 10/05/18 06:16 10/05/18 06:16 Laboratory Results - last 24 hr 10/04/18 10/05/18 10/05/18 01:00 06:16 06:16 WBC 7.1 RBC 4.60 Hgb 12.4 L Hct 36.4 L MCV 79.0 L MCH 26.9 L MCHC 34.1 RDW 16.2 Plt Count 171 MPV 8.7 Neut % (Auto) 73.2 H Lymph % (Auto) 20.9 [place] % (Auto) 5.2 Eos % (Auto) 0.5 Baso % (Auto) 0.2 Neut # (Auto) 5.2 Lymph # (Auto) 1.5 [place] # (Auto) 0.4 Eos # (Auto) 0.0 Baso # (Auto) 0.0 WBC Differential . Differential Comment Auto diff final Sodium 138 Potassium 3.8 Chloride 106 Carbon Dioxide 26.8 Anion Gap 5 BUN 6 L Creatinine 0.43 L Estimated GFR Greater than 89 Random Glucose 77 Calcium 8.3 L Total Bilirubin 1.3 H AST 13 L ALT 13 Alkaline Phosphatase 65 Total Protein 7.8 D Albumin 3.0 L Urine Color Yellow Urine Clarity Turbid H Urine pH 8.0 Ur Specific [place] 1.012 Urine Protein 30 H Urine Glucose (UA) Negative Urine Ketones Negative Urine Occult Blood Negative Urine Nitrate Negative Urine Bilirubin Negative Urine Urobilinogen 4 or greater Ur Leukocyte Esterase Large H Urine RBC 7 H Urine WBC Urine WBC Clumps Many H Urine Bacteria Moderate H Micro UA Comment Cath-culture ind Urine Culture Comments Cath-cult indicated Microbiology 10/04/18 01:00 Catheterized Urine Urine Culture - Final Escherichia coli Assessment and Plan - Assessment (1) SIRS (systemic inflammatory response syndrome) Code(s): R65.10 - Systemic inflammatory response syndrome (SIRS) of non- infectious origin without acute organ dysfunction Status: Acute (2) UTI (urinary tract infection) Code(s): N39.0 - Urinary tract infection, site not specified Status: Acute (3) Paraplegia Code(s): G82.20 - Paraplegia, unspecified Status: Acute (4) Intractable pain Code(s): R52 - Pain, unspecified Status: Acute
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
[2018-10-06] MEDS: Sod Chloride 0.9% Inj 1,000 ML IV.CONT SCH (06:12)
[2018-10-06] MEDS: Pantoprazole Sodium 20 MG DR Tablet PO SCH (08:48)
[2018-10-06] MEDS: Senna/Docusate Sodium 8.6/50 MG Tablet PO SCH (08:49)
[2018-10-06] MEDS: Atenolol 25 MG Tablet PO SCH (08:49)
[2018-10-06 08:50] VITALS: BP 112/67; PULSE 72; RESP 16; TEMP 97.8; O2SAT 100
== END 2018-10-06 13:17 | disposition home or self-care (01) ==
LOC: NEPE 00:13 → NEDA 03:12 → N06 04:28
PROVIDERS: ADMIT Hospitalist; ATTEND Hospitalist

== ENCOUNTER 2018-10-16 03:25 | Inpatient (IN) ==
[2018-10-16] MEDS ORDERED: HYDROmorphone PF Inj 1 MG/ML Ampul IV.PUSH ONE (03:33)
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
[2018-10-16] MEDS ORDERED: Sod Chloride 0.9% Inj 1,000 ML IV.SIG SCH (03:45)
[2018-10-16 04:22] LABS: Baso # (Auto) 0.1 th/mm3 (0.0-0.2); Baso % (Auto) 0.4 % (0.0-2.0); Eos # (Auto) 0.1 th/mm3 (0.0-0.4); Eos % (Auto) 0.4 % (0.0-4.0); Hematocrit 39.8 % (39.0-51.0); Hemoglobin 13.5 gm/dL (13.0-17.0); Lymph # (Auto) 2.5 th/mm3 (1.0-4.8); Lymph % (Auto) 16.8 % (9.0-44.0); Mean Corpuscular Hemoglobin 26.7 pg (27.0-34.0); Mean Corpuscular Volume 78.5 fL (80.0-100.0); Mean Platelet Volume 8.8 fL (7.0-11.0); Mono # (Auto) 0.7 th/mm3 (0.0-0.9); Mono % (Auto) 4.4 % (0.0-8.0); Neut # (Auto) 11.7 th/mm3 (1.8-7.7); Platelet Count 247 th/mm3 (150-450); Red Blood Count 5.06 mil/mm3 (4.50-5.90); Red Cell Distribution Width 16.6 % (11.6-17.2)
[2018-10-16 04:37] LABS: Alkaline Phosphatase 69 U/L (45-117)
[2018-10-16 04:40] LABS: Bacteria,Urine Moderate /hpf; Bilirubin,Urine Negative (Negative); Clarity,Urine Turbid (Clear); Color,Urine Yellow (Yellw/Straw); Glucose,Urine (UA) Negative (Negative); Leukocyte Esterase,Urine Moderate (Negative); Nitrite,Urine Negative (Negative); Specific Gravity,Urine 1.017 (1.002-1.035)
[2018-10-16] MEDS ORDERED: SODIUM CHLOR 0.9% IV.SIG STA (04:41)
[2018-10-16] MEDS ORDERED: GENTAMICIN IV.SIG STA (04:41)
[2018-10-16 04:44] LABS: Alanine Aminotransferase 16 U/L (12-78); Albumin 3.7 g/dL (3.4-5.0); Anion Gap 6 meq/L (5-15); Aspartate Aminotransferase 17 U/L (15-37); Blood Urea Nitrogen 15 mg/dL (7-18); Calcium 8.5 mg/dL (8.5-10.1); Carbon Dioxide 28.4 meq/L (21.0-32.0); Chloride 105 meq/L (98-107); Glomerular Filtration Rate Greater Than 89 mL/min (>89); Glucose,Random 84 mg/dL (74-106); Potassium 4.3 meq/L (3.5-5.1); Sodium 139 meq/L (136-145)
[2018-10-16] MEDS ORDERED: Acetaminophen 325 MG Tablet PO PRN (04:54)
[2018-10-16] MEDS ORDERED: Bisacodyl 10 MG Supp RECTAL PRN (04:54)
--- NOTE | 2018-10-16 05:10 | P.HPIM ---
History of Present Illness History of Present Illness: This is a 22-year-old male with a PMH of Paraplegia, Neurogenic Bladder, Chronic Decubitus Ulcer and Recurrent UTI who presented to the ER w/ severe cramping to lower extremities. Recent admit 10/04-10/05/18 for UTI/SIRS, urine cultures +E. Coli, s/p Ceftin PO, d/c'd w/ instructions to follow up w/ Urology as outpatient for recurrent UTI. Returns now w/ cramping which is common for him when he has UTI per family. On arrival to ER, pt screaming in pain, not providing much history. S/p Dilaudid, now calm. Denies fever or chills. On arrival, BP 122/72, HR 108, O2 sat 97% on RA, Afebrile. WBC 15 per chemistry unremarkable. UA positive for UTI. S/p Rocephin in ER. - Diagnosis (1) SIRS (systemic inflammatory response syndrome) (2) UTI (urinary tract infection) (3) Paraplegia Inpatient Certification: I certify that the inpatient services were ordered in accordance with Medicare regulations governing the order. This includes certification that hospital inpatient services are reasonable and necessary and in the case of services not specified as inpatient-only under 42 CFR 419.22(n), that they are appropriately provided as inpatient services in accordance to with the 2-midnight benchmark under 43 CFR 412.3(e) Estimated Total Length of Stay (Days): 2 Plans for Post Hospital Care: Not yet determined Review of Systems PAST FAMILY HISTORY: Reviewed. No h/o DM or CAD All other systems reviewed negative except as stated in HPI PMFSH - History History Provided By: Patient, Physical Therapist Aide / EMT - Medical History Medical History: Medical History (Last Reviewed 08/28/18 @ 23:15 by STEFAN Tapia) Constipation Depression HTN (hypertension) Headache Neurogenic bladder Paraplegia UTI (urinary tract infection) - Surgical History Surgical History: Surgical History (Last Reviewed 08/28/18 @ 23:15 by STEFAN Tapia) H/O Spinal surgery - Family History Family History: Family History (Last Reviewed 08/28/18 @ 23:15 by TSEFAN Tapia) Grandparent Diabetes - Tobacco History Second Hand Smoke Exposure: No Smoking Status: Unknown if ever smoked Tobacco Type: Cigarettes - Alcohol History How Often Do You Have a Drink Containing Alcohol: Monthly or less - Substance Use History Substance History: Past History - Travel History Recent Travel in the [place] Within the Last 8 Weeks: No Recent Travel Out of the Country Within the Last 8 Weeks: No - Immunization History Tetanus Immunization: Unsure Medications and Allergies Active Medications: Active Medications Acetaminophen (Tylenol) 650 mg PO Q4H PRN PRN Reason: Temp > 100.4 Al Hydroxide/Mg Hydroxide (Milk Of Magnesia Liq) 30 ml PO Q12H PRN PRN Reason: Mild Constipation Bisacodyl (Dulcolax Supp) 10 mg RECTAL DAILY PRN PRN Reason: SEVERE CONSITIPATION Heparin Sodium (Porcine) (Heparin Inj) 5,000 units SQ Q12H LONG Hydromorphone HCl (Dilaudid Pf Inj) 1 mg IV.PUSH Q4H PRN PRN Reason: PAIN 6-10 Ceftriaxone Sodium 1,000 mg/ (Sodium Chloride) 100 mls @ 200 mls/hr IV.SIG ONCE ONE Stop: 10/16/18 05:23 Sodium Chloride (Ns Inj) 1,000 mls @ 100 mls/hr IV.CONT .Q10H LONG Ceftriaxone Sodium 1,000 mg/ (Sodium Chloride) 100 mls @ 200 mls/hr IV.SIG Q24H LONG Lactulose (Lactulose Liq) 30 ml PO DAILY PRN PRN Reason: SEVERE CONSITIPATION Lorazepam (Ativan Inj) 1 mg IV.PUSH Q4H PRN PRN Reason: AGITATION/ANXIETY Ondansetron HCl (Zofran Inj) 4 mg IV.PUSH Q6H PRN PRN Reason: NAUSEA OR VOMITING Senna/Docusate Sodium (Ca-Colace) 1 tab PO BID LONG Sennosides (Senokot) 17.2 mg PO Q12H PRN PRN Reason: Moderate Constipation Sodium Chloride (Ns Flush) 2 ml IV.FLUSH PRN PRN PRN Reason: FLUSH AFTER USING IV ACCESS Sodium Chloride (Ns Flush) 2 ml IV.FLUSH BID LONG Sodium Chloride (Ns Flush) 2 ml IV.FLUSH PRN PRN PRN Reason: FLUSH AFTER USING IV ACCESS Allergies Allergy/AdvReac Type Severity Reaction Status Date / Time No Known Allergies Allergy Verified 08/28/18 22:08 Home Medications Medication Instructions Recorded Confirmed Type atenolol 5 mg PO DAILY 08/28/18 10/04/18 History docusate sodium [Colace] 100 mg PO DAILY 08/28/18 10/04/18 History omeprazole magnesium [Prilosec OTC] 20 mg PO DAILY 08/28/18 10/04/18 History Exam Vital signs: Vital Signs 10/16/18 03:49 Temperature 97.7 F Pulse Rate 108 H Respiratory Rate 38 H Blood Pressure 122/72 Pulse Oximetry 97 Intake & Output 10/15/18 10/15/18 10/16/18 06:59 18:59 06:59 Weight 65.771 kg Narrative: PE: GENERAL: Young black male in no acute distress, calm after receiving Dilaudid. SKIN: Focused skin assessment warm and dry. Right gluteal decubitus, present on admission. HEENT: PERRLA, EOMI. No scleral icterus or conjunctival pallor. No lid lag or facial droop. CARDIOVASCULAR: Regular rate and rhythm. No obvious murmurs to auscultation. No chest tenderness to palpation. RESPIRATORY: No obvious rhonchi or wheezing. Clear to auscultation. Breath sounds equal bilaterally. GASTROINTESTINAL: Abdomen soft, non-tender, nondistended. BS normal. MUSCULOSKELETAL: Extremities without clubbing, cyanosis, or edema. No obvious deformities. NEUROLOGICAL: Awake, alert and oriented x4. No new focal neurologic deficits, + paraplegia. PSYCHIATRIC: Appropriate mood and affect. Insight and judgment normal. Results - Labs CBC & Chem 7: 10/16/18 04:00 10/16/18 04:00 Labs: Short CBC 10/16/18 Range/Units 04:00 WBC 15.0 H (4.0-11.0) th/mm3 Hgb 13.5 (13.0-17.0) gm/dL Hct 39.8 (39.0-51.0) % Plt Count 247 D (150-450) th/mm3 BMP 10/16/18 04:00 Sodium 139 Potassium 4.3 Chloride 105 Carbon Dioxide 28.4 BUN 15 Creatinine 0.59 L Calcium 8.5 Liver Function 10/16/18 Range/Units 04:00 Total Bilirubin 0.8 (0.2-1.0) mg/dL AST 17 (15-37) U/L ALT 16 (12-78) U/L Alkaline Phosphatase 69 (45-117) U/L Albumin 3.7 (3.4-5.0) g/dL Urine 10/16/18 Range/Units 04:20 Urine Color Yellow (Yellw/Straw) Urine Clarity Turbid H (Clear) Urine pH 5.0 (5.0-8.5) Ur Specific [place] 1.017 (1.002-1.035) Urine Protein 100 H (Neg-Trace) mg/dL Urine Glucose (UA) Negative (Negative) mg/dL Caprini VTE Risk Assessment Caprini VTE Risk Assessment: No/Low Risk (score <= 1) Caprini Risk Assessment Model: Point Value = 1 Point Value = 2 Point Value = 3 Point Value = 5 Age 41-60 Minor surgery BMI > 25 kg/m2 Swollen legs Varicose veins or History of unexplained or recurrent spontaneous Oral contraceptives or hormone replacement Sepsis (< 1 month) Serious lung disease, including pneumonia (< 1 month) Abnormal pulmonary function Acute myocardial infarction Congestive heart failure (< 1 month) History of inflammatory bowel disease Medical patient at bed rest Age 61-74 Arthroscopic surgery Major open surgery (> 45 min) Laparoscopic surgery (> 45 min) Malignancy Confined to bed (> 72 hours) Immobilizing plaster cast Central venous access Age >= 75 History of VTE Family history of VTE Factor V Leiden Prothrombin [id number] Lupus anticoagulant Anticardiolipin antibodies Elevated serum homocysteine Heparin-induced thrombocytopenia Other congenital or acquired thrombophilia Stroke (< 1 month) Elective arthroplasty Hip, pelvis, or leg fracture Acute spinal cord injury (< 1 month) Prophylaxis Regimen: Total Risk Factor Score Risk Level Prophylaxis Regimen 0-1 Low Early ambulation 2 Moderate Order ONE of the following: *Sequential Compression Device (SCD) *Heparin 5000 units SQ BID 3-4 Higher Order ONE of the following medications: *Heparin 5000 units SQ TID *Enoxaparin/Lovenox 40 mg SQ daily (WT < 150 kg, CrCl > 30 mL/min) *Enoxaparin/Lovenox 30 mg SQ daily (WT < 150 kg, CrCl > 10-29 mL/min) *Enoxaparin/Lovenox 30 mg SQ BID (WT < 150 kg, CrCl > 30 mL/min) AND/OR *Sequential Compression Device (SCD) 5 or more Highest Order ONE of the following medications: *Heparin 5000 units SQ TID (Preferred with Epidurals) *Enoxaparin/Lovenox 40 mg SQ daily (WT < 150 kg, CrCl > 30 mL/min) *Enoxaparin/Lovenox 30 mg SQ daily (WT < 150 kg, CrCl > 10-29 mL/min) *Enoxaparin/Lovenox 30 mg SQ BID (WT < 150 kg, CrCl > 30 mL/min) AND *Sequential Compression Device (SCD) Assessment and Plan - Assessment (1) SIRS (systemic inflammatory response syndrome) Code(s): R65.10 - Systemic inflammatory response syndrome (SIRS) of non- infectious origin without acute organ dysfunction Status: Acute (2) UTI (urinary tract infection) Code(s): N39.0 - Urinary tract infection, site not specified Status: Acute (3) Paraplegia Code(s): G82.20 - Paraplegia, unspecified Status: Acute - Plan A/P: 1. SIRS: HR 108, WBC 15, Source-UTI, s/p Blood Cultures and Rocephin IV, follow up cultures, continue IV Abx. 2. UTI: Recurrent, h/o Paraplegia/Neurogenic Bladder/Recurrent UTI, recent admit 10/04/18 for same, urine culture at that time +E.Coli pansensitive, MICs reviewed, s/p Rocephin IV in ER, will continue w/ IV Abx, follow up urine cultures, plan for outpatient Urology eval in light of recurrent UTI. 3. Paraplegia: h/o paraplegia/neurogenic bladder as above, currently stable, c /o severe cramping on arrival, s/p Dilaudid w/ improvement, analgesics/ antiemetics as needed. 4. DVT Prophylaxis: Heparin sq 5. Social work for d/c planning as needed 6. Case discussed w/ ER physician at length, labs/records/imaging reviewed by me.
[2018-10-16] MEDS: Sod Chloride 0.9% Inj 1,000 ML IV.CONT SCH ×2 (10:23→19:41)
[2018-10-16] MEDS: Heparin - SQ 10,000 UNITS/ML Vial SQ SCH ×3 (10:25→20:55)
[2018-10-16] MEDS: Senna/Docusate Sodium 8.6/50 MG Tablet PO SCH ×3 (10:25→20:55)
--- NOTE | 2018-10-16 16:22 | P.PNWCN ---
Wound Care Nurse Consult Description: Received pressure ulcer consult for L buttock from Diandra Marc APRN Communicated with: SIOBHAN Simms CDU and Diandra Marc APRN Recommendation: 1.Please cleanse wound with normal saline or wound cleanser and gauze pad, and pat dry 2. Apply Cavilon skin barrier film spray to periwound and cover wound with Optifoam gentle 4x4 dressing. 3. Change dressing every 3 days or PRN if saturated or dislodged. 4. Turn patient every 2 hours from L side to R side avoiding time spent on back to P. T. and meals. 5. please transfer patient to [address] [facility] when it arrives. Wound/Pressure Injury - Wound Left Ischium Wound Staging: Stage III Wound Assessment: Ongoing Wound Type: Pressure Injury Is This a Chronic Wound: No Requested from Provider a Wound Care Consult: Yes (Wound care saw patient ) Length (cm): 1.8 (~1.8cm) Width (cm): 2 (~2cm) Depth (cm): 0.2 (~0.2cm) Wound Bed Appearance: Red, Yellow Wound Bed Appearance: Wound bed presents with ~80% pale red tissue and ~20% thin yellow tissue Surrounding Tissue Appearance: [place] Surrounding Tissue Temperature: Cool Drainage Description: Serosanguinous Drainage Amount: Scant Drainage Odor: No Odor Dressing Status: Changed Cleansing Solution: Saline Cover Dressing: Optifoam gentle border 4x4 dressing Wound Dressing Change Date: 10/16/18 Wound Margin Description: Well defined and open - Additional Information Patient seen on H pod in CDU for L buttock pressure ulcer evaluation.Patient has been seen before on previous admission for the same wound on the L ischial area. Patient was turned toward the L side with the assistance of science writer. Removed dressing in place to reveal open wound with ~80% pale red tissue and ~20 % thin yellow tissue. Wound is moist with scant sero-sanguinous drainage and no foul odor. Wound is pressure related and is a stage III.Wound was cleansed with normal saline and patted dry. Cavilon skin barrier film was applied to periwound before optifoam 4x4 dressing was applied over open wound. Full wound description, measurements and recommendations are noted above.
[2018-10-16] MEDS: HYDROmorphone PF Inj 2 MG/ML Vial IV.PUSH PRN (19:40)
[2018-10-17] MEDS: Sod Chloride 0.9% Inj 1,000 ML IV.CONT SCH ×3 (03:33→22:53)
[2018-10-17 05:23] LABS: Baso % (Auto) 0.5 % (0.0-2.0); Eos # (Auto) 0.1 th/mm3 (0.0-0.4); Eos % (Auto) 1.4 % (0.0-4.0); Hematocrit 34.8 % (39.0-51.0); Lymph % (Auto) 30.3 % (9.0-44.0); Mean Corpuscular HGB Conc 34.5 % (32.0-36.0); Mean Corpuscular Hemoglobin 27.2 pg (27.0-34.0); Mean Corpuscular Volume 78.9 fL (80.0-100.0); Mean Platelet Volume 8.3 fL (7.0-11.0); Mono # (Auto) 0.3 th/mm3 (0.0-0.9); Mono % (Auto) 3.9 % (0.0-8.0); Neut # (Auto) 4.3 th/mm3 (1.8-7.7); Neut % (Auto) 63.9 % (16.0-70.0); Platelet Count 205 th/mm3 (150-450); Red Blood Count 4.41 mil/mm3 (4.50-5.90); Red Cell Distribution Width 16.8 % (11.6-17.2); White Blood Count 6.7 th/mm3 (4.0-11.0)
[2018-10-17 05:34] LABS: Albumin 3.1 g/dL (3.4-5.0); Anion Gap 7 meq/L (5-15); Aspartate Aminotransferase 13 U/L (15-37); Blood Urea Nitrogen 6 mg/dL (7-18); Calcium 8.2 mg/dL (8.5-10.1); Carbon Dioxide 30.5 meq/L (21.0-32.0); Chloride 104 meq/L (98-107); Glomerular Filtration Rate Greater Than 89 mL/min (>89); Glucose,Random 91 mg/dL (74-106); Potassium 3.7 meq/L (3.5-5.1); Sodium 141 meq/L (136-145)
[2018-10-17 05:41] LABS: Alanine Aminotransferase 12 U/L (12-78); Alkaline Phosphatase 58 U/L (45-117); Total Protein 7.6 g/dL (6.4-8.2)
[2018-10-17] MEDS: Senna/Docusate Sodium 8.6/50 MG Tablet PO SCH ×2 (10:21→21:30)
[2018-10-17] MEDS ORDERED: Vancomycin Consult Pharmacy OTHER PRN (12:02)
[2018-10-17] MEDS ORDERED: Naloxone Inj 0.4 MG/ML Vial IV.PUSH PRN (12:14)
[2018-10-17] MEDS ORDERED: Baclofen 10 MG Tablet PO PRN (12:20)
[2018-10-17] MEDS: Heparin - SQ 10,000 UNITS/ML Vial SQ SCH ×2 (12:53→21:40)
[2018-10-17] MEDS ORDERED: Vancomycin Inj 1,000 MG in Sodium Chlor 0.9% Inj 250 ML IV.SIG SCH (13:00)
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
[2018-10-17] MEDS: HYDROmorphone PF Inj 2 MG/ML Vial IV.PUSH PRN (19:57)
[2018-10-17] MEDS: Vancomycin Inj 1,000 MG in Sodium Chlor 0.9% Inj 250 ML IV.SIG SCH (22:54)
[2018-10-18] MEDS: Vancomycin Inj 1,000 MG in Sodium Chlor 0.9% Inj 250 ML IV.SIG SCH ×3 (05:47→20:05)
[2018-10-18] MEDS: Sod Chloride 0.9% Inj 1,000 ML IV.CONT SCH ×4 (07:20→20:05)
[2018-10-18] MEDS: Heparin - SQ 10,000 UNITS/ML Vial SQ SCH ×2 (09:54→20:06)
[2018-10-18] MEDS: Senna/Docusate Sodium 8.6/50 MG Tablet PO SCH ×2 (09:54→20:06)
[2018-10-18] MEDS: HYDROmorphone PF Inj 2 MG/ML Vial IV.PUSH PRN (11:36)
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
[2018-10-19 04:13] VITALS: RESP 16; O2SAT 100
[2018-10-19] MEDS: Sod Chloride 0.9% Inj 1,000 ML IV.CONT SCH ×2 (04:16→06:19)
[2018-10-19] MEDS: Vancomycin Inj 1,000 MG in Sodium Chlor 0.9% Inj 250 ML IV.SIG SCH (04:59)
[2018-10-19 08:40] VITALS: TEMP 98.7
--- NOTE | 2018-10-19 09:23 | P.PN ---
Physical Exam Vital signs: Vital Signs 10/18/18 11:19 10/18/18 16:00 10/18/18 20:00 Temperature 98.3 F 98.1 F Pulse Rate 71 76 66 Respiratory Rate 20 16 Blood Pressure 129/77 120/71 Pulse Oximetry 99 99 10/18/18 20:06 10/18/18 20:40 10/19/18 00:00 Temperature 97.4 F L Pulse Rate 71 Respiratory Rate 16 16 17 Blood Pressure 116/69 Pulse Oximetry 10/19/18 04:00 10/19/18 08:00 Temperature 96.6 F L 98.7 F Pulse Rate 86 86 Respiratory Rate 16 16 Blood Pressure 122/57 L 131/71 Pulse Oximetry 100 100 Intake & Output 10/18/18 10/19/18 10/19/18 18:59 06:59 18:59 Intake Total 3170 / 3170 3760 / 3760 100 / 100 Output Total 500 / 500 2750 / 2750 Balance 2670 / 2670 1010 / 1010 100 / 100 Intake: IV 2350 / 2350 2750 / 2750 100 / 100 NS Inj 1,000 ML @ 100 mls/hr IV 1999 / 1999 .CONT .Q10H LONG Rx#:[id number] Vancomycin Inj 1,000 MG In NS 250 / 250 750 / 750 Inj 250 ML @ 250 mls/hr IV.SIG Q8H LONG Rx#:[id number] Rocephin Inj 1,000 MG In NS Inj 100 / 100 100 / 100 100 ML @ 200 mls/hr IV.SIG Q24H LONG Rx#:[id number] Oral 820 / 820 1010 / 1010 Output: Urine 500 / 500 1450 / 1450 Urine Amount (Catheter) 1300 / 1300 Indwelling Urethral Catheter 1300 / 1300 Other: Date of Last Bowel Movement 10/16/18 - Urinary Catheter Management Indwelling Urethral Catheter Cath placed during this visit: yes Urethral indwelling: Yes Reason for continuing: Acute urinary retention Insertion date: 10/16/18 Insertion time: 04:00 Results - Labs CBC & Chem 7: 10/17/18 04:56 10/17/18 04:56 Microbiology 10/16/18 04:00 Blood - Peripheral Aerobic Blood Culture - Preliminary No growth in 2 days 10/16/18 04:00 Blood - Peripheral Anaerobic Blood Culture - Preliminary No growth in 2 days 10/16/18 04:00 Blood - Peripheral Aerobic Blood Culture - Preliminary No growth in 2 days 10/16/18 04:00 Blood - Peripheral Anaerobic Blood Culture - Preliminary No growth in 2 days 10/16/18 14:32 Wound - Buttock Gram Stain - Final 10/16/18 14:32 Wound - Buttock Wound Culture - Final S. aureus MRSA 10/16/18 04:20 Catheterized Urine Urine Culture - Final Enterococcus faecalis Assessment and Plan - Assessment (1) SIRS (systemic inflammatory response syndrome) Code(s): R65.10 - Systemic inflammatory response syndrome (SIRS) of non- infectious origin without acute organ dysfunction Status: Acute (2) UTI (urinary tract infection) Code(s): N39.0 - Urinary tract infection, site not specified Status: Acute (3) Paraplegia Code(s): G82.20 - Paraplegia, unspecified Status: Acute (2) UTI (urinary tract infection) Qualifiers: Urinary tract infection type: acute cystitis
[2018-10-19] MEDS: Heparin - SQ 10,000 UNITS/ML Vial SQ SCH (11:12)
[2018-10-19] MEDS: Senna/Docusate Sodium 8.6/50 MG Tablet PO SCH (11:12)
[2018-10-19 11:33] VITALS: BP 141/72; PULSE 93
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
[2018-10-20] MEDS ORDERED: Pharmacy Ordered Lab Info OTHER ONE (04:45)
== END 2018-10-19 12:46 | disposition home or self-care (01) ==
LOC: NEPC 03:25 → NEDA 04:54 → NEPHCDU 07:15
PROVIDERS: ADMIT Hospitalist; ATTEND Hospitalist
DX: I10 Essential (primary) hypertension; V89.2XXS Person injured in unspecified motor-vehicle accident, traffic, sequela; K59.00 Constipation, unspecified; F32.9 Major depressive disorder, single episode, unspecified; G82.20 Paraplegia, unspecified; L89.313 Pressure ulcer of right buttock, stage 3; N31.9 Neuromuscular dysfunction of bladder, unspecified; Z87.440 Personal history of urinary (tract) infections; N39.0 Urinary tract infection, site not specified; A41.81 Sepsis due to Enterococcus